=== PATIENT | male | born 1955 | race Caucasian/White ===

== ENCOUNTER 2017-03-24 17:28 | Inpatient (IN) | payer MEDICARE, MEDICAID ==
[~2017-03-24] VITALS: Ht 193 cm; Wt 154.5 kg
[2017-03-24] MEDS ORDERED: PRAV40TA2 PO (18:08)
[2017-03-24] MEDS ORDERED: HYDR50TA70 PO (18:08)
[2017-03-24] MEDS ORDERED: ALLO100T PO (18:08)
[2017-03-24] MEDS ORDERED: SERT25TA PO (18:08)
[2017-03-24] MEDS ORDERED: CENTTAB PO (18:08)
[2017-03-24] MEDS ORDERED: FERR325T3 PO (18:08)
[2017-03-24] MEDS ORDERED: SPIR12.9 INH (18:08)
[2017-03-24] MEDS ORDERED: ROPI2TAB PO (18:08)
[2017-03-24] MEDS ORDERED: OMEP10CASR PO (18:08)
[2017-03-24] MEDS ORDERED: Fiber PO (18:08)
[2017-03-24] MEDS ORDERED: MAGN400C2 PO (18:08)
[2017-03-24] MEDS ORDERED: VITA500T3 PO (18:08)
[2017-03-24] MEDS ORDERED: ROPI1TAB PO (18:08)
[2017-03-24] MEDS ORDERED: ASPI81TA85 PO (18:08)
[2017-03-24] MEDS ORDERED: CARV6.25 PO (18:08)
[2017-03-24] MEDS ORDERED: BREO1INH3 INH (18:08)
[2017-03-24 18:57] LABS: BASO # 0.1 K/mm3 (0.0-0.2); BASO % 0.6 % (0.0-1.0); EOS # 0.1 K/mm3 (0.0-0.50); EOS % 0.6 % (0.0-3.0); LARGE UNSTAINED CELL # 0.1 K/mm3 (0.0-0.4); LYMPH # 0.9 K/mm3 (1.5-4.5); LYMPH % 6.6 % (24.0-44.0); MEAN CORPUSCULAR HEMOGLOBIN 33.6 pg (27.0-33.0); MEAN CORPUSCULAR HGB CONC 34.6 g/dl (32.0-36.5); MONO # 0.7 K/mm3 (0.0-0.8); MONO % 5.1 % (0.0-5.0); NEUTROPHILS # 11.2 K/mm3 (1.8-7.7); NEUTROPHILS % 86.1 % (36.0-66.0); PLATELET COUNT, AUTOMATED 184 k/mm3 (150-450); RED CELL DISTRIBUTION WIDTH 15.1 % (11.5-14.5)
--- NOTE | 2017-03-24 19:39 | REP ---
CHEST AP LATERAL: 03/24/2017. Comparison: 08/25/2016, 08/13/2016. Clinical history: SIRS. Findings: Diffuse increased interstitial markings again seen. Lesser degree of inflation appears to be more vascular congestion today with engorgement of the veins. Elevated left diaphragm again seen. Basilar fibro atelectatic change, left greater than right. Small effusions difficult to exclude. Heart size difficult to run lead on AP hypoinflated exam. The aorta is calcified, tortuous and unchanged. Airway intact. Bony thorax shows no acute compression deformity. Impression: 1. Diffuse interstitial lung changes but with new or increased pulmonary venous hypertension and vascular congestion. Small effusions difficult to exclude. There is basilar fibro atelectatic change. No yefri edema. Early interstitial edema difficult to exclude. 2. Tortuous calcified aorta, stable. Signed by Richie Escalona MD 03/25/2017 10:45 A
[2017-03-24] MEDS ORDERED: FIBE625T22 PO (19:41)
[2017-03-24] MEDS ORDERED: ZYLO300T4 PO (19:42)
[2017-03-24 19:52] LABS: ALBUMIN 3.8 GM/DL (3.2-5.2); ALBUMIN/GLOBULIN RATIO 1.03 (1.00-1.93); ALKALINE PHOSPHATASE 70 U/L (45-117); ALT/SGPT 52 U/L (12-78); ANION GAP 9 MEQ/L (8-16); AST/SGOT 32 U/L (15-37); BILIRUBIN,DIRECT 0.2 MG/DL (0.0-0.2); BILIRUBIN,TOTAL 0.6 MG/DL (0.2-1.0); BLOOD UREA NITROGEN 19 MG/DL (7-18); CALCIUM LEVEL 9.5 MG/DL (8.8-10.2); CARBON DIOXIDE LEVEL 27 MEQ/L (21-32); CHLORIDE LEVEL 101 MEQ/L (98-107); CREATININE FOR GFR 1.11 MG/DL (0.70-1.30); GLOMERULAR FILTRATION RATE > 60.0 (>49); GLUCOSE, FASTING 109 MG/DL (80-110); POTASSIUM SERUM 4.2 MEQ/L (3.5-5.1); SODIUM LEVEL 137 MEQ/L (136-145); TOTAL PROTEIN 7.5 GM/DL (6.4-8.2)
--- NOTE | 2017-03-24 19:53 | ECGEPIP ---
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
[2017-03-24] MEDS ORDERED: NS 1,000 ML IV ONE (20:00)
[2017-03-24 20:31] LABS: ABG BASE EXCESS 2.1 (-2.0-2.0); ABG HCO3 26.2 MEQ/L (22.0-26.0); ABG PARTIAL PRESSURE CO2 39.2 mmHg (35.0-45.0); ABG STANDARD HCO3 26.3 MEQ/L (22.0-26.0); ABG TOTAL CO2 27.4 MEQ/L (23.0-31.0); ABG pH (ARTERIAL) 7.443 UNITS (7.350-7.450)
[2017-03-24] MEDS ORDERED: ACETAMINOPHEN TAB 650MG DOSE (2X325MG) PO PRN (21:15)
[2017-03-24] MEDS ORDERED: ONDANSETRON 4MG/2ML VIAL (J2405) IV PRN (21:15)
[2017-03-24] MEDS ORDERED: PERCOCET 5MG/325MG TAB PO PRN (21:15)
[2017-03-24] MEDS ORDERED: hydrOXYzine 50 MG TAB PO PRN (21:15)
[2017-03-24] MEDS ORDERED: FUROSEMIDE 40 MG/4 ML VIAL (J1940) IV ONE (21:30)
[2017-03-24] MEDS ORDERED: IPRATROPIUM 0.5MG/ALBUTEROL 2.5MG INH SOL UD 3ML (DUONEB)(J7620) NEB PRN (21:30)
[2017-03-24] MEDS: CARVedilol 6.25 MG TAB PO SCH (21:55)
[2017-03-24] MEDS: guaiFENesin ER 600 MG TAB PO SCH (21:55)
[2017-03-24] MEDS: rOPINIRole 1MG TAB PO SCH (21:56)
[2017-03-24] MEDS: SENOKOT S TAB PO SCH (21:57)
[2017-03-24] MEDS: SERTRALINE HCL 25 MG TABLET PO SCH (21:57)
[2017-03-24] MEDS: SYMBICORT 160/4.5MCG INHALER 6GM INH SCH (21:58)
[2017-03-24] MEDS: LevoFLOXacin IV 750 MG in APPROPRIATE DILUENT 1 EA IV SCH (21:59)
[2017-03-24] MEDS: HEPARIN SOD (PORCINE) 5000 UNITS/ML VIAL SC SCH (21:59)
[2017-03-24] MEDS ORDERED: methylPREDNISolone INJ 125 MG/2 ML VIAL (J2930) IV SCH (22:00)
--- NOTE | 2017-03-24 22:40 | REPUSA ---
CT of the chest without contrast Clinical statement: Shortness of breath. Technique: Multiple axial CT images were obtained with 5 mm cuts through the chest without administra tion of contrast. No comparison is available. Findings: There is no thoracic lymphadenopathy. The visualized portions of the thyroid gland demonstr ates a 1 cm low attenuation lesion in the right lobe. There are no pericardial or pleural effusions. There is linear atelectasis in the lower lungs bilaterally. There is a reticulonodular infiltrate in the left lower lobe. Limited imaging of the upper abdomen does not demonstrate any acute abnormalitie s. There are diffuse low attenuation changes throughout the hepatic parenchyma. There are no suspicio us osseous lesions. Impression: 1. Reticulonodular left lower lobe infiltrate suspicious for pneumonia. 2. Linear atelectasis in the lower lungs bilaterally. 3. 1 cm nodule in the lower right lobe of the thyroid gland. 4. Fatty infiltration of the liver.
[2017-03-24] MEDS ORDERED: VANCOMYCIN HCL 1,000 MG, VIAL MATE ADAPTER 1 EACH in D5W 250 ML IV ONE (23:00)
--- NOTE | 2017-03-24 23:25 | PHACANCOPD ---
PHARMACY VANCOMYCIN DOSING Pt Demographics Demographics Patient Age:61 , Weight:145.000 , Gender: male Adjusted Body Weight Date: 03/24/17, Adjusted Body Weight: [110] Kg Events Past 24 Hours Events Past 24 Hours: NO: Dialysis, Diuretic Therapy, Change in CrCl, Fever, Elevation in WBC, Pending Diagnostics, Pending Procedures, Other Vancomycin Vancomycin Target Ranges: 15-20 mcg/ml Vancomycin Load Y/N: Yes Load Dose Date Time Vancomycin Load Dose: 2000MG Date: 03-25 Time: 0000 Vancomycin Dose Date: 03/24/17. Current Vancomycin Dose: [1000MG Q8H] Intermittent Dosing?: No Labs Labs Item Value Date Time White Blood Count 13.0 K/mm3 H 03/24/17 1819 Creatinine 1.11 MG/DL 03/24/17 190 Blood Urea Nitrogen 19 MG/DL H 03/24/17 1909 Vital Signs Label Value Date Time Patient Temperature 99.1 degrees F 03/24/17 2210 Temperature Source Oral 03/24/17 2210 Micro Microbiology 03/24/17 Blood Culture, Received Pending 03/24/17 Blood Culture, Received Pending 03/24/17 MRSA Screen, Received Pending 03/24/17 Respiratory Virus Panel (PCR) (FLY), Received Pending 03/24/17 Urine Culture, Received Pending Creatinine Clearance Date:03/24/17. Creatinine Clearance: [83]. Pending Labs Trough 07-20 @ 1500 Assessment and Plan Maintaining Current Dose?: Yes Reason for dose change: No Dose Change Pharmacist Note Pharmacist Note Date: 03/24/17. Pharmacist note:Dosed at 1000mg q8h with a trough ordered for 07- 20 @1500. Will continue to monitor and make adjustments as needed. NIKOLAS [facility] Mar 24, 2017 23:25
[2017-03-24] MEDS ORDERED: SLF 3 ML SYR IV PRN (23:45)
[2017-03-24 23:59] VITALS: BP 130/86
[2017-03-25] VITALS (22 sets, daily range): BP systolic 131–159; BP diastolic 80–92; O2SAT 92–98
[2017-03-25] MEDS: IPRATROPIUM 0.5MG/ALBUTEROL 2.5MG INH SOL UD 3ML (DUONEB)(J7620) NEB SCH ×4 (01:17→19:12)
[2017-03-25] MEDS: VANCOMYCIN HCL 1,000 MG, VIAL MATE ADAPTER 1 EACH in D5W 250 ML IV SCH ×3 (02:08→16:27)
[2017-03-25] MEDS: CEFEPIME HCL 1 GM in D5W MINI-BAG PLUS 50 ML IV SCH ×2 (04:12→13:56)
[2017-03-25] MEDS ORDERED: methylPREDNISolone INJ 40 MG/1 ML VIAL (J2920) IV SCH (05:04)
[2017-03-25] MEDS: methylPREDNISolone INJ 40 MG/1 ML VIAL (J2920) IV SCH ×3 (05:12→21:00)
[2017-03-25] MEDS: HEPARIN SOD (PORCINE) 5000 UNITS/ML VIAL SC SCH ×3 (05:12→21:00)
[2017-03-25] MEDS: SLF 3 ML SYR IV SCH ×3 (05:13→21:00)
[2017-03-25 05:40] LABS: BASO % 0.2 % (0.0-1.0); EOS # 0.2 K/mm3 (0.0-0.50); EOS % 1.2 % (0.0-3.0); LARGE UNSTAINED CELL # 0.1 K/mm3 (0.0-0.4); LARGE UNSTAINED CELL % 0.5 % (0.0-4.0); LYMPH # 0.6 K/mm3 (1.5-4.5); LYMPH % 4.8 % (24.0-44.0); MEAN CORPUSCULAR HEMOGLOBIN 32.7 pg (27.0-33.0); MEAN CORPUSCULAR HGB CONC 33.5 g/dl (32.0-36.5); MEAN CORPUSCULAR VOLUME 97.6 fl (80.0-96.0); MONO # 0.2 K/mm3 (0.0-0.8); MONO % 1.9 % (0.0-5.0); NEUTROPHILS # 10.9 K/mm3 (1.8-7.7); NEUTROPHILS % 91.4 % (36.0-66.0); PLATELET COUNT, AUTOMATED 165 k/mm3 (150-450); RED CELL DISTRIBUTION WIDTH 15.4 % (11.5-14.5); WHITE BLOOD COUNT 11.9 K/mm3 (4.0-10.0)
[2017-03-25 05:54] LABS: ALBUMIN 3.4 GM/DL (3.2-5.2); ALBUMIN/GLOBULIN RATIO 0.87 (1.00-1.93); BILIRUBIN,TOTAL 0.8 MG/DL (0.2-1.0); CALCIUM LEVEL 9.2 MG/DL (8.8-10.2); CREATININE FOR GFR 1.46 MG/DL (0.70-1.30); GLOMERULAR FILTRATION RATE 51.9 (>49); MAGNESIUM LEVEL 1.7 MG/DL (1.8-2.4); POTASSIUM SERUM 4.3 MEQ/L (3.5-5.1); TOTAL PROTEIN 7.3 GM/DL (6.4-8.2)
[2017-03-25] MEDS: SYMBICORT 160/4.5MCG INHALER 6GM INH SCH ×2 (07:25→20:08)
[2017-03-25] MEDS: TIOTROPIUM INHALER/CAPSULE (SPIRIVA) INH SCH (07:25)
--- NOTE | 2017-03-25 09:36 | REP ---
Renal ultrasound: The patient has a history of lung and right renal carcinoma and a right nephrectomy. There is no identifiable right kidney, compatible with the clinical history. The left kidney is normal size to mildly hypertrophied, possibly compensatory hypertrophy, measuring 14 20 x 7.4 x 6.6 cm. Renal cortical echogenicity is normal. There is no hydronephrosis, calculus, mass or cyst. The bladder is nondistended and cannot be evaluated. Impression: Essentially negative left kidney except for possible mild compensatory hypertrophy. There is a right nephrectomy. Signed by Claus Asher MD 03/25/2017 09:28 A
[2017-03-25] MEDS: PRAVASTATIN 20 MG TAB PO SCH (09:59)
[2017-03-25] MEDS: FERROUS SULFATE 325MG TAB PO SCH (09:59)
[2017-03-25] MEDS: CYANOCOBALAMIN 500 MCG TAB PO SCH (09:59)
[2017-03-25] MEDS: CARVedilol 6.25 MG TAB PO SCH ×2 (10:00→20:29)
[2017-03-25] MEDS: guaiFENesin ER 600 MG TAB PO SCH ×2 (10:00→20:29)
[2017-03-25] MEDS: ASPIRIN 81 MG ENTERIC TAB PO SCH (10:00)
[2017-03-25] MEDS: SENOKOT S TAB PO SCH ×2 (10:01→20:29)
[2017-03-25] MEDS: MULTIVITAMINS/MINERALS THERAP 1 TAB PO SCH (10:01)
[2017-03-25] MEDS: ALLOPURINOL 300 MG TAB PO SCH (10:32)
[2017-03-25] MEDS: FIBER-CON 625 MG TAB PO SCH (11:49)
[2017-03-25] MEDS: rOPINIRole 1MG TAB PO SCH ×2 (11:49→21:00)
--- NOTE | 2017-03-25 16:38 | IPN ---
DATE: 03/25/2017 Mr. Young is feeling better this morning. There is no fever, no chills. He still has a cough. He is not particularly short of breath. No chest pain. Temperature 95, pulse 86, respiratory rate 22, blood pressure 127/80, 93% on 3 liters nasal cannula. Intake and output is notable for a positive fluid balance of 1150. No bowel movements. Weight is 154 kg with a body mass index of 41.4. He is awake, appropriately interactive, pleasantly conversant. Breathing is symmetrical. I:E ratio is 1:3. Some faint crackles in the left lower lobe. My assessment is as follows: This is a 61-year-old with community-acquired pneumonia who has a history of chronic hypoxic respiratory failure and pseudomonas. Plan will be as follows: 1. Infectious disease. The patient is continued on treatment for pneumonia with pseudomonal coverage. Await sputum and blood culture results. The patient appears to be improving. 2. The patient has history of obstructive sleep apnea (ANTWAN). 3. The patient has history of lung cancer. 4. The patient has hypomagnesemia which will be monitored clinically. 5. The patient has developing acute renal failure. Ultrasound done today shows no evidence of obstruction. He does have a solitary kidney. This could have been made worse with the use of Lasix and the patient is also on vancomycin. The pharmacy is suggesting vancomycin dosing. 6. The patient has deep venous thrombosis (DVT) prophylaxis in the form of subcutaneous heparin. 7. Please note my dictation is somewhat limited as the history and physical (H and P) at the time of admission has still not been transcribed.
--- NOTE | 2017-03-25 18:18 | HPE ---
DATE OF ADMISSION: 03/24/2017 PRIMARY CARE PHYSICIAN: Dr. Bruner PAINTLESS DENT REPAIR TECHNICIAN: Dr. Patel GRISTMILL OPERATOR: Dr. Artis THORACIC SURGEON: Dr. Yang CHIEF COMPLAINT: Shortness of breath, increased coughing, weakness. HISTORY OF PRESENT ILLNESS: Mr. Young is a 61-year-old male with multiple past medical history who presented to emergency room (ER) due to experiencing shortness of breath, increased cough, as well as weakness and bilateral chest pain, which started this afternoon. Patient expressed that all the symptoms started at the same time. Patient expressed that he lives [facility] the [facility]. He cannot remember if he had any sick contacts; however, he noticed that this afternoon his cough has increased, and he had a few episodes of productive cough. Also he felt bilateral chest pain with no radiation of the pain, mostly on the upper chest that started at the same time. Patient also felt that he needed more oxygen due to dyspnea. Patient was brought by his daughter. Patient feels fatigue in both upper and lower extremities and tiredness. Patient also felt warm. ALLERGIES: HEXACHLOROPHENE causes rash. PAST MEDICAL HISTORY: 1. Emphysema. 2. Left lower lobe pneumonia. 3. Chronic obstructive pulmonary disease (COPD). Patient is on breathing treatment. 4. Sleep apnea, on continuous positive airway pressure (CPAP) with 3 liters oxygen at night. 5. Gout. 6. Hypertension. 7. Chronic kidney insufficiency. 8. History of liposarcoma and partial colon, right kidney, and right adrenal gland resection. 9. 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 10. Stage IA lung cancer, right lower lobe, treated with stereotactic body radiation therapy treatment of squamous cell carcinoma with differential morphology. 11. Torsades de pointes, which has resolved. PAST SURGICAL HISTORY: 1. Liposarcoma, resection of the right kidney and right adrenal gland resection. 2. Right lower lobe radiation. 3. Left upper lobectomy secondary to lung cancer. 4. Cholecystectomy. 5. Tonsillectomy. 6. Chest tube. HOME MEDICATIONS: - allopurinol 300 mg by mouth daily - aspirin 81 mg by mouth daily - fiber 625 mg by mouth twice a day - carvedilol 6.25 mg by mouth twice a day - vitamin B12 at 500 mcg by mouth daily - ferrous sulfate 325 mg by mouth daily - Breo Ellipta one puff inhaler daily - hydroxyzine 50 mg by mouth at bedtime as needed anxiety - magnesium 400 mg by mouth daily - multivitamin one tablet by mouth daily - Prilosec 20 mg by mouth daily - pravastatin 20 mg by mouth daily - ropinirole hydrochloride 1 mg by mouth daily - ropinirole hydrochloride 2 mg by mouth at bedtime - sertraline 25 mg by mouth at bedtime - Spiriva two inhalations daily FAMILY HISTORY: Patient's mother due to diabetes mellitus with liver cancer. Patient's father due to emphysema and heart disease. Patient has three children who are healthy. Patient has two sisters who . Patient's older sister due to amyotrophic lateral sclerosis (ALS) and Parkinson's. Patient's younger sister due to unknown cancer. SOCIAL HISTORY: Patient denies illicit drug use or alcohol usage. Patient quit smoking 3 years ago; however, before that patient had history of 50 years of smoking about one and one-half packs per day. Patient denies recent travel or sick contacts. Patient lives alone. Patient has one cat. 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 Patient is retired. Patient lives in [facility]. REVIEW OF SYSTEMS: GENERAL: Patient expressed that he felt warm and has chills; however, patient denies night sweats. Patient denies weight loss or weight gain. HEENT: Patient denies blurry vision, lightheadedness, or dizziness; however, patient denies acute vision or hearing changes. Patient denies problem chewing food or sinusitis. NECK: Patient denies lumps, bumps, or decreased range of motion of his neck. HEART: Patient expressed that he has bilateral chest pain, which started suddenly, with no radiation. Patient denies palpitations, racing or skipping heartbeat. LUNGS: Patient has increased cough as well as shortness of breath. Patient expressed that the cough is sometimes productive with white sputum. ABDOMEN: Patient denies abdominal pain, nausea, vomiting, diarrhea, constipation , melena, hematochezia, hemoptysis. NEUROLOGIC: Patient has a history of cerebrovascular accident (CVA)/transient ischemic attack (TIA); however, patient denies history of seizure-type activities. PHYSICAL EXAMINATION: VITAL SIGNS: Temperature 101.4, p pulse 119, respiratory rate 24, blood pressure 138/84, pulse oximetry 90 on room air. GENERAL APPEARANCE: Patient was lying in bed in no acute distress. Patient was awake, alert, and oriented to time, place, and person. HEENT: Normocephalic, atraumatic. Pupils are equal and reactive to light. Oral mucosa is moist. Patient started to be on 2 liters then increased to 4 liters nasal cannula. NECK: Soft, supple. No lymphadenopathy. No thyromegaly. No jugular venous distention (JVD). HEART: Tachycardia. Normal S1, S2. ABDOMEN: Soft, nontender. Positive bowel sounds in all quadrants. Morbidly obese. LUNGS: Patient has decreased lung sounds on the right hemithorax compared to the left. Patient has scattered rhonchi bilaterally. EXTREMITIES: Patient has no lower extremity edema; however, patient has decreased range of motion due to feeling fatigue and out of breath. Patient has loss of sensation in his feet bilaterally. NEUROLOGIC: Cranial nerves II-XII were intact. No focal deficiencies. LABORATORY DATA: White blood cells 13, red blood cells 4.33, hemoglobin 14.6, hematocrit 42, MCV 97, MCH 33.6, MCHC 34.6, RDW 15.1, platelet count 184, neutrophil percentage 86.1, lymphocyte percentage 6.6, monocyte percentage 5.1, eosinophil percentage 0.6, basophil percentage 0.6, leukocyte percentage 1. Bicarbonate 26.3. ABG pH 7.443, ABG pCO2 of 39.2, ABG pO2 of 82, ABG hCO3 of 26.2, ABG total CO2 of 27.4, ABG oxygen saturation 95.6, ABG base excess 2.1. D-dimer 562.6. Sodium 137, potassium 4.2, chloride 101, carbon dioxide 27, anion gap 9, BUN 19, creatinine 1.11, glomerular filtration rate more than 60, fasting glucose 109, lactic acid 2.5, calcium 9.5, total bilirubin 0.6, direct bilirubin 0.2, AST 32, ALT 52, alkaline phosphatase 70. C-reactive protein quantitative, pending. BNP 27.8. Total protein 7.5, albumin 3.8. Urine color yellow. Urine appearance clear. Urine pH 5, urine specific gravity 1.013, urine protein 2+, urine glucose negative, urine ketone negative, urine blood 1+, urine nitrite negative, urine bilirubin negative, urobilinogen 0.2, urine leukocyte esterase negative, urine white blood cells, urine red blood cells 1, urine hyalin casts 0, urine bacteria negative, urine squamous epithelial cells 0. Urine culture is pending. Blood cultures pending. Chest x-ray: Diffuse interstitial lung changes but with new or increased pulmonary venous hypertension and vascular congestion. A small effusion difficult to exclude. There are bibasilar fibroatelectasis changes. No yefri edema. Early interstitial edema difficult to exclude. Tortuous calcified aorta, stable. ASSESSMENT AND PLAN: 1. Possible pneumonia. On the previous sputum culture, patient has methicillin-resistant Staphylococcus aureus (MRSA) as well as Pseudomonas aeruginosa; therefore, at this point we have started patient on Levaquin, cefepime, and vancomycin. Also D-dimer has elevated; however, patient does not have a presentation for pulmonary embolism (PE), and we believe that the source of his discomfort is the infection; however, we have ordered CT of the chest without contrast, since patient expressed that the last time when he had contrast, he developed increase of creatinine as a side effect to the contrast. Also we have ordered respiratory panel as well as sputum Gram stain and culture, and the result is pending as well as blood culture. We will continue monitoring patient for any abnormal symptoms. 2. Diastolic congestive heart failure. Patient's recent echocardiogram indicated patient has grade 1 diastolic congestive heart failure. At this time we will continue patient on carvedilol 6.25 mg by mouth daily twice a day. Patient is not on any diuretics at this time. 3. History of transaminitis; however, it has resolved. At this time, patient's liver function is normal. 4. Sleep apnea. Patient is on continuous positive airway pressure (CPAP) with 3 liters oxygen at night. We hae requested that patient's daughter bring the CPAP to the hospital, and patient may use his CPAP with 3 liters oxygen. 5. Restless leg syndrome. We will continue patient on ropinirole. 6. History of cerebrovascular accident. Patient is on aspirin as well as beta riddhi. Patient also is on pravastatin sodium 20 mg by mouth daily. 7. Anxiety and depression. Patient is on Zoloft as well as Atarax 50 mg at bedtime by mouth as needed for anxiety. 8. Deep vein thrombosis (DVT) prophylaxis. Patient is on heparin. 9. Iron deficiency. We will continue patient on ferrous sulfate. 10. Vitamin B12 deficiency. Patient is on cyanocobalamin 500 mcg by mouth daily. 11. History of gout. Patient is on allopurinol 300 mg by mouth daily. My preceptor for this patient encounter was Dr. Heidi Castle. The preceptor was physically present in the building during the encounter and was fully available as needed. All aspects of the patient interview, examination, medical decision making process, and medical care plan development were reviewed and approved by the preceptor. The preceptor is aware and concurs with the plan as stated in the body of this note and will attest to such by his/her co-signature. I have both independently examined this patient as well as reviewed the H&P. I have discussed in detail with the resident the findings and plan of treatment as documented in the residents note. I will continue to follow the patient and offer further guidance to the patients care as necessary during this hospital stay. Heidi RODRIGUES
[2017-03-25] MEDS: SERTRALINE HCL 25 MG TABLET PO SCH (20:29)
[2017-03-25] MEDS: LevoFLOXacin IV 750 MG in APPROPRIATE DILUENT 1 EA IV SCH (20:59)
[2017-03-25] MEDS ORDERED: SERTRALINE HCL 25 MG TABLET PO SCH (21:00)
[2017-03-25] MEDS ORDERED: rOPINIRole 1MG TAB PO SCH (21:00)
[2017-03-26] VITALS (11 sets, daily range): BP systolic 141–192; BP diastolic 84–91; O2SAT 92–95
[2017-03-26] MEDS: VANCOMYCIN HCL 1,000 MG, VIAL MATE ADAPTER 1 EACH in D5W 250 ML IV SCH ×2 (00:28→08:39)
[2017-03-26] MEDS: IPRATROPIUM 0.5MG/ALBUTEROL 2.5MG INH SOL UD 3ML (DUONEB)(J7620) NEB SCH ×3 (02:23→13:30)
[2017-03-26] MEDS: CEFEPIME HCL 1 GM in D5W MINI-BAG PLUS 50 ML IV SCH ×2 (03:32→14:00)
[2017-03-26] MEDS: HEPARIN SOD (PORCINE) 5000 UNITS/ML VIAL SC SCH ×2 (05:18→14:00)
[2017-03-26] MEDS: SLF 3 ML SYR IV SCH ×2 (05:18→14:00)
[2017-03-26] MEDS: methylPREDNISolone INJ 40 MG/1 ML VIAL (J2920) IV SCH ×2 (05:18→14:00)
[2017-03-26 05:51] LABS: BASO % 0.3 % (0.0-1.0); EOS # 0.1 K/mm3 (0.0-0.50); EOS % 0.4 % (0.0-3.0); LARGE UNSTAINED CELL # 0.1 K/mm3 (0.0-0.4); LARGE UNSTAINED CELL % 0.7 % (0.0-4.0); LYMPH # 0.5 K/mm3 (1.5-4.5); LYMPH % 2.7 % (24.0-44.0); MEAN CORPUSCULAR HEMOGLOBIN 33.2 pg (27.0-33.0); MEAN CORPUSCULAR HGB CONC 33.7 g/dl (32.0-36.5); MEAN CORPUSCULAR VOLUME 98.4 fl (80.0-96.0); MONO # 0.7 K/mm3 (0.0-0.8); MONO % 3.9 % (0.0-5.0); NEUTROPHILS # 17.4 K/mm3 (1.8-7.7); PLATELET COUNT, AUTOMATED 199 k/mm3 (150-450); RED CELL DISTRIBUTION WIDTH 14.9 % (11.5-14.5); WHITE BLOOD COUNT 18.9 K/mm3 (4.0-10.0)
[2017-03-26 06:08] LABS: ALBUMIN 3.1 GM/DL (3.2-5.2); ALBUMIN/GLOBULIN RATIO 0.82 (1.00-1.93); ALKALINE PHOSPHATASE 74 U/L (45-117); ALT/SGPT 45 U/L (12-78); ANION GAP 9 MEQ/L (8-16); AST/SGOT 19 U/L (15-37); BILIRUBIN,TOTAL 0.4 MG/DL (0.2-1.0); BLOOD UREA NITROGEN 34 MG/DL (7-18); CALCIUM LEVEL 9.3 MG/DL (8.8-10.2); CARBON DIOXIDE LEVEL 25 MEQ/L (21-32); CHLORIDE LEVEL 102 MEQ/L (98-107); CREATININE FOR GFR 1.24 MG/DL (0.70-1.30); GLOMERULAR FILTRATION RATE > 60.0 (>49); GLUCOSE, FASTING 254 MG/DL (80-110); MAGNESIUM LEVEL 1.9 MG/DL (1.8-2.4); POTASSIUM SERUM 4.3 MEQ/L (3.5-5.1); SODIUM LEVEL 136 MEQ/L (136-145); TOTAL PROTEIN 6.9 GM/DL (6.4-8.2)
[2017-03-26] MEDS: SYMBICORT 160/4.5MCG INHALER 6GM INH SCH (07:10)
[2017-03-26] MEDS: TIOTROPIUM INHALER/CAPSULE (SPIRIVA) INH SCH (07:10)
[2017-03-26] MEDS: PRAVASTATIN 20 MG TAB PO SCH (08:39)
[2017-03-26] MEDS: FIBER-CON 625 MG TAB PO SCH (08:39)
[2017-03-26] MEDS: SENOKOT S TAB PO SCH (08:40)
[2017-03-26] MEDS: MULTIVITAMINS/MINERALS THERAP 1 TAB PO SCH (08:40)
[2017-03-26] MEDS: CARVedilol 6.25 MG TAB PO SCH (08:40)
[2017-03-26] MEDS: guaiFENesin ER 600 MG TAB PO SCH (08:40)
[2017-03-26] MEDS: FERROUS SULFATE 325MG TAB PO SCH (08:40)
[2017-03-26] MEDS: CYANOCOBALAMIN 500 MCG TAB PO SCH (08:40)
[2017-03-26] MEDS: rOPINIRole 1MG TAB PO SCH (08:40)
[2017-03-26] MEDS: ALLOPURINOL 300 MG TAB PO SCH (08:40)
[2017-03-26] MEDS: ASPIRIN 81 MG ENTERIC TAB PO SCH (08:40)
--- NOTE | 2017-03-26 13:21 | CR ---
DATE OF CONSULTATION: 03/26/2017 Time patient was seen was at 11:30 CONSULTING PHYSICIAN: Dr. Nieves DRY TRANSFER WORKER: Dr. Artis REASON FOR CONSULTATION: Severe chronic obstructive pulmonary disease (COPD) with pneumonia. 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 Per patient, it started two days ago. He also has had increased sputum production. The patient stated that the shortness of breath was both exertional and at rest. Otherwise, the patient denies any abdominal pain, nausea, vomiting, diarrhea, constipation. ALLERGIES: The patient is allergic to HEXACHLOROPHENE. PAST MEDICAL HISTORY: 1. Severe COPD, Gold stage IV emphysema. 2. Obstructive sleep apnea on continuous positive airway pressure (CPAP) of 8 mmHg without oxygen. PAST SURGICAL HISTORY: Includes: 1. Liposarcoma status post resection of right kidney, right adrenal gland. 2. Right lower lobe of the lung radiation. 3. Left upper lobectomy of the lung secondary to lung cancer. 4. Cholecystectomy. 5. Tonsillectomy. 6. Chest tube placement. HOME MEDICATIONS: Include: - Zyloprim 300 mg one tablet by mouth daily - aspirin 81 mg one tablet by mouth daily - fiber 625 mg one tablet by mouth daily - Carvedilol 6.25 mg one tablet by mouth twice a day - vitamin B12 500 mcg one tablet by mouth daily - ferrous sulfate 325 mg one tablet by mouth daily - Breo 225 mcg one puff inhalation daily - hydroxyzine 15 mg one tablet by mouth at night as needed - magnesium 400 mg one tablet by mouth daily - multivitamin one tablet by mouth daily - omeprazole 20 mg by mouth daily - pravastatin 20 mg one tablet by mouth daily - ropinirole 1 mg one tablet by mouth daily - ropinirole 2 mg one tablet by mouth at night - sertraline 25 mg one tablet by mouth at night - Spiriva two inhalations daily SOCIAL HISTORY: The patient denies any drinking or recreational drug use. The patient quit smoking three years ago; however, in the past he had been smoking for about 50 years for about 1-1/2 packs per day. Denies any recent traveling, sick contacts. The patient has one cat. 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 He is currently retired and lives in an assisted living in a custodial community. REVIEW OF SYSTEMS: GENERAL: The patient admits to some fever and chills. Denies any night sweats, weight loss. Denies any recent traveling or sick contacts. Positive for headache HEENT: The patient denies any changes with vision, smell, hearing or taste. CARDIOVASCULAR: Admits to bilateral chest pain, which started suddenly without radiation. Denies any palpitations. Admits to trouble breathing. PULMONARY: Admits to increased coughing and also shortness of breath. Admits to whitish sputum production. GI: Denies any abdominal pain, nausea, vomiting, diarrhea, constipation. Denies any blood in the stool. GENITOURINARY: No polyuria, no dysuria. no urgency. No hematuria HEMATOLOGY/ONCOLOGY: Denies any easy bruising or any bleeding anywhere. NEUROLOGIC: Denies any weakness on any one side of his body. No head trauma, no seizure activity Psych: Positive for depression but no suicidal ideation, no psychosis Sleep: compliant with c-pap with good palliation of excessive daytime sleepiness, No morning headaches. Endo: Not hot or cold intolerance. No hair loss. PHYSICAL EXAMINATION: VITAL SIGNS: Temperature 96.9, pulse 87, respiratory rate 20, blood pressure 151/87, oxygen saturation 97% on 3 liters nasal cannula. GENERAL: The patient is obese, elderly male who was alert, awake, and oriented times three. Does not appear to be in distress. Resting comfortably in his wheelchair. HEENT: Normocephalic, atraumatic. Extraocular motors intact. Mucosa moist. Neck supple. No neck lymphadenopathy. The patient does have a short neck. CARDIOVASCULAR: Regular rate and rhythm. Distant heart sounds due to increased AP diameter. LUNGS: Anterior breath were clear with prolonged expiratory phase. There was slight wheezing posteriorly bilaterally, more on the left side. There is increased AP diameter. ABDOMEN: Positive bowel sounds. Soft, nontender, nondistended. There are no peritoneal signs. No ecchymosis. No discernible hepatosplenomegaly. No mass. EXTREMITIES: No edema, clubbing or cyanosis. SKIN: Warm and dry. No rashes, jaundice or bruising. NEUROLOGIC: Cranial nerves II through XII intact. No focal neurological deficits. LABORATORY DATA: WBC 18.9, hemoglobin 13, hematocrit 38.9 with a platelet count of 199 and MCV of 98.4. Sodium 176, potassium 4.3, chloride 102, carbon dioxide 95, BUN 34, creatinine 1.24, GFR greater than 60, fasting glucose 254, magnesium 1.9, C-reactive protein 7.96. WBC 18.9, hemoglobin 13.1, hematocrit 33.9 with a platelet count of 199 and MCV of 98.4. The patient's nasopharynx nasal swab shows methicillin resistant Staphylococcus aureus (MRSA). The patient's sputum culture and gram-stain shows many gram-positive cocci in pairs, chains and clusters. Moderate gram-positive rods. Blood culture times two has been negative after three days. The patient had a CT of the chest without contrast that shows reticulonodular left lower lobe infiltrate suspicious for pneumonia and linear atelectasis in the lower lungs bilaterally. 1 cm nodule in the right lobe of the thyroid gland. Also fatty infiltrate of the liver. No masses were noted in the lung petersen. The patient also had a PA and lateral chest x-ray three days ago that showed diffuse interstitial lung changes, new or increased pulmonary venous hypertension or vascular congestion, small effusion difficult to exclude. ASSESSMENT AND PLAN: 61-year-old male with multiple comorbidities, most significantly for his severe COPD, Gold stage III, and also obstructive sleep apnea on CPAP of 8, who presented with: 1. Left lower lobe pneumonia. The patient is positive for methicillin resistant Staphylococcus aureus (MRSA) on the nasal swab. The patient's sputum culture also shows many gram-positive cocci in pairs, chains and clusters, and also moderate gram-positive rods. At this point, we believe that we can deescalate the patient's antibiotics. Discontinue cefepime, vancomycin and Levofloxacin. The patient can be started on doxycycline as his last sputum that was MRSA positive was sensitive to bactrim. When the patient goes home, he can be started on oral doxycycline. At this point, the patient looks well. He may be discharged home from pulmonary standpoint, and he should also be tapered off his steroid over time with follow up with me in 2 weeks. 2. Obstructive sleep apnea. On CPAP at night. The patient is concerned about difficulty with his current mask, he prefers the full face mask. We will contact the patient's supplier and help him to receive a proper sized mask. 3. Severe COPD with Gold stage IV at baseline. Continue home medications with Spiriva. The patient has been discussed with attending doctor, Dr. Artis. My preceptor for this patient encounter was Dr. Artis. The preceptor was physically present in the room during the encounter and was fully available. As needed, all aspects of the patient interview, examination, medical decision making process, and medical care plan development were reviewed and approved by the preceptor. The preceptor is aware and concurs with the plan as stated in the body of this note and will attest to such by her cosignature. I, Gabino Artis, conducted and independent history and physical. I agree with the assessment and plan as outlined above. After reviewing culture data and our antibiogram I feel that doxycycline should be adequate coverage with close clinical follow up. The patient has my contact information if should require any assistance after discharge. LILIA
[2017-03-26] MEDS ORDERED: DOXY-278 PO (13:24)
[2017-03-26] MEDS ORDERED: PRED10TA2 PO (13:24)
--- NOTE | 2017-03-28 04:14 | DSES ---
DATE OF ADMISSION: 03/24/2017 DATE OF DISCHARGE: 03/26/2017 Specialists involved in care include Dr. Artis. No complications during his stay. No procedures performed during his stay. DISCHARGE DIAGNOSES: 1. Suspected community-acquired pneumonia. 2. Severe chronic obstructive pulmonary disease (COPD). 3. Obstructive sleep apnea on continuous positive airway pressure (CPAP). 4. Acute renal failure. 5. Hypomagnesemia. 6. History of lung cancer. The following is a summary of his presentation: This is a 61-year-old who presented with 2 days of shortness of breath, fever, chills, cough, and sputum production. He was admitted to the hospitalist service for presumed pneumonia. Was started empirically on broad-spectrum antibiotics, was seen in consultation by Dr. Artis. Antibiotics were de-escalated. Steroids were weaned and he was deemed appropriate for discharge. On the day of discharge, he is feeling well, ambulating without difficulty. Temperature is 96.4, pulse 52, respiratory rate 20, blood pressure 141/84, 97% on 2 liters nasal cannula. Breathing is symmetrical and rested, distant sounding, but poor air entry bilaterally with upper airway sounds, but rested. Speaking in complete sentences. No accessory muscle use. Heart is distant sounding. Abdomen is soft, doughy, nontender. No significant lower extremity edema. Discharge orders include the following: Followup with Dr. Artis within 1 week. Diet and activity as tolerated. - doxycycline 100 mg by mouth twice a day for 10 days - prednisone tapering dose starting with 40 mg twice daily for 3 days, decreasing by half every 3 days - allopurinol 300 mg by mouth daily - aspirin 81 mg by mouth daily - calcium fiber supplement - Coreg 6.25 mg twice daily - vitamin B12 supplement - iron supplement - Breo Ellipta one puff inhaled daily - hydroxyzine 50 mg by mouth daily at bedtime as needed for anxiety - magnesium supplement - multivitamin supplement - pravastatin 20 mg by mouth daily - Requip 1 mg by mouth daily and 2 mg at bedtime - Zoloft 25 mg by mouth daily at bedtime - Spiriva inhaled daily
== END 2017-03-26 15:10 | disposition home or self-care (01) | DRG 190 ==
LOC: M ED 17:28 → M ED INP 21:28 → EEVIPCON 21:28 → M PCU 23:10
PROVIDERS: ADMIT Hospitalist; ATTEND Internal Medicine
DX: J44.0 Chronic obstructive pulmonary disease with (acute) lower respiratory infection (principal); J15.212 Pneumonia due to Methicillin resistant Staphylococcus aureus; I50.32 Chronic diastolic (congestive) heart failure; I13.0 Hypertensive heart and chronic kidney disease with heart failure and stage 1 through stage 4 chronic kidney disease, or unspecified chronic kidney disease; J96.11 Chronic respiratory failure with hypoxia; G47.33 Obstructive sleep apnea (adult) (pediatric); M10.9 Gout, unspecified; N18.9 Chronic kidney disease, unspecified; G25.81 Restless legs syndrome; E83.42 Hypomagnesemia; F41.9 Anxiety disorder, unspecified; F32.9 Major depressive disorder, single episode, unspecified; Z90.49 Acquired absence of other specified parts of digestive tract; Z85.028 Personal history of other malignant neoplasm of stomach; Z92.3 Personal history of irradiation; Z90.2 Acquired absence of lung [part of]; Z85.118 Personal history of other malignant neoplasm of bronchus and lung; Z79.82 Long term (current) use of aspirin; Z79.51 Long term (current) use of inhaled steroids; Z79.899 Other long term (current) drug therapy; Z87.891 Personal history of nicotine dependence; Z86.73 Personal history of transient ischemic attack (TIA), and cerebral infarction without residual deficits

== ENCOUNTER → 2017-04-14 | Outpatient (REF) | payer MEDICARE, MEDICAID ==
[~2017-04-14] MED LIST: ALBU17IN INH; ALLO100T PO; AMMO12CR4 TOP; ASPI81TA85 PO; AVEL1TAB3 PO; BACT800T5 PO; BREO1INH3 INH; CARV6.25 PO; CENTTAB PO; DOXY-278 PO; DOXY100C PO; ELIQ5TAB PO; FERR325T3 PO; FIBE625T22 PO; Fiber PO; GABA-279 PO; GABA-282 PO; HYDR50TA70 PO; IPRASOL4 INH; LINE600T PO; LINE60TAB PO; MAGN400C2 PO; MAGN400T PO; MOXI1TAB PO; OMEP10CASR PO; OMEP20CA3 PO; PRAV20TA2 PO; PRAV40TA2 PO; PRED10TA2 PO; PRED20TA PO; ROPI1TAB PO; ROPI2TAB PO; SERT25TA PO; SPIR12.9 INH; VITA500T3 PO; VITMTA PO; ZYLO300T4 PO
[2017-04-14 19:43] LABS: ANION GAP 10 MEQ/L (8-16); BLOOD UREA NITROGEN 16 MG/DL (7-18); CALCIUM LEVEL 8.9 MG/DL (8.8-10.2); CARBON DIOXIDE LEVEL 28 MEQ/L (21-32); CHLORIDE LEVEL 101 MEQ/L (98-107); CREATININE FOR GFR 1.17 MG/DL (0.70-1.30); GLOMERULAR FILTRATION RATE > 60.0 (>49); GLUCOSE, FASTING 137 MG/DL (80-110); POTASSIUM SERUM 4.2 MEQ/L (3.5-5.1); SODIUM LEVEL 139 MEQ/L (136-145)
== END ==
LOC: M SFHCLERA 11:52
PROVIDERS: ATTEND Family Medicine
DX: R29.898 Other symptoms and signs involving the musculoskeletal system (principal)
CPT/HCPCS: 80048; G0463

== ENCOUNTER 2017-05-17 19:21 | Emergency (ER) | payer MEDICARE, MEDICAID ==
[~2017-05-17] VITALS: Ht 185.4 cm; Wt 151.8 kg
[~2017-05-17 19:21] MED LIST changes: -ALBU17IN INH; -AMMO12CR4 TOP; -AVEL1TAB3 PO; -BACT800T5 PO; -DOXY100C PO; -ELIQ5TAB PO; -GABA-279 PO; -GABA-282 PO; -IPRASOL4 INH; -LINE600T PO; -LINE60TAB PO; -MAGN400T PO; -MOXI1TAB PO; -OMEP20CA3 PO; -PRAV20TA2 PO; -PRED20TA PO; -VITMTA PO
[2017-05-17 20:12] LABS: VENOUS BASE EXCESS 1.9 (-2.0-2.0); VENOUS O2 SATURATION 97.3 % (60.0-80.0); VENOUS PARTIAL PRESSURE CO2 49.6 mmHg (38.0-50.0); VENOUS STANDARD HCO3 26.1 MEQ/L; VENOUS TOTAL CO2 29.5 MEQ/L (24.0-28.0)
[2017-05-17] MEDS ORDERED: IPRATROPIUM 0.5MG/ALBUTEROL 2.5MG INH SOL UD 3ML (DUONEB)(J7620) NEB ONE (20:15)
[2017-05-17] MEDS ORDERED: FUROSEMIDE 100 MG/10 ML VIAL (J1940) IV ONE (20:15)
[2017-05-17 20:19] LABS: BASO % 0.5 % (0.0-1.0); EOS # 0.1 K/mm3 (0.0-0.50); EOS % 1.3 % (0.0-3.0); LARGE UNSTAINED CELL # 0.1 K/mm3 (0.0-0.4); LARGE UNSTAINED CELL % 1.5 % (0.0-4.0); LYMPH # 0.5 K/mm3 (1.5-4.5); LYMPH % 8.3 % (24.0-44.0); MEAN CORPUSCULAR HEMOGLOBIN 33.6 pg (27.0-33.0); MEAN CORPUSCULAR HGB CONC 33.3 g/dl (32.0-36.5); MEAN CORPUSCULAR VOLUME 100.9 fl (80.0-96.0); MONO # 0.3 K/mm3 (0.0-0.8); MONO % 4.1 % (0.0-5.0); NEUTROPHILS # 5.5 K/mm3 (1.8-7.7); NEUTROPHILS % 84.2 % (36.0-66.0); PLATELET COUNT, AUTOMATED 207 k/mm3 (150-450); RED CELL DISTRIBUTION WIDTH 14.5 % (11.5-14.5); WHITE BLOOD COUNT 6.5 K/mm3 (4.0-10.0)
[2017-05-17 20:21] LABS: INR 0.94
[2017-05-17 20:35] LABS: ALBUMIN 3.4 GM/DL (3.2-5.2); ALBUMIN/GLOBULIN RATIO 1.03 (1.00-1.93); ALKALINE PHOSPHATASE 88 U/L (45-117); ALT/SGPT 52 U/L (12-78); ANION GAP 10 MEQ/L (8-16); AST/SGOT 37 U/L (15-37); BILIRUBIN,DIRECT 0.1 MG/DL (0.0-0.2); BILIRUBIN,TOTAL 0.3 MG/DL (0.2-1.0); BLOOD UREA NITROGEN 20 MG/DL (7-18); CALCIUM LEVEL 8.5 MG/DL (8.8-10.2); CARBON DIOXIDE LEVEL 27 MEQ/L (21-32); CHLORIDE LEVEL 101 MEQ/L (98-107); CREATININE FOR GFR 1.51 MG/DL (0.70-1.30); GLOMERULAR FILTRATION RATE 49.9 (>49); POTASSIUM SERUM 4.5 MEQ/L (3.5-5.1); SODIUM LEVEL 138 MEQ/L (136-145); TOTAL PROTEIN 6.7 GM/DL (6.4-8.2)
[2017-05-17 20:37] LABS: GLUCOSE, FASTING 366 MG/DL (80-110)
[2017-05-17] MEDS ORDERED: HumuLIN R (REGULAR) INSULIN (NovoLIN R) **100U/ML** PER UNIT IV ONE (21:15)
[2017-05-17] MEDS ORDERED: MOXIFLOXACIN 400 MG TAB PO ONE (21:45)
[2017-05-17] MEDS ORDERED: AVEL1TAB3 PO (21:56)
[2017-05-17 22:29] VITALS: BP 142/82
--- NOTE | 2017-05-18 06:01 | ECGEPIP ---
Stationary ECG Study [facility] - ED Test Date: 2017-05-17 Pat Name: TONIO CHOPRA Department: Room: - Gender: M Brand Specialist: PimentelB: 1955 Requested By: TANJA COX Order Number: [id number] Reading MD: Gerardo Ivy Measurements Intervals [place] Rate: 108 P: 48 CT: 185 QRS: -22 QRSD: 79 T: -13 QT: 309 QTc: 416 Interpretive Statements SINUS TACHYCARDIA POSSIBLE LAE LOW QRS VOLTAGE IN PRECORDIAL LEADS SIMILAR TO 03/24/17 Electronically Signed On 05-18-2017 6:01:29 EDT by Gerardo Ivy
--- NOTE | 2017-05-18 07:58 | REP ---
Portable chest, single AP view, 09:19 p.m., the patient is sitting: Comparisons are the PA and lateral chest dated 03/24/[address] dated 03/24/2017. There is atelectasis/scarring in the right lower lobe, unchanged. The left lung is clear. Cardiac size is normal. The alfred, mediastinum, and bony thorax are unremarkable. Signed by Claus Asher MD 05/18/2017 07:50 A
== END 2017-05-17 22:47 | disposition home or self-care (01) ==
LOC: M ED 19:21
DX: J18.0 Bronchopneumonia, unspecified organism (principal); I10 Essential (primary) hypertension; E11.9 Type 2 diabetes mellitus without complications; J44.9 Chronic obstructive pulmonary disease, unspecified; Z87.891 Personal history of nicotine dependence; Z79.899 Other long term (current) drug therapy; Z79.82 Long term (current) use of aspirin; Z79.51 Long term (current) use of inhaled steroids; Z88.8 Allergy status to other drugs, medicaments and biological substances
CPT/HCPCS: 36415; 71010; 80048; 80076; 82550; 82553; 82803; 83880; 84484; 85025; 85610; 87040; 93005; 93041; 94640; 96374; 96375; 99285; J1940

== ENCOUNTER 2017-05-24 19:30 | Inpatient (IN) | payer MEDICARE, MEDICAID ==
[~2017-05-24] VITALS: Ht 185.4 cm; Wt 152.4 kg
[~2017-05-24 19:30] MED LIST changes: +AVEL1TAB3 PO
[2017-05-24 22:28] LABS: ANION GAP 8 MEQ/L (8-16); BASO % 0.5 % (0.0-1.0); BLOOD UREA NITROGEN 24 MG/DL (7-18); CALCIUM LEVEL 9.3 MG/DL (8.8-10.2); CARBON DIOXIDE LEVEL 29 MEQ/L (21-32); CHLORIDE LEVEL 104 MEQ/L (98-107); EOS # 0.5 K/mm3 (0.0-0.50); EOS % 5.4 % (0.0-3.0); GLOMERULAR FILTRATION RATE > 60.0 (>49); GLUCOSE, FASTING 107 MG/DL (80-110); LARGE UNSTAINED CELL # 0.1 K/mm3 (0.0-0.4); LARGE UNSTAINED CELL % 1.5 % (0.0-4.0); LYMPH # 1.5 K/mm3 (1.5-4.5); LYMPH % 16.1 % (24.0-44.0); MEAN CORPUSCULAR HEMOGLOBIN 32.9 pg (27.0-33.0); MEAN CORPUSCULAR VOLUME 99.6 fl (80.0-96.0); MONO # 0.6 K/mm3 (0.0-0.8); MONO % 7.5 % (0.0-5.0); NEUTROPHILS # 5.9 K/mm3 (1.8-7.7); PLATELET COUNT, AUTOMATED 193 k/mm3 (150-450); POTASSIUM SERUM 4.2 MEQ/L (3.5-5.1); RED CELL DISTRIBUTION WIDTH 14.6 % (11.5-14.5); SODIUM LEVEL 141 MEQ/L (136-145); WHITE BLOOD COUNT 8.5 K/mm3 (4.0-10.0)
--- NOTE | 2017-05-24 23:00 | REPUSA ---
Clinical history: Pain, swelling. Findings: The common femoral, superficial femoral, popliteal, and other deep venous structures compre ss normally and demonstrate normal color Doppler flow. Normal venous waveforms with augmentation are seen. Impression: No evidence of deep vein thrombosis in the femoral popliteal venous system.
[2017-05-24] MEDS ORDERED: ISOVUE-370 76% 100ML VIAL (Q9967) As Ordered ONE (23:38)
--- NOTE | 2017-05-25 00:50 | REPUSA ---
CLINICAL HISTORY: Dyspnea, exclude PE. TECHNIQUE: Multiple incremental axial, coronal and oblique images are obtained from the thoracic inle t to the upper abdomen. Intravenous contrast material was administered as per pulmonary embolism prot ocol. COMMENTS: Comparison is made to the prior exam on 03/24/2017. Significant decrease in the reticular nodular infiltrates in the left lower lobe. Interval appearance of subsegmental consolidation in the right lower lobe. Increased bilateral basilar subsegmental atelectatic pulmonary changes. There is excellent opacification of the central pulmonary arterial system without evidence for centra l pulmonary embolism. Aorta is of normal caliber without evidence for dissection or aneurysm. There is no evidence of pleural or parenchymal mass. There are no pleural effusions. There is no evid ence of hilar or mediastinal lymphadenopathy. The heart and great vessels are within normal limits. Images of the upper abdomen demonstrate no evidence of adrenal mass. The bony structures are free of lytic or blastic lesions. Multilevel degenerative changes are seen in volving the visualized thoracolumbar spine. Scattered calcifications are seen involving the aorta and major branches compatible with atherosclero sis. Hepatomegaly with fatty liver infiltration. IMPRESSION: No evidence for central pulmonary embolism. Suboptimal opacification of the peripheral branches. Subsegmental consolidation of the right lower lobe. Decreased left lower lobe ground glass/reticular nodular infiltrates. Unchanged 1 cm right thyroid lobe nodule. Unchanged hepatomegaly with fatty liver infiltration. Thank you for your kind referral of this patient.
[2017-05-25] MEDS ORDERED: ALBUTEROL SULFATE 2.5 MG/0.5 ML INH NEB SOLN NEB PRN (03:00)
[2017-05-25] MEDS ORDERED: ACETAMINOPHEN TAB 650MG DOSE (2X325MG) PO PRN (03:00)
[2017-05-25] MEDS ORDERED: VITMTA PO (03:02)
[2017-05-25] MEDS ORDERED: IPRASOL4 INH (03:02)
[2017-05-25] MEDS ORDERED: OMEP20CA3 PO (03:02)
[2017-05-25] MEDS ORDERED: AMMO12CR4 TOP (03:02)
[2017-05-25] MEDS ORDERED: ALBU17IN INH (03:02)
[2017-05-25] MEDS ORDERED: MOXI1TAB PO (03:02)
[2017-05-25] MEDS ORDERED: MAGN400T PO (03:02)
[2017-05-25] MEDS ORDERED: DOXY100C PO (03:02)
[2017-05-25] MEDS ORDERED: GABA-282 PO (03:02)
[2017-05-25] MEDS ORDERED: hydrOXYzine 50 MG TAB PO PRN (03:15)
--- NOTE | 2017-05-25 03:18 | PHACANCOPD ---
PHARMACY VANCOMYCIN DOSING Pt Demographics Demographics Patient Age:62 , Weight:148.600 , Gender: male Adjusted Body Weight Date: 05/25/17, Adjusted Body Weight: [107.4] Kg Events Past 24 Hours Events Past 24 Hours: NO: Dialysis, Diuretic Therapy, Change in CrCl, Fever, Elevation in WBC, Pending Diagnostics, Pending Procedures, Other Vancomycin Vancomycin indication: hcap Vancomycin Target Ranges: 15-20 mcg/ml Vancomycin Load Y/N: Yes Load Dose Date Time Vancomycin Load Dose: 2G IV Date: 05/25/17 Time: 06:00 Vancomycin Dose Date: 05/25/17. Current Vancomycin Dose: [1G IV q8H @14:00 ] Intermittent Dosing?: No Labs Labs Item Value Date Time C-Reactive Protein, Quantitative 1.70 MG/DL H 05/24/172035 Creatinine 1.10 MG/DL 05/24/172035 Micro Microbiology 05/24/17 Blood Culture, Received Pending 05/24/17 Gram Stain, Received Pending 05/24/17 Sputum Culture, Received Pending Creatinine Clearance Date:05/25/17. Creatinine Clearance: [76.7ML/MIN]. Pending Labs Blood and Sputum cultures Assessment and Plan Maintaining Current Dose?: Yes Reason for dose change: No Dose Change Pharmacist Note Pharmacist Note Date: 05/25/17. Pharmacist note:Pt is a 62 year old male being treated for Hospital acquired PNA goal trough 15-20mcg/ml. Pt was last treated using vancomycin therapy in March 2017 here at [facility]. To obtain goal a 2g IV loading dose will be started at 06:00 05/25/17. Maintenance therapy will consist of 1g IV every 8 hours starting 05/25 @ 14:00. We will continue to monitor and adjust dose as needed. CANDIS JOYA PHARMACY May 25, 2017 03:18
[2017-05-25 03:31] LABS: ERYTHROCYTE SEDIMENTATION RATE 42 mm/hr (0-20)
[2017-05-25 05:00] VITALS: BP 147/97
[2017-05-25] MEDS: PIPERACILLIN/TAZOBACTAM SOD 3.375 GM in D5W MINI-BAG PLUS 50 ML IV SCH ×3 (05:22→22:10)
[2017-05-25] MEDS: HEPARIN SOD (PORCINE) 5000 UNITS/ML VIAL SC SCH ×3 (05:22→22:12)
--- NOTE | 2017-05-25 05:42 | HPE ---
DATE OF ADMISSION: 05/25/2017 PRIMARY CARE PROVIDER: Dr. Rosales. OUTPATIENT INSURANCE UNDERWRITER: Dr. Gabino Artis. HISTORY OF PRESENT ILLNESS: This patient is a 62-year-old male with past medical history significant for chronic obstructive pulmonary disease (COPD), obstructive sleep apnea (ANTWAN) on continuous positive airway pressure (CPAP), gout, hypertension, chronic kidney insufficiency, history of status post nephrectomy, stage IA cancer of the left upper lobe status post lobectomy, stage IA lung cancer of the right lower lobe status post radiation, history of torsades, who presented to [facility] on 05/24/2017, for continuous worsening of shortness of breath. The patient has a recent hospitalization on 03/24/2017 to 03/26/2017, for pneumonia. Seven days ago, the patient started having worsening of shortness of breath, increased cough, increased greenish sputum production (at the baseline is white sputum). The patient came to the emergency room on 05/17/2017. The patient was diagnosed with pneumonia. The patient was discharged home with moxifloxacin. Per patient, the patient's symptoms continued to persist and his breathing was actually getting worse with antibiotics, and the patient started having subjective fever and chills and sweats, and the patient started having pain in the front diaphragm radiating to the back, sharp pain worsening with deep breath and cough. Due to worsening of symptoms, the patient came to the [facility] for further evaluation and treatment. ALLERGIES: HEXACHLOROPHENE (rash). PAST MEDICAL HISTORY: 1. COPD, uses three liters of nasal cannula intermittently. 2. ANTWAN on CPAP. 3. Gout. 4. Hypertension. 5. Chronic kidney insufficiency. 6. 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 7. Stage IA cancer of the left upper lobe status post lobectomy. 8. Stage IA lung cancer of the right lower lobe status post radiation. 9. History of torsades. PAST SURGICAL HISTORY: 1. Right-sided nephrectomy. 2. Right adrenal gland resection. 3. Left upper lobe lobectomy. 4. Cholecystectomy. 5. Tonsillectomy. 6. Liposarcoma removal. 7. History of chest tube insertion. SOCIAL HISTORY: The patient quit smoking three years ago. He used to smoke 1/2 pack daily for more than 50 years. No alcohol use. No recreational drug use. The patient is FULL CODE. HOME MEDICATIONS: - Ventolin two puffs inhalation every four hours as needed - allopurinol 300 mg by mouth daily - aspirin 81 mg by mouth daily - carvedilol 6.25 mg by mouth twice a day - vitamin B 12 500 mcg by mouth daily - ferrous sulfate 325 mg by mouth daily - gabapentin 300 mg by mouth three times a day - hydroxyzine 50 mg by mouth at bedtime as needed for anxiety - magnesium oxide 400 mg by mouth daily - multivitamin one tablet by mouth daily - omeprazole 20 mg by mouth daily - pravastatin 20 mg by mouth daily - ropinirole 1 mg by mouth daily - ropinirole 2 mg by mouth at bedtime - sertraline 25 mg by mouth at bedtime REVIEW OF SYSTEMS: GENERAL: Subjective fever and chills and sweating. HEENT: No vision change, no auditory changes. CARDIOVASCULAR: Complaining about pain near the diaphragm radiating to the back, worsening during inspiration with cough. Denies any palpitations. RESPIRATORY: Worsening shortness of breath and there is increased cough with greenish sputum production. History of COPD. Uses three liters nasal cannula intermittently. GASTROINTESTINAL (GI): No nausea, no vomiting, no abdominal pain, no diarrhea. MUSCULOSKELETAL: Mild lower extremity edema. No muscle pain. NEUROLOGIC: No numbness, no tingling. OBJECTIVE: VITAL SIGNS: Temperature is 98.6, pulse is 92, respiration rate is 20, blood pressure is 129/89, pulse oximetry 95% with three liters nasal cannula. GENERAL: No sign of acute distress. Alert and oriented times three. HEENT: Normocephalic, atraumatic. Extraocular motor grossly intact. CARDIOVASCULAR: Positive S1, S2. Regular rate. LUNGS: There is some chest congestion auscultated. There are diminished breath sounds with some crackles at the right mid and lower lobes. I cannot appreciate any significant wheezes. Poor respiratory effort. GI: Abdomen soft, nontender, nondistended. Bowel sounds present. EXTREMITIES: Trace pitting edema bilaterally. No sign of cyanosis. LABORATORY DATA: WBC is 8.5, hemoglobin 13.3, hematocrit 40.2, platelet count 193. Sodium is 141, potassium 4.2, chloride 104, carbon dioxide 29, BUN 24, creatinine 1.1, GFR greater than 60, fasting glucose 107, calcium 9.3. Total CK is 111, troponin I less than 0.02. BNP is 127. TSH 1.39. MICROBIOLOGY: Blood cultures pending. Sputum culture pending. IMAGING: CT angiogram shows no evidence of pulmonary embolism (PE). Suboptimal opacification of the peripheral branches. Subsegmental consolidation of the right lower lobe. Decreased left lower lobe ground-glass/reticular nodular infiltrate. ASSESSMENT AND PLAN: 1. Acute on chronic respiratory failure. Differential includes peripheral pulmonary embolism (PE) versus hospital-acquired pneumonia versus chronic obstructive pulmonary disease (COPD) exacerbation. Currently the patient's is hemodynamically stable. The patient is admitted to the medical/surgical floor under inpatient status. The patient had a change of sputum color. Sputum culture is pending. Empirically start vancomycin and Zosyn. Continue breathing treatment as needed. 2. History of obstructive sleep apnea (ANTWAN). May use home CPAP, on ANTWAN protocol. 3. History of lung cancer in left upper lobe and right lower lobe. The patient has a left upper lobe lobectomy. The patient had radiation to the right lower lobe. 4. Hypertension. Continue home medications. Blood pressure is satisfactory range at this moment. 5. Gout. Continue allopurinol. 6. History of liposarcoma, status post partial colectomy, nephrectomy and right adrenal gland resection. Currently the patient has normal renal function. 7. History of torsades. The patient is in sinus rhythm on the monitor. 8. Deep venous thrombosis (DVT) prophylaxis. Patient is on heparin.
--- NOTE | 2017-05-25 06:00 | ECGEPIP ---
Stationary ECG Study [facility] - ED Test Date: 2017-05-24 Pat Name: TONIO CHOPRA Department: Room: - Gender: M Quality Control Coordinator: cathleen : 1955 Requested By: CHEMO Hayes Order Number: [id number] Reading MD: Gerardo Ivy Measurements Intervals [place] Rate: 96 P: 44 NM: 161 QRS: -15 QRSD: 90 T: 5 QT: 338 QTc: 428 Interpretive Statements SINUS RHYTHM POSSIBLE LAE SIMILAR TO 05/17/17 Electronically Signed On 05-25-2017 6:00:18 EDT by Gerardo Ivy
[2017-05-25 06:37] LABS: MEAN CORPUSCULAR HEMOGLOBIN 33.4 pg (27.0-33.0); MEAN CORPUSCULAR HGB CONC 33.7 g/dl (32.0-36.5); RED CELL DISTRIBUTION WIDTH 14.3 % (11.5-14.5); WHITE BLOOD COUNT 7.3 K/mm3 (4.0-10.0)
[2017-05-25] MEDS: VANCOMYCIN HCL 1,000 MG, VIAL MATE ADAPTER 1 EACH in D5W 250 ML IV SCH ×3 (06:49→22:12)
[2017-05-25 06:53] LABS: CALCIUM LEVEL 8.8 MG/DL (8.8-10.2); CREATININE FOR GFR 1.29 MG/DL (0.70-1.30); GLOMERULAR FILTRATION RATE 59.7 (>49); POTASSIUM SERUM 3.8 MEQ/L (3.5-5.1)
[2017-05-25] MEDS ORDERED: VANCOMYCIN HCL 1,000 MG, VIAL MATE ADAPTER 1 EACH in D5W 250 ML IV ONE (07:00)
--- NOTE | 2017-05-25 07:43 | REP ---
PA and lateral chest: Comparisons are 05/17/2017, 08/25/2016 and 05/23/2017. There is focal increased radiodensity above the right hemidiaphragm medially compatible with right lower lobe infiltrate. Remainder of the right lung is clear. Left lung is clear. Cardiac size is normal. The alfred, mediastinum, and bony thorax are unremarkable. Impression: Right lower lobe infiltrate. Signed by Claus Asher MD 05/25/2017 07:34 A
[2017-05-25] MEDS: IPRATROPIUM 0.5MG/ALBUTEROL 2.5MG INH SOL UD 3ML (DUONEB)(J7620) NEB SCH ×4 (08:00→20:30)
[2017-05-25] MEDS ORDERED: ALBUTEROL SULFATE 2.5 MG/0.5 ML INH NEB SOLN INH PRN (09:00)
[2017-05-25] MEDS ORDERED: DEXTROSE 50% 50 ML SYRINGE IV PRN (09:00)
[2017-05-25] MEDS ORDERED: GLUCOSE 4 GM CHEW TABLET PO PRN (09:00)
[2017-05-25] MEDS: LACTIC ACID 12% LOTION 225 GM BTL TOP SCH (09:00)
[2017-05-25] MEDS ORDERED: GLUCAGON FOR INJ 1 MG VIAL (J1610) SC PRN (09:00)
[2017-05-25 09:04] VITALS: BP 119/73
[2017-05-25] MEDS: OMEPRAZOLE 20 MG CAP PO SCH (09:06)
[2017-05-25] MEDS: ASPIRIN 81 MG ENTERIC TAB PO SCH (09:06)
[2017-05-25] MEDS: FIBER-CON 625 MG TAB PO SCH (09:06)
[2017-05-25] MEDS: rOPINIRole 1MG TAB PO SCH ×2 (09:06→22:10)
[2017-05-25] MEDS: GABAPENTIN 300 MG CAP PO SCH ×3 (09:07→22:10)
[2017-05-25] MEDS: MULTIVITAMINS/MINERALS THERAP 1 TAB PO SCH (09:07)
[2017-05-25] MEDS: PRAVASTATIN 20 MG TAB PO SCH (09:07)
[2017-05-25] MEDS: MAGNESIUM OXIDE 400 MG TAB (MAG-OX) PO SCH (09:07)
[2017-05-25] MEDS: ALLOPURINOL 300 MG TAB PO SCH (09:07)
[2017-05-25] MEDS: FERROUS SULFATE 325MG TAB PO SCH (09:08)
[2017-05-25] MEDS: CYANOCOBALAMIN 500 MCG TAB PO SCH (09:08)
[2017-05-25] MEDS: CARVedilol 6.25 MG TAB PO SCH ×2 (09:08→22:11)
[2017-05-25] MEDS: NORCO, ANEXSIA 5/325MG TABLET (HYDROcodone/ACETAMINOPHEN) PO PRN ×2 (10:10→22:10)
[2017-05-25] MEDS: predniSONE 20 MG TAB PO SCH (10:10)
[2017-05-25] MEDS ORDERED: NITROGLYCERIN 0.3 MG SUBL TAB SL STA (10:50)
[2017-05-25] MEDS ORDERED: NITROGLYCERIN 0.4 MG SUBL TABLET As Ordered ONE (10:57)
--- NOTE | 2017-05-25 11:04 | IPN ---
DATE OF SERVICE: 05/25/2017 Mr. Young is feeling short of breath. He has cough. He is disappointed at being in the hospital. He feels about the same as he did last night. Temperature is 97.9, pulse 104, respiratory rate 18, blood pressure 119/73, 94% on 3 liters nasal cannula. Intake and output (I and O) are notable for a positive fluid balance of 140, at this point, three bowel movements noted today. He is awake, appropriately interactive, pleasant conversant. Breathing is symmetrical. I-to-E ratio is 1:4. Coarse upper airway sounds throughout. Heart is distant sounding. Normal S1, S2. Abdomen is distended, soft, nontender. Active bowel sounds. White cell count 7.3, hemoglobin 13.6, platelets of 186. BUN 22, creatinine 1.29. Blood culture pending. Sputum culture is pending. Respiratory panel is negative. My assessment is as follows: This is a 62-year-old with healthcare-associated pneumonia, possible gram negative pneumonia. The plan is as follows: 1. Respiratory. The patient is going to be treated for chronic obstructive pulmonary disease (COPD) exacerbation and healthcare-associated pneumonia. He is on steroids and appropriate antibiotics. Awaiting culture results. I have ordered acapella device for malclearance of secretions and nebulizers and will attempt to obtain aggressive pulmonary toilet. 2. The patient has a history of obstructive sleep apnea (ANTWAN) and is going to use his home continuous positive airway pressure (CPAP) in the hospital. 3. The patient has a history of lung cancer, status post radiation. 4. The patient has hypertension. Blood pressure is reasonably controlled. 5. The patient has gout. 6. Deep venous thrombosis (DVT) prophylaxis is ordered. 7. Morbid obesity complicates care. MTDD
[2017-05-25] MEDS ORDERED: NITROGLYCERIN 0.4 MG SUBL TABLET SL STA (11:08)
[2017-05-25 11:29] LABS: ABG BASE EXCESS 3.3 (-2.0-2.0); ABG HCO3 28.6 MEQ/L (22.0-26.0); ABG PARTIAL PRESSURE CO2 46.2 mmHg (35.0-45.0); ABG PARTIAL PRESSURE O2 94.5 mmHg (75.0-100.0); ABG STANDARD HCO3 27.4 MEQ/L (22.0-26.0); ABG pH (ARTERIAL) 7.409 UNITS (7.350-7.450)
[2017-05-25] MEDS ORDERED: MORPHINE 2 MG/ML 1ML SYRINGE IV STA (11:34)
--- NOTE | 2017-05-25 11:41 | REP ---
PORTABLE CHEST X-RAY: Two views presented. HISTORY: Chest pain. COMPARISON STUDY: May 24, 2017. FINDINGS: The left hemidiaphragm remains somewhat elevated. Heart is not enlarged. There are increased markings in the right base consistent with a developing infiltrate. Vascular and interstitial markings appear a little prominent but this is felt to be technique related. No other infiltrate is seen. IMPRESSION: Probable developing infiltrate right base. Signed by Anand Ponce MD 05/25/2017 03:50 P
[2017-05-25] MEDS ORDERED: rOPINIRole 1MG TAB PO ONE (11:45)
--- NOTE | 2017-05-25 13:05 | REP ---
CT CHEST WITHOUT IV CONTRAST: CT chest is performed without IV contrast. Sagittal and coronal reconstruction images are performed. Comparison made with prior CT chest with IV contrast 05/24/2017. Scattered patchy infiltrates are seen bilaterally unchanged since the prior exam, primarily in the right lower lobe and also scattered throughout the left lung both superiorly and inferiorly. The heart does not appear to be significantly enlarged. There is no pleural or pericardial effusion. There is no pneumothorax. No adenopathy is seen in the chest. There are scattered atherosclerotic calcifications of the thoracic aorta. Ascending aorta is upper limits of normal in caliber at 4 cm. There is diffuse fatty infiltration of the liver. There are degenerative changes of the spine. IMPRESSION: No change in scattered patchy bilateral infiltrates in the lungs. No pneumothorax. Signed by Claus Denton MD 05/25/2017 01:51 P
[2017-05-25] MEDS: HumaLOG INSULIN (NovoLOG) PER UNIT SC SCH ×3 (13:34→22:11)
[2017-05-25 14:00] VITALS: BP 148/99
[2017-05-25 22:00] VITALS: BP 141/89
[2017-05-25] MEDS: SERTRALINE HCL 25 MG TABLET PO SCH (22:11)
--- NOTE | 2017-05-25 22:23 | ECGEPIP ---
Stationary ECG Study [facility] Test Date: 2017-05-25 Pat Name: TONIO CHOPRA Department: Room: [place] [address] Gender: M Protocol Manager: MATTEO : 1955 Requested By: ZACH Shahid Order Number: [id number] Reading MD: Tremayne Serrano Measurements Intervals [place] Rate: 96 P: 35 MT: 181 QRS: -4 QRSD: 85 T: -9 QT: 334 QTc: 422 Interpretive Statements Normal sinus rhythm Low QRS complex voltage in the limb leads Nonspecific T wave abnormality No significant change when compared to prior tracing of 05/24/2017 Electronically Signed On 05-25-2017 22:23:20 EDT by Tremayne Serrano
[2017-05-26] MEDS: PIPERACILLIN/TAZOBACTAM SOD 3.375 GM in D5W MINI-BAG PLUS 50 ML IV SCH ×3 (05:13→21:16)
[2017-05-26] MEDS: VANCOMYCIN HCL 1,000 MG, VIAL MATE ADAPTER 1 EACH in D5W 250 ML IV SCH ×3 (05:14→14:24)
[2017-05-26] MEDS: HEPARIN SOD (PORCINE) 5000 UNITS/ML VIAL SC SCH ×3 (05:15→21:16)
[2017-05-26 06:00] VITALS: BP 131/86
[2017-05-26 07:00] LABS: MEAN CORPUSCULAR HEMOGLOBIN 33.7 pg (27.0-33.0); MEAN CORPUSCULAR HGB CONC 34.8 g/dl (32.0-36.5); WHITE BLOOD COUNT 7.7 K/mm3 (4.0-10.0)
[2017-05-26 07:07] LABS: ANION GAP 7 MEQ/L (8-16); BLOOD UREA NITROGEN 24 MG/DL (7-18); CALCIUM LEVEL 9.5 MG/DL (8.8-10.2); CARBON DIOXIDE LEVEL 29 MEQ/L (21-32); CHLORIDE LEVEL 100 MEQ/L (98-107); CREATININE FOR GFR 1.22 MG/DL (0.70-1.30); GLOMERULAR FILTRATION RATE > 60.0 (>49); GLUCOSE, FASTING 168 MG/DL (80-110); POTASSIUM SERUM 3.8 MEQ/L (3.5-5.1); SODIUM LEVEL 136 MEQ/L (136-145)
[2017-05-26] MEDS: IPRATROPIUM 0.5MG/ALBUTEROL 2.5MG INH SOL UD 3ML (DUONEB)(J7620) NEB SCH ×4 (08:09→19:47)
[2017-05-26 08:15] VITALS: BP 140/79
[2017-05-26] MEDS: HumaLOG INSULIN (NovoLOG) PER UNIT SC SCH ×4 (09:11→21:17)
[2017-05-26] MEDS: predniSONE 20 MG TAB PO SCH (10:04)
[2017-05-26] MEDS: MAGNESIUM OXIDE 400 MG TAB (MAG-OX) PO SCH (10:04)
[2017-05-26] MEDS: MULTIVITAMINS/MINERALS THERAP 1 TAB PO SCH (10:04)
[2017-05-26] MEDS: PRAVASTATIN 20 MG TAB PO SCH (10:05)
[2017-05-26] MEDS: GABAPENTIN 300 MG CAP PO SCH ×3 (10:05→21:14)
[2017-05-26] MEDS: ASPIRIN 81 MG ENTERIC TAB PO SCH (10:05)
[2017-05-26] MEDS: FERROUS SULFATE 325MG TAB PO SCH (10:05)
[2017-05-26] MEDS: OMEPRAZOLE 20 MG CAP PO SCH (10:05)
[2017-05-26] MEDS: rOPINIRole 1MG TAB PO SCH ×2 (10:06→21:13)
[2017-05-26] MEDS: CARVedilol 6.25 MG TAB PO SCH ×2 (10:06→21:15)
[2017-05-26] MEDS: FIBER-CON 625 MG TAB PO SCH (10:07)
[2017-05-26] MEDS: ALLOPURINOL 300 MG TAB PO SCH (10:07)
[2017-05-26] MEDS: CYANOCOBALAMIN 500 MCG TAB PO SCH (10:07)
[2017-05-26] MEDS: LACTIC ACID 12% LOTION 225 GM BTL TOP SCH (10:08)
[2017-05-26 14:00] VITALS: BP 147/92
--- NOTE | 2017-05-26 15:27 | IPN ---
DATE: 05/26/2017 Mr. Young is feeling much better. He is less short of breath. He has not had any more chest pain. He thinks his chest pain was related to a panic attack, even though I do not think that is completely likely. Temperature 96.6, pulse 84, respiratory rate 18, blood pressure 140/79, 98% on three liters. Intake and output notable for a positive fluid balance of 20, three bowel movements noted yesterday. He is awake, appropriately interactive, pleasantly conversant. Mucous membranes moist. Neck supple, thick. Body mass index 44.4. Breathing is symmetrical. Coarse airway sounds throughout, more notable in the left base for musical fixed repetitive upper airway sounds. Abdomen soft, distended, nontender. White cell count 7.7, hemoglobin 12.9, platelets 203, BUN 24, creatinine 1.22. MRSA screen is positive. Sputum grew Staphylococcus aureus, speciation is pending. My assessment is as follows: This is a 62-year-old with healthcare-associated Staphylococcus pneumonia. Plan is as follows: 1. Respiratory. Patient is being treated for chronic obstructive pulmonary disease (COPD) exacerbation and healthcare-associated pneumonia. He is improving. Will await speciation on the Staphylococcus to decide on the appropriate antibiotic therapy. (We are not sure that it is resistant) Will continue with current antibiotics for now and will give 5-7 days of treatment depending on clinical course. 2. Patient has history of obstructive sleep apnea (ANTWAN). He is using his home continuous positive airway pressure (CPAP). 3. Patient has history of lung cancer status post radiation. 4. Patient has hypertension. Blood pressure is reasonably well controlled. 5. Patient did have an episode of severe pleuritic chest pain yesterday, left-sided, resolved spontaneously, I believe it was musculoskeletal. Workup was negative. 6. Patient has gout. 7. Patient has appropriate deep venous thrombosis (DVT) prophylaxis. 8. Morbid obesity complicates care. MTDD
[2017-05-26] MEDS: SERTRALINE HCL 25 MG TABLET PO SCH (21:13)
[2017-05-26] MEDS: NORCO, ANEXSIA 5/325MG TABLET (HYDROcodone/ACETAMINOPHEN) PO PRN (21:14)
[2017-05-26 22:00] VITALS: BP 143/84
[2017-05-27] MEDS: VANCOMYCIN HCL 1,000 MG, VIAL MATE ADAPTER 1 EACH in D5W 250 ML IV SCH ×2 (01:49→14:34)
[2017-05-27] MEDS: PIPERACILLIN/TAZOBACTAM SOD 3.375 GM in D5W MINI-BAG PLUS 50 ML IV SCH (05:31)
[2017-05-27] MEDS: HEPARIN SOD (PORCINE) 5000 UNITS/ML VIAL SC SCH ×3 (05:33→21:00)
[2017-05-27 06:00] VITALS: BP 113/60
[2017-05-27] MEDS: IPRATROPIUM 0.5MG/ALBUTEROL 2.5MG INH SOL UD 3ML (DUONEB)(J7620) NEB SCH ×4 (07:05→20:01)
[2017-05-27 07:09] LABS: MEAN CORPUSCULAR HEMOGLOBIN 33.5 pg (27.0-33.0); MEAN CORPUSCULAR HGB CONC 34.5 g/dl (32.0-36.5); MEAN CORPUSCULAR VOLUME 97.1 fl (80.0-96.0); RED CELL DISTRIBUTION WIDTH 13.9 % (11.5-14.5); WHITE BLOOD COUNT 7.7 K/mm3 (4.0-10.0)
[2017-05-27 07:24] LABS: ANION GAP 9 MEQ/L (8-16); BLOOD UREA NITROGEN 27 MG/DL (7-18); CALCIUM LEVEL 9.9 MG/DL (8.8-10.2); CARBON DIOXIDE LEVEL 29 MEQ/L (21-32); CHLORIDE LEVEL 101 MEQ/L (98-107); CREATININE FOR GFR 1.22 MG/DL (0.70-1.30); GLOMERULAR FILTRATION RATE > 60.0 (>49); GLUCOSE, FASTING 161 MG/DL (80-110); POTASSIUM SERUM 3.9 MEQ/L (3.5-5.1); SODIUM LEVEL 139 MEQ/L (136-145)
[2017-05-27] MEDS: HumaLOG INSULIN (NovoLOG) PER UNIT SC SCH ×4 (07:59→20:50)
--- NOTE | 2017-05-27 08:16 | IPNPDOC ---
Text Note Date of Service The patient was seen on 05/27/17. NOTE Subjective: Patient seen and examined at bedside. Mr. Young is feeling much better. He is less short of breath but still has some dyspnea on exertion. He has not had any more chest pain. He thinks his chest pain was related to a panic attack. Objective: General: NAD, lying comftoably in bed HEENT: NC/AT, EOMI Lungs: coarse BS throughout Heart: +S1S2, RRR Abd: obese, soft, NT, +BS Ext: no edema Psych: AAOx3 Assessment/Plan: This is a 62-year-old with healthcare-associated Staphylococcus pneumonia. 1. PNA - Patient is being treated for chronic obstructive pulmonary disease (COPD) exacerbation and HCAP - SCx + MRSA - d/c zosyn, continue vancomycin, will likely transition to Bactrim or possibly Zyvox - patient states he failed outpatient oral antibiotic therapy - unknown what antibiotic he was taking - Will continue with current antibiotics for now and will give 5-7 days of treatment depending on clinical course - still with TELLEZ - will continue to wean O2 2. ANTWAN - He is using his home continuous positive airway pressure (CPAP). 3. Patient has history of lung cancer status post radiation. 4. HTN - Blood pressure is reasonably well controlled. 5. Patient did have an episode of severe pleuritic chest pain 05/25/17, left- sided, resolved spontaneously. Workup was negative. 6. Patient has gout - continue allopurinol 7. DVT prophylaxis - Heparin SC VS,Fishbone, I+O VS, Fishbone, I+O Laboratory Tests 05/27/17 06:44 Red Blood Count 3.90 L, Mean Corpuscular Volume 97.1 H, Mean Corpuscular Hemoglobin 33.5 H, Mean Corpuscular Hemoglobin Concent 34.5, Red Cell Distribution Width 13.9, Calcium Level 9.9 Vital Signs Date Time Temp Pulse Resp B/P (MAP) Pulse Ox O2 Delivery O2 Flow Rate FiO2 05/27/17 06:00 97.6 76 20 113/60 (77) 95 NIPPV (BIPAP/CPAP) 05/26/17 22:00 2.0 I&O- Last 24 Hours up to 6 AM 05/28/17 06:00 Output Total 650 ml Balance -650 ml CHRIS RAMESH MD May 27, 2017 08:16
[2017-05-27] MEDS ORDERED: INFLUENZA QUADRIVALENT PF VACCINE 0.5ML SYRINGE (90686) IM ONE (09:00)
[2017-05-27] MEDS: ASPIRIN 81 MG ENTERIC TAB PO SCH (09:31)
[2017-05-27] MEDS: rOPINIRole 1MG TAB PO SCH ×2 (09:32→20:48)
[2017-05-27] MEDS: predniSONE 20 MG TAB PO SCH (09:32)
[2017-05-27] MEDS: GABAPENTIN 300 MG CAP PO SCH ×3 (09:33→20:48)
[2017-05-27] MEDS: MULTIVITAMINS/MINERALS THERAP 1 TAB PO SCH (09:33)
[2017-05-27] MEDS: MAGNESIUM OXIDE 400 MG TAB (MAG-OX) PO SCH (09:33)
[2017-05-27] MEDS: CARVedilol 6.25 MG TAB PO SCH ×2 (09:33→20:49)
[2017-05-27] MEDS: ALLOPURINOL 300 MG TAB PO SCH (09:34)
[2017-05-27] MEDS: OMEPRAZOLE 20 MG CAP PO SCH (09:34)
[2017-05-27] MEDS: FERROUS SULFATE 325MG TAB PO SCH (09:34)
[2017-05-27] MEDS: CYANOCOBALAMIN 500 MCG TAB PO SCH (09:34)
[2017-05-27] MEDS: PRAVASTATIN 20 MG TAB PO SCH (09:34)
[2017-05-27] MEDS: FIBER-CON 625 MG TAB PO SCH (09:34)
[2017-05-27] MEDS: LACTIC ACID 12% LOTION 225 GM BTL TOP SCH (09:35)
[2017-05-27 10:00] VITALS: BP 173/78
[2017-05-27 13:55] VITALS: BP 161/89
[2017-05-27 20:01] VITALS: O2SAT 94
[2017-05-27] MEDS: SERTRALINE HCL 25 MG TABLET PO SCH (20:48)
[2017-05-27 22:00] VITALS: BP 140/83
[2017-05-28] MEDS: VANCOMYCIN HCL 1,000 MG, VIAL MATE ADAPTER 1 EACH in D5W 250 ML IV SCH ×2 (02:10→14:37)
[2017-05-28] MEDS: HEPARIN SOD (PORCINE) 5000 UNITS/ML VIAL SC SCH ×3 (05:35→21:46)
[2017-05-28 06:00] VITALS: BP 140/87
[2017-05-28 06:27] LABS: MEAN CORPUSCULAR HEMOGLOBIN 33.8 pg (27.0-33.0); MEAN CORPUSCULAR VOLUME 96.6 fl (80.0-96.0); RED CELL DISTRIBUTION WIDTH 13.9 % (11.5-14.5); WHITE BLOOD COUNT 7.2 K/mm3 (4.0-10.0)
[2017-05-28 06:49] LABS: ANION GAP 9 MEQ/L (8-16); BLOOD UREA NITROGEN 28 MG/DL (7-18); CARBON DIOXIDE LEVEL 30 MEQ/L (21-32); CHLORIDE LEVEL 102 MEQ/L (98-107); CREATININE FOR GFR 1.18 MG/DL (0.70-1.30); GLOMERULAR FILTRATION RATE > 60.0 (>49); GLUCOSE, FASTING 154 MG/DL (80-110); POTASSIUM SERUM 3.8 MEQ/L (3.5-5.1); SODIUM LEVEL 141 MEQ/L (136-145)
[2017-05-28] MEDS: IPRATROPIUM 0.5MG/ALBUTEROL 2.5MG INH SOL UD 3ML (DUONEB)(J7620) NEB SCH ×4 (07:21→19:35)
[2017-05-28] MEDS: HumaLOG INSULIN (NovoLOG) PER UNIT SC SCH ×4 (08:25→21:00)
[2017-05-28] MEDS: FERROUS SULFATE 325MG TAB PO SCH (08:25)
[2017-05-28] MEDS: MULTIVITAMINS/MINERALS THERAP 1 TAB PO SCH (08:25)
[2017-05-28] MEDS: ASPIRIN 81 MG ENTERIC TAB PO SCH (08:25)
[2017-05-28] MEDS: GABAPENTIN 300 MG CAP PO SCH ×3 (08:25→21:45)
[2017-05-28] MEDS: ALLOPURINOL 300 MG TAB PO SCH (08:25)
[2017-05-28] MEDS: PRAVASTATIN 20 MG TAB PO SCH (08:25)
[2017-05-28] MEDS: OMEPRAZOLE 20 MG CAP PO SCH (08:25)
[2017-05-28] MEDS: FIBER-CON 625 MG TAB PO SCH (08:26)
[2017-05-28] MEDS: CARVedilol 6.25 MG TAB PO SCH ×2 (08:26→21:47)
[2017-05-28] MEDS: predniSONE 20 MG TAB PO SCH (08:26)
[2017-05-28] MEDS: CYANOCOBALAMIN 500 MCG TAB PO SCH (08:26)
[2017-05-28] MEDS: rOPINIRole 1MG TAB PO SCH ×2 (08:27→21:45)
[2017-05-28] MEDS: MAGNESIUM OXIDE 400 MG TAB (MAG-OX) PO SCH (08:27)
[2017-05-28] MEDS: LACTIC ACID 12% LOTION 225 GM BTL TOP SCH (08:27)
--- NOTE | 2017-05-28 09:29 | IPNPDOC ---
Text Note Date of Service The patient was seen on 05/28/17. NOTE Subjective: Patient seen and examined at bedside. He is less short of breath but still has some dyspnea on exertion. 87% ambulating on room air. Objective: General: NAD, lying comfortably in bed HEENT: NC/AT, EOMI Lungs: coarse BS throughout Heart: +S1S2, RRR Abd: obese, soft, NT, +BS Ext: no edema Psych: AAOx3 Assessment/Plan: This is a 62-year-old with healthcare-associated Staphylococcus pneumonia. 1. PNA - Patient is being treated for chronic obstructive pulmonary disease (COPD) exacerbation and HCAP - SCx + MRSA - d/c zosyn, continue vancomycin, will likely transition to Bactrim or possibly Zyvox on discharge - patient states he failed outpatient oral antibiotic therapy - unknown what antibiotic he was taking - Will continue with current antibiotics for now and will give 5-7 days of treatment depending on clinical course - still with TELLEZ - will continue to wean O2, continue IV Abx 2. ANTWAN - continue with continuous positive airway pressure (CPAP). 3. Patient has history of lung cancer s/p radiation. 4. HTN - Blood pressure is reasonably well controlled. 5. Patient did have an episode of severe pleuritic chest pain 05/25/17, left- sided, resolved spontaneously. Workup was negative. 6. Patient has gout - continue allopurinol 7. DVT prophylaxis - Heparin SC VS,Fishbone, I+O VS, Fishbone, I+O Laboratory Tests 05/28/17 05:38 Calcium Level 9.0 05/28/17 05:39 Red Blood Count 3.78 L, Mean Corpuscular Volume 96.6 H, Mean Corpuscular Hemoglobin 33.8 H, Mean Corpuscular Hemoglobin Concent 35.0, Red Cell Distribution Width 13.9 Vital Signs Date Time Temp Pulse Resp B/P (MAP) Pulse Ox O2 Delivery O2 Flow Rate FiO2 05/28/17 08:26 79 140/87 05/28/17 06:00 97.0 20 93 Room Air 05/27/17 20:01 3.0 CHRIS RAMESH MD May 28, 2017 09:29
[2017-05-28 14:00] VITALS: BP 132/90
[2017-05-28] MEDS: SERTRALINE HCL 25 MG TABLET PO SCH (21:45)
[2017-05-28 22:00] VITALS: BP 145/73
[2017-05-29] MEDS: VANCOMYCIN HCL 1,000 MG, VIAL MATE ADAPTER 1 EACH in D5W 250 ML IV SCH (01:16)
[2017-05-29] MEDS: HEPARIN SOD (PORCINE) 5000 UNITS/ML VIAL SC SCH (05:30)
[2017-05-29 06:00] VITALS: BP 160/84
[2017-05-29 06:19] LABS: MEAN CORPUSCULAR HEMOGLOBIN 33.3 pg (27.0-33.0); MEAN CORPUSCULAR HGB CONC 34.3 g/dl (32.0-36.5); MEAN CORPUSCULAR VOLUME 97.2 fl (80.0-96.0); RED CELL DISTRIBUTION WIDTH 13.7 % (11.5-14.5); WHITE BLOOD COUNT 8.5 K/mm3 (4.0-10.0)
[2017-05-29 06:57] LABS: ANION GAP 9 MEQ/L (8-16); BLOOD UREA NITROGEN 30 MG/DL (7-18); CALCIUM LEVEL 9.3 MG/DL (8.8-10.2); CARBON DIOXIDE LEVEL 29 MEQ/L (21-32); CHLORIDE LEVEL 102 MEQ/L (98-107); GLOMERULAR FILTRATION RATE > 60.0 (>49); GLUCOSE, FASTING 172 MG/DL (80-110); POTASSIUM SERUM 3.5 MEQ/L (3.5-5.1); SODIUM LEVEL 140 MEQ/L (136-145)
[2017-05-29] MEDS: IPRATROPIUM 0.5MG/ALBUTEROL 2.5MG INH SOL UD 3ML (DUONEB)(J7620) NEB SCH (07:14)
[2017-05-29] MEDS ORDERED: PRED10TA2 PO (07:57)
[2017-05-29] MEDS ORDERED: BACT800T5 PO (07:57)
--- NOTE | 2017-05-29 08:21 | DS.PDOC ---
Discharge Summary General Date of Admission May 25, 2017 at 02:58 Date of Discharge 05/29/17 Discharge Summary PROCEDURES PERFORMED DURING STAY: [None]. DISCHARGE DIAGNOSES: 1. Health care associated staphylococcal pneumonia. 1. COPD, uses three liters of nasal cannula mostly at night. 2. ANTWAN on CPAP. 3. Gout. 4. Hypertension. 5. Chronic kidney disease 6. 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 7. Stage IA cancer of the left upper lobe status post lobectomy 8. Stage IA lung cancer of the right lower lobe status post radiation. 9. History of torsades. 10. MRSA pneumonia 11. Morbid obesity COMPLICATIONS/CHIEF COMPLAINT: Hospital Acquired Pneumonia. HISTORY OF PRESENT ILLNESS: 62-yo male presents for one week history of worsening shortness of breath, recent hospitalization two months ago for pneumonia. Patient was having pleuritic chest pain, subjective fevers and chills and failed outpatient therapy with antibiotics from his primary care provider. HOSPITAL COURSE: Patient admitted for worsening shortness of breath, deemed to be COPD exacerbation. Sputum cultures positive for MRSA. Patient completed 5 day course of Vancomycin, respiratory status returning to baseline. O2 sats in acceptable range on ambulation on room air. Patient discharged with prednisone taper and 3 days of antibiotics and outpatient follow up with his PCP. DISCHARGE MEDICATIONS: Please see below. ALLERGIES: Please see below. PHYSICAL EXAMINATION ON DISCHARGE: VITAL SIGNS: Please see below. GENERAL: NAD HEENT: NC/AT, EOMI, PERRL NECK: supple CARDIOVASCULAR EXAMINATION: +S1S2, RRR RESPIRATORY EXAMINATION: mild diffuse expiratory wheezing ABDOMINAL EXAMINATION: soft, obese, NT, +BS, well healed surgical scar EXTREMITIES: no edema SKIN: no rashes NEUROLOGICAL EXAMINATION: no gross focal deficits PSYCHIATRIC EXAMINATION: AAOx3 LABORATORY DATA: Please see below. ACTIVITY: [As tolerated]. DIET: 2 gram sodium DISCHARGE PLAN: Home with services DISCHARGE INSTRUCTIONS: 1. Follow up PCP in 3-5 days. 2. Medications as directed. DISCHARGE CONDITION: [Stable]. TIME SPENT ON DISCHARGE: Greater than 30 minutes. Vital Signs/I&Os Vital Signs Date Time Temp Pulse Resp B/P (MAP) Pulse Ox O2 Delivery O2 Flow Rate FiO2 05/29/17 06:00 97.8 78 20 160/84 (109) 93 05/28/17 21:00 Room Air 05/27/17 20:01 3.0 I&O- Last 24 Hours up to 6 AM 05/30/17 05:59 Intake Total 180 ml Output Total 650 ml Balance -470 ml Laboratory Data Labs 24H Laboratory Tests 2 05/28/17 11:21: Bedside Glucose (Misc Panel) 157H 05/28/17 16:44: Bedside Glucose (Misc Panel) 242H 05/28/17 20:46: Bedside Glucose (Misc Panel) 256H 05/29/17 05:45: Anion Gap 9, Glomerular Filtration Rate > 60.0, Blood Urea Nitrogen 30H, Creatinine 1.10, Sodium Level 140, Potassium Level 3.5, Chloride Level 102, Carbon Dioxide Level 29, Calcium Level 9.3 05/29/17 06:30: Bedside Glucose (Misc Panel) 152H CBC/BMP Laboratory Tests 05/29/17 05:45 Red Blood Count 3.86 L, Mean Corpuscular Volume 97.2 H, Mean Corpuscular Hemoglobin 33.3 H, Mean Corpuscular Hemoglobin Concent 34.3, Red Cell Distribution Width 13.7, Calcium Level 9.3 FSBS Laboratory Tests Test 05/28/17 11:21 05/28/17 16:44 05/28/17 20:46 05/29/17 06:30 Range/Units Bedside Glucose (Misc Panel) 157 242 256 152 80-115 MG/DL Microbiology Microbiology 05/25/17 Blood Culture - Preliminary, Resulted No Growth after 72 hours. All specime... 05/24/17 Blood Culture - Preliminary, Resulted No Growth after 72 hours. All specime... 05/25/17 MRSA Screen - Final, Complete Staph.aureus Methicillin Resis 05/25/17 Respiratory Virus Panel (PCR) (FLY) - Final, Complete 05/24/17 Gram Stain - Final, Complete 05/24/17 Sputum Culture - Final, Complete Staph.aureus Methicillin Resis Discharge Medications Scheduled Allopurinol (Zyloprim) 300 Mg Tab, 300 MG PO DAILY, (Reported) Ammonium Lactate (Ammonium Lactate) 12 % Cre, 1 DOSE TOP DAILY, (Reported) USES ON FEET Aspirin (Aspir-81) 81 Mg Tab, 81 MG PO DAILY, (Reported) Calcium Polycarbophil (Fiber) 625 Mg Tab, 625 MG PO DAILY, (Reported) Carvedilol (Carvedilol) 6.25 Mg Tab, 6.25 MG PO BID, (Reported) Cyanocobalamin (Vitamin B-12) 500 Mcg Tab, 500 MCG PO DAILY, (Reported) Ferrous Sulfate (Ferrous Sulfate) 325 Mg Tab, 325 MG PO DAILY, (Reported) Fluticasone/Vilanterol (Breo Ellipta 200-25 Mcg/INH) 1 Inh Inh, 1 PUFF INH DAILY , (Reported) Gabapentin (Gabapentin) 300 Mg Cap, 300 MG PO TID, (Reported) Magnesium Oxide (Magnesium Oxide) 400 Mg Tab, 400 MG PO DAILY, (Reported) Multivitamins *[facility] STOCKED* (Thera M Plus *[facility] STOCKED*) 1 Tab Tab, 1 TAB PO DAILY, (Reported) Omeprazole (Omeprazole) 20 Mg Cap, 20 MG PO DAILY, (Reported) Pravastatin Sod (Pravastatin Sodium) 40 Mg Tab, 20 MG PO DAILY, (Reported) Prednisone (Prednisone) 10 Mg Tab, 10 MG PO TAPER Take 4 tabs daily x 3 days, then 3 tabs daily x 3 days, then 2 tabs daily x 3 days, then 1 tab daily x 3 days and stop Ropinirole Hydrochloride (Ropinirole HCl) 1 Mg Tab, 1 MG PO DAILY, (Reported) Ropinirole Hydrochloride (Ropinirole HCl) 2 Mg Tab, 2 MG PO QHS, (Reported) Sertraline Hcl (Sertraline HCl) 25 Mg Tab, 25 MG PO QHS, (Reported) Tiotropium Hensley Monohydrate (Spiriva Respimat) 2.5 Mcg/Act Spr, 2 INHALATION INH DAILY, (Reported) Trimethoprim/Sulfamethoxazole (Bactrim Ds 800-160 mg) 1 Tab Tab, 1 TAB PO BID Scheduled PRN Albuterol Sulfate (Ventolin Hfa) 200 Puff/8 Gm Aers, 2 PUFF INH Q4H PRN for SHORTNESS OF BREATH, (Reported) Albuterol/Ipratropium (Ipratropium Hensley/Albut 0.5-2.5 (3) mg/3Ml) 1 Braden Braden, 1 BRADEN INH Q4H PRN for SHORTNESS OF BREATH, (Reported) Hydroxyzine HCl (Hydroxyzine HCl) 50 Mg Tab, 50 MG PO QHS PRN for ANXIETY, ( Reported) Allergies Coded Allergies: Hexachlorophene (Verified Allergy, Unknown, ITCHING, 03/25/17) FROM PHISOHEX LALDIN,CHRIS S. MD May 29, 2017 08:21
[2017-05-29] MEDS: MAGNESIUM OXIDE 400 MG TAB (MAG-OX) PO SCH (08:24)
[2017-05-29] MEDS: GABAPENTIN 300 MG CAP PO SCH (08:24)
[2017-05-29] MEDS: ASPIRIN 81 MG ENTERIC TAB PO SCH (08:24)
[2017-05-29] MEDS: CYANOCOBALAMIN 500 MCG TAB PO SCH (08:24)
[2017-05-29] MEDS: FIBER-CON 625 MG TAB PO SCH (08:24)
[2017-05-29] MEDS: PRAVASTATIN 20 MG TAB PO SCH (08:24)
[2017-05-29] MEDS: predniSONE 20 MG TAB PO SCH (08:24)
[2017-05-29] MEDS: HumaLOG INSULIN (NovoLOG) PER UNIT SC SCH (08:24)
[2017-05-29 08:25] VITALS: BP 158/82
[2017-05-29] MEDS: OMEPRAZOLE 20 MG CAP PO SCH (08:25)
[2017-05-29] MEDS: MULTIVITAMINS/MINERALS THERAP 1 TAB PO SCH (08:25)
[2017-05-29] MEDS: ALLOPURINOL 300 MG TAB PO SCH (08:25)
[2017-05-29] MEDS: rOPINIRole 1MG TAB PO SCH (08:25)
[2017-05-29] MEDS: CARVedilol 6.25 MG TAB PO SCH (08:25)
[2017-05-29] MEDS: FERROUS SULFATE 325MG TAB PO SCH (08:26)
[2017-05-29] MEDS: LACTIC ACID 12% LOTION 225 GM BTL TOP SCH (08:26)
== END 2017-05-29 10:37 | disposition home health service (06) | DRG 190 ==
LOC: EDBD 19:30 → M ED 19:30 → M ED INP 05-25 02:58 → M MSPAV 05-25 05:00
PROVIDERS: ADMIT Internal Medicine; ATTEND Internal Medicine
DX: J44.1 Chronic obstructive pulmonary disease with (acute) exacerbation (principal); J96.01 Acute respiratory failure with hypoxia; J15.212 Pneumonia due to Methicillin resistant Staphylococcus aureus; Z68.41 Body mass index [BMI] 40.0-44.9, adult; J44.0 Chronic obstructive pulmonary disease with (acute) lower respiratory infection; G47.33 Obstructive sleep apnea (adult) (pediatric); E66.01 Morbid (severe) obesity due to excess calories; M10.9 Gout, unspecified; N18.9 Chronic kidney disease, unspecified; I12.9 Hypertensive chronic kidney disease with stage 1 through stage 4 chronic kidney disease, or unspecified chronic kidney disease; Z90.5 Acquired absence of kidney; Z92.3 Personal history of irradiation; Z90.2 Acquired absence of lung [part of]; Z88.8 Allergy status to other drugs, medicaments and biological substances; Z99.81 Dependence on supplemental oxygen; Z90.49 Acquired absence of other specified parts of digestive tract; Z87.891 Personal history of nicotine dependence; Z79.82 Long term (current) use of aspirin; Z79.899 Other long term (current) drug therapy; Y95 Nosocomial condition; Z99.89 Dependence on other enabling machines and devices

== ENCOUNTER 2017-06-19 18:24 | Observation (INO) | payer MEDICARE, MEDICAID ==
[~2017-06-19] VITALS: Ht 185.4 cm; Wt 154.8 kg
[~2017-06-19 18:24] MED LIST changes: +ALBU17IN INH; +AMMO12CR4 TOP; +BACT800T5 PO; +DOXY100C PO; +GABA-282 PO; +IPRASOL4 INH; +MAGN400T PO; +MOXI1TAB PO; +OMEP20CA3 PO; +VITMTA PO
[2017-06-19] MEDS ORDERED: ASPIRIN 81 MG CHEW TABLET PO ONE (18:45)
[2017-06-19 18:56] LABS: BASO % 0.6 % (0.0-1.0); EOS # 0.5 10^3/uL (0.0-0.50); EOS % 7.2 % (0.0-3.0); IMMATURE GRANULOCYTE % 0.6 % (0-0); LYMPH % 14.9 % (24.0-44.0); MEAN CORPUSCULAR HEMOGLOBIN 33.3 pg (27.0-33.0); MONO # 0.5 10^3/uL (0.0-0.8); MONO % 7.8 % (0.0-5.0); NEUTROPHILS # 4.4 10^3/uL (1.8-7.7); NEUTROPHILS % 68.9 % (36.0-66.0); PLATELET COUNT, AUTOMATED 195 10^3/uL (150-450); RED CELL DISTRIBUTION WIDTH 13.5 % (11.5-14.5); WHITE BLOOD COUNT 6.4 10^3/uL (4.0-10.0)
[2017-06-19 19:41] LABS: ANION GAP 11 MEQ/L (8-16); BLOOD UREA NITROGEN 20 MG/DL (7-18); CALCIUM LEVEL 8.9 MG/DL (8.8-10.2); CARBON DIOXIDE LEVEL 23 MEQ/L (21-32); CHLORIDE LEVEL 103 MEQ/L (98-107); CREATININE FOR GFR 1.44 MG/DL (0.70-1.30); GLOMERULAR FILTRATION RATE 52.6 (>49); GLUCOSE, FASTING 220 MG/DL (80-110); POTASSIUM SERUM 3.9 MEQ/L (3.5-5.1); SODIUM LEVEL 137 MEQ/L (136-145)
[2017-06-19] MEDS: LINEZOLID 600MG TABLET (ZYVOX) PO SCH (21:00)
[2017-06-19] MEDS ORDERED: MORPHINE 2 MG/ML 1ML SYRINGE IV ONE (21:00)
[2017-06-19] MEDS: rOPINIRole 1MG TAB PO SCH (21:00)
[2017-06-19] MEDS ORDERED: NS 500 ML IV ONE (21:15)
[2017-06-19] MEDS ORDERED: fentaNYL 100 MCG/2 ML INJECTION (J3010) IV ONE (22:30)
[2017-06-19] MEDS ORDERED: ISOVUE-370 76% 100ML VIAL (Q9967) As Ordered ONE (23:09)
[2017-06-20] VITALS (7 sets, daily range): BP systolic 115–145; BP diastolic 66–83
[2017-06-20] MEDS ORDERED: BACT800T5 PO (00:06)
[2017-06-20] MEDS ORDERED: GABA-279 PO (00:06)
[2017-06-20] MEDS ORDERED: IPRATROPIUM 0.5MG/ALBUTEROL 2.5MG INH SOL UD 3ML (DUONEB)(J7620) INH PRN ×2 (00:30→12:30)
[2017-06-20] MEDS ORDERED: ALBUTEROL 90 MCG/ACT 8GM HFA INHALER INH PRN (00:30)
[2017-06-20] MEDS ORDERED: hydrOXYzine 50 MG TAB PO PRN (00:30)
[2017-06-20] MEDS ORDERED: ACETAMINOPHEN TAB 650MG DOSE (2X325MG) PO PRN (00:45)
[2017-06-20] MEDS ORDERED: MORPHINE 2 MG/ML 1ML SYRINGE IV PRN (00:45)
[2017-06-20] MEDS ORDERED: ONDANSETRON 4MG/2ML VIAL (J2405) IV PRN (00:45)
[2017-06-20 01:22] LABS: INR 0.99
--- NOTE | 2017-06-20 01:30 | REPUSA ---
CLINICAL HISTORY: CP, exclude PE. TECHNIQUE: Multiple incremental axial, coronal and oblique images are obtained from the thoracic inle t to the upper abdomen. Intravenous contrast material was administered as per pulmonary embolism prot ocol. COMMENTS: Comparison is made to the prior exam on 05/24/2017. Scattered emphysematous changes are again seen. Sccarring is noted in the left lower lobe. Rounded consolidation in the right lower lobe compatible with pneumonia. There is fair opacification of the central pulmonary arterial system without evidence for central pu lmonary embolism. Aorta is of normal caliber without evidence for dissection or aneurysm. There is no evidence of pleural or parenchymal mass. There are no pleural effusions. There is no evid ence of hilar or mediastinal lymphadenopathy. The heart and great vessels are within normal limits. Images of the upper abdomen demonstrate no evidence of adrenal mass. Hepatomegaly with fatty liver in filtration. The bony structures are free of lytic or blastic lesions. Multilevel degenerative changes are seen in volving the visualized thoracolumbar spine. Scattered calcifications are seen involving the aorta and major branches compatible with atherosclero sis. IMPRESSION: RLL pneumonia, progressed since the prior study. Stable emphysema. No evidence for central pulmonary embolism. Unchanged 1 cm right thyroid lobe nodule. Unchanged hepatomegaly with fatty liver infiltration.
[2017-06-20] MEDS ORDERED: OMEPRAZOLE 20 MG CAP PO ONE (02:30)
[2017-06-20] MEDS: CEFEPIME HCL 1 GM in D5W 50 ML IV SCH ×2 (02:52→14:04)
[2017-06-20] MEDS: GABAPENTIN 100 MG CAP PO SCH ×4 (02:53→20:43)
[2017-06-20] MEDS: SERTRALINE HCL 25 MG TABLET PO SCH ×2 (02:53→20:44)
[2017-06-20] MEDS: SENOKOT S TAB PO SCH ×3 (02:53→20:50)
[2017-06-20] MEDS: CARVedilol 6.25 MG TAB PO SCH ×3 (02:53→20:43)
[2017-06-20] MEDS: PERCOCET 5MG/325MG TAB PO PRN ×4 (02:55→20:44)
[2017-06-20] MEDS ORDERED: SLF 3 ML SYR IV PRN (03:45)
[2017-06-20] MEDS: HEPARIN SOD (PORCINE) 5000 UNITS/ML VIAL SC SCH ×3 (06:13→20:44)
[2017-06-20] MEDS: SLF 3 ML SYR IV SCH ×3 (06:14→22:00)
[2017-06-20] MEDS: OMEPRAZOLE 20 MG CAP PO SCH (07:47)
[2017-06-20] MEDS: PRAVASTATIN 20 MG TAB PO SCH (07:48)
[2017-06-20] MEDS: LINEZOLID 600MG TABLET (ZYVOX) PO SCH ×2 (07:48→20:43)
[2017-06-20] MEDS: MULTIVITAMINS/MINERALS THERAP 1 TAB PO SCH (07:48)
[2017-06-20] MEDS: ASPIRIN 81 MG ENTERIC TAB PO SCH (07:48)
[2017-06-20] MEDS: FIBER-CON 625 MG TAB PO SCH (07:48)
[2017-06-20] MEDS: ALLOPURINOL 300 MG TAB PO SCH (07:48)
[2017-06-20] MEDS: rOPINIRole 1MG TAB PO SCH ×2 (07:48→20:44)
[2017-06-20] MEDS: CYANOCOBALAMIN 500 MCG TAB PO SCH (07:49)
[2017-06-20] MEDS: LACTIC ACID 12% LOTION 225 GM BTL TOP SCH (07:49)
[2017-06-20] MEDS: FERROUS SULFATE 325MG TAB PO SCH (07:49)
[2017-06-20] MEDS: MAGNESIUM OXIDE 400 MG TAB (MAG-OX) PO SCH (07:49)
[2017-06-20] MEDS: TIOTROPIUM INHALER/CAPSULE (SPIRIVA) INH SCH (08:11)
[2017-06-20] MEDS ORDERED: BREO INH SCH (09:00)
--- NOTE | 2017-06-20 11:29 | HPE ---
DATE OF ADMISSION: 06/20/2017 PRIMARY CARE PROVIDER: Dr. Raghav Thomson. DATA STEWARD: Dr. Gabino Artis. CHIEF COMPLAINT: Left-sided chest pain. HISTORY OF PRESENT ILLNESS: This is a 62-year-old male patient with underlying medical history of chronic obstructive pulmonary disease (COPD), obstructive sleep apnea on continuous positive airway pressure (CPAP), gout, hypertension, chronic kidney disease (CKD) status post nephrectomy, stage I right lower lobe lung cancer status post radiation, history of torsades, presented to [facility] for left-sided chest pain for 1 day. Patient was recently admitted for pneumonia, COPD last month with recent hospitalization in May and March for pneumonia, is placed on chronic suppressive therapy by Dr. Artis with alternating Cipro and Bactrim. Patient reportedly chronically has cough productive of green sputum. Respiration currently at baseline, but does report since yesterday evening, 24 hours ago with left-sided chest pain radiating to the back that is constant with no relieving factor, exacerbated with cough, sharp, 10/10. Subsequently presented to the emergency room. As per patient, he had previously this type of symtpoms, which goes away after 2 hours subsequently, but unfortunately this time it did not go away. Subsequently, patient presented to the hospital. Patient denies any diaphoresis. Denies any fevers or chills, lightheadedness, headache, vision change, nausea, vomiting, diarrhea, constipation. ALLERGIES: HEXACHLOROPHENE. PAST MEDICAL HISTORY: 1. COPD on 3 liters oxygen at night. 2. Obstructive sleep apnea on CPAP. 3. Gout. 4. Obesity. 5. Hypertension. 6. CKD. 7. History of liposarcoma with partial colon resection. 8. Right-sided nephrectomy and right adrenal gland resection. 9. Stage IA left upper lobe lung cancer status post lobectomy. 10. Stage IA lung cancer of right lower lobe status post radiation. 11. History of torsades. PAST SURGICAL HISTORY: 1. Right-sided nephrectomy. 2. Right-sided adrenal gland resection. 3. Also left upper lobe lobectomy. 4. Cholecystectomy. 5. Tonsillectomy. 6. Liposarcoma removal with partial colectomy. 7. History of chest tube insertion. SOCIAL HISTORY: Patient quit smoking more than 3 years ago, has a pack per day for more than 50 years. No alcohol use or recreational drug use. Lives at home with cats. FAMILY HISTORY: Noncontributory. No family history of premature heart disease. REVIEW OF SYSTEMS: Reported left-sided chest pain radiating to the back, chronic cough productive of green phlegm, dyspnea intermittently on oxygen. All other review of systems negative. HOME MEDICATION: - Ventolin inhalers inhalation every 4 hours as needed - DuoNebs inhalation every 4 hours as needed - allopurinol 300 mg by mouth daily - ammonium lactate topically daily as needed - aspirin 81 mg by mouth daily - calcium polycarbophil fibrous by mouth daily - Coreg 6.25 by mouth twice a day - vitamin B12 500 mcg by mouth daily - ferrous sulfate 325 by mouth daily - Breo inhalation daily - gabapentin 100 mg by mouth three times a day - hydroxyzine 50 mg by mouth nightly as needed - magnesium oxide 400 mg by mouth daily - multivitamin one tablet by mouth daily - omeprazole 20 mg by mouth daily - pravastatin 20 mg by mouth daily - Requip 1 mg by mouth daily and 2 mg by mouth nightly - Zocor 25 mg by mouth nightly - Spiriva inhalation daily - Bactrim one tablet by mouth twice a day PHYSICAL EXAMINATION: VITAL SIGNS: Temperature 98.6, pulse 98, respirations 16, blood pressure 134/80, pulse oximetry 97% on room air. GENERAL: Patient obese, alert and oriented times three in no acute distress. HEENT: Normocephalic, atraumatic. PULMONARY: Bilaterally clear to auscultation. Diminished breath sounds right lower base. CARDIAC: Regular S1, S2. ABDOMEN: Obese, soft, nontender. Positive bowel sounds. EXTREMITIES: Trace edema bilateral lower extremities. EKG shows sinus tachycardia at 108. No ST segment changes. LABORATORY: WBC 6.4, hemoglobin and hematocrit 13.4/39.4, platelets 195. Chemistry: Sodium 137, potassium 3.9, chloride 103, bicarbonate 23, BUN 20, creatinine 1.44. Cardiac enzymes negative times one. C-reactive protein 1.73. Chest x-ray shows fibroatelectatic changes right lower lobe. No acute infiltrates. CT angiography pending. ASSESSMENT AND PLAN: This is a 62-year-old male patient with underlying medical history of chronic obstructive pulmonary disease (COPD), intermittently on 3 liters of oxygen, obstructive sleep apnea on continuous positive airway pressure (CPAP) at night, gout, hypertension, chronic renal insufficiency with nephrectomy, history of liposarcoma with partial colectomy and right-sided nephrectomy and right adrenal gland resection, stage IA lung cancer of the left upper lobe status post lobectomy and stage IA lung cancer of the right lower lobe status post radiation, history of torsades, admitted to the hospital with chest pain. 1. Chest pain of unknown etiology. Baseline history sounds like noncardiac chest pain. EKG is appreciated. Serial cardiac enzymes. CT angiography to rule out pulmonary embolus (PE). Pain medication as prescribed. Workup for pneumonia has been sent. Empirically started on antibiotics. Patient has recurrent pneumonia on chronic suppressive antibiotics at home, but patient's Bactrim has been held given mildly elevated creatinine. Patient on linezolid and cefepime at this time. Will adjust based on further workup. Followup cultures. 2. Mild elevation of creatinine. Intravenous (IV) fluids given in the emergency room. Will continue to follow blood urea nitrogen (BUN) and creatinine. Bactrim has been on hold. Monitor BUN and creatinine. 3. CKD. Acute on chronic renal insufficiency. IV fluids given in the emergency room. Followup BUN and creatinine. Avoid nephrotoxic agents. Holding Bactrim for now. 4. COPD. Patient does not have any significant wheeze. Intermittent oxygen at home. Continue home medication, nebulizers, inhalers. Continue to monitor. 5. Obstructive sleep apnea. Continue CPAP. 6. Gout. Continue home medication. 7. Hypertension. Continue home medication. 8. History of lung cancer. Outpatient followup. 9. Restless legs. Continue current medication. 10. Deep venous thrombosis (DVT) prophylaxis. Heparin subcutaneously. DISPOSITION: Pending clinical improvement, further workup for the chest pain.
--- NOTE | 2017-06-20 11:30 | REP ---
Chest x-ray: Two views. History: Chest pain. Comparison chest x-ray May 25, 2017. Comparison chest CT study May 25, 2017. There is a linear band of fibroatelectasis in the right lower lobe posteriorly. This is similar to the CT findings of May 25, 2017. No new infiltrate is seen. There is some volume loss in the left hemithorax as before. The patient is status post left upper lobectomy. Impression: Linear fibroatelectatic changes right lower lobe. No acute infiltrate. Signed by Anand Ponce MD 06/20/2017 09:37 A
[2017-06-20] MEDS ORDERED: GLUCAGON FOR INJ 1 MG VIAL (J1610) SC PRN (18:15)
[2017-06-20] MEDS ORDERED: DEXTROSE 50% 50 ML SYRINGE IV PRN (18:15)
[2017-06-20] MEDS ORDERED: GLUCOSE 4 GM CHEW TABLET PO PRN (18:15)
[2017-06-20] MEDS: IPRATROPIUM 0.5MG/ALBUTEROL 2.5MG INH SOL UD 3ML (DUONEB)(J7620) NEB SCH ×2 (20:52→23:47)
[2017-06-20] MEDS ORDERED: HumaLOG INSULIN (NovoLOG) PER UNIT SC SCH (21:00)
[2017-06-21] VITALS: BP 129/70
[2017-06-21] MEDS: CEFEPIME HCL 1 GM in D5W 50 ML IV SCH ×2 (01:24→12:35)
[2017-06-21] MEDS: PERCOCET 5MG/325MG TAB PO PRN ×3 (01:25→09:46)
[2017-06-21] MEDS: IPRATROPIUM 0.5MG/ALBUTEROL 2.5MG INH SOL UD 3ML (DUONEB)(J7620) NEB SCH ×3 (03:58→11:38)
[2017-06-21 04:00] VITALS: BP 128/79
[2017-06-21 05:16] LABS: MEAN CORPUSCULAR HEMOGLOBIN 32.9 pg (27.0-33.0); MEAN CORPUSCULAR HGB CONC 33.1 g/dl (32.0-36.5); MEAN CORPUSCULAR VOLUME 99.5 fl (80.0-96.0); RED CELL DISTRIBUTION WIDTH 13.6 % (11.5-14.5); WHITE BLOOD COUNT 5.6 10^3/uL (4.0-10.0)
[2017-06-21 05:34] LABS: CALCIUM LEVEL 8.8 MG/DL (8.8-10.2); CREATININE FOR GFR 1.38 MG/DL (0.70-1.30); GLOMERULAR FILTRATION RATE 55.2 (>49); MAGNESIUM LEVEL 1.6 MG/DL (1.8-2.4); POTASSIUM SERUM 3.9 MEQ/L (3.5-5.1)
[2017-06-21] MEDS: HEPARIN SOD (PORCINE) 5000 UNITS/ML VIAL SC SCH (05:47)
[2017-06-21] MEDS: SLF 3 ML SYR IV SCH (05:47)
--- NOTE | 2017-06-21 06:15 | ECHO ---
INPATIENT ECHOCARDIOGRAPHIC REPORT DATE OF PROCEDURE: 06/20/2017 DATE OF : 1955 AGE: 62. GENDER: Male. HEIGHT: 73 inches. WEIGHT: 320 pounds. BODY SURFACE AREA: 2.63 meters squared. INPATIENT: Progressive care unit (PCU) Room 3228 REFERRING PHYSICIAN: Dr. Castle INDICATION: Chest pain. MEASUREMENTS: 2-D Measurements: RV: 4.4 cm LV: 4.7 cm Septum: 1.2 cm Posterior wall: 1.2 cm Aortic root: 3.5 cm Proximal ascending aorta: 3.8 cm LA: 4.6 cm LVEF: 60% Doppler Measurements: AV: 1.0 m/s LVOT: 0.94 m/s MV: E 90 A 120 EA ratio 0.8 Early mitral E-deceleration time: 201 ms E prime: 5.6 A prime: 11 E/E prime ratio: 16 PV: 0.9 m/s Pulmonary artery acceleration time: 134 ms RVSP: 35 mmHg COMMENTS: Normal sinus rhythm without intraventricular conduction disturbance. Technically difficult study in light of the patient's body habitus but diagnostically useful information was still obtained. At least mildly dilated left atrium but normal left ventricular size. Mild to moderately dilated right heart chambers. LV wall thickness was upper limits of normal to mildly increased. On real-time imaging from parasternal and projections there appeared to be a distal septal wall motion but left ventricular wall segments moved normally. Slightly thickened mitral annulus but normal leaflet thickness and excursion with no posterior systolic buckling. Three equal size aortic cusps with mildly thickened cusp edges but adequate cusp separation. Normal aortic root size. No apparent intracardiac mass or pericardial effusion. Color flow Doppler study taken from the parasternal and projection showed trace mitral with mild tricuspid but no aortic insufficiency. Guided continuous wave Doppler of his aortic valve showed a normal peak systolic velocity against LV outflow tract obstruction. Pulsed and continuous wave Doppler of his LV inflow tract taken from the apical four-chamber projection showed normal diastolic filling velocities against mitral stenosis. There was more prominent late diastolic/atrial dependent filling pattern. Diastolic dysfunction was confirmed by somewhat prolonged early mitral deceleration time and tissue Doppler of his mitral annulus. Current estimated mean left atrial pressure however was upper limits of normal. Pulsed and continuous wave Doppler of his pulmonary trunk showed a normal peak systolic velocity against RV outflow tract obstruction. Guided continuous wave Doppler of his tricuspid valve allowed our estimation of his right ventricular systolic pressure (at least mildly increased). We could not visualize his inferior vena cava so his central venous pressure was estimated at 10 mmHg by convention. CONCLUSIONS: Technically difficult study. Borderline left ventricle hypertrophy with localized septal wall motion abnormality believed to be related to right ventricular pressure overload. Preserved global resting left ventricular systolic function. Mild-moderately dilated left atrium with Doppler evidence of impairment of LV diastolic function but current estimated mean left atrial pressure upper limits of normal. Mildly dilated right heart chambers with Doppler evidence of at least mild pulmonary hypertension. We could not visualize his inferior vena cava to further estimate central venous pressure. Slight degenerative changes of the mitral and aortic valvular apparatus without functional valvular abnormality.
[2017-06-21] MEDS: FIBER-CON 625 MG TAB PO SCH (07:51)
[2017-06-21] MEDS: HumaLOG INSULIN (NovoLOG) PER UNIT SC SCH ×2 (07:51→11:35)
[2017-06-21] MEDS: GABAPENTIN 100 MG CAP PO SCH (07:51)
[2017-06-21] MEDS: SENOKOT S TAB PO SCH (07:51)
[2017-06-21 07:52] VITALS: BP 127/72
[2017-06-21] MEDS: CARVedilol 6.25 MG TAB PO SCH (07:52)
[2017-06-21] MEDS: CYANOCOBALAMIN 500 MCG TAB PO SCH (07:52)
[2017-06-21] MEDS: OMEPRAZOLE 20 MG CAP PO SCH (07:52)
[2017-06-21] MEDS: ALLOPURINOL 300 MG TAB PO SCH (07:52)
[2017-06-21] MEDS: MULTIVITAMINS/MINERALS THERAP 1 TAB PO SCH (07:52)
[2017-06-21] MEDS: FERROUS SULFATE 325MG TAB PO SCH (07:52)
[2017-06-21] MEDS: ASPIRIN 81 MG ENTERIC TAB PO SCH (07:52)
[2017-06-21] MEDS: rOPINIRole 1MG TAB PO SCH (07:53)
[2017-06-21] MEDS: PRAVASTATIN 20 MG TAB PO SCH (07:53)
[2017-06-21] MEDS: MAGNESIUM OXIDE 400 MG TAB (MAG-OX) PO SCH (07:53)
[2017-06-21] MEDS: LINEZOLID 600MG TABLET (ZYVOX) PO SCH (07:53)
[2017-06-21] MEDS: LACTIC ACID 12% LOTION 225 GM BTL TOP SCH (07:54)
--- NOTE | 2017-06-21 07:54 | ECGEPIP ---
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
[2017-06-21 07:57] VITALS: BP 127/72
[2017-06-21] MEDS: TIOTROPIUM INHALER/CAPSULE (SPIRIVA) INH SCH (08:51)
[2017-06-21] MEDS: MAG SULF 1GM/100ML (MAG RUN) 1 GM in APPROPRIATE DILUENT 1 EA IV SCH ×2 (09:45→11:28)
[2017-06-21] MEDS ORDERED: LINE60TAB PO (10:38)
--- NOTE | 2017-06-22 18:55 | DSES ---
DATE OF ADMISSION: 06/20/2017 DATE OF DISCHARGE: 06/21/2017 PRIMARY CARE PROVIDER: Dr. Thomson CONSULTANTS: None. DISCHARGE DIAGNOSES: 1. Left sided chest pain, noncardiac. 2. Chronic kidney disease. 3. Chronic obstructive pulmonary disease (COPD). 4. Obstructive sleep apnea (ANTWAN). On continuous positive airway pressure (CPAP). 5. Gout. 6. History of lung cancer, status post lobectomy and radiation. 7. Hypertension. 8. History of liposarcoma, status post partial colon resection. 9. History of restless legs. HOSPITALIZATION COURSE: The patient is a 62-year-old male admitted to [facility] on 06/20/2017 for persistent left sided chest pain. The patient is admitted on cardiac telemetry. Serial troponins were ordered and two sets came back negative. CT angiogram of the chest was performed and showed the patient does not have pulmonary embolism; however, there is progression of the right lower lobe pneumonia. The patient was on Bactrim before and the patient's antibiotic regimen was switched to Zyvox since admission. Later the patient also had an echocardiogram, which also came back negative. On 06/21/2017, the patient is discharged from the hospital with recommendations to continue taking the Zyvox for his right lobe pneumonia with history of methicillin resistant Staphylococcus aureus (MRSA). The director of social media marketing also has been assisting for the Zyvox preauthorization. OBJECTIVE: VITAL SIGNS: On discharge, temperature 97.2, pulse is 91, respirations 18, blood pressure is 127/72, pulse oximetry 92% on room air. LABORATORY DATA: On the day of discharge, WBC 5.6, hemoglobin 12.4, hematocrit 37.5, platelet count is 183. Sodium is 140, potassium 3.9, chloride 103, carbon dioxide 27, BUN 10, creatinine 1.38, GFR is 55.2, fasting glucose 131, A1/c is 7.9, calcium is 8.8, magnesium 1.6, C-reactive protein 2.35. Microbiology: Sputum culture came back positive for MRSA. Blood cultures with no growth after 48 hours times two sets. Respiratory panel is negative. IMAGING STUDIES: CT angiogram of the chest showed right lower lobe pneumonia, progressed since the last study. Stable emphysema. No evidence of central pulmonary embolism. 1 cm right sided right lobe nodule. Hepatomegaly with fatty liver infiltrate. DISCHARGE MEDICATIONS: - Zyvox 600 mg by mouth twice a day for 14 days - Ventolin two puff inhalation every 4 hours as needed - albuterol/ipratropium inhalation every 4 hours as needed - allopurinol 300 mg by mouth daily - ammonia lactate one topically daily - aspirin 81 mg by mouth daily - calcium polycarbophil 625 mg by mouth daily - carvedilol 6.25 mg by mouth twice a day - vitamin B12 500 mcg by mouth daily - ferrous sulfate 325 mg by mouth daily - Breo Ellipta one puff inhalation daily - gabapentin 100 mg by mouth three times a day - hydroxyzine 50 mg by mouth at night as needed for anxiety - magnesium oxide 400 mg by mouth daily - multivitamin one tablet by mouth daily - omeprazole 20 mg by mouth daily - pravastatin 20 mg by mouth daily - ropinirole 1 mg by mouth daily - ropinirole 2 mg by mouth at night - sertraline 25 mg by mouth at night - Spiriva two inhalation daily DISCHARGE INSTRUCTIONS: Discontinue line. Discharge home. Activity as tolerated. Low salt diet as tolerated. The patient should follow with the primary care provider in 1 to 2 weeks. The patient should finish a course of Zyvox medication for his MRSA right lobe pneumonia. DISCHARGE CONDITION: Stable. Discharge time was greater than 30 minutes.
== END 2017-06-21 13:09 | disposition home or self-care (01) ==
LOC: M ED 18:24 → INTOOBSV 06-20 00:34 → M ED INP 06-20 00:34 → M PCU 06-20 01:40
PROVIDERS: ADMIT Hospitalist; ATTEND Internal Medicine
DX: R07.89 Other chest pain (principal); N18.9 Chronic kidney disease, unspecified; J44.9 Chronic obstructive pulmonary disease, unspecified; G47.33 Obstructive sleep apnea (adult) (pediatric); I12.9 Hypertensive chronic kidney disease with stage 1 through stage 4 chronic kidney disease, or unspecified chronic kidney disease; Z85.118 Personal history of other malignant neoplasm of bronchus and lung; Z92.3 Personal history of irradiation; Z85.831 Personal history of malignant neoplasm of soft tissue; G25.81 Restless legs syndrome; Z79.82 Long term (current) use of aspirin; Z79.899 Other long term (current) drug therapy; E66.9 Obesity, unspecified; Z87.891 Personal history of nicotine dependence; R06.02 Shortness of breath
CPT/HCPCS: 36415; 71020; 71275; 80048; 82550; 82553; 83036; 83735; 83880; 84484; 85025; 85027; 85610; 85730; 86140; 87040; 87070; 87077; 87081; 87186; 87205; 87486; 87581; 87633; 87798; 93005; 93041; 93306; 94640; 94760; 96361; 96372; 96374; 96375; 99285; G0378; J0692; J3010; J3475; Q9967

== ENCOUNTER 2017-06-25 20:47 | Inpatient (IN) | payer MEDICARE, MEDICAID ==
[~2017-06-25] VITALS: Ht 193 cm; Wt 155.2 kg
[~2017-06-25 20:47] MED LIST changes: +GABA-279 PO; +LINE60TAB PO
[2017-06-25 22:30] LABS: BASO % 0.3 % (0.0-1.0); EOS # 0.4 10^3/uL (0.0-0.50); EOS % 6.2 % (0.0-3.0); IMMATURE GRANULOCYTE % 0.5 % (0-0); LYMPH # 0.9 10^3/uL (1.5-4.5); LYMPH % 15.4 % (24.0-44.0); MEAN CORPUSCULAR HEMOGLOBIN 32.3 pg (27.0-33.0); MEAN CORPUSCULAR HGB CONC 32.7 g/dl (32.0-36.5); MEAN CORPUSCULAR VOLUME 98.7 fl (80.0-96.0); MONO # 0.6 10^3/uL (0.0-0.8); NEUTROPHILS # 4.2 10^3/uL (1.8-7.7); NEUTROPHILS % 68.6 % (36.0-66.0); PLATELET COUNT, AUTOMATED 193 10^3/uL (150-450); RED CELL DISTRIBUTION WIDTH 13.2 % (11.5-14.5); WHITE BLOOD COUNT 6.1 10^3/uL (4.0-10.0)
--- NOTE | 2017-06-25 22:30 | REPUSA ---
HISTORY: REED. TECHNIQUE: Axial CT of head without contrast. DLP= 953.9 mGy-cm. FINDINGS: Ventricles and sulci are of normal size for this age group. [place]-white matter differentiati on is intact. There is no evidence of intracranial mass, mass effect, hemorrhage, or cystic lesion id entified. There is no detectable evidence of infarct. No bony lesions are seen in the calvarium or sk ull base. Paranasal sinuses and mastoid sinuses are clear. IMPRESSION: Negative noncontrast head CT examination.
[2017-06-25 22:47] LABS: ERYTHROCYTE SEDIMENTATION RATE 65 mm/hr (0-20)
[2017-06-25 23:03] LABS: CALCIUM LEVEL 8.4 MG/DL (8.8-10.2); CREATININE FOR GFR 1.36 MG/DL (0.70-1.30); GLOMERULAR FILTRATION RATE 56.2 (>49); POTASSIUM SERUM 3.6 MEQ/L (3.5-5.1)
[2017-06-25] MEDS ORDERED: ACETAMINOPHEN 325 MG TAB PO ONE (23:45)
[2017-06-25] MEDS ORDERED: IPRASOL4 INH (23:51)
[2017-06-25] MEDS ORDERED: GABA-282 PO (23:53)
[2017-06-25] MEDS ORDERED: LINE600T PO (23:54)
[2017-06-25] MEDS ORDERED: PRED20TA PO (23:55)
[2017-06-25] MEDS ORDERED: PRAV20TA2 PO (23:55)
[2017-06-26] MEDS ORDERED: hydrOXYzine 50 MG TAB PO PRN (02:00)
[2017-06-26] MEDS ORDERED: DEXTROSE 50% 50 ML SYRINGE IV PRN (02:00)
[2017-06-26] MEDS ORDERED: ONDANSETRON 4MG/2ML VIAL (J2405) IV PRN (02:00)
[2017-06-26] MEDS ORDERED: GLUCOSE 4 GM CHEW TABLET PO PRN (02:00)
[2017-06-26] MEDS ORDERED: GLUCAGON FOR INJ 1 MG VIAL (J1610) SC PRN (02:00)
[2017-06-26 02:49] VITALS: BP 130/75
[2017-06-26] MEDS: HumaLOG INSULIN (NovoLOG) PER UNIT SC SCH ×5 (03:01→20:48)
--- NOTE | 2017-06-26 03:01 | HPEPDOC ---
General Date of Admission Jun 26, 2017 at 01:52 Primary Care Physician: MARI SIMPSON MD Attending Physician: NANCI GODFREY MD Chief Complaint The patient is a 62-year-old male admitted with a reason for visit of Neuropathic Pain. Source: Patient, Family History of Present Illness 62-year-old male with past medical history of COPD on 3 L of oxygen at night, obstructive sleep apnea on CPAP, gout, obesity, hypertension, chronic kidney disease stage III, diabetes mellitus, peripheral neuropathy, history of stage IA left upper lobe cancer status post lobectomy, and stage IA lung cancer of the right lower lobe status post radiation was recently admitted to the hospital from 06/20 to 06/22 for left-sided chest pain, with subsequent negative cardiac workup. The patient was however found to have right lower lobe pneumonia which he was prescribed antibiotics for and discharged home. At this time, the patient returned to the ER for intractable neuropathic pain in his left upper and left lower extremities for the last 3 days. The patient states that he has also had an associated headache with this. He did take some Tylenol at home but this did not alleviate his pain. He denies any focal neurological deficits such as visual blurring, slurring of speech, facial droop, or isolated weakness of the extremities. In the ER, a CT scan of the head revealed no acute findings. The patient was found to have no focal weakness in his extremities on examination. The patient will be admitted to the hospitalist service under Dr. Godfrey for further evaluation and management. Home Medications Scheduled Albuterol/Ipratropium (Ipratropium Senath/Albut 0.5-2.5 (3) mg/3Ml) 1 Braden Braden, 1 BRADEN INH QID, (Reported) Allopurinol (Zyloprim) 300 Mg Tab, 300 MG PO DAILY, (Reported) Ammonium Lactate (Ammonium Lactate) 12 % Cre, 1 DOSE TOP DAILY, (Reported) USES ON FEET Aspirin (Aspir-81) 81 Mg Tab, 81 MG PO DAILY, (Reported) Calcium Polycarbophil (Fiber) 625 Mg Tab, 625 MG PO DAILY, (Reported) Carvedilol (Carvedilol) 6.25 Mg Tab, 6.25 MG PO BID, (Reported) Cyanocobalamin (Vitamin B-12) 500 Mcg Tab, 500 MCG PO DAILY, (Reported) Ferrous Sulfate (Ferrous Sulfate) 325 Mg Tab, 325 MG PO DAILY, (Reported) Fluticasone/Vilanterol (Breo Ellipta 200-25 Mcg/INH) 1 Inh Inh, 1 PUFF INH DAILY , (Reported) Gabapentin (Gabapentin) 300 Mg Cap, 300 MG PO TID, (Reported) Linezolid (Linezolid) 600 Mg Tab, 600 MG PO BID, (Reported) Magnesium Oxide (Magnesium Oxide) 400 Mg Tab, 400 MG PO DAILY, (Reported) Multivitamins *[facility] STOCKED* (Thera M Plus *[facility] STOCKED*) 1 Tab Tab, 1 TAB PO DAILY, (Reported) Omeprazole (Omeprazole) 20 Mg Cap, 20 MG PO DAILY, (Reported) Pravastatin Sodium (Pravastatin Sodium) 20 Mg Tab, 20 MG PO DAILY, (Reported) Prednisone (Prednisone) 20 Mg Tab, 20 MG PO TID, (Reported) Ropinirole Hydrochloride (Ropinirole HCl) 1 Mg Tab, 1 MG PO DAILY, (Reported) Ropinirole Hydrochloride (Ropinirole HCl) 2 Mg Tab, 2 MG PO QHS, (Reported) Sertraline Hcl (Sertraline HCl) 25 Mg Tab, 25 MG PO QHS, (Reported) Tiotropium Senath Monohydrate (Spiriva Respimat) 2.5 Mcg/Act Spr, 2 INHALATION INH DAILY, (Reported) Scheduled PRN Albuterol Sulfate (Ventolin Hfa) 200 Puff/8 Gm Aers, 2 PUFF INH Q4H PRN for SHORTNESS OF BREATH, (Reported) Hydroxyzine HCl (Hydroxyzine HCl) 50 Mg Tab, 50 MG PO QHS PRN for ANXIETY, ( Reported) Allergies Coded Allergies: Hexachlorophene (Verified Allergy, Unknown, ITCHING, 03/25/17) FROM [facility] Past Medical History Medical History As noted in HPI. Surgical History 1. Right-sided nephrectomy. 2. Right-sided adrenal gland resection. 3. Also left upper lobe lobectomy. 4. Cholecystectomy. 5. Tonsillectomy. 6. Liposarcoma removal with partial colectomy. 7. History of chest tube insertion. Family History Significant Family History: No pertinent family hx Social History * Smoker: former Smoker (smoked a pack of cigarettes per day for 50+ years, quit approximately 3 years ago) Alcohol: Denies Drugs: denies Lives at home by himself. His daughter checks up on him periodically. Review of Symptoms Other systems 10 point review of systems negative unless otherwise specified in HPI. Physical Examination General Exam: Positive: Alert, Cooperative, No Acute Distress, Other (morbidly obese) ENT Exam: Positive: Atraumatic, Mucous membr. moist/pink Neck Exam: Negative: JVD Chest Exam: Positive: Clear to auscultation, Normal air movement Heart Exam: Positive: Rate Normal, Normal S1, Normal S2 Abdomen Exam: Positive: Soft, Negative: Tenderness Extremity Exam: Negative: Tenderness, Swelling Neuro Exam: Positive: Normal Speech, Strength at 5/5 X4 ext, Normal Tone, Cranial Nerves 3-12 NL, Reflexes 2+ Psych Exam: Positive: Oriented x 3 Vital Signs Vital Signs Date Time Temp Pulse Resp B/P (MAP) Pulse Ox O2 Delivery O2 Flow Rate FiO2 06/26/17 02:49 97.6 68 20 130/75 (93) 98 Nasal Cannula 3.0 Laboratory Data Labs 24H Laboratory Tests 2 06/25/17 22:20: Immature Granulocyte % (Auto) 0.5H, White Blood Count 6.1, Red Blood Count 3.75L , Hemoglobin 12.1L, Hematocrit 37.0L, Mean Corpuscular Volume 98.7H, Mean Corpuscular Hemoglobin 32.3, Mean Corpuscular Hemoglobin Concent 32.7, Red Cell Distribution Width 13.2, Platelet Count 193, Neutrophils (%) (Auto) 68.6H, Lymphocytes (%) (Auto) 15.4L, Monocytes (%) (Auto) 9.0H, Eosinophils (%) (Auto) 6.2H, Basophils (%) (Auto) 0.3, Neutrophils # (Auto) 4.2, Lymphocytes # (Auto) 0.9L, Monocytes # (Auto) 0.6, Eosinophils # (Auto) 0.4, Basophils # (Auto) 0.0, Immature Granulocyte # (Auto) 0.0, Nucleated Red Blood Cells % (auto) 0.0, Erythrocyte Sedimentation Rate 65H, Carboxyhemoglobin 1.0, Anion Gap 4L, Glomerular Filtration Rate 56.2, Blood Urea Nitrogen 18, Creatinine 1.36H, Sodium Level 139, Potassium Level 3.6, Chloride Level 102, Carbon Dioxide Level 33H, Calcium Level 8.4L CBC/BMP Laboratory Tests 06/25/17 22:20 Red Blood Count 3.75 L, Mean Corpuscular Volume 98.7 H, Mean Corpuscular Hemoglobin 32.3, Mean Corpuscular Hemoglobin Concent 32.7, Red Cell Distribution Width 13.2, Neutrophils (%) (Auto) 68.6 H, Lymphocytes (%) (Auto) 15.4 L, Monocytes (%) (Auto) 9.0 H, Eosinophils (%) (Auto) 6.2 H, Basophils (%) (Auto) 0.3, Neutrophils # (Auto) 4.2, Lymphocytes # (Auto) 0.9 L, Monocytes # ( Auto) 0.6, Eosinophils # (Auto) 0.4, Basophils # (Auto) 0.0, Calcium Level 8.4 L Plan / VTE VTE Prophylaxis Ordered?: Yes Plan Plan Intractable Neuropathic Pain in the LUE and LLE CT scan of the head with no acute findings Neurological exam with no significant focal weakness noted, reflexes intact We will obtain a CT scan of the cervical spine for further delineation According to the patient, and his daughter who was at the bedside the patient has had similar pain in the past. He did have an evaluation of his cervical spine by a neurosurgeon in the [place] area, and was told that he is not a surgical candidate, and that his neuropathic pain needs to be treated medically. The patient is already on gabapentin, which is renally dosed PT ordered for functional optimization Hx of RLL PNA Diagnosed on 06.20.17, after being admitted here at [facility] No respiratory symptoms at this time Will cont with Zyvox until 07/03/17 COPD, stable Continue regimen as prescribed Obstructive sleep apnea May use own CPAP Gout Continue allopurinol Hypertension, stable Continue antihypertensives as ordered GERD Continue PPI Chronic kidney disease stage III Serum creatinine at baseline Restless leg syndrome Continue ropinirole Dyslipidemia Continue statin Diabetes mellitus Insulin sliding scale Depression, stable continue Zoloft History of stage IA left upper lobe cancer status post lobectomy History of stage IA lung cancer of the right lower lobe status post radiation DVT Prophylaxis Heparin SC This patient will be admitted under the service of Dr. Godfrey, who will begin to follow the patient on 06/26/17 at 7 AM. CYNDEE EMERY MD Jun 26, 2017 03:01
--- NOTE | 2017-06-26 03:10 | REPUSA ---
CLINICAL HISTORY: Neck pain. TECHNIQUE: Multiple axial images were obtained through the cervical spine. Images were also reconstru cted in coronal and sagittal planes. The study was performed without IV contrast. COMMENTS: There is no fracture or spondylolisthesis visualized. The paraspinal soft tissues are unremarkable. T here are no lytic or blastic lesions. Straightening of cervical lordosis is seen, suggesting muscular spasm. There is evidence of moderate multilevel disk disease, demonstrated by moderate osteophytosis and endplate sclerosis. IMPRESSION: 1. No fracture or spondylolisthesis. 2. Straightening of cervical lordosis is seen, suggesting muscular spasm. 3. Multilevel spondylosis. Thank you for your kind referral of this patient.
[2017-06-26] MEDS: HEPARIN SOD (PORCINE) 5000 UNITS/ML VIAL SC SCH ×3 (05:23→21:01)
[2017-06-26 06:00] VITALS: BP 141/88
--- NOTE | 2017-06-26 06:03 | ECGEPIP ---
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
[2017-06-26] MEDS: IPRATROPIUM 0.5MG/ALBUTEROL 2.5MG INH SOL UD 3ML (DUONEB)(J7620) NEB SCH ×3 (07:25→19:41)
--- NOTE | 2017-06-26 08:05 | REP ---
PA and lateral chest: Comparison is 06/23/2017. There is an infiltrate inferiorly in the right lung, unchanged. The lung petersen otherwise clear. Cardiac size normal. The alfred, mediastinum, and bony thorax unremarkable. Signed by Claus Asher MD 06/26/2017 07:56 A
[2017-06-26] MEDS: TIOTROPIUM INHALER/CAPSULE (SPIRIVA) INH SCH (08:19)
[2017-06-26] MEDS: PRAVASTATIN 20 MG TAB PO SCH (08:29)
[2017-06-26] MEDS: rOPINIRole 1MG TAB PO SCH ×2 (08:29→20:47)
[2017-06-26] MEDS: MAGNESIUM OXIDE 400 MG TAB (MAG-OX) PO SCH (08:30)
[2017-06-26] MEDS: CYANOCOBALAMIN 500 MCG TAB PO SCH (08:30)
[2017-06-26] MEDS: ASPIRIN 81 MG ENTERIC TAB PO SCH (08:30)
[2017-06-26] MEDS: FERROUS SULFATE 325MG TAB PO SCH (08:30)
[2017-06-26] MEDS: ALLOPURINOL 300 MG TAB PO SCH (08:30)
[2017-06-26] MEDS: OMEPRAZOLE 20 MG CAP PO SCH (08:30)
[2017-06-26] MEDS: CARVedilol 6.25 MG TAB PO SCH ×2 (08:34→20:48)
[2017-06-26] MEDS: LACTIC ACID 12% LOTION 225 GM BTL TOP SCH (08:36)
[2017-06-26] MEDS: MULTIVITAMINS/MINERALS THERAP 1 TAB PO SCH (08:36)
[2017-06-26] MEDS ORDERED: LINEZOLID 600MG TABLET (ZYVOX) PO SCH (09:00)
[2017-06-26] MEDS ORDERED: ENTER DRUG NAME HERE (PATIENT'S OWN MED) INH SCH (09:00)
[2017-06-26] MEDS ORDERED: GABAPENTIN 300 MG CAP PO SCH (09:00)
[2017-06-26] MEDS ORDERED: predniSONE 20 MG TAB PO SCH (09:00)
[2017-06-26] MEDS: LACTOBACILLUS ACIDOPHILUS CAP (BACID) PO SCH ×3 (10:22→20:47)
[2017-06-26] MEDS: VANCOMYCIN HCL 1,000 MG, VIAL MATE ADAPTER 1 EACH in D5W 250 ML IV ONE ×2 (10:22→10:59)
--- NOTE | 2017-06-26 10:52 | PHACANCOPD ---
PHARMACY VANCOMYCIN DOSING Pt Demographics Demographics Patient Age:62 , Weight:153.700 , Gender: male Adjusted Body Weight Date: 06/26/17, Adjusted Body Weight: [113] Kg Events Past 24 Hours Events Past 24 Hours: NO: Dialysis, Diuretic Therapy, Change in CrCl, Fever, Elevation in WBC, Pending Diagnostics, Pending Procedures, Other Vancomycin Vancomycin indication: MRSA pneumonia Vancomycin Target Ranges: 15-20 mcg/ml Vancomycin Load Y/N: Yes Load Dose Date Time Vancomycin Load Dose: 1000mg Date: 06/26 Time: 10:00 Vancomycin Dose Date: 06/26/17. Current Vancomycin Dose: [1g IV q8h @16] Intermittent Dosing?: No Labs Labs Item Value Date Time White Blood Count 6.1 10^3/uL 06/25/17 2220 Creatinine 1.36 MG/DL H 06/25/17 2220 C-Reactive Protein, Quantitative 2.80 MG/DL H 06/26/17 0327 Erythrocyte Sedimentation Rate 65 mm/hr H 06/25/17 2220 Creatinine Clearance Date:06/26/17. Creatinine Clearance: [87 ml/min using adjusted BW]. Pending Labs Vanco trough scheduled 06/27 @15:00 Assessment and Plan Maintaining Current Dose?: Yes Reason for dose change: No Dose Change Pharmacist Note Pharmacist Note Date: 06/26/17. Pharmacist note: pt had sputum cultures from 06/20 that grew MRSA (heavy, FLY = 0.5) and was treated with Zyvox po up until this morning. Repeat chest xray today was unchanged from 06/23. SCr is elevated, baseline ~1 mg/dl? I have started him on vancomycin 1g this morning followed by 1g IV q8h 6 hours later. I have a trough scheduled tomorrow afternoon. I will continue to monitor. Suraj Moyer Pharm.D. Jun 26, 2017 10:52
[2017-06-26] MEDS: LIDOCAINE 5% OINT 30 GM TOP SCH (12:10)
--- NOTE | 2017-06-26 13:09 | IPN ---
DATE: 06/26/2017 Patient admitted overnight for left-sided chest pain and also left upper and lower extremity pain. As per patient, it was described as sharp and persistent. Patient previously presented with similar symptoms with negative cardiac workup. Furthermore, the patient reported left upper and lower extremity weakness secondary to the pain. Previously, the patient had workup for left lower extremity pain, which included multiple MRI of the cervical, shoulder, lumbar and thoracic spine. The patient was instructed during previous admission to followup with neurology for nerve conduction studies, but as per patient, he has not got that done. The patient reported symptoms persisted, worsened with movement. Denies any diaphoresis, palpitations. Currently, he is being treated for right upper lobe pneumonia with methicillin-resistant Staphylococcus aureus (MRSA) but has reported diarrhea that is watery. VITAL SIGNS: Temperature 97.6, pulse 68, respirations 20, blood pressure 130/75, pulse oximetry 98% on 3 liters nasal cannula. LABORATORY DATA: WBC 6.1, hemoglobin and hematocrit 12.1 over 37, platelets 193. Chemistry: Sodium 139, potassium 3.6, chloride 102, bicarbonate 33, BUN 18, creatinine 1.36. Cardiac enzymes negative times two. C-reactive protein 2.8. GI panel still pending. PHYSICAL EXAMINATION: GENERAL: Patient alert and oriented times three, morbidly obese, in no acute distress. HEENT: Normocephalic, atraumatic. PULMONARY: Distant breath sounds. Bilateral scattered rhonchi. CARDIAC: 2/6 systolic murmur. Regular S1, S2. ABDOMEN: Soft, obese, nontender, positive bowel sounds. EXTREMITIES: No clubbing, cyanosis or edema. NEUROLOGIC: Symmetrical strength bilaterally 5/5. Cranial nerves II-XII grossly intact. No focal deficit. ASSESSMENT AND PLAN: This is a 62-year-old male patient with underlying medical history of chronic obstructive pulmonary disease (COPD), on oxygen three liters at night, obstructive sleep apnea - on continuous positive airway pressure (CPAP), gout, obesity, hypertension, chronic kidney disease, stage III, diabetes mellitus, peripheral neuropathy, history of stage 1A left upper lobe cancer, status post lobectomy and stage 1A lung cancer of right lower lobe, status post radiation, was recently admitted to the hospital from 06/20/2017 to 06/22/2017 for left-sided chest pain, subsequently had a negative cardiac workup, was found to have right upper lobe pneumonia with methicillin-resistant Staphylococcus aureus, presented to the hospital with intractable neuropathic pain of left upper and lower extremity with weakness. Problems: 1. Intractable pain, neuropathic, of left upper and left lower extremities with also persistent left-sided chest pain. Cardiac enzymes negative times two. Neurology has been consulted. Pain management consultation. Pain regimen as ordered. Patient currently switched from Zoloft to amitriptyline, as well as increasing Neurontin medication to see if that helps with the patient's pain. Lidocaine ointment. Pain management consultation. CT of the cervical spine appreciated. Patient previously had a full workup, including MRI of the cervical, thoracic and lumbar spine. Will followup with neurology for further recommendation. As per patient, he follows up with a [place] neurosurgeon, who determined that his condition is too risky for any surgery. Therefore, surgical option was not recommended. Continue to follow, physical therapy. 2. History of right lower lobe pneumonia with MRSA. Patient had persistent diarrhea on Zyvox, switch to vancomycin. Followup GI panel, C-reactive protein. 3. Diarrhea. Followup GI panel. 4. Chronic obstructive pulmonary disease (COPD). Currently stable. Continue current regimen. 5. Obstructive sleep apnea. May use continuous positive airway pressure (CPAP). 6. Gout. Continue allopurinol. 7. Hypertension. Continue current blood pressure medication. 8. Gastroesophageal reflux disease (GERD). Continue proton pump inhibitor (PPI). 9. Chronic kidney disease, stage III. Currently at baseline. Continue to follow. 10. Restless legs. Continue Requip. 11. Dyslipidemia. Continue statin. 12. Diabetes. Insulin per protocol. 13. Depression. Zoloft has been switched to amitriptyline as per neurology. 14. History of lung cancer, stage 1A left upper lobe, status post lobectomy and 1A right lower lobe, status post radiation. Continue outpatient followup. 15. Deep vein thrombosis (DVT) prophylaxis. Heparin subcutaneously. DISPOSITION PLANNING: Pending neurology consultation, physical therapy (PT), pain management.
[2017-06-26 14:00] VITALS: BP 146/93
[2017-06-26] MEDS: GABAPENTIN 300 MG CAP PO SCH ×2 (15:47→20:47)
[2017-06-26] MEDS: VANCOMYCIN HCL 1,000 MG, VIAL MATE ADAPTER 1 EACH in D5W 250 ML IV SCH (15:48)
[2017-06-26] MEDS: predniSONE 20 MG TAB PO SCH (20:48)
[2017-06-26] MEDS ORDERED: SERTRALINE HCL 25 MG TABLET PO SCH (21:00)
[2017-06-26] MEDS ORDERED: AMITRIPTYLINE 25 MG TAB PO SCH (21:00)
[2017-06-26 22:00] VITALS: BP 145/87
[2017-06-27] MEDS: IPRATROPIUM 0.5MG/ALBUTEROL 2.5MG INH SOL UD 3ML (DUONEB)(J7620) NEB SCH ×4 (01:47→20:06)
[2017-06-27] MEDS: HEPARIN SOD (PORCINE) 5000 UNITS/ML VIAL SC SCH ×3 (05:30→21:03)
[2017-06-27 06:00] VITALS: BP 100/55
[2017-06-27 06:06] LABS: MEAN CORPUSCULAR HGB CONC 33.1 g/dl (32.0-36.5); MEAN CORPUSCULAR VOLUME 96.9 fl (80.0-96.0); PLATELET COUNT, AUTOMATED 191 10^3/uL (150-450); WHITE BLOOD COUNT 6.1 10^3/uL (4.0-10.0)
[2017-06-27 06:36] LABS: ALBUMIN/GLOBULIN RATIO 0.75 (1.00-1.93); BILIRUBIN,TOTAL 0.2 MG/DL (0.2-1.0); CALCIUM LEVEL 9.3 MG/DL (8.8-10.2); CREATININE FOR GFR 1.38 MG/DL (0.70-1.30); GLOMERULAR FILTRATION RATE 55.2 (>49); MAGNESIUM LEVEL 1.8 MG/DL (1.8-2.4); POTASSIUM SERUM 4.4 MEQ/L (3.5-5.1)
[2017-06-27] MEDS: TIOTROPIUM INHALER/CAPSULE (SPIRIVA) INH SCH (07:37)
[2017-06-27] MEDS: HumaLOG INSULIN (NovoLOG) PER UNIT SC SCH ×4 (07:57→20:52)
[2017-06-27] MEDS: LACTOBACILLUS ACIDOPHILUS CAP (BACID) PO SCH ×3 (07:57→20:51)
[2017-06-27] MEDS: predniSONE 20 MG TAB PO SCH ×2 (07:58→20:51)
[2017-06-27] MEDS: CYANOCOBALAMIN 500 MCG TAB PO SCH (07:58)
[2017-06-27] MEDS: GABAPENTIN 300 MG CAP PO SCH ×3 (07:58→20:51)
[2017-06-27] MEDS: MULTIVITAMINS/MINERALS THERAP 1 TAB PO SCH (07:58)
[2017-06-27] MEDS: PRAVASTATIN 20 MG TAB PO SCH (07:59)
[2017-06-27] MEDS: ASPIRIN 81 MG ENTERIC TAB PO SCH (07:59)
[2017-06-27] MEDS: ALLOPURINOL 300 MG TAB PO SCH (07:59)
[2017-06-27] MEDS: rOPINIRole 1MG TAB PO SCH ×2 (07:59→21:00)
[2017-06-27] MEDS: FERROUS SULFATE 325MG TAB PO SCH (08:00)
[2017-06-27] MEDS: MAGNESIUM OXIDE 400 MG TAB (MAG-OX) PO SCH (08:00)
[2017-06-27] MEDS: OMEPRAZOLE 20 MG CAP PO SCH (08:00)
[2017-06-27] MEDS: CARVedilol 6.25 MG TAB PO SCH ×2 (08:02→20:52)
[2017-06-27] MEDS: VANCOMYCIN HCL 1,000 MG, VIAL MATE ADAPTER 1 EACH in D5W 250 ML IV SCH ×4 (08:03)
[2017-06-27] MEDS: LACTIC ACID 12% LOTION 225 GM BTL TOP SCH (08:03)
--- NOTE | 2017-06-27 09:16 | CR ---
DATE OF CONSULTATION: 06/26/2017 REFERRING PHYSICIAN: Dr. Ashu Clark. REASON FOR CONSULTATION: Left-sided head, arm and leg pain along with weakness. HISTORY OF PRESENT ILLNESS: Edi Young is a 62-year-old man with history of chronic obstructive pulmonary disease (COPD) on 3 liters oxygen at night, obstructive sleep apnea syndrome, obesity, chronic kidney disease, diabetes, peripheral neuropathy, history of left upper lobe stage IA cancer status post lobectomy and right lower lobe IA cancer status post radiation therapy and nephrectomy due to renal cell carcinoma. 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 He has episodes of left-sided weakness. Weakness usually resolves after 1 or 2 days. The patient states he usually does not have headaches, but last 4 days he has 9/10 left-sided headache. Yesterday, he developed left-sided arm and leg pain which is 9/10 in intensity. Activity aggravates his left-sided body pain. He feels weakness of left arm and leg without numbness. He was scheduled to have EMG nerve conduction study of arms and legs at our office with Dr. Shine, but he no showed that appointment in past. At that time he had similar concerns. He denies any dysphagia, dysarthria, diplopia or urinary incontinence. He denies any falls or loss of consciousness. DIAGNOSTIC STUDIES: He had multiple MRI scans of his brain and entire spine in 2017 in February and April 2017. The patient has two different accounts at [facility] and all of his scans are present in these two different accounts. He also had CT scan of head and CT of cervical spine this admission. They all collectively showed mild cervical, thoracic and lumbosacral degenerative disc disease. He also has mild small vessel disease of brain. His MRA of brain showed dolichoectasia of vertebrobasilar artery. He has cervical and lumbosacral spondylosis. His creatinine is 1.36 with glomerular filtration rate (GFR) above 50. PAST MEDICAL HISTORY: 1. Stage IA lung cancer affecting left upper lobe and later right lower lobe and patient is status post lobectomy and radiation therapy. 2. Right-sided renal cell carcinoma status post nephrectomy and right renal gland resection. 3. Cholecystectomy. 4. Liposarcoma removal with partial colectomy. 5. Chest tube placement in past. 6. Obstructive sleep apnea syndrome. 7. Chronic obstructive pulmonary disease (COPD) with 3 liters nasal cannula oxygen and continuous positive airway pressure (CPAP) at night with oxygen. ALLERGIES: HEXACHLOROPHENE. FAMILY HISTORY: Noncontributory. SOCIAL HISTORY: He is a former smoker. He denies alcohol or illicit drugs. He lives alone. HOME MEDICATIONS: - albuterol/ipratropium inhaler one inhalation four times a day - allopurinol 300 mg by mouth daily - aspirin 81 mg by mouth daily - Coreg 6.25 mg by mouth twice a day - vitamin B12 500 mcg by mouth daily - ferrous sulfate 325 mg by mouth daily - gabapentin 300 mg by mouth three times a day - linezolid 600 mg by mouth twice a day - Prilosec 20 mg by mouth daily - pravastatin 20 mg by mouth daily - prednisone 20 mg by mouth three times a day - Requip 1 mg by mouth daily and 2 mg by mouth nightly - Zoloft 25 mg by mouth daily - tiotropium 2.5 mcg two inhalations daily REVIEW OF SYSTEMS: All systems were reviewed and were found to be noncontributory except as mentioned in history of present illness. PHYSICAL EXAMINATION: Temperature 97.5, pulse 96, respiratory rate 20, blood pressure 159/84. Heart: Regular rate and rhythm. Lungs: Clear to auscultation. Abdomen: Soft, nontender, nondistended. No pedal edema. No gross musculoskeletal abnormalities. He has chronic venous stasis changes in his skin of legs of ankles. The patient is awake, alert, oriented to place, person and time. Normal speech, comprehension and repetition. Extraocular muscles are intact. No facial weakness. Tongue and uvula are midline. 5/5 strength on right side and 4+/5 strength with intermittent activation and pain. Deep tendon reflexes are 1+ in arms and knees and absent at ankles. He has decreased cold pinprick, vibration, sensation in his feet. His gait is mildly unsteady. ASSESSMENT: 1. Left-sided weakness and pain of unclear etiology. 2. Mild cervical, thoracic and lumbosacral degenerative disc disease. 3. 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 4. Diabetic peripheral neuropathy. 5. Episodic tension headaches, not intractable. PLAN: 1. Amitriptyline 25 mg by mouth nightly and gradually increase it. Will discontinue Zoloft. 2. Increase gabapentin to 600 mg by mouth three times a day. 3. Consult pain management. 4. Physical and occupational therapy. 5. Use walker for ambulation.
[2017-06-27] MEDS: LIDOCAINE 5% OINT 30 GM TOP SCH (09:19)
[2017-06-27] MEDS: DOXYCYCLINE HYCLATE 100 MG TAB PO SCH ×2 (11:50→20:51)
[2017-06-27 14:00] VITALS: BP 157/84
--- NOTE | 2017-06-27 16:49 | IPNPDOC ---
Text Note Date of Service The patient was seen on 06/27/17. NOTE Subjective: Patient is a 62 year old male with a PMHx of COPD (on 3L O2), NATWAN on CPAP, HTN, DM2, CKD3, Obesity, Gout, Neuropathy, Stage 1A Left upper lobe lung CA s/p lobectomy, and Stage 1A Lung CA of RLL s/p radiation. Was admitted from 06/20 - 06/22/17 for left sided chest pain and R sided pneumonia with MRSA. He was sent home with Linezolid. He presented to the hospital with chest pain and intractable left upper and lower extremity pain. Patient was seen and examined at the bedside. Currently he notes that his pain in his left upper and lower extremity has subsided after his gabapentin dose was increased. He notes that his pain is still at a 6/10. Objective: Vitals (See below) General: Lying in bed, no acute distress, comfortable, AAOx3 HEENT: NC, AT CVS: RRR, +S1S2, + Systolic murmur Lungs: Fair air entry b/l, -w/r/r Abdomen: Soft, ND, NT Extremities: - Edema, - Calf tenderness Assessment and plan: Intractable left upper and lower extremity pain, with some left sided chest pain - likely 2/2 neurogenic etiology - Physical unrevealing - Cardiac enzymes negative x 3; off telemetry monitoring currently - Cervical CT 06/26: no fracture, spondylolisthesis, straightening of cervical lordosis, multilevel spondylosis - c/w Adjusted Gabapentin and Amitriptyline - Neurology has been consulted - Pain management to evaluate on Wednesday (06/28/17) - Advised by his neurosurgeon in [place] that surgical option was high risk; he was advised against it - c/w Physical therapy Right lower lobe pneumonia with MRSA - Sputum culture sensitives reviewed - CXR 06/26: There is an infiltrate inferiorly in the right lung, unchanged - d/c Vancomycin - Will trend CRP - Started Doxycycline 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 - Reports to have 3-4 watery bowel movements daily - GI panel 06/26: Vibrio Cholera Sp - Started on Doxycycline COPD - no evidence of exacerbation - c/w Duoneb and Spiriva - c/w Prednisone ANTWAN on CPAP - allow home CPAP use Gout - c/w Allopurinol HTN - BP well controlled - c/w Carvedilol CKD3 - Cr at baseline RLS - c/w Ropinirole DLP - c/w Pravastatin DM2 - c/w ISS Depression - c/w Amitriptyline (changed from Zoloft) Hx of Lung CA - Stage 1A ARIADNA s/p lobectomy - Stage 1A RLL s/p radiation - c/w outpatient follow up GERD - c/w Omeprazole DVT prophylaxis - c/w Heparin VS,Fishbone, I+O VS, Fishbone, I+O Laboratory Tests 06/27/17 05:54 Red Blood Count 3.84 L, Mean Corpuscular Volume 96.9 H, Mean Corpuscular Hemoglobin 32.0, Mean Corpuscular Hemoglobin Concent 33.1, Red Cell Distribution Width 13.0, Calcium Level 9.3, Aspartate Amino Transf (AST/SGOT) 22 , Alanine Aminotransferase (ALT/SGPT) 38, Alkaline Phosphatase 73, Total Bilirubin 0.2, Total Protein 7.0, Albumin 3.0 L Vital Signs Date Time Temp Pulse Resp B/P (MAP) Pulse Ox O2 Delivery O2 Flow Rate FiO2 06/27/17 14:00 97.0 80 20 157/84 (108) 94 Nasal Cannula 3.0 I&O- Last 24 Hours up to 6 AM 06/28/17 06:00 Intake Total 1940 ml Output Total 1500 ml Balance 440 ml MILTON BOYD MD Jun 27, 2017 16:49
[2017-06-27] MEDS: AMITRIPTYLINE 50 MG TAB PO SCH (20:51)
[2017-06-27 22:00] VITALS: BP 152/89
[2017-06-28] MEDS: HEPARIN SOD (PORCINE) 5000 UNITS/ML VIAL SC SCH ×3 (05:57→21:23)
[2017-06-28 06:00] VITALS: BP 140/91
[2017-06-28 06:14] LABS: MEAN CORPUSCULAR HEMOGLOBIN 32.2 pg (27.0-33.0); MEAN CORPUSCULAR HGB CONC 33.1 g/dl (32.0-36.5); MEAN CORPUSCULAR VOLUME 97.4 fl (80.0-96.0); PLATELET COUNT, AUTOMATED 178 10^3/uL (150-450); RED CELL DISTRIBUTION WIDTH 13.1 % (11.5-14.5); WHITE BLOOD COUNT 6.8 10^3/uL (4.0-10.0)
[2017-06-28 06:30] LABS: ALBUMIN 3.1 GM/DL (3.2-5.2); ALBUMIN/GLOBULIN RATIO 0.89 (1.00-1.93); ALKALINE PHOSPHATASE 65 U/L (45-117); ALT/SGPT 39 U/L (12-78); ANION GAP 7 MEQ/L (8-16); AST/SGOT 19 U/L (15-37); BILIRUBIN,TOTAL 0.2 MG/DL (0.2-1.0); BLOOD UREA NITROGEN 24 MG/DL (7-18); CALCIUM LEVEL 9.7 MG/DL (8.8-10.2); CARBON DIOXIDE LEVEL 29 MEQ/L (21-32); CHLORIDE LEVEL 103 MEQ/L (98-107); CREATININE FOR GFR 1.16 MG/DL (0.70-1.30); GLOMERULAR FILTRATION RATE > 60.0 (>49); GLUCOSE, FASTING 176 MG/DL (80-110); MAGNESIUM LEVEL 1.7 MG/DL (1.8-2.4); POTASSIUM SERUM 4.3 MEQ/L (3.5-5.1); SODIUM LEVEL 139 MEQ/L (136-145); TOTAL PROTEIN 6.6 GM/DL (6.4-8.2)
[2017-06-28] MEDS: IPRATROPIUM 0.5MG/ALBUTEROL 2.5MG INH SOL UD 3ML (DUONEB)(J7620) NEB SCH ×4 (08:00→19:54)
[2017-06-28] MEDS: TIOTROPIUM INHALER/CAPSULE (SPIRIVA) INH SCH (08:39)
[2017-06-28] MEDS: LACTIC ACID 12% LOTION 225 GM BTL TOP SCH (08:55)
[2017-06-28] MEDS: CYANOCOBALAMIN 500 MCG TAB PO SCH (08:56)
[2017-06-28] MEDS: LACTOBACILLUS ACIDOPHILUS CAP (BACID) PO SCH ×3 (08:56→21:23)
[2017-06-28] MEDS: ASPIRIN 81 MG ENTERIC TAB PO SCH (08:56)
[2017-06-28] MEDS: rOPINIRole 1MG TAB PO SCH ×2 (08:56→21:24)
[2017-06-28] MEDS: HumaLOG INSULIN (NovoLOG) PER UNIT SC SCH ×4 (08:56→20:17)
[2017-06-28] MEDS: OMEPRAZOLE 20 MG CAP PO SCH (08:56)
[2017-06-28] MEDS: ALLOPURINOL 300 MG TAB PO SCH (08:56)
[2017-06-28] MEDS: PRAVASTATIN 20 MG TAB PO SCH (08:56)
[2017-06-28] MEDS: FERROUS SULFATE 325MG TAB PO SCH (08:56)
[2017-06-28] MEDS: MULTIVITAMINS/MINERALS THERAP 1 TAB PO SCH (08:56)
[2017-06-28] MEDS: GABAPENTIN 300 MG CAP PO SCH ×3 (08:57→21:24)
[2017-06-28] MEDS: DOXYCYCLINE HYCLATE 100 MG TAB PO SCH ×2 (08:57→21:23)
[2017-06-28] MEDS: predniSONE 20 MG TAB PO SCH ×2 (08:57→21:23)
[2017-06-28] MEDS: MAGNESIUM OXIDE 400 MG TAB (MAG-OX) PO SCH ×2 (08:57→21:24)
[2017-06-28] MEDS: CARVedilol 6.25 MG TAB PO SCH ×2 (08:58→21:24)
[2017-06-28] MEDS: LIDOCAINE 5% OINT 30 GM TOP SCH (09:02)
[2017-06-28] MEDS ORDERED: MAG SULF 1GM/100ML (MAG RUN) 1 GM in APPROPRIATE DILUENT 1 EA IV ONE (10:45)
[2017-06-28] MEDS: ADVAIR HFA 115/21MCG INHALER INH SCH ×2 (12:01→19:54)
--- NOTE | 2017-06-28 13:08 | IPNPDOC ---
Text Note Date of Service The patient was seen on 06/28/17. NOTE Subjective: Patient is a 62 year old male with a PMHx of COPD (on 3L O2), ANTWAN on CPAP, HTN, DM2, CKD3, Obesity, Gout, Neuropathy, Stage 1A Left upper lobe lung CA s/p lobectomy, and Stage 1A Lung CA of RLL s/p radiation. Was admitted from 06/20 - 06/22/17 for left sided chest pain and R sided pneumonia with MRSA. He was sent home with Linezolid. He presented to the hospital with chest pain and intractable left upper and lower extremity pain. Patient was seen and examined at the bedside. He notes some pain in his upper and lower extremities on the left. Awaiting pain management consultation. Objective: Vitals (See below) General: Lying in bed, no acute distress, comfortable, AAOx3 HEENT: NC, AT CVS: RRR, +S1S2, + Systolic murmur Lungs: Fair air entry b/l, -w/r/r Abdomen: Soft, ND, NT Extremities: - Edema, - Calf tenderness Assessment and plan: Intractable left upper and lower extremity pain, with some left sided chest pain - likely 2/2 neurogenic etiology - Physical unrevealing - Cardiac enzymes negative x 3; off telemetry monitoring currently - Cervical CT 06/26: no fracture, spondylolisthesis, straightening of cervical lordosis, multilevel spondylosis - c/w Adjusted Gabapentin and Amitriptyline - Advised by his neurosurgeon in [place] that surgical option was high risk; he was advised against it - Neurology has been consulted - Pain management consultation today - c/w Physical therapy; has cleared for DC home Right lower lobe pneumonia with MRSA - Sputum culture sensitives reviewed - CXR 06/26: There is an infiltrate inferiorly in the right lung, unchanged - CRP improving - c/w Doxycycline (Day #2) 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 - Reports to have 3-4 watery bowel movements initially, currently noted that he has resolution of diarrhea - GI panel 06/26: Vibrio Cholera Sp - c/w Doxycycline (Day #2) COPD - no evidence of exacerbation - c/w Duoneb and Spiriva - c/w Prednisone ANTWAN on CPAP - allow home CPAP use Gout - c/w Allopurinol HTN - BP well controlled - c/w Carvedilol CKD3 - Cr at baseline RLS - c/w Ropinirole DLP - c/w Pravastatin DM2 - c/w ISS Depression - c/w Amitriptyline (changed from Zoloft) Hx of Lung CA - Stage 1A ARIADNA s/p lobectomy - Stage 1A RLL s/p radiation - c/w outpatient follow up GERD - c/w Omeprazole DVT prophylaxis - c/w Heparin VS,Fishbone, I+O VS, Fishbone, I+O Laboratory Tests 06/28/17 05:37 Red Blood Count 3.82 L, Mean Corpuscular Volume 97.4 H, Mean Corpuscular Hemoglobin 32.2, Mean Corpuscular Hemoglobin Concent 33.1, Red Cell Distribution Width 13.1, Calcium Level 9.7, Aspartate Amino Transf (AST/SGOT) 19 , Alanine Aminotransferase (ALT/SGPT) 39, Alkaline Phosphatase 65, Total Bilirubin 0.2, Total Protein 6.6, Albumin 3.1 L Vital Signs Date Time Temp Pulse Resp B/P (MAP) Pulse Ox O2 Delivery O2 Flow Rate FiO2 06/28/17 08:58 70 140/91 06/28/17 06:00 96.6 19 98 NIPPV (BIPAP/CPAP) 06/27/17 22:00 3.0 I&O- Last 24 Hours up to 6 AM 06/29/17 06:00 Intake Total 0 ml Output Total 1400 ml Balance -1400 ml MILTON BOYD MD Jun 28, 2017 13:08
[2017-06-28 14:00] VITALS: BP 140/67
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
[2017-06-28] MEDS: AMITRIPTYLINE 50 MG TAB PO SCH (21:23)
[2017-06-28 22:00] VITALS: BP 132/90
[2017-06-29] MEDS: IPRATROPIUM 0.5MG/ALBUTEROL 2.5MG INH SOL UD 3ML (DUONEB)(J7620) NEB SCH ×4 (01:20→20:00)
[2017-06-29] MEDS: HEPARIN SOD (PORCINE) 5000 UNITS/ML VIAL SC SCH ×3 (05:15→21:06)
[2017-06-29 06:00] VITALS: BP 144/90
[2017-06-29 06:36] LABS: MEAN CORPUSCULAR HEMOGLOBIN 31.9 pg (27.0-33.0); MEAN CORPUSCULAR HGB CONC 32.9 g/dl (32.0-36.5); MEAN CORPUSCULAR VOLUME 96.9 fl (80.0-96.0); PLATELET COUNT, AUTOMATED 171 10^3/uL (150-450); RED CELL DISTRIBUTION WIDTH 13.1 % (11.5-14.5); WHITE BLOOD COUNT 7.1 10^3/uL (4.0-10.0)
[2017-06-29 06:57] LABS: ALBUMIN 3.1 GM/DL (3.2-5.2); ALBUMIN/GLOBULIN RATIO 0.84 (1.00-1.93); BILIRUBIN,TOTAL 0.2 MG/DL (0.2-1.0); CALCIUM LEVEL 9.3 MG/DL (8.8-10.2); CREATININE FOR GFR 1.33 MG/DL (0.70-1.30); GLOMERULAR FILTRATION RATE 57.6 (>49); MAGNESIUM LEVEL 1.6 MG/DL (1.8-2.4); POTASSIUM SERUM 3.8 MEQ/L (3.5-5.1); TOTAL PROTEIN 6.8 GM/DL (6.4-8.2)
[2017-06-29] MEDS: ADVAIR HFA 115/21MCG INHALER INH SCH ×2 (07:35→20:21)
[2017-06-29] MEDS: TIOTROPIUM INHALER/CAPSULE (SPIRIVA) INH SCH (07:35)
[2017-06-29] MEDS: ASPIRIN 81 MG ENTERIC TAB PO SCH (08:48)
[2017-06-29] MEDS: MULTIVITAMINS/MINERALS THERAP 1 TAB PO SCH (08:49)
[2017-06-29] MEDS: ALLOPURINOL 300 MG TAB PO SCH (08:49)
[2017-06-29] MEDS: LACTOBACILLUS ACIDOPHILUS CAP (BACID) PO SCH ×3 (08:49→21:06)
[2017-06-29] MEDS: PRAVASTATIN 20 MG TAB PO SCH (08:49)
[2017-06-29] MEDS: CYANOCOBALAMIN 500 MCG TAB PO SCH (08:49)
[2017-06-29] MEDS: rOPINIRole 1MG TAB PO SCH ×2 (08:49→21:06)
[2017-06-29] MEDS: GABAPENTIN 300 MG CAP PO SCH ×3 (08:49→21:06)
[2017-06-29] MEDS: DOXYCYCLINE HYCLATE 100 MG TAB PO SCH ×2 (08:49→21:06)
[2017-06-29] MEDS: predniSONE 20 MG TAB PO SCH ×2 (08:49→21:05)
[2017-06-29] MEDS: OMEPRAZOLE 20 MG CAP PO SCH (08:50)
[2017-06-29] MEDS: MAGNESIUM OXIDE 400 MG TAB (MAG-OX) PO SCH ×2 (08:50→21:06)
[2017-06-29] MEDS: CARVedilol 6.25 MG TAB PO SCH ×2 (08:50→21:07)
[2017-06-29] MEDS: FERROUS SULFATE 325MG TAB PO SCH (08:50)
[2017-06-29] MEDS: HumaLOG INSULIN (NovoLOG) PER UNIT SC SCH ×4 (08:51→21:13)
[2017-06-29] MEDS: LIDOCAINE 5% OINT 30 GM TOP SCH (08:52)
[2017-06-29] MEDS: LACTIC ACID 12% LOTION 225 GM BTL TOP SCH (08:52)
[2017-06-29] MEDS ORDERED: traMADol 50 MG TAB PO PRN (09:00)
[2017-06-29] MEDS ORDERED: traMADol 50 MG TAB PO ONE (11:30)
[2017-06-29 14:00] VITALS: BP 140/82
--- NOTE | 2017-06-29 16:50 | IPNPDOC ---
Text Note Date of Service The patient was seen on 06/29/17. NOTE Subjective: Patient is a 62 year old male with a PMHx of COPD (on 3L O2), ANTWAN on CPAP, HTN, DM2, CKD3, Obesity, Gout, Neuropathy, Stage 1A Left upper lobe lung CA s/p lobectomy, and Stage 1A Lung CA of RLL s/p radiation. Was admitted from 06/20 - 06/22/17 for left sided chest pain and R sided pneumonia with MRSA. He was sent home with Linezolid. He presented to the hospital with chest pain and intractable left upper and lower extremity pain. Patient was seen and examined at the bedside. He has been started on Tramadol today and has not had relief of his pain. Objective: Vitals (See below) General: Lying in bed, no acute distress, comfortable, AAOx3 HEENT: NC, AT CVS: RRR, +S1S2, + Systolic murmur Lungs: Fair air entry b/l, -w/r/r Abdomen: Soft, ND, NT Extremities: - Edema, - Calf tenderness Assessment and plan: Intractable left upper and lower extremity pain, with some left sided chest pain - likely 2/2 neurogenic etiology - Physical unrevealing - Cardiac enzymes negative x 3; off telemetry monitoring currently - Cervical CT 06/26: no fracture, spondylolisthesis, straightening of cervical lordosis, multilevel spondylosis - c/w Adjusted Gabapentin and Amitriptyline - Advised by his neurosurgeon in [place] that surgical option was high risk; he was advised against it - Neurology and Pain management has been consulted - Cleared physical therapy for DC home - Failed tramadol - Will attempt trial of Percocet for pain management Right lower lobe pneumonia with MRSA - Sputum culture sensitives reviewed - CXR 06/26: There is an infiltrate inferiorly in the right lung, unchanged - CRP improving - c/w Doxycycline (Day #3) 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 - Reports to have 3-4 watery bowel movements initially, currently noted that he has resolution of diarrhea - GI panel 06/26: Vibrio Cholera Sp - c/w Doxycycline (Day #3) COPD - no evidence of exacerbation - c/w DuoNeb and Spiriva - c/w Prednisone ANTWAN on CPAP - allow home CPAP use Gout - c/w Allopurinol HTN - BP well controlled - c/w Carvedilol CKD3 - Cr at baseline RLS - c/w Ropinirole DLP - c/w Pravastatin DM2 - c/w ISS Depression - c/w Amitriptyline (changed from Zoloft) Hx of Lung CA - Stage 1A ARIADNA s/p lobectomy - Stage 1A RLL s/p radiation - c/w outpatient follow up GERD - c/w Omeprazole DVT prophylaxis - c/w Heparin VS,Fishbone, I+O VS, Fishbone, I+O Laboratory Tests 06/29/17 06:07 Red Blood Count 3.92 L, Mean Corpuscular Volume 96.9 H, Mean Corpuscular Hemoglobin 31.9, Mean Corpuscular Hemoglobin Concent 32.9, Red Cell Distribution Width 13.1, Calcium Level 9.3, Aspartate Amino Transf (AST/SGOT) 28 , Alanine Aminotransferase (ALT/SGPT) 48, Alkaline Phosphatase 94, Total Bilirubin 0.2, Total Protein 6.8, Albumin 3.1 L Vital Signs Date Time Temp Pulse Resp B/P (MAP) Pulse Ox O2 Delivery O2 Flow Rate FiO2 06/29/17 14:00 97.7 92 20 140/82 (101) 94 Nasal Cannula 3.0 I&O- Last 24 Hours up to 6 AM 06/30/17 05:59 Intake Total 600 ml Output Total 1400 ml Balance -800 ml MILTON BOYD MD Jun 29, 2017 16:50
[2017-06-29] MEDS: PERCOCET 5MG/325MG TAB PO PRN (17:46)
[2017-06-29 21:00] VITALS: BP 143/89
[2017-06-29] MEDS: AMITRIPTYLINE 50 MG TAB PO SCH (21:06)
[2017-06-30] MEDS: IPRATROPIUM 0.5MG/ALBUTEROL 2.5MG INH SOL UD 3ML (DUONEB)(J7620) NEB SCH ×4 (02:00→18:54)
[2017-06-30] MEDS: HEPARIN SOD (PORCINE) 5000 UNITS/ML VIAL SC SCH ×3 (05:19→21:38)
[2017-06-30 06:00] VITALS: BP 125/73
[2017-06-30 06:24] LABS: MEAN CORPUSCULAR HEMOGLOBIN 32.3 pg (27.0-33.0); MEAN CORPUSCULAR HGB CONC 33.2 g/dl (32.0-36.5); MEAN CORPUSCULAR VOLUME 97.3 fl (80.0-96.0); PLATELET COUNT, AUTOMATED 166 10^3/uL (150-450); WHITE BLOOD COUNT 12.2 10^3/uL (4.0-10.0)
[2017-06-30 06:44] LABS: ALBUMIN 3.2 GM/DL (3.2-5.2); ALBUMIN/GLOBULIN RATIO 0.84 (1.00-1.93); ALKALINE PHOSPHATASE 80 U/L (45-117); ALT/SGPT 60 U/L (12-78); ANION GAP 7 MEQ/L (8-16); AST/SGOT 37 U/L (15-37); BILIRUBIN,TOTAL 0.3 MG/DL (0.2-1.0); BLOOD UREA NITROGEN 24 MG/DL (7-18); CALCIUM LEVEL 9.3 MG/DL (8.8-10.2); CARBON DIOXIDE LEVEL 32 MEQ/L (21-32); CHLORIDE LEVEL 99 MEQ/L (98-107); CREATININE FOR GFR 1.21 MG/DL (0.70-1.30); GLOMERULAR FILTRATION RATE > 60.0 (>49); GLUCOSE, FASTING 165 MG/DL (80-110); MAGNESIUM LEVEL 1.7 MG/DL (1.8-2.4); POTASSIUM SERUM 4.3 MEQ/L (3.5-5.1); SODIUM LEVEL 138 MEQ/L (136-145)
[2017-06-30] MEDS: TIOTROPIUM INHALER/CAPSULE (SPIRIVA) INH SCH (07:52)
[2017-06-30] MEDS: ADVAIR HFA 115/21MCG INHALER INH SCH ×2 (07:52→20:55)
--- NOTE | 2017-06-30 08:11 | REP ---
PA and lateral chest: Comparisons are the PA and lateral chest of 06/26/2017, 06/19/2017 and 05/24/2017 and there is a comparison chest CT dated 05/25/2017. There is a right lower lobe infiltrate has been present since at least 05/24/2017. The left costophrenic angle is slightly effaced, however this is unchanged and may represent a pleural adhesion. The lung petersen otherwise clear. Cardiac size normal. The alfred, mediastinum, bony thorax are unremarkable. Impression: Persisting right lower lobe infiltrate. Signed by Claus Asher MD 06/30/2017 08:02 A
[2017-06-30] MEDS: FERROUS SULFATE 325MG TAB PO SCH (08:38)
[2017-06-30] MEDS: PRAVASTATIN 20 MG TAB PO SCH (08:38)
[2017-06-30] MEDS: GABAPENTIN 300 MG CAP PO SCH ×3 (08:38→21:41)
[2017-06-30] MEDS: MAGNESIUM OXIDE 400 MG TAB (MAG-OX) PO SCH ×2 (08:38→21:40)
[2017-06-30] MEDS: ALLOPURINOL 300 MG TAB PO SCH (08:38)
[2017-06-30] MEDS: LACTOBACILLUS ACIDOPHILUS CAP (BACID) PO SCH ×3 (08:38→21:39)
[2017-06-30] MEDS: DOXYCYCLINE HYCLATE 100 MG TAB PO SCH (08:38)
[2017-06-30] MEDS: ASPIRIN 81 MG ENTERIC TAB PO SCH (08:38)
[2017-06-30] MEDS: rOPINIRole 1MG TAB PO SCH ×2 (08:38→21:39)
[2017-06-30] MEDS: PERCOCET 5MG/325MG TAB PO PRN ×2 (08:38→21:40)
[2017-06-30] MEDS: CARVedilol 6.25 MG TAB PO SCH ×2 (08:39→21:39)
[2017-06-30] MEDS: OMEPRAZOLE 20 MG CAP PO SCH (08:39)
[2017-06-30] MEDS: CYANOCOBALAMIN 500 MCG TAB PO SCH (08:39)
[2017-06-30] MEDS: predniSONE 20 MG TAB PO SCH ×2 (08:39→21:39)
[2017-06-30] MEDS: LACTIC ACID 12% LOTION 225 GM BTL TOP SCH (08:39)
[2017-06-30] MEDS: MULTIVITAMINS/MINERALS THERAP 1 TAB PO SCH (08:39)
[2017-06-30] MEDS: LIDOCAINE 5% OINT 30 GM TOP SCH (08:40)
[2017-06-30] MEDS: HumaLOG INSULIN (NovoLOG) PER UNIT SC SCH ×4 (08:40→21:41)
[2017-06-30] MEDS: VANCOMYCIN HCL 1,000 MG, VIAL MATE ADAPTER 1 EACH in D5W 250 ML IV SCH ×2 (10:54→17:53)
[2017-06-30] MEDS ORDERED: VANCOMYCIN HCL 1,000 MG, VIAL MATE ADAPTER 1 EACH in D5W 250 ML IV ONE (11:00)
--- NOTE | 2017-06-30 13:15 | IPNPDOC ---
Text Note Date of Service The patient was seen on 06/30/17. NOTE Subjective: Patient is a 62 year old male with a PMHx of COPD (on 3L O2), ANTWAN on CPAP, HTN, DM2, CKD3, Obesity, Gout, Neuropathy, Stage 1A Left upper lobe lung CA s/p lobectomy, and Stage 1A Lung CA of RLL s/p radiation. Was admitted from 06/20 - 06/22/17 for left sided chest pain and R sided pneumonia with MRSA. He was sent home with Linezolid. He presented to the hospital with chest pain and intractable left upper and lower extremity pain. Patient was seen and examined at the bedside. Tramadol did not relieve his pain. Percocet was added and had no relief as well. Zonisamide will be tried. Objective: Vitals (See below) General: Lying in bed, no acute distress, comfortable, AAOx3 HEENT: NC, AT CVS: RRR, +S1S2, + Systolic murmur Lungs: Fair air entry b/l, -w/r/r Abdomen: Soft, ND, NT Extremities: - Edema, - Calf tenderness Assessment and plan: Intractable left upper and lower extremity pain, with some left sided chest pain - likely 2/2 neurogenic etiology - Physical unrevealing - Cardiac enzymes negative x 3; s/p Tele - Cervical CT 06/26: no fracture, spondylolisthesis, straightening of cervical lordosis, multilevel spondylosis - c/w Adjusted Gabapentin and Amitriptyline - Advised by his neurosurgeon in [place] that surgical option was high risk; he was advised against it - Neurology and Pain management has been consulted - Cleared physical therapy for DC home - Failed tramadol and Percocet; Will attempt Zonisamide as instructed by pain management - Will ask for additional assistance from pain management Right lower lobe pneumonia with MRSA - Mild elevation in WBC - Sputum culture sensitives reviewed - CXR 06/26: There is an infiltrate inferiorly in the right lung, unchanged - Repeat CXR 06/30: Persistences of RLL pneumonia - CRP continue to trend down - Will stitch to Vancomycin; s/p Doxycycline s/p 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 - Currently noted that he has resolution of diarrhea - GI panel 06/26: Vibrio Cholera Sp - s/p Doxycycline (3 Days) COPD - no evidence of exacerbation - c/w DuoNeb and Spiriva - c/w Prednisone ANTWAN on CPAP - allow home CPAP use Gout - c/w Allopurinol HTN - BP well controlled - c/w Carvedilol CKD3 - Cr at baseline RLS - c/w Ropinirole DLP - c/w Pravastatin DM2 - c/w ISS Depression - c/w Amitriptyline (changed from Zoloft) Hx of Lung CA - Stage 1A ARIADNA s/p lobectomy - Stage 1A RLL s/p radiation - c/w outpatient follow up GERD - c/w Omeprazole DVT prophylaxis - c/w Heparin VS,Fishbone, I+O VS, Fishbone, I+O Laboratory Tests 06/30/17 06:12 Red Blood Count 4.00 L, Mean Corpuscular Volume 97.3 H, Mean Corpuscular Hemoglobin 32.3, Mean Corpuscular Hemoglobin Concent 33.2, Red Cell Distribution Width 13.0, Calcium Level 9.3, Aspartate Amino Transf (AST/SGOT) 37 , Alanine Aminotransferase (ALT/SGPT) 60, Alkaline Phosphatase 80, Total Bilirubin 0.3, Total Protein 7.0, Albumin 3.2 Vital Signs Date Time Temp Pulse Resp B/P (MAP) Pulse Ox O2 Delivery O2 Flow Rate FiO2 06/30/17 09:08 18 06/30/17 08:39 78 125/73 06/30/17 06:00 96.6 91 Nasal Cannula 3.0 I&O- Last 24 Hours up to 6 AM 07/01/17 06:00 Intake Total 900 ml Output Total 1000 ml Balance -100 ml MILTON BOYD MD Jun 30, 2017 13:15
[2017-06-30 14:00] VITALS: BP 140/77
[2017-06-30] MEDS: ZONISAMIDE 50 MG CAP (ZONEGRAN) PO SCH ×2 (14:10→21:39)
--- NOTE | 2017-06-30 14:35 | PHACANCOPD ---
PHARMACY VANCOMYCIN DOSING Pt Demographics Demographics Patient Age:62 , Weight:153.700 , Gender: male Adjusted Body Weight Date: 06/26/17, Adjusted Body Weight: [113] Kg Vancomycin Vancomycin indication: MRSA pneumonia Vancomycin Target Ranges: 15-20 mcg/ml Vancomycin Load Y/N: Yes Load Dose Date Time Vancomycin Load Dose: 1000mg Date: 06/26 Time: 10:00 Vancomycin Dose Date: 06/26/17. Current Vancomycin Dose: [1g IV q8h @16] Intermittent Dosing?: No Labs Micro Microbiology 06/26/17 Gastrointestinal Tract Panel (PCR) - Final, Complete Vibrio Cholerae Sp Creatinine Clearance Date:06/26/17. Creatinine Clearance: [87 ml/min using adjusted BW]. Pending Labs Vanco trough scheduled 06/27 @15:00 Assessment and Plan Maintaining Current Dose?: Yes Reason for dose change: No Dose Change Pharmacist Note Pharmacist Note 06/30/17: Empiric vancomycin has been restarted today for the treatment of MRSA pneumonia with a 2g loading dose, followed by a maintenance regimen of 1g IV Q8H. A vancomycin trough has been scheduled for 07/01/17 @1700. We will continue to monitor and make dose adjustments if needed. Date: 06/26/17. Pharmacist note: pt had sputum cultures from 06/20 that grew MRSA (heavy, FLY = 0.5) and was treated with Zyvox po up until this morning. Repeat chest xray today was unchanged from 06/23. SCr is elevated, baseline ~1 mg/dl? I have started him on vancomycin 1g this morning followed by 1g IV q8h 6 hours later. I have a trough scheduled tomorrow afternoon. I will continue to monitor. MAYITO MORELOS PHARMACY Jun 30, 2017 14:35
[2017-06-30] MEDS ORDERED: LINEZOLID 600MG TABLET (ZYVOX) PO SCH (21:00)
[2017-06-30] MEDS: AMITRIPTYLINE 50 MG TAB PO SCH (21:39)
[2017-06-30 22:00] VITALS: BP 150/88
[2017-07-01] MEDS: VANCOMYCIN HCL 1,000 MG, VIAL MATE ADAPTER 1 EACH in D5W 250 ML IV SCH ×3 (01:47→17:54)
[2017-07-01] MEDS: IPRATROPIUM 0.5MG/ALBUTEROL 2.5MG INH SOL UD 3ML (DUONEB)(J7620) NEB SCH ×4 (02:12→18:37)
[2017-07-01] MEDS: HEPARIN SOD (PORCINE) 5000 UNITS/ML VIAL SC SCH ×3 (05:36→20:45)
[2017-07-01 06:00] VITALS: BP 131/77
[2017-07-01 06:35] LABS: MEAN CORPUSCULAR HEMOGLOBIN 32.2 pg (27.0-33.0); MEAN CORPUSCULAR HGB CONC 33.2 g/dl (32.0-36.5); MEAN CORPUSCULAR VOLUME 96.8 fl (80.0-96.0); PLATELET COUNT, AUTOMATED 164 10^3/uL (150-450); RED CELL DISTRIBUTION WIDTH 13.2 % (11.5-14.5); WHITE BLOOD COUNT 10.6 10^3/uL (4.0-10.0)
[2017-07-01 06:51] LABS: ALBUMIN/GLOBULIN RATIO 0.81 (1.00-1.93); ALKALINE PHOSPHATASE 95 U/L (45-117); ALT/SGPT 69 U/L (12-78); ANION GAP 5 MEQ/L (8-16); AST/SGOT 34 U/L (15-37); BILIRUBIN,TOTAL 0.3 MG/DL (0.2-1.0); BLOOD UREA NITROGEN 29 MG/DL (7-18); CALCIUM LEVEL 9.3 MG/DL (8.8-10.2); CARBON DIOXIDE LEVEL 34 MEQ/L (21-32); CHLORIDE LEVEL 97 MEQ/L (98-107); CREATININE FOR GFR 1.26 MG/DL (0.70-1.30); GLOMERULAR FILTRATION RATE > 60.0 (>49); GLUCOSE, FASTING 202 MG/DL (80-110); MAGNESIUM LEVEL 1.9 MG/DL (1.8-2.4); POTASSIUM SERUM 4.1 MEQ/L (3.5-5.1); SODIUM LEVEL 136 MEQ/L (136-145); TOTAL PROTEIN 6.7 GM/DL (6.4-8.2)
[2017-07-01] MEDS: HumaLOG INSULIN (NovoLOG) PER UNIT SC SCH ×4 (07:58→20:53)
[2017-07-01] MEDS: ALLOPURINOL 300 MG TAB PO SCH (08:00)
[2017-07-01] MEDS: ZONISAMIDE 50 MG CAP (ZONEGRAN) PO SCH ×2 (08:00→20:45)
[2017-07-01] MEDS: ASPIRIN 81 MG ENTERIC TAB PO SCH (08:00)
[2017-07-01] MEDS: LACTOBACILLUS ACIDOPHILUS CAP (BACID) PO SCH ×3 (08:00→20:45)
[2017-07-01] MEDS: rOPINIRole 1MG TAB PO SCH ×2 (08:00→20:46)
[2017-07-01] MEDS: OMEPRAZOLE 20 MG CAP PO SCH (08:01)
[2017-07-01] MEDS: PRAVASTATIN 20 MG TAB PO SCH (08:01)
[2017-07-01] MEDS: GABAPENTIN 300 MG CAP PO SCH ×3 (08:01→20:46)
[2017-07-01] MEDS: predniSONE 20 MG TAB PO SCH ×2 (08:01→20:47)
[2017-07-01] MEDS: MAGNESIUM OXIDE 400 MG TAB (MAG-OX) PO SCH ×2 (08:01→20:46)
[2017-07-01] MEDS: CYANOCOBALAMIN 500 MCG TAB PO SCH (08:01)
[2017-07-01] MEDS: CARVedilol 6.25 MG TAB PO SCH ×2 (08:01→20:47)
[2017-07-01] MEDS: FERROUS SULFATE 325MG TAB PO SCH (08:01)
[2017-07-01] MEDS: MULTIVITAMINS/MINERALS THERAP 1 TAB PO SCH (08:01)
[2017-07-01] MEDS: LIDOCAINE 5% OINT 30 GM TOP SCH (08:02)
[2017-07-01] MEDS: LACTIC ACID 12% LOTION 225 GM BTL TOP SCH (08:02)
[2017-07-01] MEDS: ADVAIR HFA 115/21MCG INHALER INH SCH ×2 (08:32→19:50)
[2017-07-01] MEDS: TIOTROPIUM INHALER/CAPSULE (SPIRIVA) INH SCH (08:32)
[2017-07-01] MEDS ORDERED: FUROSEMIDE 40 MG/4 ML VIAL (J1940) IV ONE (10:00)
--- NOTE | 2017-07-01 13:07 | IPNPDOC ---
Text Note Date of Service The patient was seen on 07/01/17. NOTE Subjective: Patient is a 62 year old male with a PMHx of COPD (on 3L O2), ANTWAN on CPAP, HTN, DM2, CKD3, Obesity, Gout, Neuropathy, Stage 1A Left upper lobe lung CA s/p lobectomy, and Stage 1A Lung CA of RLL s/p radiation. Was admitted from 06/20 - 06/22/17 for left sided chest pain and R sided pneumonia with MRSA. He was sent home with Linezolid. He presented to the hospital with chest pain and intractable left upper and lower extremity pain. Patient was seen and examined at the bedside. I have discussed with pain management again. Will re-start Tramadol. Objective: Vitals (See below) General: Lying in bed, no acute distress, comfortable, AAOx3 HEENT: NC, AT CVS: RRR, +S1S2, + Systolic murmur Lungs: Fair air entry b/l, -w/r/r Abdomen: Soft, ND, NT Extremities: - Edema, - Calf tenderness Assessment and plan: Intractable left upper and lower extremity pain, with some left sided chest pain - likely 2/2 neuropathic pain of central origin - Physical unrevealing - Cardiac enzymes negative x 3; s/p Tele - Cervical CT 06/26: no fracture, spondylolisthesis, straightening of cervical lordosis, multilevel spondylosis - Advised by his neurosurgeon in [place] that surgical option was high risk; he was advised against it - Neurology and Pain management has been consulted - c/w Adjusted Gabapentin, Amitriptyline, Zonisamide - Restart tramadol; will continue as outpatient Right lower lobe pneumonia with MRSA - WBC has improved today - Sputum culture sensitives reviewed - CXR 06/26: There is an infiltrate inferiorly in the right lung, unchanged - Repeat CXR 06/30: Persistences of RLL pneumonia - CRP stable - c/w Vancomycin; s/p Doxycycline - Will discuss with Dr. Vza s/p 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 - Currently noted that he has resolution of diarrhea - GI panel 06/26: Vibrio Cholera Sp - s/p Doxycycline (3 Days) COPD - no evidence of exacerbation - c/w DuoNeb and Spiriva - c/w Prednisone ANTWAN on CPAP - allow home CPAP use Gout - c/w Allopurinol HTN - BP well controlled - c/w Carvedilol CKD3 - Cr at baseline RLS - c/w Ropinirole DLP - c/w Pravastatin DM2 - c/w ISS Depression - c/w Amitriptyline (changed from Zoloft) Hx of Lung CA - Stage 1A ARIADNA s/p lobectomy - Stage 1A RLL s/p radiation - c/w outpatient follow up GERD - c/w Omeprazole DVT prophylaxis - c/w Heparin Disposition: - Plan on discharging home when antibiotic therapy has been established VS,Brenda, I+O VS, Brenda, I+O Laboratory Tests 07/01/17 06:03 Red Blood Count 3.79 L, Mean Corpuscular Volume 96.8 H, Mean Corpuscular Hemoglobin 32.2, Mean Corpuscular Hemoglobin Concent 33.2, Red Cell Distribution Width 13.2, Calcium Level 9.3, Aspartate Amino Transf (AST/SGOT) 34 , Alanine Aminotransferase (ALT/SGPT) 69, Alkaline Phosphatase 95, Total Bilirubin 0.3, Total Protein 6.7, Albumin 3.0 L Vital Signs Date Time Temp Pulse Resp B/P (MAP) Pulse Ox O2 Delivery O2 Flow Rate FiO2 07/01/17 09:00 Nasal Cannula 3.0 07/01/17 08:01 83 131/77 07/01/17 06:00 98.1 20 93 I&O- Last 24 Hours up to 6 AM 07/02/17 06:00 Intake Total 240 ml Output Total 700 ml Balance -460 ml MILTON BOYD MD Jul 01, 2017 13:07
[2017-07-01 14:00] VITALS: BP 130/80
--- NOTE | 2017-07-01 18:03 | PHACANCOPD ---
PHARMACY VANCOMYCIN DOSING Pt Demographics Demographics Patient Age:62 , Weight:153.700 , Gender: male Adjusted Body Weight Date: 06/26/17, Adjusted Body Weight: [113] Kg Events Past 24 Hours Events Past 24 Hours: YES: Elevation in WBC, NO: Dialysis, Diuretic Therapy, Change in CrCl, Fever, Pending Diagnostics, Pending Procedures, Other Vancomycin Vancomycin indication: MRSA pneumonia Vancomycin Target Ranges: 15-20 mcg/ml Vancomycin Load Y/N: Yes Load Dose Date Time Vancomycin Load Dose: 1000mg Date: 06/26 Time: 10:00 Vancomycin Dose Date: 06/26/17. Current Vancomycin Dose: [1g IV q8h @16] Intermittent Dosing?: No Labs Labs Vital Signs Label Value Date Time Patient Temperature 97.0 degrees F 07/01/17 1400 Temperature Source Temporal 07/01/17 1400 Patient Temperature 98.1 degrees F 07/01/17 0600 Temperature Source Temporal 07/01/17 0600 Patient Temperature 97.0 degrees F 06/30/17 2200 Temperature Source Temporal 06/30/17 2200 Item Value Date Time White Blood Count 12.2 10^3/uL H 06/30/17 0612 White Blood Count 10.6 10^3/uL H 07/01/17 0603 White Blood Count 7.1 10^3/uL 06/29/17 0607 Creatinine 1.33 MG/DL H 06/29/17 0607 Creatinine 1.21 MG/DL 06/30/17 0612 Creatinine 1.26 MG/DL 07/01/17 0603 Vancomycin Level Trough 19.7 UG/ML 07/01/17 1712 Micro Microbiology 06/26/17 Gastrointestinal Tract Panel (PCR) - Final, Complete Vibrio Cholerae Sp 07/01/17 Gram Stain, Received Pending 07/01/17 Sputum Culture, Received Pending Creatinine Clearance Date:06/26/17. Creatinine Clearance: [87 ml/min using adjusted BW]. Pending Labs Vanco trough scheduled 06/27 @15:00 Assessment and Plan Maintaining Current Dose?: Yes Reason for dose change: No Dose Change Pharmacist Note Pharmacist Note 07/01/17: Trough drawn @1712 before 5th dose at 1800 came back at 19.7 mcg/ml. This trough is within the desired range of 15-20. I will continue this patient on Vanco 1G IV Q8H. Because this trough is on the high end of our range I will schedule a follow-up trough tomorrow to ensure the patient does not reach toxic trough levels. We will continue to monitor and adjust dose as needed. 06/30/17: Empiric vancomycin has been restarted today for the treatment of MRSA pneumonia with a 2g loading dose, followed by a maintenance regimen of 1g IV Q8H. A vancomycin trough has been scheduled for 07/01/17 @1700. We will continue to monitor and make dose adjustments if needed. Date: 06/26/17. Pharmacist note: pt had sputum cultures from 06/20 that grew MRSA (heavy, FLY = 0.5) and was treated with Zyvox po up until this morning. Repeat chest xray today was unchanged from 06/23. SCr is elevated, baseline ~1 mg/dl? I have started him on vancomycin 1g this morning followed by 1g IV q8h 6 hours later. I have a trough scheduled tomorrow afternoon. I will continue to monitor. DAVID MAJOR PHARMACY Jul 01, 2017 18:03
[2017-07-01] MEDS: traMADol 50 MG TAB PO PRN (18:19)
[2017-07-01] MEDS: AMITRIPTYLINE 50 MG TAB PO SCH (20:47)
[2017-07-01 22:00] VITALS: BP 158/88
[2017-07-02] MEDS: VANCOMYCIN HCL 1,000 MG, VIAL MATE ADAPTER 1 EACH in D5W 250 ML IV SCH ×3 (01:57→21:17)
[2017-07-02] MEDS: IPRATROPIUM 0.5MG/ALBUTEROL 2.5MG INH SOL UD 3ML (DUONEB)(J7620) NEB SCH ×4 (02:05→19:59)
[2017-07-02] MEDS: traMADol 50 MG TAB PO PRN ×3 (03:14→18:00)
[2017-07-02] MEDS: HEPARIN SOD (PORCINE) 5000 UNITS/ML VIAL SC SCH ×3 (05:21→21:19)
[2017-07-02 06:00] VITALS: BP 145/87
[2017-07-02 06:08] LABS: MEAN CORPUSCULAR HEMOGLOBIN 32.1 pg (27.0-33.0); MEAN CORPUSCULAR HGB CONC 33.2 g/dl (32.0-36.5); MEAN CORPUSCULAR VOLUME 96.7 fl (80.0-96.0); PLATELET COUNT, AUTOMATED 153 10^3/uL (150-450); RED CELL DISTRIBUTION WIDTH 13.2 % (11.5-14.5); WHITE BLOOD COUNT 12.4 10^3/uL (4.0-10.0)
[2017-07-02 06:32] LABS: ALBUMIN 3.2 GM/DL (3.2-5.2); ALBUMIN/GLOBULIN RATIO 0.94 (1.00-1.93); BILIRUBIN,TOTAL 0.3 MG/DL (0.2-1.0); CALCIUM LEVEL 9.1 MG/DL (8.8-10.2); CREATININE FOR GFR 1.47 MG/DL (0.70-1.30); GLOMERULAR FILTRATION RATE 51.3 (>49); MAGNESIUM LEVEL 2.1 MG/DL (1.8-2.4); POTASSIUM SERUM 4.2 MEQ/L (3.5-5.1); TOTAL PROTEIN 6.6 GM/DL (6.4-8.2)
[2017-07-02] MEDS: TIOTROPIUM INHALER/CAPSULE (SPIRIVA) INH SCH (07:44)
[2017-07-02] MEDS: ADVAIR HFA 115/21MCG INHALER INH SCH ×2 (07:44→19:59)
[2017-07-02] MEDS: HumaLOG INSULIN (NovoLOG) PER UNIT SC SCH ×4 (08:29→21:00)
[2017-07-02] MEDS: rOPINIRole 1MG TAB PO SCH ×2 (09:37→21:17)
[2017-07-02] MEDS: ALLOPURINOL 300 MG TAB PO SCH (09:37)
[2017-07-02] MEDS: FERROUS SULFATE 325MG TAB PO SCH (09:37)
[2017-07-02] MEDS: LACTOBACILLUS ACIDOPHILUS CAP (BACID) PO SCH ×3 (09:37→21:17)
[2017-07-02] MEDS: predniSONE 20 MG TAB PO SCH ×2 (09:38→21:17)
[2017-07-02] MEDS: OMEPRAZOLE 20 MG CAP PO SCH (09:38)
[2017-07-02] MEDS: CARVedilol 6.25 MG TAB PO SCH ×2 (09:38→21:26)
[2017-07-02] MEDS: ASPIRIN 81 MG ENTERIC TAB PO SCH (09:38)
[2017-07-02] MEDS: MAGNESIUM OXIDE 400 MG TAB (MAG-OX) PO SCH ×2 (09:39→21:17)
[2017-07-02] MEDS: PRAVASTATIN 20 MG TAB PO SCH (09:39)
[2017-07-02] MEDS: GABAPENTIN 300 MG CAP PO SCH ×3 (09:39→21:17)
[2017-07-02] MEDS: MULTIVITAMINS/MINERALS THERAP 1 TAB PO SCH (09:40)
[2017-07-02] MEDS: CYANOCOBALAMIN 500 MCG TAB PO SCH (09:40)
[2017-07-02] MEDS: LACTIC ACID 12% LOTION 225 GM BTL TOP SCH (09:41)
[2017-07-02] MEDS: LIDOCAINE 5% OINT 30 GM TOP SCH (09:42)
[2017-07-02] MEDS: ZONISAMIDE 50 MG CAP (ZONEGRAN) PO SCH ×2 (10:43→21:17)
--- NOTE | 2017-07-02 12:09 | IPNPDOC ---
Text Note Date of Service The patient was seen on 07/02/17. NOTE Subjective: Patient is a 62 year old male with a PMHx of COPD (on 3L O2), ANTWAN on CPAP, HTN, DM2, CKD3, Obesity, Gout, Neuropathy, Stage 1A Left upper lobe lung CA s/p lobectomy, and Stage 1A Lung CA of RLL s/p radiation. Was admitted from 06/20 - 06/22/17 for left sided chest pain and R sided pneumonia with MRSA. He was sent home with Linezolid. He presented to the hospital with chest pain and intractable left upper and lower extremity pain. Patient was seen and examined at the bedside. He has noted that his pain has subsided much more than it has been during the hospital course. He notes that his breathing is at baseline and still has a mild cough. Objective: Vitals (See below) General: Lying in bed, no acute distress, comfortable, AAOx3 HEENT: NC, AT CVS: RRR, +S1S2, + Systolic murmur Lungs: Fair air entry b/l, + rhonchi at right lung base Abdomen: Soft, ND, NT Extremities: - Edema, - Calf tenderness Assessment and plan: Intractable left upper and lower extremity pain, with some left sided chest pain - likely 2/2 neuropathic pain of central origin - Physical unrevealing - Cardiac enzymes negative x 3; s/p Tele - Cervical CT 06/26: no fracture, spondylolisthesis, straightening of cervical lordosis, multilevel spondylosis - Advised by his neurosurgeon in [place] that surgical option was high risk; he was advised against it - Neurology and Pain management has been consulted - c/w Adjusted Gabapentin, Amitriptyline, Zonisamide; c/w Tramadol at current dose Right lower lobe pneumonia with MRSA - WBC stable; CRP trending down - Sputum culture sensitives reviewed - CXR 06/26: There is an infiltrate inferiorly in the right lung, unchanged - Repeat CXR 06/30: Persistences of RLL pneumonia - c/w Vancomycin; s/p Doxycycline - Dr. Vaz on consult; appreciate their input s/p 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 (likely contaminant) - Currently noted that he has resolution of diarrhea - GI panel 06/26: Vibrio Cholera Sp - s/p Doxycycline (3 Days) COPD - no evidence of exacerbation - c/w DuoNeb and Spiriva - c/w Prednisone ANTWAN on CPAP - allow home CPAP use Gout - c/w Allopurinol HTN - BP well controlled - c/w Carvedilol CKD3 - Cr at baseline RLS - c/w Ropinirole DLP - c/w Pravastatin DM2 - c/w ISS Depression - c/w Amitriptyline (changed from Zoloft) Hx of Lung CA - Stage 1A ARIADNA s/p lobectomy - Stage 1A RLL s/p radiation - c/w outpatient follow up GERD - c/w Omeprazole DVT prophylaxis - c/w Heparin Disposition: - c/w Vancomycin; plan to transition to TMP/SMX if he continues to improve VS,Yasmanybone, I+O VS, Fishbone, I+O Laboratory Tests 07/02/17 05:49 Red Blood Count 3.93 L, Mean Corpuscular Volume 96.7 H, Mean Corpuscular Hemoglobin 32.1, Mean Corpuscular Hemoglobin Concent 33.2, Red Cell Distribution Width 13.2, Calcium Level 9.1, Aspartate Amino Transf (AST/SGOT) 34 , Alanine Aminotransferase (ALT/SGPT) 72, Alkaline Phosphatase 82, Total Bilirubin 0.3, Total Protein 6.6, Albumin 3.2 Vital Signs Date Time Temp Pulse Resp B/P (MAP) Pulse Ox O2 Delivery O2 Flow Rate FiO2 07/02/17 10:28 22 07/02/17 09:58 Nasal Cannula 3.0 07/02/17 09:38 76 145/87 07/02/17 06:00 96.9 93 I&O- Last 24 Hours up to 6 AM 07/03/17 06:00 Intake Total 740 ml Output Total 1650 ml Balance -910 ml MILTON BOYD MD Jul 02, 2017 12:09
--- NOTE | 2017-07-02 13:08 | PHACANCOPD ---
PHARMACY VANCOMYCIN DOSING Pt Demographics Demographics Patient Age:62 , Weight:153.700 , Gender: male Adjusted Body Weight Date: 06/26/17, Adjusted Body Weight: [113] Kg Vancomycin Vancomycin indication: MRSA pneumonia Vancomycin Target Ranges: 15-20 mcg/ml Vancomycin Load Y/N: Yes Load Dose Date Time Vancomycin Load Dose: 1000mg Date: 06/26 Time: 10:00 Vancomycin Dose Date: 06/26/17. Current Vancomycin Dose: [1g IV q8h @16] Intermittent Dosing?: No Labs Micro Microbiology 06/26/17 Gastrointestinal Tract Panel (PCR) - Final, Complete Vibrio Cholerae Sp 07/01/17 Gram Stain - Final, Resulted 07/01/17 Sputum Culture, Resulted Pending Creatinine Clearance Date:06/26/17. Creatinine Clearance: [87 ml/min using adjusted BW]. Pending Labs Vanco trough scheduled 06/27 @15:00 Assessment and Plan Maintaining Current Dose?: No Reason for dose change: Change in serum Cr Pharmacist Note Pharmacist Note 07/02/17: Spoke with Dr. Vaz today about elevated scr (1.47 today from 1.26 yesterday), and we discussed reducing vancomycin dose to 1g IV Q12H at this time. I have rescheduled the follow-up trough to be drawn tomorrow, 07/03/17, at 2000. We will continue to monitor the patient's renal function/levels and adjust dosing if needed. 07/01/17: Trough drawn @1712 before 5th dose at 1800 came back at 19.7 mcg/ml. This trough is within the desired range of 15-20. I will continue this patient on Vanco 1G IV Q8H. Because this trough is on the high end of our range I will schedule a follow-up trough tomorrow to ensure the patient does not reach toxic trough levels. We will continue to monitor and adjust dose as needed. 06/30/17: Empiric vancomycin has been restarted today for the treatment of MRSA pneumonia with a 2g loading dose, followed by a maintenance regimen of 1g IV Q8H. A vancomycin trough has been scheduled for 07/01/17 @1700. We will continue to monitor and make dose adjustments if needed. Date: 06/26/17. Pharmacist note: pt had sputum cultures from 06/20 that grew MRSA (heavy, FLY = 0.5) and was treated with Zyvox po up until this morning. Repeat chest xray today was unchanged from 06/23. SCr is elevated, baseline ~1 mg/dl? I have started him on vancomycin 1g this morning followed by 1g IV q8h 6 hours later. I have a trough scheduled tomorrow afternoon. I will continue to monitor. MAYITO MORELOS PHARMACY Jul 02, 2017 13:08
[2017-07-02 14:00] VITALS: BP 138/68
[2017-07-02] MEDS ORDERED: FUROSEMIDE 40 MG/4 ML VIAL (J1940) IV ONE (18:15)
--- NOTE | 2017-07-02 18:22 | CR ---
DATE OF CONSULTATION: 07/01/2017 REASON FOR CONSULTATION: Asked to consult by Dr. Main for evaluation of methicillin-resistant Staphylococcus aureus (MRSA) pneumonia. HISTORY OF PRESENT ILLNESS: Mr. Young is a pleasant 62-year-old obese gentleman who was admitted, on May 25 after he had been sick for about a week with pneumonia symptoms. The patient was hospitalized until the and had a sputum culture that was positive for MRSA on 05/24 and 05/25. MRSA was resistant to tetracycline, clindamycin, erythromycin. The patient was treated initially with intravenous (IV) vancomycin and Zosyn from 05/25 till 05/29, and he was discharged home with a prednisone taper but no antibiotics. The patient was readmitted on 06/20. Blood cultures two sets were negative. He was having chest pain. He was continued on linezolid on 06/20 which he has been on as an outpatient which he received for two days. He had a CT chest which showed right lower lobe worsening pneumonia. The patient was readmitted again on 06/26 with diarrhea and neuropathic pain. The patient was complaining of left-sided chest pain. He denied having any fever, chills, headache, nausea or vomiting. He had mild diarrhea. PAST MEDICAL HISTORY: Significant for chronic obstructive pulmonary disease (COPD) on three liters oxygen at night, obstructive sleep apnea on continuous positive airway pressure (CPAP), gout, obesity, hypertension, chronic kidney disease, stage Ia left upper lobe lung cancer status post lobectomy, stage Ia lung cancer of the right lower lobe status post radiation, history of torsades de pointes, liposarcoma. PAST SURGICAL HISTORY: Right-sided nephrectomy, right-sided adrenal glands resection, left upper lobe lobectomy, cholecystectomy, tonsillectomy, liposarcoma, partial colectomy, and history of chest tube insertion. SOCIAL HISTORY: He quit smoking more than three years ago. He used to smoke a pack a day for more than 50 years. He does not drink or use drugs. He lives at home with his cat. FAMILY HISTORY: Not significant. REVIEW OF SYSTEMS: The patient complains of left-sided chest pain radiating to the back. He has a cough productive of brownish phlegm, dyspnea on exertion, mild lower extremity edema. No nausea, vomiting. Diarrhea has resolved. No abdominal pain. No fever or chills. No dysuria, hematuria or flank pain. MEDICATIONS: - tramadol 100 mg by mouth every six as needed - vancomycin 1 gram IV every eight hours - zonisamide 50 mg by mouth twice a day - magnesium oxide 400 mg by mouth twice a day - Advair HFA two puffs inhaled twice a day - amitriptyline 50 mg by mouth at bedtime - Requip 2 mg by mouth at bedtime - prednisone 20 mg by mouth twice a day - gabapentin 600 mg by mouth three times a day - allopurinol 300 mg by mouth daily - Lac-Hydrin to both feet daily - aspirin 81 mg by mouth daily - Coreg 6.5 mg by mouth twice a day - cyanocobalamin 500 mcg by mouth daily - ferrous sulfate 325 mg by mouth daily - multivitamin one tablet daily - omeprazole 20 mg daily - Pravachol 20 mg by mouth daily - ropinirole 1 mg by mouth daily - Spiriva one inhalation daily - probiotics one tablet by mouth three times a day - insulin sliding scale - hydroxyzine 50 mg by mouth at bedtime as needed for insomnia - albuterol/Atrovent every six hour as needed ALLERGIES: HEXACHLOROPHENE. LABORATORY DATA: 06/25, white count was 6.1. The patient had received IV vancomycin from 06/26 to 06/27. On 06/28 it was switched to doxycycline till 06/30. At that point his white count increased at 12.2 on doxycycline. Currently 10.6, hemoglobin 12.2, hematocrit 36.7, platelets 164. Sodium 136, potassium 4.1, chloride 97, bicarb 34, BUN 29, creatinine 1.26, glucose 202, calcium 9.3, magnesium 1.9, AST 34, ALT 69, alkaline phosphatase 95. CRP 0.56 which is down from 2.8 on 06/26. Sputum cultures done on 06/20 still had heavy growth of MRSA resistant to erythromycin and penicillin, sensitive to tetracycline but original specimen from 05/24 was resistant to tetracycline. GI panel had Vibrio cholerae species. I think this is a false positive result. The patient had formed stools. IMAGING STUDY: CT angiogram done on 06/20 shows right lower lobe pneumonia which has progressed since prior study. Head CT done on 06/25 for left-sided weakness was negative. Cervical spine CT showed no fracture or spondylolisthesis, straightening of cervical lordosis and multilevel spondylosis. Chest x-ray done on 06/30 showed persistent right lower lobe infiltrate. PHYSICAL EXAMINATION: GENERAL: On physical exam, he is a pleasant obese gentleman in no acute distress. VITAL SIGNS: Temperature is 97, pulse 87, respirations 20, blood pressure 130/80, O2 saturation 96% on three liters nasal cannula. He has been afebrile throughout this admission and throughout previous admission. HEART: Normal S1, S2, tachycardiac. No murmurs. ABDOMEN: Morbidly obese, soft, nontender. LUNGS: Diminished breath sounds bilaterally with left-sided thoracotomy scar well healed. ABDOMEN: Soft, nontender. No hepatosplenomegaly. Obese. EXTREMITIES: Trace edema at the ankles. No calf tenderness. No rashes. HEENT: Oropharynx is clear with no lesions. NECK: Supple. No bruits. No jugular venous distention (JVD). IMPRESSION: This is a 62-year-old gentleman with methicillin-resistant Staphylococcus aureus (MRSA) pneumonia in May. From my understanding, he was on a treated with five days of IV vancomycin and then discharged home on prednisone taper, readmitted on 06/20 with persistent MRSA in his sputum. This MRSA culture was sensitive to tetracycline, but the one from May both specimens were resistant to tetracycline. The patient was admitted with some neuropathic pain on the left side with left-sided weakness left upper and left lower extremity for the last three days, not sure if it was related to linezolid and therefore that was discontinued. The patient has been restarted on IV vancomycin and doing better. The patient is anxious to go home as he has had multiple admissions regarding same condition. This is the third admission. PLAN: Once the patient clinically stable and ready to be discharged home, he could be discharged home on oral Bactrim. I am not sure why this has not been used. MRSA is susceptible. He could be treated with two tablets by mouth twice a day as long as kidney function is being monitored. The patient should followup with his ventilation mechanic as an outpatient. C-reactive protein (CRP) has markedly improved from 2.8 to 0.5. Infiltrate is persistent but not that much worse that I would not recommend IV antibiotic but probably by mouth Bactrim for another 10 days.
--- NOTE | 2017-07-02 19:59 | ECGEPIP ---
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 Poor R-wave progression. Electronically Signed On 07-02-2017 19:59:13 EDT by Venkatesh Hood
[2017-07-02] MEDS: AMITRIPTYLINE 50 MG TAB PO SCH (21:26)
[2017-07-02 22:00] VITALS: BP 133/85
[2017-07-03] MEDS: traMADol 50 MG TAB PO PRN ×2 (01:57→13:01)
[2017-07-03] MEDS: IPRATROPIUM 0.5MG/ALBUTEROL 2.5MG INH SOL UD 3ML (DUONEB)(J7620) NEB SCH ×4 (02:00→20:07)
[2017-07-03] MEDS: HEPARIN SOD (PORCINE) 5000 UNITS/ML VIAL SC SCH ×3 (05:30→21:47)
[2017-07-03 06:00] VITALS: BP 139/98
[2017-07-03 06:10] LABS: MEAN CORPUSCULAR HEMOGLOBIN 32.7 pg (27.0-33.0); MEAN CORPUSCULAR HGB CONC 33.5 g/dl (32.0-36.5); MEAN CORPUSCULAR VOLUME 97.7 fl (80.0-96.0); PLATELET COUNT, AUTOMATED 150 10^3/uL (150-450); RED CELL DISTRIBUTION WIDTH 13.5 % (11.5-14.5); WHITE BLOOD COUNT 12.9 10^3/uL (4.0-10.0)
[2017-07-03 06:31] LABS: ALBUMIN 3.2 GM/DL (3.2-5.2); ALBUMIN/GLOBULIN RATIO 0.91 (1.00-1.93); BILIRUBIN,TOTAL 0.3 MG/DL (0.2-1.0); CALCIUM LEVEL 9.1 MG/DL (8.8-10.2); CREATININE FOR GFR 1.51 MG/DL (0.70-1.30); GLOMERULAR FILTRATION RATE 49.8 (>49); MAGNESIUM LEVEL 2.1 MG/DL (1.8-2.4); POTASSIUM SERUM 4.2 MEQ/L (3.5-5.1); TOTAL PROTEIN 6.7 GM/DL (6.4-8.2)
[2017-07-03] MEDS: TIOTROPIUM INHALER/CAPSULE (SPIRIVA) INH SCH (07:57)
[2017-07-03] MEDS: ADVAIR HFA 115/21MCG INHALER INH SCH ×2 (07:57→20:27)
[2017-07-03] MEDS: HumaLOG INSULIN (NovoLOG) PER UNIT SC SCH ×4 (08:21→20:48)
[2017-07-03] MEDS: ASPIRIN 81 MG ENTERIC TAB PO SCH (08:21)
[2017-07-03] MEDS: ZONISAMIDE 50 MG CAP (ZONEGRAN) PO SCH ×2 (08:21→20:47)
[2017-07-03] MEDS: LACTOBACILLUS ACIDOPHILUS CAP (BACID) PO SCH ×3 (08:21→20:29)
[2017-07-03] MEDS: ALLOPURINOL 300 MG TAB PO SCH (08:22)
[2017-07-03] MEDS: FERROUS SULFATE 325MG TAB PO SCH (08:22)
[2017-07-03] MEDS: MAGNESIUM OXIDE 400 MG TAB (MAG-OX) PO SCH ×2 (08:22→20:31)
[2017-07-03] MEDS: CARVedilol 6.25 MG TAB PO SCH ×2 (08:22→20:33)
[2017-07-03] MEDS: MULTIVITAMINS/MINERALS THERAP 1 TAB PO SCH (08:22)
[2017-07-03] MEDS: predniSONE 20 MG TAB PO SCH (08:22)
[2017-07-03] MEDS: rOPINIRole 1MG TAB PO SCH ×2 (08:22→20:29)
[2017-07-03] MEDS: GABAPENTIN 300 MG CAP PO SCH ×3 (08:22→20:29)
[2017-07-03] MEDS: PRAVASTATIN 20 MG TAB PO SCH (08:22)
[2017-07-03] MEDS: OMEPRAZOLE 20 MG CAP PO SCH (08:22)
[2017-07-03] MEDS: CYANOCOBALAMIN 500 MCG TAB PO SCH (08:23)
[2017-07-03] MEDS: LIDOCAINE 5% OINT 30 GM TOP SCH (08:25)
[2017-07-03] MEDS: LACTIC ACID 12% LOTION 225 GM BTL TOP SCH (08:25)
[2017-07-03] MEDS: VANCOMYCIN HCL 1,000 MG, VIAL MATE ADAPTER 1 EACH in D5W 250 ML IV SCH ×2 (08:26→20:29)
--- NOTE | 2017-07-03 10:38 | REP ---
Single view chest. History: Evaluate for fluid. Comparison study: June 30, 2017. Findings: The left hemidiaphragm is slightly elevated and there is blunting of the left lateral pleural angle. This is unchanged from the prior study and is more likely pleuroparenchymal reaction or fibrosis. There are increased markings and some increased density in the right base also unchanged, which may be chronic pleuroparenchymal density. A small curvilinear metallic density is seen overlying the right lateral pleural angle, unchanged. Heart is not enlarged. No new infiltrate is seen. Signed by Anand Ponce MD 07/03/2017 12:05 P
[2017-07-03] MEDS ORDERED: NS 1,000 ML IV SCH (11:00)
[2017-07-03] MEDS: cefTRIAXone SOD 2 GM in D5W 50 ML IV SCH (11:01)
--- NOTE | 2017-07-03 12:13 | IPNPDOC ---
Text Note Date of Service The patient was seen on 07/03/17. NOTE Subjective: Patient is a 62 year old male with a PMHx of COPD (on 3L O2), ANTWAN on CPAP, HTN, DM2, CKD3, Obesity, Gout, Neuropathy, Stage 1A Left upper lobe lung CA s/p lobectomy, and Stage 1A Lung CA of RLL s/p radiation. Was admitted from 06/20 - 06/22/17 for left sided chest pain and R sided pneumonia with MRSA. He was sent home with Linezolid. He presented to the hospital with chest pain and intractable left upper and lower extremity pain. Patient was seen and examined at the bedside. He notes that his pain is well controlled. He had an episode of chest pain yesterday evening; cardiac enzymes and EKG were negative. This morning he had complaints of shortness of breath. Objective: Vitals (See below) General: Lying in bed, no acute distress, comfortable, AAOx3 HEENT: NC, AT CVS: RRR, +S1S2, + Systolic murmur Lungs: Fair air entry b/l, + rhonchi diffusely Abdomen: Soft, ND, NT Extremities: - Edema, - Calf tenderness Assessment and plan: Dyspnea - possibly 2/2 Right lower lobe pneumonia with MRSA, possibly 2/2 component of COPD - WBC count remains unchanged; CRP trending down to normal - Sputum culture 07/01: Klebsiella Oxytoca - CXR 07/03: Pleuroparenchymal reaction / fibrosis, increased markings at right lung base are unchanged, no new infiltrate - c/w Vancomycin; Added Ceftriaxone based on sputum culture; s/p Doxycycline - c/w DuoNeb and Spiriva - Will start Solumedrol; Will dc Prednisone - Dr. Vaz on consult; appreciate their input s/p Intractable left upper and lower extremity pain - likely 2/2 neuropathic pain of central origin - Physical unrevealing - Cardiac enzymes negative x 3; s/p Tele - Cervical CT 06/26: no fracture, spondylolisthesis, straightening of cervical lordosis, multilevel spondylosis - Advised by his neurosurgeon in [place] that surgical option was high risk; he was advised against it - Neurology and Pain management has been consulted - c/w Adjusted Gabapentin, Amitriptyline, Zonisamide; c/w Tramadol at current dose s/p Chest pain - Not cardiac in origin - EKG reviewed 07/02; remains unchanged; no ischemic changes noted - Troponin has remained negative s/p 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 (likely contaminant) - Currently noted that he has resolution of diarrhea - GI panel 06/26: Vibrio Cholera Sp - s/p Doxycycline (3 Days) ANTWAN on CPAP - allow home CPAP use Gout - c/w Allopurinol HTN - BP well controlled - c/w Carvedilol CKD3 - Cr has had slight elevation - Will start gentle IV fluid hydration RLS - c/w Ropinirole DLP - c/w Pravastatin DM2 - c/w ISS Depression - c/w Amitriptyline (changed from Zoloft) Hx of Lung CA - Stage 1A ARIADNA s/p lobectomy - Stage 1A RLL s/p radiation - c/w outpatient follow up GERD - c/w Omeprazole DVT prophylaxis - c/w Heparin Disposition: - c/w Antibiotics - Increased steroids - Gentle IV fluid hydration VS,Fishbone, I+O VS, Fishbone, I+O Laboratory Tests 07/03/17 05:59 Red Blood Count 3.88 L, Mean Corpuscular Volume 97.7 H, Mean Corpuscular Hemoglobin 32.7, Mean Corpuscular Hemoglobin Concent 33.5, Red Cell Distribution Width 13.5, Calcium Level 9.1, Aspartate Amino Transf (AST/SGOT) 34 , Alanine Aminotransferase (ALT/SGPT) 75, Alkaline Phosphatase 80, Total Bilirubin 0.3, Total Protein 6.7, Albumin 3.2 Vital Signs Date Time Temp Pulse Resp B/P (MAP) Pulse Ox O2 Delivery O2 Flow Rate FiO2 07/03/17 09:00 Nasal Cannula 3.0 07/03/17 08:22 76 139/98 07/03/17 06:00 97.1 20 98 MILTON BOYD MD Jul 03, 2017 12:13
[2017-07-03 14:00] VITALS: BP 160/85
[2017-07-03 15:22] LABS: ABG HCO3 30.3 MEQ/L (22.0-26.0); ABG PARTIAL PRESSURE CO2 58.4 mmHg (35.0-45.0); ABG STANDARD HCO3 27.1 MEQ/L (22.0-26.0); ABG TOTAL CO2 32.1 MEQ/L (23.0-31.0); ABG pH (ARTERIAL) 7.333 UNITS (7.350-7.450)
[2017-07-03] MEDS: IPRATROPIUM 0.5MG/ALBUTEROL 2.5MG INH SOL UD 3ML (DUONEB)(J7620) NEB PRN (15:52)
[2017-07-03] MEDS ORDERED: methylPREDNISolone INJ 125 MG/2 ML VIAL (J2930) IV ONE (16:00)
[2017-07-03] MEDS ORDERED: SODIUM CHLORIDE 0.9% 1000 ML IV ONE (16:30)
[2017-07-03] MEDS ORDERED: methylPREDNISolone INJ 125 MG/2 ML VIAL (J2930) IV SCH (18:00)
[2017-07-03 18:05] LABS: ABG BASE EXCESS 4.4 (-2.0-2.0); ABG HCO3 30.7 MEQ/L (22.0-26.0); ABG PARTIAL PRESSURE CO2 52.4 mmHg (35.0-45.0); ABG PARTIAL PRESSURE O2 91.6 mmHg (75.0-100.0); ABG STANDARD HCO3 28.4 MEQ/L (22.0-26.0); ABG TOTAL CO2 32.3 MEQ/L (23.0-31.0); ABG pH (ARTERIAL) 7.385 UNITS (7.350-7.450)
[2017-07-03] MEDS: AMITRIPTYLINE 50 MG TAB PO SCH (20:29)
--- NOTE | 2017-07-03 20:41 | PHACANCOPD ---
PHARMACY VANCOMYCIN DOSING Pt Demographics Demographics Patient Age:62 , Weight:153.700 , Gender: male Adjusted Body Weight Date: 06/26/17, Adjusted Body Weight: [113] Kg Events Past 24 Hours Events Past 24 Hours: NO: Dialysis, Diuretic Therapy, Change in CrCl, Fever, Elevation in WBC, Pending Diagnostics, Pending Procedures, Other Vancomycin Vancomycin indication: MRSA pneumonia Vancomycin Target Ranges: 15-20 mcg/ml Vancomycin Load Y/N: Yes Load Dose Date Time Vancomycin Load Dose: 1000mg Date: 06/26 Time: 10:00 Vancomycin Dose Date: 07/03/17. Current Vancomycin Dose: [1g IV q12h] Intermittent Dosing?: No Labs Labs Item Value Date Time White Blood Count 12.9 10^3/uL H 07/03/17 0559 Creatinine 1.51 MG/DL H 07/03/17 0559 Blood Urea Nitrogen 46 MG/DL H 07/03/17 0559 Vancomycin Level Trough 16.3 UG/ML 07/03/17 1936 Vital Signs Label Value Date Time Patient Temperature 97.5 degrees F 07/03/17 1400 Temperature Source Temporal 07/03/17 1400 Micro Microbiology 07/03/17 Blood Culture, Received Pending 07/03/17 Blood Culture, Received Pending 06/26/17 Gastrointestinal Tract Panel (PCR) - Final, Complete Vibrio Cholerae Sp 07/01/17 Gram Stain - Final, Complete 07/01/17 Sputum Culture - Final, Complete Klebsiella Oxytoca Creatinine Clearance Date:06/26/17. Creatinine Clearance: [87 ml/min using adjusted BW]. Assessment and Plan Maintaining Current Dose?: Yes Reason for dose change: No Dose Change Pharmacist Note Pharmacist Note Date: 06/26/17. Pharmacist note:Trough of 16.3 is within target range. Will continue current dosing. Will continue to monitor and make adjustments as needed. NIKOLAS CONNER PHARMACY Jul 03, 2017 20:41
[2017-07-03 21:00] VITALS: BP 139/87
[2017-07-04] MEDS: methylPREDNISolone INJ 125 MG/2 ML VIAL (J2930) IV SCH ×3 (00:21→15:37)
[2017-07-04] MEDS: IPRATROPIUM 0.5MG/ALBUTEROL 2.5MG INH SOL UD 3ML (DUONEB)(J7620) NEB SCH ×4 (01:48→20:00)
[2017-07-04] MEDS: HEPARIN SOD (PORCINE) 5000 UNITS/ML VIAL SC SCH ×3 (05:55→22:09)
[2017-07-04 06:00] VITALS: BP 146/84
[2017-07-04] MEDS ORDERED: SODIUM CHLORIDE 0.9% 1000 ML IV ONE (07:00)
[2017-07-04 07:19] LABS: MEAN CORPUSCULAR HEMOGLOBIN 32.2 pg (27.0-33.0); MEAN CORPUSCULAR HGB CONC 32.9 g/dl (32.0-36.5); MEAN CORPUSCULAR VOLUME 97.8 fl (80.0-96.0); PLATELET COUNT, AUTOMATED 154 10^3/uL (150-450); RED CELL DISTRIBUTION WIDTH 13.7 % (11.5-14.5); WHITE BLOOD COUNT 16.1 10^3/uL (4.0-10.0)
[2017-07-04 07:20] LABS: POSITIVE MORPH POS FLAG
[2017-07-04 07:21] LABS: ADD MANUAL DIFFER YES; DIFF SLIDE NUMBER 81; POS COUNT POS FLAG
[2017-07-04 07:32] LABS: ALBUMIN 3.2 GM/DL (3.2-5.2); ALBUMIN/GLOBULIN RATIO 0.94 (1.00-1.93); BILIRUBIN,TOTAL 0.3 MG/DL (0.2-1.0); CALCIUM LEVEL 8.8 MG/DL (8.8-10.2); CREATININE FOR GFR 1.36 MG/DL (0.70-1.30); GLOMERULAR FILTRATION RATE 56.2 (>49); MAGNESIUM LEVEL 2.2 MG/DL (1.8-2.4); POTASSIUM SERUM 4.4 MEQ/L (3.5-5.1); TOTAL PROTEIN 6.6 GM/DL (6.4-8.2)
[2017-07-04 07:49] LABS: BANDS 1 % (< 11)
[2017-07-04] MEDS: LACTOBACILLUS ACIDOPHILUS CAP (BACID) PO SCH ×3 (08:46→20:59)
[2017-07-04] MEDS: HumaLOG INSULIN (NovoLOG) PER UNIT SC SCH ×4 (08:46→22:18)
[2017-07-04] MEDS: MULTIVITAMINS/MINERALS THERAP 1 TAB PO SCH (08:46)
[2017-07-04] MEDS: GABAPENTIN 300 MG CAP PO SCH ×3 (08:46→20:59)
[2017-07-04] MEDS: rOPINIRole 1MG TAB PO SCH ×2 (08:46→21:00)
[2017-07-04] MEDS: PRAVASTATIN 20 MG TAB PO SCH (08:46)
[2017-07-04] MEDS: OMEPRAZOLE 20 MG CAP PO SCH (08:47)
[2017-07-04] MEDS: MAGNESIUM OXIDE 400 MG TAB (MAG-OX) PO SCH ×2 (08:47→21:00)
[2017-07-04] MEDS: CYANOCOBALAMIN 500 MCG TAB PO SCH (08:47)
[2017-07-04] MEDS: CARVedilol 6.25 MG TAB PO SCH ×2 (08:47→21:00)
[2017-07-04] MEDS: ALLOPURINOL 300 MG TAB PO SCH (08:47)
[2017-07-04] MEDS: FERROUS SULFATE 325MG TAB PO SCH (08:47)
[2017-07-04] MEDS: ASPIRIN 81 MG ENTERIC TAB PO SCH (08:47)
[2017-07-04] MEDS: LACTIC ACID 12% LOTION 225 GM BTL TOP SCH (08:48)
[2017-07-04] MEDS: VANCOMYCIN HCL 1,000 MG, VIAL MATE ADAPTER 1 EACH in D5W 250 ML IV SCH ×2 (08:48→20:58)
[2017-07-04] MEDS: LIDOCAINE 5% OINT 30 GM TOP SCH (08:48)
[2017-07-04] MEDS: ZONISAMIDE 50 MG CAP (ZONEGRAN) PO SCH ×2 (08:51→20:58)
[2017-07-04] MEDS: NS 1,000 ML IV SCH ×3 (08:52→21:01)
[2017-07-04] MEDS: traMADol 50 MG TAB PO PRN ×2 (08:52→15:37)
[2017-07-04] MEDS: cefTRIAXone SOD 2 GM in D5W 50 ML IV SCH (10:00)
--- NOTE | 2017-07-04 11:41 | IPNPDOC ---
Text Note Date of Service The patient was seen on 07/04/17. NOTE Subjective: Patient is a 62 year old male with a PMHx of COPD (on 3L O2), ANTWAN on CPAP, HTN, DM2, CKD3, Obesity, Gout, Neuropathy, Stage 1A Left upper lobe lung CA s/p lobectomy, and Stage 1A Lung CA of RLL s/p radiation. Was admitted from 06/20 - 06/22/17 for left sided chest pain and R sided pneumonia with MRSA. He was sent home with Linezolid. He presented to the hospital with chest pain and intractable left upper and lower extremity pain. Patient was seen and examined at the bedside. Notes that his breathing has improved significantly than yesterday. He notes that he feels better. Denies cough or fever. Objective: Vitals (See below) General: Lying in bed, no acute distress, comfortable, AAOx3 HEENT: NC, AT CVS: RRR, +S1S2, + Systolic murmur Lungs: Fair air entry b/l, improvement in rhonchi / wheezing bilaterally Abdomen: Soft, ND, NT Extremities: - Edema, - Calf tenderness Assessment and plan: Dyspnea - possibly 2/2 Right lower lobe pneumonia with MRSA, possibly 2/2 component of acute COPD exacerbation - WBC elevated; CRP elevated - Sputum culture 07/01: Klebsiella Oxytoca - CXR 07/03: Pleuroparenchymal reaction / fibrosis, increased markings at right lung base are unchanged, no new infiltrate - c/w Vancomycin and Ceftriaxone based on sputum culture; s/p Doxycycline - c/w DuoNeb and Spiriva - c/w Solumedrol; Will reduce dosage slowly - Dr. Vaz on consult; appreciate their input Leukocytosis - likely 2/2 reactive process 2/2 corticosteroids and component of underlying pneumonia - Will trend CRP instead to follow infectious process s/p Intractable left upper and lower extremity pain - likely 2/2 neuropathic pain of central origin - Physical unrevealing - Cardiac enzymes negative x 3; s/p Tele - Cervical CT 06/26: no fracture, spondylolisthesis, straightening of cervical lordosis, multilevel spondylosis - Advised by his neurosurgeon in [place] that surgical option was high risk; he was advised against it - Neurology and Pain management has been consulted - c/w Adjusted Gabapentin, Amitriptyline, Zonisamide - Restart Tramadol at lower dose today Lactic acidosis - possibly 2/2 work of breathing, possibly 2/2 infection - c/w Antibiotics and breathing treatments - c/w IV fluid hydration s/p Chest pain - Not cardiac in origin - EKG reviewed 07/02; remains unchanged; no ischemic changes noted - Troponin has remained negative s/p 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 (likely contaminant) - Currently noted that he has resolution of diarrhea - GI panel 06/26: Vibrio Cholera Sp - s/p Doxycycline (3 Days) ANTWAN on CPAP - allow home CPAP use Gout - c/w Allopurinol HTN - BP well controlled - c/w Carvedilol CKD3 - Cr has had slight elevation - Will start gentle IV fluid hydration RLS - c/w Ropinirole DLP - c/w Pravastatin DM2 - c/w ISS Depression - c/w Amitriptyline (changed from Zoloft) Hx of Lung CA - Stage 1A ARIADNA s/p lobectomy - Stage 1A RLL s/p radiation - c/w outpatient follow up GERD - c/w Omeprazole DVT prophylaxis - c/w Heparin Disposition: - c/w Antibiotics and Solumedrol - Gentle IV fluid hydration VS,Fishbone, I+O VS, Fishbone, I+O Laboratory Tests 07/04/17 06:27 Red Blood Count 4.01 L, Mean Corpuscular Volume 97.8 H, Mean Corpuscular Hemoglobin 32.2, Mean Corpuscular Hemoglobin Concent 32.9, Red Cell Distribution Width 13.7, Calcium Level 8.8, Aspartate Amino Transf (AST/SGOT) 31 , Alanine Aminotransferase (ALT/SGPT) 79 H, Alkaline Phosphatase 90, Total Bilirubin 0.3, Total Protein 6.6, Albumin 3.2 Vital Signs Date Time Temp Pulse Resp B/P (MAP) Pulse Ox O2 Delivery O2 Flow Rate FiO2 07/04/17 09:00 BIPAP/CPAP 4.0 07/04/17 08:52 20 07/04/17 08:47 91 146/84 07/04/17 06:00 96.4 91 MILTON BOYD MD Jul 04, 2017 11:41
[2017-07-04] MEDS: TIOTROPIUM INHALER/CAPSULE (SPIRIVA) INH SCH (13:05)
[2017-07-04] MEDS: ADVAIR HFA 115/21MCG INHALER INH SCH ×2 (13:06→20:54)
[2017-07-04 14:00] VITALS: BP 114/72
[2017-07-04] MEDS: AMITRIPTYLINE 50 MG TAB PO SCH (21:00)
[2017-07-04 22:00] VITALS: BP 137/87
[2017-07-05] MEDS: methylPREDNISolone INJ 125 MG/2 ML VIAL (J2930) IV SCH (00:08)
[2017-07-05] MEDS: traMADol 50 MG TAB PO PRN ×4 (00:09→21:15)
[2017-07-05] MEDS: IPRATROPIUM 0.5MG/ALBUTEROL 2.5MG INH SOL UD 3ML (DUONEB)(J7620) NEB SCH ×4 (02:06→19:59)
[2017-07-05 05:40] LABS: MEAN CORPUSCULAR HEMOGLOBIN 32.2 pg (27.0-33.0); MEAN CORPUSCULAR HGB CONC 33.1 g/dl (32.0-36.5); MEAN CORPUSCULAR VOLUME 97.3 fl (80.0-96.0); PLATELET COUNT, AUTOMATED 137 10^3/uL (150-450); RED CELL DISTRIBUTION WIDTH 13.8 % (11.5-14.5)
[2017-07-05 05:46] LABS: ADD MANUAL DIFFER YES; DIFF SLIDE NUMBER 51; POS COUNT POS FLAG; POSITIVE MORPH POS FLAG
[2017-07-05 06:00] VITALS: BP 150/85
[2017-07-05 06:06] LABS: ALBUMIN/GLOBULIN RATIO 0.81 (1.00-1.93); BILIRUBIN,TOTAL 0.3 MG/DL (0.2-1.0); CALCIUM LEVEL 8.9 MG/DL (8.8-10.2); CREATININE FOR GFR 1.48 MG/DL (0.70-1.30); GLOMERULAR FILTRATION RATE 50.9 (>49); MAGNESIUM LEVEL 2.2 MG/DL (1.8-2.4); POTASSIUM SERUM 4.4 MEQ/L (3.5-5.1); TOTAL PROTEIN 6.7 GM/DL (6.4-8.2)
[2017-07-05] MEDS: HEPARIN SOD (PORCINE) 5000 UNITS/ML VIAL SC SCH ×3 (06:22→21:11)
[2017-07-05] MEDS: TIOTROPIUM INHALER/CAPSULE (SPIRIVA) INH SCH (07:32)
[2017-07-05] MEDS: ADVAIR HFA 115/21MCG INHALER INH SCH ×2 (07:32→21:00)
[2017-07-05] MEDS: GABAPENTIN 300 MG CAP PO SCH ×3 (08:11→21:12)
[2017-07-05] MEDS: HumaLOG INSULIN (NovoLOG) PER UNIT SC SCH ×4 (08:11→22:15)
[2017-07-05] MEDS: ALLOPURINOL 300 MG TAB PO SCH (08:12)
[2017-07-05] MEDS: PRAVASTATIN 20 MG TAB PO SCH (08:12)
[2017-07-05] MEDS: MAGNESIUM OXIDE 400 MG TAB (MAG-OX) PO SCH ×2 (08:12→21:12)
[2017-07-05] MEDS: ASPIRIN 81 MG ENTERIC TAB PO SCH (08:12)
[2017-07-05] MEDS: LACTOBACILLUS ACIDOPHILUS CAP (BACID) PO SCH ×3 (08:12→21:12)
[2017-07-05] MEDS: FERROUS SULFATE 325MG TAB PO SCH (08:12)
[2017-07-05] MEDS: MULTIVITAMINS/MINERALS THERAP 1 TAB PO SCH (08:12)
[2017-07-05] MEDS: OMEPRAZOLE 20 MG CAP PO SCH (08:12)
[2017-07-05] MEDS: rOPINIRole 1MG TAB PO SCH ×2 (08:12→21:12)
[2017-07-05] MEDS: CYANOCOBALAMIN 500 MCG TAB PO SCH (08:12)
[2017-07-05] MEDS: CARVedilol 6.25 MG TAB PO SCH ×2 (08:13→21:17)
[2017-07-05] MEDS: LEVEMIR (INSULIN DETEMIR) 1 UNITS/0.01ML SC SCH ×2 (08:13→21:13)
[2017-07-05] MEDS: LACTIC ACID 12% LOTION 225 GM BTL TOP SCH (08:14)
[2017-07-05] MEDS: VANCOMYCIN HCL 1,000 MG, VIAL MATE ADAPTER 1 EACH in D5W 250 ML IV SCH ×2 (08:14→21:11)
[2017-07-05] MEDS: LIDOCAINE 5% OINT 30 GM TOP SCH (08:15)
[2017-07-05] MEDS: ZONISAMIDE 50 MG CAP (ZONEGRAN) PO SCH ×2 (08:19→21:13)
--- NOTE | 2017-07-05 09:31 | IPNPDOC ---
Text Note Date of Service The patient was seen on 07/05/17. NOTE Subjective: Patient is a 62 year old male with a PMHx of COPD (on 3L O2), ANTWAN on CPAP, HTN, DM2, CKD3, Obesity, Gout, Neuropathy, Stage 1A Left upper lobe lung CA s/p lobectomy, and Stage 1A Lung CA of RLL s/p radiation. Was admitted from 06/20 - 06/22/17 for left sided chest pain and R sided pneumonia with MRSA. He was sent home with Linezolid. He presented to the hospital with chest pain and intractable left upper and lower extremity pain. Patient was seen and examined at the bedside. He notes that he feels better. Denies cough or fever. Patient still admits to left sided neuropathic pain and weakness. The pain is less than before. Patient denies any fever/chill, abdominal pain, diarrhea, constipation, blood in urine or stool. Swelling on right leg is worse. Objective: Vitals (See below) General: Morbidly obese elderly male, lying in bed, no acute distress, comfortable, AAOx3 HEENT: NC, AT CVS: RRR, +S1S2, + Systolic murmur, difficult to auscultation due to increased AP diameter Lungs: Fair air entry b/l, improvement in rhonchi / wheezing bilaterally Abdomen: Soft, ND, NT Extremities: - Edema, - Calf was not tender to palpation today, right side swelling more Assessment and plan: Dyspnea - possibly 2/2 Right lower lobe pneumonia with MRSA and Klebsiella, possibly 2/2 component of acute COPD exacerbation - WBC elevated; CRP elevated - Sputum culture 07/01: Klebsiella Oxytoca - CXR 07/03: Pleuroparenchymal reaction / fibrosis, increased markings at right lung base are unchanged, no new infiltrate - c/w Vancomycin and Ceftriaxone based on sputum culture; s/p Doxycycline - c/w DuoNeb and Spiriva - c/w Solumedrol; Will reduce dosage slowly - Dr. Vaz on consult; appreciate their input Swelling of right lower extremity - Will R/O DVT with Doppler duplex US Leukocytosis - likely 2/2 reactive process 2/2 corticosteroids and component of underlying pneumonia - Will trend CRP instead to follow infectious process s/p Intractable left upper and lower extremity pain - likely 2/2 neuropathic pain of central origin - Physical unrevealing - Cardiac enzymes negative x 3; s/p Tele - Cervical CT 06/26: no fracture, spondylolisthesis, straightening of cervical lordosis, multilevel spondylosis - Advised by his neurosurgeon in [place] that surgical option was high risk; he was advised against it - Neurology and Pain management has been consulted - c/w Adjusted Gabapentin, Amitriptyline, Zonisamide - Restart Tramadol at lower dose on 07/03/17 Lactic acidosis - possibly 2/2 work of breathing, possibly 2/2 infection - c/w Antibiotics and breathing treatments - reduced IVF to 60 ml/h s/p Chest pain - Not cardiac in origin - EKG reviewed 07/02; remains unchanged; no ischemic changes noted - Troponin has remained negative s/p 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 (likely contaminant) - Currently noted that he has resolution of diarrhea - GI panel 06/26: Vibrio Cholera Sp - s/p Doxycycline (3 Days) - No diarrhea today ANTWAN on CPAP - allow home CPAP use Gout - c/w Allopurinol HTN - BP well controlled - c/w Carvedilol CKD3 - Cr has had slight elevation - Will start gentle IV fluid hydration RLS - c/w Ropinirole DLP - c/w Pravastatin DM2 - c/w ISS Depression - c/w Amitriptyline (changed from Zoloft) Hx of Lung CA - Stage 1A ARIADNA s/p lobectomy - Stage 1A RLL s/p radiation - c/w outpatient follow up GERD - c/w Omeprazole DVT prophylaxis - c/w Heparin Disposition: - c/w Antibiotics and Solumedrol - Gentle IV fluid hydration Patient has been discussed with attending Dr. Boyd. GME ATTESTATION My preceptor for this patient encounter was physically present in the building during the encounter and was fully available. As needed, all aspects of the patient interview, examination, medical decision making process, and medical care plan development were reviewed and approved by the preceptor. Preceptor is aware and concurs with the plan as stated in the body of this note and will attest to such by his/her cosignature. ATTENDING NOTE I, Sonam Boyd, have both independently examined this patient as well as reviewed the documentation. I have discussed in detail with the resident the findings and plan of treatment as documented in the residents documentation. I will continue to follow the patient and offer further guidance to the patients care as necessary during this hospital stay. VS,Fishbone, I+O VS, Fishbone, I+O Laboratory Tests 07/05/17 05:23 Red Blood Count 4.07 L, Mean Corpuscular Volume 97.3 H, Mean Corpuscular Hemoglobin 32.2, Mean Corpuscular Hemoglobin Concent 33.1, Red Cell Distribution Width 13.8, Calcium Level 8.9, Aspartate Amino Transf (AST/SGOT) 31 , Alanine Aminotransferase (ALT/SGPT) 81 H, Alkaline Phosphatase 86, Total Bilirubin 0.3, Total Protein 6.7, Albumin 3.0 L Vital Signs Date Time Temp Pulse Resp B/P (MAP) Pulse Ox O2 Delivery O2 Flow Rate FiO2 07/05/17 08:43 18 07/05/17 08:13 75 150/85 07/05/17 06:00 96.0 95 Nasal Cannula 4.0 I&O- Last 24 Hours up to 6 AM 07/06/17 06:00 Intake Total 600 ml Output Total 800 ml Balance -200 ml AGNIESZKA VICTOR DO Jul 05, 2017 09:31 SONAM BOYD MD Jul 05, 2017 11:54
[2017-07-05] MEDS ORDERED: NS 1,000 ML IV SCH ×2 (10:00→14:00)
--- NOTE | 2017-07-05 11:50 | REP ---
Right lower extremity deep vein duplex ultrasound: The deep veins demonstrate normal compression, normal Doppler color flow and normal Doppler waveforms with respiration and augmentation from the popliteal vein to the common femoral vein. Impression: There is no deep vein thrombus in the right lower extremity. Signed by Claus Asher MD 07/05/2017 11:40 A
[2017-07-05] MEDS: methylPREDNISolone INJ 40 MG/1 ML VIAL (J2920) IV SCH ×2 (13:12→23:23)
[2017-07-05] MEDS: cefTRIAXone SOD 2 GM in D5W 50 ML IV SCH (13:19)
[2017-07-05 14:00] VITALS: BP 147/80
[2017-07-05] MEDS: AMITRIPTYLINE 50 MG TAB PO SCH (21:12)
[2017-07-05 22:00] VITALS: BP 127/76
[2017-07-06] MEDS: IPRATROPIUM 0.5MG/ALBUTEROL 2.5MG INH SOL UD 3ML (DUONEB)(J7620) NEB SCH ×4 (02:01→19:40)
[2017-07-06] MEDS: HEPARIN SOD (PORCINE) 5000 UNITS/ML VIAL SC SCH ×3 (05:47→21:01)
[2017-07-06] MEDS: traMADol 50 MG TAB PO PRN ×2 (05:48→13:58)
[2017-07-06 06:00] VITALS: BP 133/82
[2017-07-06 06:34] LABS: MEAN CORPUSCULAR HEMOGLOBIN 32.6 pg (27.0-33.0); MEAN CORPUSCULAR HGB CONC 33.6 g/dl (32.0-36.5); MEAN CORPUSCULAR VOLUME 97.1 fl (80.0-96.0); PLATELET COUNT, AUTOMATED 125 10^3/uL (150-450); RED CELL DISTRIBUTION WIDTH 14.1 % (11.5-14.5); WHITE BLOOD COUNT 14.9 10^3/uL (4.0-10.0)
[2017-07-06 06:36] LABS: ADD MANUAL DIFFER YES; DIFF SLIDE NUMBER 32; POS COUNT POS FLAG; POSITIVE MORPH POS FLAG
[2017-07-06 06:54] LABS: ALBUMIN 2.8 GM/DL (3.2-5.2); ALBUMIN/GLOBULIN RATIO 0.82 (1.00-1.93); BILIRUBIN,TOTAL 0.3 MG/DL (0.2-1.0); CALCIUM LEVEL 8.8 MG/DL (8.8-10.2); CREATININE FOR GFR 1.35 MG/DL (0.70-1.30); GLOMERULAR FILTRATION RATE 56.6 (>49); MAGNESIUM LEVEL 2.1 MG/DL (1.8-2.4); POTASSIUM SERUM 4.4 MEQ/L (3.5-5.1); TOTAL PROTEIN 6.2 GM/DL (6.4-8.2)
[2017-07-06 07:02] LABS: BANDS 3 % (< 11)
[2017-07-06] MEDS: TIOTROPIUM INHALER/CAPSULE (SPIRIVA) INH SCH (07:21)
[2017-07-06] MEDS: ADVAIR HFA 115/21MCG INHALER INH SCH ×2 (07:21→21:00)
[2017-07-06] MEDS: ZONISAMIDE 50 MG CAP (ZONEGRAN) PO SCH ×2 (08:48→20:45)
[2017-07-06] MEDS: GABAPENTIN 300 MG CAP PO SCH ×3 (08:49→20:45)
[2017-07-06] MEDS: MULTIVITAMINS/MINERALS THERAP 1 TAB PO SCH (08:49)
[2017-07-06] MEDS: MAGNESIUM OXIDE 400 MG TAB (MAG-OX) PO SCH ×2 (08:49→20:46)
[2017-07-06] MEDS: predniSONE 20 MG TAB PO SCH (08:49)
[2017-07-06] MEDS: CYANOCOBALAMIN 500 MCG TAB PO SCH (08:49)
[2017-07-06] MEDS: rOPINIRole 1MG TAB PO SCH ×2 (08:50→20:46)
[2017-07-06] MEDS: PRAVASTATIN 20 MG TAB PO SCH (08:50)
[2017-07-06] MEDS: LACTOBACILLUS ACIDOPHILUS CAP (BACID) PO SCH ×3 (08:50→20:45)
[2017-07-06] MEDS: FERROUS SULFATE 325MG TAB PO SCH (08:50)
[2017-07-06] MEDS: CARVedilol 6.25 MG TAB PO SCH ×2 (08:50→20:47)
[2017-07-06] MEDS: ASPIRIN 81 MG ENTERIC TAB PO SCH (08:50)
[2017-07-06] MEDS: ALLOPURINOL 300 MG TAB PO SCH (08:50)
[2017-07-06] MEDS: OMEPRAZOLE 20 MG CAP PO SCH (08:50)
[2017-07-06] MEDS: HumaLOG INSULIN (NovoLOG) PER UNIT SC SCH ×4 (08:51→20:47)
[2017-07-06] MEDS: LEVEMIR (INSULIN DETEMIR) 1 UNITS/0.01ML SC SCH (08:51)
[2017-07-06] MEDS: LACTIC ACID 12% LOTION 225 GM BTL TOP SCH (08:52)
[2017-07-06] MEDS: VANCOMYCIN HCL 1,000 MG, VIAL MATE ADAPTER 1 EACH in D5W 250 ML IV SCH (08:52)
[2017-07-06] MEDS: LIDOCAINE 5% OINT 30 GM TOP SCH (08:52)
[2017-07-06] MEDS: cefTRIAXone SOD 2 GM in D5W 50 ML IV SCH (12:27)
[2017-07-06] MEDS ORDERED: SODIUM CHLORIDE 0.9% INJ 10 ML SYR IV PRN (12:45)
--- NOTE | 2017-07-06 13:35 | IPNPDOC ---
Text Note Date of Service The patient was seen on 07/06/17. NOTE Subjective: Patient is a 62 year old male with a PMHx of COPD (on 3L O2), ANTWAN on CPAP, HTN, DM2, CKD3, Obesity, Gout, Neuropathy, Stage 1A Left upper lobe lung CA s/p lobectomy, and Stage 1A Lung CA of RLL s/p radiation. Was admitted from 06/20 - 06/22/17 for left sided chest pain and R sided pneumonia with MRSA. He was sent home with Linezolid. He presented to the hospital with chest pain and intractable left upper and lower extremity pain. Patient was seen and examined at the bedside. He stated that he is feeling better. Denies cough or fever. Patient still admits to left sided neuropathic pain and weakness. Patient denies any fever/chill, abdominal pain, diarrhea, constipation, blood in urine or stool. Swelling on right leg is worse. He did receive PICC line place this am. Objective: Vitals (See below) General: Morbidly obese elderly male, lying in bed, no acute distress, comfortable, AAOx3 HEENT: NC, AT CVS: RRR, normal S1S2, Lungs: Fair air entry b/l, improvement in rhonchi / wheezing bilaterally Abdomen: Soft, ND, NT Extremities: 1 + pitting edema b/l On 07/05/17: Doppler Duplex of right lower extremity: - No DVT Assessment and plan: Dyspnea - possibly 2/2 Right lower lobe pneumonia with MRSA and Klebsiella, possibly 2/2 component of acute COPD exacerbation - WBC elevated; CRP elevated - Sputum culture 07/01: Klebsiella Oxytoca - Throat Culture pending - CXR 07/03: Pleuroparenchymal reaction / fibrosis, increased markings at right lung base are unchanged, no new infiltrate - c/w Vancomycin and Ceftriaxone based on sputum culture; s/p Doxycycline - c/w DuoNeb and Spiriva - c/w Solumedrol; Will reduce dosage slowly - 07/06/17 PICC line insertion - Dr. Vaz on consult; appreciate their input Swelling of right lower extremity - Will R/O DVT with Doppler duplex US Leukocytosis - likely 2/2 reactive process 2/2 corticosteroids and component of underlying pneumonia - Will trend CRP instead to follow infectious process - CRP trending down s/p Intractable left upper and lower extremity pain - likely 2/2 neuropathic pain of central origin - Physical unrevealing - Cardiac enzymes negative x 3; s/p Tele - Cervical CT 06/26: no fracture, spondylolisthesis, straightening of cervical lordosis, multilevel spondylosis - Advised by his neurosurgeon in [place] that surgical option was high risk; he was advised against it - Neurology and Pain management has been consulted - c/w Adjusted Gabapentin, Amitriptyline, Zonisamide - C/w Tramadol which has been increased to 100 mg PO q 8 H Prn on 07/05/17 Lactic acidosis - possibly 2/2 work of breathing, less likely 2/2 infection - c/w Antibiotics and breathing treatments s/p Chest pain - Not cardiac in origin - EKG reviewed 07/02; remains unchanged; no ischemic changes noted - Troponin has remained negative s/p 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 (likely contaminant) - Currently noted that he has resolution of diarrhea - GI panel 06/26: Vibrio Cholera Sp - s/p Doxycycline (3 Days) - No more diarrhea ANTWAN on CPAP - allow home CPAP use Gout - c/w Allopurinol HTN - BP well controlled - c/w Carvedilol CKD3 - Cr has had slight elevation - improving RLS - c/w Ropinirole DLP - c/w Pravastatin DM2 - c/w ISS Depression - c/w Amitriptyline (changed from Zoloft) Hx of Lung CA - Stage 1A ARIADNA s/p lobectomy - Stage 1A RLL s/p radiation - c/w outpatient follow up GERD - c/w Omeprazole DVT prophylaxis - c/w Heparin Disposition: - c/w Antibiotics and Solumedrol - Gentle IV fluid hydration Patient has been discussed with attending Dr. Bailey. GME ATTESTATION My preceptor for this patient encounter was physically present in the building during the encounter and was fully available. As needed, all aspects of the patient interview, examination, medical decision making process, and medical care plan development were reviewed and approved by the preceptor. Preceptor is aware and concurs with the plan as stated in the body of this note and will attest to such by his/her cosignature. VS,Fishbone, I+O VS, Fishbone, I+O Laboratory Tests 07/06/17 06:20 Red Blood Count 3.83 L, Mean Corpuscular Volume 97.1 H, Mean Corpuscular Hemoglobin 32.6, Mean Corpuscular Hemoglobin Concent 33.6, Red Cell Distribution Width 14.1, Calcium Level 8.8, Aspartate Amino Transf (AST/SGOT) 33 , Alanine Aminotransferase (ALT/SGPT) 95 H, Alkaline Phosphatase 96, Total Bilirubin 0.3, Total Protein 6.2 L, Albumin 2.8 L Vital Signs Date Time Temp Pulse Resp B/P (MAP) Pulse Ox O2 Delivery O2 Flow Rate FiO2 07/06/17 06:18 20 NIPPV (BIPAP/CPAP) 3.0 07/06/17 06:00 96.9 76 133/82 (99) 95 I&O- Last 24 Hours up to 6 AM 07/07/17 06:00 Output Total 650 ml Balance -650 ml AGNIESZKA VICTOR DO Jul 06, 2017 07:57 CHINTAN BAILEY MD Jul 25, 2017 20:32
[2017-07-06 14:00] VITALS: BP 126/76
--- NOTE | 2017-07-06 16:22 | IPN ---
DATE: 07/05/2017 The patient seems to be doing fairly well. He states his cough has increased with brownish phlegm. He feels a little better but not drastically. He was on Solu-Medrol 40 mg IV every eight hours yesterday. Today, it was decreased to every 12 hours. He has no fever or chills. No nausea, vomiting or diarrhea. He continues complaining of left arm pain and leg pain. He remains afebrile. Temperature is 97.8, pulse 78, respirations 18, blood pressure 147/80, oxygen saturation 96% on four liters nasal cannula. HEART: Normal S1, S2, distant. LUNGS: Diminished breath sounds at the bases, few wheezing. ABDOMEN: Morbidly obese. EXTREMITIES: +1 edema. IMAGING STUDIES: Chest x-ray was done on 07/03/2017 which showed no new infiltrate noted. There is unchanged pleuroparenchymal reaction with increased markings at the right base which seems to be chronic. Sputum culture had Klebsiella oxytoca heavy growth, few white cells, good specimen, sensitive to sulfa, resistant to ampicillin. MEDICATIONS: - Solu-Medrol 40 mg IV every12 hours - ceftriaxone 2 grams IV every 24 hours for Klebsiella infection, currently day number three - IV vancomycin, currently day number five IMPRESSION: 1. History of methicillin-resistant Staphylococcus aureus (MRSA) pneumonia, on IV vancomycin. 2. Chronic obstructive pulmonary disease (COPD) exacerbation with recent sputum culture positive for Klebsiella. Rocephin was started. 3. Severe COPD, oxygen-dependent. PLAN: Continue with IV vancomycin and Rocephin but I do not see any indication for a peripherally inserted central catheter (PICC) line. The patient probably could be switched to oral Bactrim at this point, and that would cover both Klebsiella and previous methicillin-resistant Staphylococcus aureus (MRSA) to finish course of oral antibiotics for another 10 days.
[2017-07-06] MEDS: SODIUM CHLORIDE 0.9% INJ 10 ML SYR IV SCH (17:34)
[2017-07-06] MEDS: CEFTAROLINE FOSAMIL 600 MG in D5W 50 ML IV SCH (18:05)
[2017-07-06] MEDS: AMITRIPTYLINE 50 MG TAB PO SCH (20:46)
[2017-07-06] MEDS ORDERED: LEVEMIR (INSULIN DETEMIR) 1 UNITS/0.01ML SC SCH (21:00)
[2017-07-06 22:00] VITALS: BP 135/83
[2017-07-07] MEDS: IPRATROPIUM 0.5MG/ALBUTEROL 2.5MG INH SOL UD 3ML (DUONEB)(J7620) NEB SCH ×4 (02:01→19:49)
[2017-07-07] MEDS: CEFTAROLINE FOSAMIL 600 MG in D5W 50 ML IV SCH ×2 (05:32→18:05)
[2017-07-07] MEDS: SODIUM CHLORIDE 0.9% INJ 10 ML SYR IV SCH ×2 (05:33→18:05)
[2017-07-07] MEDS: HEPARIN SOD (PORCINE) 5000 UNITS/ML VIAL SC SCH ×3 (05:33→21:15)
[2017-07-07 05:53] LABS: MEAN CORPUSCULAR HEMOGLOBIN 32.1 pg (27.0-33.0); MEAN CORPUSCULAR HGB CONC 32.3 g/dl (32.0-36.5); MEAN CORPUSCULAR VOLUME 99.2 fl (80.0-96.0); PLATELET COUNT, AUTOMATED 126 10^3/uL (150-450); RED CELL DISTRIBUTION WIDTH 14.4 % (11.5-14.5); WHITE BLOOD COUNT 12.9 10^3/uL (4.0-10.0)
[2017-07-07 06:00] VITALS: BP 126/81
[2017-07-07 06:02] LABS: ADD MANUAL DIFFER YES; DIFF SLIDE NUMBER 24; LEFT SHIFT POS FLAG; POS COUNT POS FLAG; POSITIVE MORPH POS FLAG
[2017-07-07 06:16] LABS: ALBUMIN 2.8 GM/DL (3.2-5.2); ALBUMIN/GLOBULIN RATIO 0.82 (1.00-1.93); BILIRUBIN,TOTAL 0.3 MG/DL (0.2-1.0); CALCIUM LEVEL 8.7 MG/DL (8.8-10.2); CREATININE FOR GFR 1.41 MG/DL (0.70-1.30); GLOMERULAR FILTRATION RATE 53.9 (>49); MAGNESIUM LEVEL 2.3 MG/DL (1.8-2.4); POTASSIUM SERUM 4.1 MEQ/L (3.5-5.1); TOTAL PROTEIN 6.2 GM/DL (6.4-8.2)
[2017-07-07 06:39] LABS: TEAR DROP CELLS 1+
[2017-07-07] MEDS: LEVEMIR (INSULIN DETEMIR) 1 UNITS/0.01ML SC SCH ×2 (08:49→21:21)
[2017-07-07] MEDS: ZONISAMIDE 50 MG CAP (ZONEGRAN) PO SCH ×2 (08:49→21:15)
[2017-07-07] MEDS: HumaLOG INSULIN (NovoLOG) PER UNIT SC SCH ×4 (08:49→21:18)
[2017-07-07] MEDS: FERROUS SULFATE 325MG TAB PO SCH (08:50)
[2017-07-07] MEDS: predniSONE 20 MG TAB PO SCH (08:50)
[2017-07-07] MEDS: CARVedilol 6.25 MG TAB PO SCH ×2 (08:50→21:16)
[2017-07-07] MEDS: PRAVASTATIN 20 MG TAB PO SCH (08:50)
[2017-07-07] MEDS: GABAPENTIN 300 MG CAP PO SCH ×3 (08:50→21:16)
[2017-07-07] MEDS: MULTIVITAMINS/MINERALS THERAP 1 TAB PO SCH (08:50)
[2017-07-07] MEDS: ALLOPURINOL 300 MG TAB PO SCH (08:50)
[2017-07-07] MEDS: MAGNESIUM OXIDE 400 MG TAB (MAG-OX) PO SCH ×2 (08:50→21:00)
[2017-07-07] MEDS: LACTOBACILLUS ACIDOPHILUS CAP (BACID) PO SCH ×3 (08:50→21:15)
[2017-07-07] MEDS: CYANOCOBALAMIN 500 MCG TAB PO SCH (08:50)
[2017-07-07] MEDS: OMEPRAZOLE 20 MG CAP PO SCH (08:50)
[2017-07-07] MEDS: ASPIRIN 81 MG ENTERIC TAB PO SCH (08:50)
[2017-07-07] MEDS: rOPINIRole 1MG TAB PO SCH ×2 (08:51→21:15)
[2017-07-07] MEDS: TIOTROPIUM INHALER/CAPSULE (SPIRIVA) INH SCH (08:53)
[2017-07-07] MEDS: ADVAIR HFA 115/21MCG INHALER INH SCH ×2 (08:54→19:48)
[2017-07-07] MEDS: LACTIC ACID 12% LOTION 225 GM BTL TOP SCH (09:02)
[2017-07-07] MEDS: LIDOCAINE 5% OINT 30 GM TOP SCH (09:02)
[2017-07-07] MEDS: traMADol 50 MG TAB PO PRN ×2 (09:03→21:15)
--- NOTE | 2017-07-07 12:27 | IPNPDOC ---
Text Note Date of Service The patient was seen on 07/07/17. NOTE Subjective: Patient is a 62 year old male with a PMHx of COPD (on 3L O2), ANTWAN on CPAP, HTN, DM2, CKD3, Obesity, Gout, Neuropathy, Stage 1A Left upper lobe lung CA s/p lobectomy, and Stage 1A Lung CA of RLL s/p radiation. Was admitted from 06/20 - 06/22/17 for left sided chest pain and R sided pneumonia with MRSA. He was sent home with Linezolid. He presented to the hospital with chest pain and intractable left upper and lower extremity pain. Patient was seen and examined at the bedside. Patient stated his breathing is worse today. Patient still admits to left sided neuropathic pain and weakness. Patient denies any fever/chill, abdominal pain, diarrhea, constipation, blood in urine or stool. Admits to drinking a lot in the past few days. Denies any other current new complaints. Objective: Vitals (See below) General: Morbidly obese elderly male, lying in bed, no acute distress, comfortable, AAOx3 HEENT: NC, AT CVS: RRR, normal S1S2, + Systolic murmur Lungs: Fair air entry b/l, rhonchi / wheezing bilaterally Abdomen: Soft, ND, NT Extremities: 1 + pitting edema b/l Assessment and plan: Dyspnea - possibly 2/2 Right lower lobe pneumonia with MRSA and Klebsiella, possibly 2/2 component of acute COPD exacerbation - WBC elevated; CRP elevated - Sputum culture 07/01: Klebsiella Oxytoca - Throat Culture pending - CXR 07/03: Pleuroparenchymal reaction / fibrosis, increased markings at right lung base are unchanged, no new infiltrate - c/w Vancomycin and Ceftriaxone based on sputum culture; s/p Doxycycline - c/w DuoNeb and Spiriva - c/w Solumedrol; Will reduce dosage slowly - 07/06/17 PICC line insertion - Dr. Vaz on consult; recommended patient go be on Ceftaroline 600 mg IV q 12 H for 7 days total. Polyuria - Urinelytes were ordered - Dr. Yang from nephrology has been consulted, we will follow his recommendations Swelling of right lower extremity - 07/05/17 Doppler duplex US showed no DVT in RLE Leukocytosis - likely 2/2 reactive process 2/2 corticosteroids and component of underlying pneumonia - Will trend CRP instead to follow infectious process - CRP trending down s/p Intractable left upper and lower extremity pain - likely 2/2 neuropathic pain of central origin - Physical unrevealing - Cardiac enzymes negative x 3; s/p Tele - Cervical CT 06/26: no fracture, spondylolisthesis, straightening of cervical lordosis, multilevel spondylosis - Advised by his neurosurgeon in [place] that surgical option was high risk; he was advised against it - Neurology and Pain management has been consulted - c/w Adjusted Gabapentin, Amitriptyline, Zonisamide - C/w Tramadol which has been increased to 100 mg PO q 8 H Prn on 07/05/17 Lactic acidosis - possibly 2/2 work of breathing, less likely 2/2 infection - c/w Antibiotics and breathing treatments s/p Chest pain - Not cardiac in origin - EKG reviewed 07/02; remains unchanged; no ischemic changes noted - Troponin has remained negative s/p 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 (likely contaminant) - Currently noted that he has resolution of diarrhea - GI panel 06/26: Vibrio Cholera Sp - s/p Doxycycline (3 Days) - No more diarrhea ANTWAN on CPAP - allow home CPAP use Gout - c/w Allopurinol HTN - BP well controlled - c/w Carvedilol CKD3 - Cr has had slight elevation - improving RLS - c/w Ropinirole DLP - c/w Pravastatin DM2 - c/w ISS - Increased Levemir to 16 u bid Depression - c/w Amitriptyline (changed from Zoloft) Hx of Lung CA - Stage 1A ARIADNA s/p lobectomy - Stage 1A RLL s/p radiation - c/w outpatient follow up GERD - c/w Omeprazole DVT prophylaxis - c/w Heparin Fluid, electrolytes, nutrition: No fluid, electrolytes are at goal, carb consistent diet Disposition: - c/w Antibiotics and steroid Patient has been discussed with attending Dr. Garibay. GME ATTESTATION My preceptor for this patient encounter was physically present in the building during the encounter and was fully available. As needed, all aspects of the patient interview, examination, medical decision making process, and medical care plan development were reviewed and approved by the preceptor. Preceptor is aware and concurs with the plan as stated in the body of this note and will attest to such by his/her cosignature. VS,Fishbone, I+O VS, Fishbone, I+O Laboratory Tests 07/07/17 05:34 Red Blood Count 3.96 L, Mean Corpuscular Volume 99.2 H, Mean Corpuscular Hemoglobin 32.1, Mean Corpuscular Hemoglobin Concent 32.3, Red Cell Distribution Width 14.4, Calcium Level 8.7 L, Aspartate Amino Transf (AST/SGOT) 34, Alanine Aminotransferase (ALT/SGPT) 93 H, Alkaline Phosphatase 87, Total Bilirubin 0.3, Total Protein 6.2 L, Albumin 2.8 L Vital Signs Date Time Temp Pulse Resp B/P (MAP) Pulse Ox O2 Delivery O2 Flow Rate FiO2 07/07/17 10:39 Nasal Cannula 3.0 07/07/17 09:34 20 07/07/17 08:50 74 126/81 07/07/17 06:00 96.2 93 I&O- Last 24 Hours up to 6 AM 07/08/17 05:59 Intake Total 1850 ml Output Total 2050 ml Balance -200 ml AGNIESZKA VICTOR DO Jul 07, 2017 12:27 CHINTAN GARIBAY MD Jul 25, 2017 20:34
--- NOTE | 2017-07-07 12:51 | IPN ---
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 He does complain still of significant productive cough. He has a little sputum cup which has a significant amount of productive yellow secretions. He had no fever or chills. His oxygen is at 4 liters, his baseline is at 3 liters. He has been afebrile. Oxygen sat is 97% on 4 liters. Heart: Normal S1, S1. No murmurs. Lungs: Diminished breath sounds with expiratory wheezes bilaterally. Abdomen is morbidly obese, soft, nontender. Extremities: Trace edema. LABORATORY DATA: White count is 14.9, hemoglobin 12.5, hematocrit 37.2, and platelets 125. Sodium 134, potassium 4.4, chloride 96, bicarb 30, BUN 49, creatinine 1.35, glucose 246, lactic acid 3.3, AST 33, ALT 95, alkaline phosphatase 96, CRP 0.83, total protein 6.2. Blood cultures were no growth after 72 hours on 07/03/2017. 07/01/2017 sputum culture had heavy growth of Klebsiella oxytoca. Chest x-ray showed no changes, but chronic changes of the right base with some increased density which is unchanged. IMPRESSIONS: 1. Methicillin-resistant Staphylococcus aureus (MRSA) pneumonia in the past admission from a month ago. The patient has received different courses of antibiotics, including this admission IV vancomycin. 2. Chronic obstructive pulmonary disease (COPD) exacerbation with Klebsiella. The patient was just recently started on ceftriaxone. 3. History of sleep apnea, on C-PAP. PLAN: Discontinue IV vancomycin. The patient is status post right nephrectomy with chronic kidney disease. Discontinue IV ceftriaxone. I would rather use ceftaroline which would cover MRSA in the previous hospitalization as well as the recent Klebsiella at the dose of 600 mg every 12 hours to decrease the risk of nephrotoxicity from vancomycin. The patient just had a PICC line today. He had been on treatment with vancomycin and Rocephin for the past 3 days. Would continue with IV ceftaroline at this point until the patient clinically improves with decrease secretions.
[2017-07-07 14:00] VITALS: BP 129/74
--- NOTE | 2017-07-07 17:25 | REP ---
LEFT PICC LINE PLACEMENT: The procedure was performed by CASE Perez under the direct supervision of Dr. Denton. The procedure along with its risks, benefits and complications were discussed with the patient prior to the examination. Informed consent was obtained both verbally and written. The patient was identified in the interventional suite and placed in a supine position. The left arm was marked, prepped and draped in the usual sterile fashion. A procedural time out was performed to ensure that the correct, patient, site and procedure were being performed. Under ultrasound guidance the left basilic vein was punctured. A thin guidewire was introduced and the needle was removed. Local infiltrative anesthesia was achieved using 2% lidocaine. A break away sheath was placed over the wire. Under fluoroscopic observation and via the breakaway sheath a 56 cm long single-lumen PICC line was placed with its tip at the junction of the distal superior vena cava. The catheter was flushed with heparinized saline and affixed to the patients skin. The patient tolerated the procedure well and had no immediate complications. IMPRESSION: Uncomplicated placement of left upper extremity single lumen PICC line. Fluoroscopy time of 6 seconds were utilized for this procedure. Reviewed by CASE Shepard 07/08/2017 08:29 AEdited and Signed by Claus Denton MD 07/08/2017 07:17 P
[2017-07-07] MEDS ORDERED: predniSONE 20 MG TAB PO SCH (21:00)
[2017-07-07] MEDS: AMITRIPTYLINE 50 MG TAB PO SCH (21:16)
[2017-07-07 22:00] VITALS: BP 134/82
[2017-07-08] MEDS: IPRATROPIUM 0.5MG/ALBUTEROL 2.5MG INH SOL UD 3ML (DUONEB)(J7620) NEB SCH ×4 (01:47→19:57)
[2017-07-08 02:00] VITALS: BP 140/70
[2017-07-08] MEDS: HEPARIN SOD (PORCINE) 5000 UNITS/ML VIAL SC SCH ×3 (05:42→21:09)
[2017-07-08] MEDS: CEFTAROLINE FOSAMIL 600 MG in D5W 50 ML IV SCH ×2 (05:42→17:19)
[2017-07-08] MEDS: SODIUM CHLORIDE 0.9% INJ 10 ML SYR IV SCH ×2 (05:43→17:18)
[2017-07-08 06:00] VITALS: BP 136/87
[2017-07-08 06:02] LABS: MEAN CORPUSCULAR HEMOGLOBIN 32.5 pg (27.0-33.0); MEAN CORPUSCULAR HGB CONC 33.1 g/dl (32.0-36.5); MEAN CORPUSCULAR VOLUME 98.2 fl (80.0-96.0); PLATELET COUNT, AUTOMATED 124 10^3/uL (150-450); RED CELL DISTRIBUTION WIDTH 14.4 % (11.5-14.5); WHITE BLOOD COUNT 13.5 10^3/uL (4.0-10.0)
[2017-07-08 06:05] LABS: ADD MANUAL DIFFER YES; DIFF SLIDE NUMBER 18; POS COUNT POS FLAG; POSITIVE MORPH POS FLAG
[2017-07-08 06:25] LABS: ALBUMIN/GLOBULIN RATIO 1.07 (1.00-1.93); BILIRUBIN,TOTAL 0.3 MG/DL (0.2-1.0); CALCIUM LEVEL 8.3 MG/DL (8.8-10.2); CREATININE FOR GFR 1.53 MG/DL (0.70-1.30); MAGNESIUM LEVEL 2.2 MG/DL (1.8-2.4); POTASSIUM SERUM 4.6 MEQ/L (3.5-5.1); TOTAL PROTEIN 5.8 GM/DL (6.4-8.2)
[2017-07-08 07:24] LABS: BANDS 2 % (< 11)
[2017-07-08 07:25] LABS: ANISOCYTOSIS 1+
[2017-07-08] MEDS: ADVAIR HFA 115/21MCG INHALER INH SCH ×2 (08:06→19:58)
[2017-07-08] MEDS: TIOTROPIUM INHALER/CAPSULE (SPIRIVA) INH SCH (08:06)
[2017-07-08] MEDS: LEVEMIR (INSULIN DETEMIR) 1 UNITS/0.01ML SC SCH ×2 (08:39→21:10)
[2017-07-08] MEDS: ZONISAMIDE 50 MG CAP (ZONEGRAN) PO SCH ×2 (08:40→21:12)
[2017-07-08] MEDS: HumaLOG INSULIN (NovoLOG) PER UNIT SC SCH ×4 (08:40→20:51)
[2017-07-08] MEDS: MAGNESIUM OXIDE 400 MG TAB (MAG-OX) PO SCH ×2 (08:41→21:11)
[2017-07-08] MEDS: predniSONE 20 MG TAB PO SCH (08:41)
[2017-07-08] MEDS: LACTOBACILLUS ACIDOPHILUS CAP (BACID) PO SCH ×3 (08:41→21:10)
[2017-07-08] MEDS: MULTIVITAMINS/MINERALS THERAP 1 TAB PO SCH (08:41)
[2017-07-08] MEDS: OMEPRAZOLE 20 MG CAP PO SCH (08:41)
[2017-07-08] MEDS: rOPINIRole 1MG TAB PO SCH ×2 (08:41→21:10)
[2017-07-08] MEDS: GABAPENTIN 300 MG CAP PO SCH ×3 (08:41→21:10)
[2017-07-08] MEDS: ALLOPURINOL 300 MG TAB PO SCH (08:42)
[2017-07-08] MEDS: ASPIRIN 81 MG ENTERIC TAB PO SCH (08:42)
[2017-07-08] MEDS: FERROUS SULFATE 325MG TAB PO SCH (08:42)
[2017-07-08] MEDS: PRAVASTATIN 20 MG TAB PO SCH (08:42)
[2017-07-08] MEDS: CARVedilol 6.25 MG TAB PO SCH ×2 (08:42→21:11)
[2017-07-08] MEDS: CYANOCOBALAMIN 500 MCG TAB PO SCH (08:42)
[2017-07-08] MEDS: LIDOCAINE 5% OINT 30 GM TOP SCH (08:43)
[2017-07-08] MEDS ORDERED: LEVEMIR (INSULIN DETEMIR) 1 UNITS/0.01ML SC SCH (09:00)
[2017-07-08] MEDS: LACTIC ACID 12% LOTION 225 GM BTL TOP SCH (09:24)
--- NOTE | 2017-07-08 11:50 | IPNPDOC ---
Text Note Date of Service The patient was seen on 07/08/17. NOTE Subjective: Patient is a 62 year old male with a PMHx of COPD (on 3L O2), ANTWAN on CPAP, HTN, DM2, CKD3, Obesity, Gout, Neuropathy, Stage 1A Left upper lobe lung CA s/p lobectomy, and Stage 1A Lung CA of RLL s/p radiation. Was admitted from 06/20 - 06/22/17 for left sided chest pain and R sided pneumonia with MRSA. He was sent home with Linezolid. He presented to the hospital with chest pain and intractable left upper and lower extremity pain. Patient was seen and examined at the bedside. Patient stated his breathing is same today. Patient still admits to left sided neuropathic pain and weakness. Patient denies any fever/chill, abdominal pain, diarrhea, constipation, blood in urine or stool. Denies any other current new complaints. Objective: Vitals (See below) General: Morbidly obese elderly male, lying in bed, no acute distress, comfortable, AAOx3 HEENT: NC, AT CVS: RRR, normal S1S2, + Systolic murmur Lungs: Fair air entry b/l, rhonchi / wheezing bilaterally Abdomen: Soft, ND, NT Extremities: 1 + pitting edema b/l . Distal pulses intact Assessment and plan: Dyspnea - possibly 2/2 Right lower lobe pneumonia with MRSA and Klebsiella, possibly 2/2 component of acute COPD exacerbation - WBC elevated; CRP elevated - Sputum culture 07/01: Klebsiella Oxytoca - Throat Culture pending - CXR 07/03: Pleuroparenchymal reaction / fibrosis, increased markings at right lung base are unchanged, no new infiltrate - c/w Vancomycin and Ceftriaxone based on sputum culture; s/p Doxycycline - c/w DuoNeb and Spiriva - c/w PO prednisone; Will reduce dosage slowly - 07/06/17 PICC line insertion - Dr. 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 hyperglycemia vs. renal insufficiency - Dr. Yang from nephrology has been consulted, we will follow his recommendations Swelling of right lower extremity - 07/05/17 Doppler duplex US showed no DVT in RLE Leukocytosis - likely 2/2 reactive process 2/2 corticosteroids and component of underlying pneumonia - Will trend CRP instead to follow infectious process - CRP trending down s/p Intractable left upper and lower extremity pain - likely 2/2 neuropathic pain of central origin - Physical unrevealing - Cardiac enzymes negative x 3; s/p Tele - Cervical CT 06/26: no fracture, spondylolisthesis, straightening of cervical lordosis, multilevel spondylosis - Advised by his neurosurgeon in [place] that surgical option was high risk; he was advised against it - Neurology and Pain management has been consulted - c/w Adjusted Gabapentin, Amitriptyline, Zonisamide - C/w Tramadol which has been increased to 100 mg PO q 8 H Prn on 07/05/17 Lactic acidosis - possibly 2/2 work of breathing, less likely 2/2 infection - c/w Antibiotics and breathing treatments s/p Chest pain - Not cardiac in origin - EKG reviewed 07/02; remains unchanged; no ischemic changes noted - Troponin has remained negative s/p 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 (likely contaminant) - Currently noted that he has resolution of diarrhea - GI panel 06/26: Vibrio Cholera Sp - s/p Doxycycline (3 Days) - No more diarrhea ANTWAN on CPAP - allow home CPAP use Gout - c/w Allopurinol HTN - BP well controlled - c/w Carvedilol CKD3 - Cr has had slight elevation - improving RLS - c/w Ropinirole DLP - c/w Pravastatin DM2 - c/w ISS - Increased Levemir to 20 from 16 u bid Depression - c/w Amitriptyline (changed from Zoloft) Hx of Lung CA - Stage 1A ARIADNA s/p lobectomy - Stage 1A RLL s/p radiation - c/w outpatient follow up GERD - c/w Omeprazole DVT prophylaxis - c/w Heparin Fluid, electrolytes, nutrition: No fluid, electrolytes are at goal, carb consistent diet Disposition: - c/w Antibiotics and steroid Patient has been discussed with attending Dr. Garibay. LUÍS ATTESTATION My preceptor for this patient encounter was physically present in the building during the encounter and was fully available. As needed, all aspects of the patient interview, examination, medical decision making process, and medical care plan development were reviewed and approved by the preceptor. Preceptor is aware and concurs with the plan as stated in the body of this note and will attest to such by his/her cosignature. VS,Fishbone, I+O VS, Fishbone, I+O Laboratory Tests 07/08/17 05:45 Red Blood Count 3.91 L, Mean Corpuscular Volume 98.2 H, Mean Corpuscular Hemoglobin 32.5, Mean Corpuscular Hemoglobin Concent 33.1, Red Cell Distribution Width 14.4, Calcium Level 8.3 L, Aspartate Amino Transf (AST/SGOT) 40 H, Alanine Aminotransferase (ALT/SGPT) 110 H, Alkaline Phosphatase 95, Total Bilirubin 0.3, Total Protein 5.8 L, Albumin 3.0 L Vital Signs Date Time Temp Pulse Resp B/P (MAP) Pulse Ox O2 Delivery O2 Flow Rate FiO2 07/08/17 02:00 97.7 82 20 140/70 (93) 95 Nasal Cannula 4.0 I&O- Last 24 Hours up to 6 AM 07/09/17 06:00 Intake Total 50 ml Output Total 1000 ml Balance -950 ml AGNIESZKA VICTOR DO Jul 08, 2017 07:53 CHINTAN GARIBAY MD Jul 25, 2017 20:53
[2017-07-08 14:00] VITALS: BP 140/82
[2017-07-08] MEDS: traMADol 50 MG TAB PO PRN (17:34)
--- NOTE | 2017-07-08 19:25 | CR ---
DATE OF CONSULTATION: 07/08/2017 REQUESTING PHYSICIAN: Dr. Moody Bailey CONSULTING PHYSICIAN: Dr. Yang REASON FOR CONSULTATION: Management of polyuria and history of chronic kidney disease, stage 3. CHIEF COMPLAINT: The patient presented to the emergency room on 06/26/2017 with neuropathic pain in the left arm. HISTORY OF THE PRESENT ILLNESS: Edi Young is a 62-year-old male with a past medical history of chronic kidney disease, stage 3, status post right nephrectomy, well known to nephrology service from previous admission , and he also follows up with me in the nephrology clinic. 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 He has had multiple admissions to the hospital because of shortness of breath, left-sided weakness. His best baseline creatinine is around 1.1. He has a history of adrenal cortical insufficiency in the past as well, but he only needs stress dose steroids when he gets any procedure done or when he gets sick; otherwise, he is not on regular daily dose of hydrocortisone. The patient also has a history of lung cancer, stage 1A of the left upper lobe, status post left upper lobectomy, and he had 1A right lower lobe cancer as well, status post radiation. The patient was again admitted at this time because of left-sided pain and weakness. His creatinine on admission was 1.3, which has been fluctuating between 1.3 and 1.5 ever since he was admitted to the hospital. However, the patient has developed hyponatremia at this time with a sodium of 134 despite patient making at least 6 liters of urine a day, so nephrology service was called for further help in the management of this patient with a history of chronic kidney disease, stage 3, history of borderline adrenal insufficiency. When I saw the patient today at the bedside, he was awake and alert, on nasal cannula. He continues to complain of left arm pain and patient reported that he feels very thirsty and continues to drink a lot of fluid every day. PAST MEDICAL HISTORY: Patient has a past medical history of right-sided nephrectomy and right-sided adrenalectomy. History of chronic kidney disease III. Hypertension. Hyperlipidemia. Obstructive sleep apnea. Morbid obesity. Chronic obstructive pulmonary disease (COPD). History of lung cancer. 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 PAST SURGICAL HISTORY: Status post total nephrectomy and adrenalectomy on the right in September 2015. History of left ankle fusion in March 1992. Left upper lobe lobectomy on July 22, 2016. Status post cholecystectomy in May 2010. History of tonsillectomy in the past. ALLERGIES: The patient is allergic to HEXACHLOROPHENE. FAMILY HISTORY: No significant family history of end-stage renal disease requiring hemodialysis. SOCIAL HISTORY: The patient is a former smoker. He quit 3 years ago. He denies any alcohol abuse or illicit drug abuse. REVIEW OF SYSTEMS: CONSTITUTIONAL: The patient denies fever, chills, or rigors. EYES: He denies any blurry vision, double vision. ENT: He denies any dysphagia, odynophagia, ear discharge. CARDIOVASCULAR: He denies any palpitations. He does report left-sided chest pain. He denies any edema. RESPIRATORY: He denies any cough or hemoptysis. He does report a history of lung cancer. GASTROINTESTINAL: He denies any nausea, vomiting. He does report some diarrhea. GENITOURINARY: He denies any dysuria or hematuria. MUSCULOSKELETAL: He reports left-sided arm pain and left-sided weakness. SKIN: He denies any rashes or ulcers. CENTRAL NERVOUS SYSTEM: The patient reports a history of left-sided weakness. He denies any seizures or stroke. PSYCHIATRIC: He denies any history of depression or anxiety. ENDOCRINE: Patient reports a history of adrenal insufficiency during stress, and he has one adrenal gland. HEMATOLOGICAL/ONCOLOGICAL: The patient has a history of liposarcoma, history of CA of lung, but he denies any easy bleeding or bruising tendency. All other review of systems is negative. PHYSICAL EXAMINATION: VITAL SIGNS: Temperature is 98.1 degrees Fahrenheit, blood pressure is 140/82, pulse is 93, respiratory rate of 20, saturating 97% on nasal cannula on 3 liters. INTAKE AND OUTPUT: Urine output is more than 6 liters for the last 3-4 days. HEAD AND NECK EXAM: Extraocular muscles intact. Pupils equally round and reactive to light. Mucous membranes are moist. Neck is supple. There is no jugular venous distention (JVD). CARDIOVASCULAR: S1, S2. Regular rate. No murmur, rub or gallop. RESPIRATORY: Mildly decreased breath sounds at the bases with no rales or rhonchi. ABDOMEN: Soft, obese, positive bowel sounds. Old surgical scar. No organomegaly. No ascites. MUSCULOSKELETAL: Normal range of movement. Pulses are 2+. No edema of the bilateral lower extremities. CENTRAL NERVOUS SYSTEM: No focal neurological deficit. Power is 5/5 in all extremities. PSYCHIATRIC: Normal mood and affect. SKIN: No rashes or ulcers. LYMPH NODES: No significant cervical, axillary or inguinal lymphadenopathy. LAB REVIEW: CBC showed a WBC of 13.5, hemoglobin is 12.7, platelets are 124. BMP showed sodium 134, potassium is 4.6, chloride 95, bicarbonate is 33, BUN is 45, creatinine is 1.5, calcium 8.3, magnesium is 2.2, albumin is 3. Urine random osmolality is 549, random creatinine is 43.4, sodium is 100, chloride is 104. Microbiology: Sputum culture was growing Klebsiella oxytoca 1 week ago, and GI panel showed Vibrio cholerae on 06/26/2017. IMAGING: A chest x-ray done on 07/03/2017 showed increased markings and some increased density in the right base, and blunting of the left lateral pleural angle. CURRENT INPATIENT MEDICATIONS: Patient's medications are all reviewed by me. He is currently on ceftaroline 600 mg every 12 hours, Tylenol as needed, DuoNeb nebulizations, allopurinol 300 mg daily, amitriptyline 50 mg nightly, aspirin 81 mg daily, Coreg 6.25 mg by mouth twice a day, ferrous sulfate 325 mg daily, gabapentin 600 mg by mouth three times a day, hydroxyzine 50 mg as needed, Levemir 25 units subcutaneously twice a day, probiotic three times a day, magnesium oxide 400 mg by mouth twice a day, multivitamin, omeprazole, Pravachol 20 mg daily, prednisone 30 mg daily, Requip 1 mg by mouth daily and 2 mg nightly , Advair twice a day, tramadol 100 mg every 8 hours and Zonegran 50 mg by mouth twice a day. ASSESSMENT: A 62-year-old male with a past medical history of chronic kidney disease 3, solitary functioning Left kidney, history of adrenalectomy in the past as well, patient with polyuria, hyponatremia and moderate persistent lactic acidosis. PLAN: 1. Polyuria. The patient's sodium is low despite having a urine output of around 6 liters and according to intake and output, he is in negative fluid balance for the last 1 week almost. I think that the patient's intake and output is not being recorded well. I have restricted the patient's fluid intake to 1.8 liters daily. I would continue to monitor the sodium levels with fluid restriction. No need of DDAVP administration at this time because the patient's serum sodium is already low. 2. Lactic acidosis. The presumed source is from the lungs because of chronic colonization infection and a history of CA of lung. However, because of history of gut surgery, I have added a D-lactate level as well. 3. History of adrenal insufficiency. I have ordered the renin activity and plasma aldosterone concentration. The patient is hemodynamically stable. No need of hydrocortisone administration at this time. The patient only needs stress dose steroids before a procedure or when he is critically ill. 4. History of gout. Continue current dose of allopurinol. 5. Hypertension. Blood pressure is acceptable at this time. Continue current dose of carvedilol 6.25 mg by mouth twice a day. 6. Chronic kidney disease, stage III . The patient's best baseline creatinine as an outpatient is around 1.1 to 1.2. His creatinine has been fluctuating between 1.3 to 1.5 during this admission. Continue to monitor for now. Thank you for involving us in the care of this patient. We shall be happy to follow the patient along with you tomorrow morning. LILIA
[2017-07-08] MEDS: AMITRIPTYLINE 50 MG TAB PO SCH (21:10)
[2017-07-08 22:00] VITALS: BP 154/84
[2017-07-09] MEDS: IPRATROPIUM 0.5MG/ALBUTEROL 2.5MG INH SOL UD 3ML (DUONEB)(J7620) NEB SCH ×4 (01:23→19:52)
[2017-07-09] MEDS: traMADol 50 MG TAB PO PRN ×2 (03:15→21:37)
[2017-07-09] MEDS: SODIUM CHLORIDE 0.9% INJ 10 ML SYR IV SCH ×2 (05:25→19:29)
[2017-07-09] MEDS: CEFTAROLINE FOSAMIL 600 MG in D5W 50 ML IV SCH ×2 (05:26→18:02)
[2017-07-09] MEDS: HEPARIN SOD (PORCINE) 5000 UNITS/ML VIAL SC SCH ×3 (05:26→21:35)
[2017-07-09 05:58] LABS: MEAN CORPUSCULAR HEMOGLOBIN 32.3 pg (27.0-33.0); MEAN CORPUSCULAR HGB CONC 32.7 g/dl (32.0-36.5); MEAN CORPUSCULAR VOLUME 98.7 fl (80.0-96.0); PLATELET COUNT, AUTOMATED 129 10^3/uL (150-450); RED CELL DISTRIBUTION WIDTH 14.4 % (11.5-14.5); WHITE BLOOD COUNT 12.7 10^3/uL (4.0-10.0)
[2017-07-09 06:00] VITALS: BP 151/83
[2017-07-09 06:08] LABS: POS COUNT POS FLAG; POSITIVE MORPH POS FLAG
[2017-07-09 06:09] LABS: ADD MANUAL DIFFER YES; DIFF SLIDE NUMBER 6; LEFT SHIFT POS FLAG; WBC SCAT POS FLAG
[2017-07-09 06:20] LABS: BILIRUBIN,TOTAL 0.3 MG/DL (0.2-1.0); CALCIUM LEVEL 8.8 MG/DL (8.8-10.2); CREATININE FOR GFR 1.46 MG/DL (0.70-1.30); GLOMERULAR FILTRATION RATE 51.7 (>49); MAGNESIUM LEVEL 2.2 MG/DL (1.8-2.4); POTASSIUM SERUM 4.1 MEQ/L (3.5-5.1)
[2017-07-09 06:52] LABS: EOSINOPHILS 2 % (0-5)
[2017-07-09] MEDS: TIOTROPIUM INHALER/CAPSULE (SPIRIVA) INH SCH (07:35)
[2017-07-09] MEDS: ADVAIR HFA 115/21MCG INHALER INH SCH ×2 (07:36→19:52)
[2017-07-09] MEDS: HumaLOG INSULIN (NovoLOG) PER UNIT SC SCH ×4 (08:44→21:38)
[2017-07-09] MEDS: OMEPRAZOLE 20 MG CAP PO SCH (08:45)
[2017-07-09] MEDS: GABAPENTIN 300 MG CAP PO SCH ×3 (08:45→21:35)
[2017-07-09] MEDS: LACTOBACILLUS ACIDOPHILUS CAP (BACID) PO SCH ×3 (08:45→21:36)
[2017-07-09] MEDS: CYANOCOBALAMIN 500 MCG TAB PO SCH (08:45)
[2017-07-09] MEDS: PRAVASTATIN 20 MG TAB PO SCH (08:45)
[2017-07-09] MEDS: predniSONE 20 MG TAB PO SCH (08:45)
[2017-07-09] MEDS: ALLOPURINOL 300 MG TAB PO SCH (08:45)
[2017-07-09] MEDS: LEVEMIR (INSULIN DETEMIR) 1 UNITS/0.01ML SC SCH ×2 (08:45→21:35)
[2017-07-09] MEDS: CARVedilol 6.25 MG TAB PO SCH ×2 (08:46→21:36)
[2017-07-09] MEDS: rOPINIRole 1MG TAB PO SCH ×2 (08:46→21:36)
[2017-07-09] MEDS: ASPIRIN 81 MG ENTERIC TAB PO SCH (08:46)
[2017-07-09] MEDS: MULTIVITAMINS/MINERALS THERAP 1 TAB PO SCH (08:46)
[2017-07-09] MEDS: FERROUS SULFATE 325MG TAB PO SCH (08:46)
[2017-07-09] MEDS: LACTIC ACID 12% LOTION 225 GM BTL TOP SCH (08:47)
[2017-07-09] MEDS: LIDOCAINE 5% OINT 30 GM TOP SCH (08:47)
[2017-07-09] MEDS: MAGNESIUM OXIDE 400 MG TAB (MAG-OX) PO SCH ×2 (08:51→21:37)
[2017-07-09 11:49] LABS: OSMOLALITY URINE 641 MOSM/KG (500-800)
--- NOTE | 2017-07-09 13:41 | IPN ---
DATE OF SERVICE: 07/09/2017 SUBJECTIVE: Patient was seen and examined at the bedside today morning. He is hemodynamically stable. He reports that he fell yesterday and he hurt his left lower back. Patient's renal function is also stable at this time, and his sodium improved to 139 today. REVIEW OF SYSTEMS: Patient denies any fever, chills, rigors. He denies any chest pain. He does report baseline shortness of breath. He denies any pain in abdomen. He does report some loose stools, and patient reports pain on the left side because of recent fall. Rest of review of system is negative. OBJECTIVE: VITAL SIGNS: Temperature is 97.3 degrees Fahrenheit, blood pressure is 151/83, pulse is 69, respiratory rate of 18, saturating 92% on nasal cannula at 3 liters. INTAKE AND OUTPUT: Urine output recorded is 8.9 liters yesterday and 1800 mL so far today since overnight. Weight on the bed scale is stable. PHYSICAL EXAMINATION: GENERAL: Patient is alert and oriented times three, sitting on the bed, no apparent distress. HEAD AND NECK EXAM: Extraocular muscles intact. Pupils equally round and reactive to light. Mucous membranes are moist. Neck is supple. There is no jugular venous distention (JVD). CARDIOVASCULAR: S1, S2. Regular rate. No murmur, rub or gallop. RESPIRATORY: Decreased breath sounds at the bases with some crepitations. ABDOMEN: Soft, obese. Positive bowel sounds. Old surgical scar. No organomegaly. MUSCULOSKELETAL: Normal range of movement. Pulses are 2+. No edema of the bilateral lower extremities. CENTRAL NERVOUS SYSTEM: No focal neurological deficit. Power is 5/5 in all extremities. PSYCHIATRIC: Normal mood and affect. SKIN: Patient has a bruise in the left flank. Otherwise, no ulcerations. LAB REVIEW: CBC showed a WBC 12.7, hemoglobin is 12.7, platelets are 129. BMP showed sodium 139, potassium is 4.1, chloride 99, bicarbonate is 34, BUN 46, creatinine is 1.4 ( it was 1.5 yesterday), calcium 8.8, magnesium 2.2. D- lactate level pending.Urine random osmolality is pending. CURRENT INPATIENT MEDICATIONS: Patient's medications were all reviewed by me. He continues to be on intravenous (IV) ceftaroline. There is no change in the medications today as compared with yesterday. ASSESSMENT: 62-year-old male with past medical history of chronic kidney disease, stage II as baseline, history of solitary functioning kidney, status post right nephrectomy and adrenalectomy in the past. Nephrology service following the patient for hyponatremia, polyuria and acute kidney injury superimposed on chronic kidney disease. PLAN: 1. Polyuria. Patient's fluid was restricted yesterday to 1.8 liters daily. I see some decline in his urine output. His electrolytes are stable. I have ordered repeat urine osmolarity and urine sodium. Continue the fluid administration at this time. I do not see any evidence of diabetes insipidus at this moment. 2. History of adrenal insufficiency. Patient does not show any symptoms or signs of adrenal insufficiency at this time. There is no hypoglycemia. His blood pressure is acceptable. His electrolytes are okay. No need of hydrocortisone administration at this time. PAC/PRA level is pending. AM cortisol is pending. 3. Hypertension. Blood pressure is acceptable. Continue current dose of Coreg 6.25 mg by mouth twice a day. 4. Lactic acidosis. Extensive workup has been done. Most likely source is from chronic colonization of the lungs. He is already on IV antibiotics. Hemodynamically, he is stable. Rest of the workup is as per primary team. D-lactate level is pending. 5. Acute kidney injury superimposed on chronic kidney disease. Patient's baseline creatinine fluctuates between 1.1 and 1.2. Right now his creatinine has been staying stable around 1.4 and 1.5. Continue to monitor for now. 6. Chronic gout. Continue current dose of allopurinol 300 mg by mouth daily. MTDD
[2017-07-09 13:54] LABS: CALCIUM LEVEL 8.5 MG/DL (8.8-10.2); CREATININE FOR GFR 1.64 MG/DL (0.70-1.30); GLOMERULAR FILTRATION RATE 45.3 (>49); PHOSPHORUS LEVEL 2.9 MG/DL (2.5-4.9); POTASSIUM SERUM 4.9 MEQ/L (3.5-5.1)
[2017-07-09 14:00] VITALS: BP 153/86
[2017-07-09] MEDS: ZONISAMIDE 50 MG CAP (ZONEGRAN) PO SCH ×2 (14:17→21:36)
--- NOTE | 2017-07-09 14:46 | IPN ---
DATE: 07/09/2017 Edi is doing fairly well. He still has a cough productive of yellowish phlegm. He has no nausea, vomiting or diarrhea. No abdominal pain. He is tolerating antibiotics well. Yesterday, he went to the bathroom without his oxygen when he was getting up from the toilet seat he fell backwards and landed on his hip. He bruised his left hip. Otherwise, he is doing okay. LABORATORIES: White count 12.7, hemoglobin 12.7, hematocrit 38.8, platelets 129, 76% neutrophils, 10% lymphocytes, 8% monocytes. Sodium 139, potassium 4.1, chloride 99, bicarb 34, BUN 46, creatinine 1.46, glucose 162, calcium 8.8, magnesium 2.2, AST 28, ALT 97, ALK phos 82, CRP 0.49, down from 3.41 on 07/04. Sputum culture from 07/01 had Klebsiella oxytoca. Blood cultures were negative on 07/03, two sets, and throat culture was negative. IMPRESSION: 1. MRSA pneumonia. Patient has been on multiple MRSA drugs currently on ceftaroline even though this admission cultures have been negative for MRSA. 2. Klebsiella infection with probably COPD exacerbation, currently on ceftaroline, which should cover for Klebsiella and MRSA. Patient does not have any new infiltrates on chest x-ray. He is back to his baseline oxygen demand. 3. Lactic acidosis and polyuria being worked up by nephrology. PLAN: Patient is currently on day number seven of appropriate antibiotic initially with ceftriaxone and vancomycin for four days, now on ceftaroline for three. The patient will need three more days of IV antibiotic to finish a 10-day course. Hopefully he could be discharged home early next week off antibiotics.
[2017-07-09] MEDS: AMITRIPTYLINE 50 MG TAB PO SCH (21:37)
[2017-07-09 22:00] VITALS: BP 134/87
--- NOTE | 2017-07-10 00:24 | IPNPDOC ---
Text Note Date of Service The patient was seen on 07/09/17. NOTE Subjective: Patient is a 62 year old male with a PMHx of COPD (on 3L O2), ANTWAN on CPAP, HTN, DM2, CKD3, Obesity, Gout, Neuropathy, Stage 1A Left upper lobe lung CA s/p lobectomy, and Stage 1A Lung CA of RLL s/p radiation. Was admitted from 06/20 - 06/22/17 for left sided chest pain and R sided pneumonia with MRSA. He was sent home with Linezolid. He presented to the hospital with chest pain and intractable left upper and lower extremity pain. Patient was seen and examined at the bedside. Patient is feel a little better with breathing. Patient denies any fever/chill, abdominal pain, diarrhea, constipation, blood in urine or stool. Denies any other current new complaints. Objective: Vitals (See below) General: Morbidly obese elderly male, lying in bed, no acute distress, comfortable, AAOx3 HEENT: NC, AT CVS: RRR, normal S1S2, + Systolic murmur Lungs: Fair air entry b/l, improved rhonchi bilaterally Abdomen: Soft, ND, NT Extremities: 1 + pitting edema b/l. Distal pulses intact. Assessment and plan: Dyspnea - possibly 2/2 Right lower lobe pneumonia with MRSA and Klebsiella, possibly 2/2 component of acute COPD exacerbation - WBC elevated but improving; CRP elevated but improving - Sputum culture 07/01: Klebsiella Oxytoca - Throat Culture showed normal melvin 06/06/17 - CXR 07/03: Pleuroparenchymal reaction / fibrosis, increased markings at right lung base are unchanged, no new infiltrate - s/p Vancomycin and Ceftriaxone based on sputum culture; s/p Doxycycline - c/w Ceftaroline - c/w DuoNeb and Spiriva - c/w PO prednisone; Will reduce dosage slowly, patient was on prednisone 20 mg before he came in - 07/06/17 PICC line insertion - Dr. Vaz on consult; recommended continue Ceftaroline 600 mg IV q 12 H to complete 10 days course, which would be mean last dose to finish on Wednesday Polyuria - Possible from psychogenic polydipsia vs. hyperglycemia vs. adrenal insufficiency - Dr. Yang from nephrology has been consulted, we will follow his recommendations - Fluid restriction at 2 L Swelling of right lower extremity - 07/05/17 Doppler duplex US showed no DVT in RLE Leukocytosis - likely 2/2 reactive process 2/2 corticosteroids and component of underlying pneumonia - Will trend CRP instead to follow infectious process - CRP trending down s/p Intractable left upper and lower extremity pain - likely 2/2 neuropathic pain of central origin - Physical unrevealing - Cardiac enzymes negative x 3; s/p Tele - Cervical CT 06/26: no fracture, spondylolisthesis, straightening of cervical lordosis, multilevel spondylosis - Advised by his neurosurgeon in [place] that surgical option was high risk; he was advised against it - Neurology and Pain management has been consulted - c/w Adjusted Gabapentin, Amitriptyline, Zonisamide - C/w Tramadol which has been increased to 100 mg PO q 8 H Prn on 07/05/17 Lactic acidosis - possibly 2/2 work of breathing vs. 2/2 infection - c/w Antibiotics and breathing treatments s/p Chest pain - Not cardiac in origin - EKG reviewed 07/02; remains unchanged; no ischemic changes noted - Troponin has remained negative s/p 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 (likely contaminant) - Currently noted that he has resolution of diarrhea - GI panel 06/26: Vibrio Cholera Sp - s/p Doxycycline (3 Days) - No more diarrhea ANTWAN on CPAP - allow home CPAP use Gout - c/w Allopurinol HTN - BP well controlled - c/w Carvedilol CKD3 - Cr has had slight elevation - improving RLS - c/w Ropinirole DLP - c/w Pravastatin DM2 - c/w ISS - Increased Levemir to 25 from 20 u bid Depression - c/w Amitriptyline (changed from Zoloft) Hx of Lung CA - Stage 1A ARIADNA s/p lobectomy - Stage 1A RLL s/p radiation - c/w outpatient follow up GERD - c/w Omeprazole History of adrenal insufficiency - Stress dose steroid before procedure or when he is critically ill DVT prophylaxis - c/w Heparin Fluid, electrolytes, nutrition: No fluid, electrolytes are at goal, carb consistent diet, 2 L Fluid restriction Disposition: - c/w Antibiotics and steroid Patient has been discussed with attending Dr. Garibay. GME ATTESTATION My preceptor for this patient encounter was physically present in the building during the encounter and was fully available. As needed, all aspects of the patient interview, examination, medical decision making process, and medical care plan development were reviewed and approved by the preceptor. Preceptor is aware and concurs with the plan as stated in the body of this note and will attest to such by his/her cosignature. VS,Fishbone, I+O VS, Fishbone, I+O Laboratory Tests 07/09/17 05:24 Red Blood Count 3.93 L, Mean Corpuscular Volume 98.7 H, Mean Corpuscular Hemoglobin 32.3, Mean Corpuscular Hemoglobin Concent 32.7, Red Cell Distribution Width 14.4, Calcium Level 8.8, Aspartate Amino Transf (AST/SGOT) 28 , Alanine Aminotransferase (ALT/SGPT) 97 H, Alkaline Phosphatase 82, Total Bilirubin 0.3, Total Protein 6.0 L, Albumin 3.0 L Vital Signs Date Time Temp Pulse Resp B/P (MAP) Pulse Ox O2 Delivery O2 Flow Rate FiO2 07/09/17 06:00 97.3 69 20 151/83 (105) 92 Nasal Cannula 3.0 AGNIESZKA VICTOR DO Jul 09, 2017 07:52 CHINTAN GARIBAY MD Jul 25, 2017 20:55
[2017-07-10] MEDS: IPRATROPIUM 0.5MG/ALBUTEROL 2.5MG INH SOL UD 3ML (DUONEB)(J7620) NEB SCH ×4 (02:07→20:00)
[2017-07-10] MEDS: HEPARIN SOD (PORCINE) 5000 UNITS/ML VIAL SC SCH ×3 (05:25→21:40)
[2017-07-10] MEDS: SODIUM CHLORIDE 0.9% INJ 10 ML SYR IV SCH ×2 (05:25→17:43)
[2017-07-10] MEDS: CEFTAROLINE FOSAMIL 600 MG in D5W 50 ML IV SCH ×2 (05:26→17:42)
[2017-07-10 05:41] LABS: MEAN CORPUSCULAR HEMOGLOBIN 32.8 pg (27.0-33.0); MEAN CORPUSCULAR VOLUME 99.3 fl (80.0-96.0); PLATELET COUNT, AUTOMATED 139 10^3/uL (150-450); RED CELL DISTRIBUTION WIDTH 14.6 % (11.5-14.5); WHITE BLOOD COUNT 16.8 10^3/uL (4.0-10.0)
[2017-07-10 05:58] LABS: ALBUMIN 2.9 GM/DL (3.2-5.2); ALBUMIN/GLOBULIN RATIO 0.91 (1.00-1.93); BILIRUBIN,TOTAL 0.3 MG/DL (0.2-1.0); CALCIUM LEVEL 8.8 MG/DL (8.8-10.2); CREATININE FOR GFR 1.45 MG/DL (0.70-1.30); GLOMERULAR FILTRATION RATE 52.2 (>49); POTASSIUM SERUM 4.2 MEQ/L (3.5-5.1); TOTAL PROTEIN 6.1 GM/DL (6.4-8.2)
[2017-07-10 06:10] LABS: ADD MANUAL DIFFER YES; DIFF SLIDE NUMBER 6; POS COUNT POS FLAG; POSITIVE MORPH POS FLAG
[2017-07-10] MEDS: traMADol 50 MG TAB PO PRN (06:39)
[2017-07-10 06:52] LABS: BANDS 1 % (< 11)
[2017-07-10] MEDS: TIOTROPIUM INHALER/CAPSULE (SPIRIVA) INH SCH (07:35)
[2017-07-10] MEDS: ADVAIR HFA 115/21MCG INHALER INH SCH ×2 (07:35→19:45)
[2017-07-10] MEDS: GABAPENTIN 300 MG CAP PO SCH ×3 (09:17→21:37)
[2017-07-10] MEDS: rOPINIRole 1MG TAB PO SCH ×2 (09:17→21:38)
[2017-07-10] MEDS: LACTOBACILLUS ACIDOPHILUS CAP (BACID) PO SCH ×3 (09:17→21:37)
[2017-07-10] MEDS: MULTIVITAMINS/MINERALS THERAP 1 TAB PO SCH (09:17)
[2017-07-10] MEDS: ZONISAMIDE 50 MG CAP (ZONEGRAN) PO SCH ×2 (09:17→21:44)
[2017-07-10] MEDS: CARVedilol 6.25 MG TAB PO SCH ×2 (09:18→21:38)
[2017-07-10] MEDS: ASPIRIN 81 MG ENTERIC TAB PO SCH (09:18)
[2017-07-10] MEDS: FERROUS SULFATE 325MG TAB PO SCH (09:18)
[2017-07-10] MEDS: predniSONE 20 MG TAB PO SCH (09:18)
[2017-07-10] MEDS: MAGNESIUM OXIDE 400 MG TAB (MAG-OX) PO SCH ×2 (09:18→21:37)
[2017-07-10] MEDS: CYANOCOBALAMIN 500 MCG TAB PO SCH (09:18)
[2017-07-10] MEDS: PRAVASTATIN 20 MG TAB PO SCH (09:18)
[2017-07-10] MEDS: ALLOPURINOL 300 MG TAB PO SCH (09:18)
[2017-07-10] MEDS: OMEPRAZOLE 20 MG CAP PO SCH (09:18)
[2017-07-10] MEDS: HumaLOG INSULIN (NovoLOG) PER UNIT SC SCH ×4 (09:19→20:31)
[2017-07-10] MEDS: LEVEMIR (INSULIN DETEMIR) 1 UNITS/0.01ML SC SCH ×2 (09:19→21:41)
[2017-07-10] MEDS: LIDOCAINE 5% OINT 30 GM TOP SCH (09:20)
[2017-07-10] MEDS: LACTIC ACID 12% LOTION 225 GM BTL TOP SCH (09:20)
[2017-07-10 14:00] VITALS: BP 128/82
--- NOTE | 2017-07-10 17:28 | IPNPDOC ---
Text Note Date of Service The patient was seen on 07/10/17. NOTE Subjective: Patient states his dyspnea is improving. His urine output is also decreasing. Objective: Vitals: (see below) General: No acute distress, laying comfortably in bed. HEENT: Moist mucous membranes. Neck: No JVD or lymphadenopathy Cardiac: RRR, No murmurs Pulm: Coarse crackles and rhonchi bilaterally. No wheezing, rhonchi Abd: NT/ND + BS Ext: 1+ pitting edema bilateral lower extremities. No cyanosis Labs (see below) Images: Assessment/Plan 1. Acute respiratory failure secondary to MRSA/Klebsiella and pneumonia as well as acute on chronic COPD exacerbation- patient's registered status has significantly improved. Patient is on prednisone as well with a taper. Status post PICC line. To complete a ten-day course of Ceftaroline. 2. Polyuria- likely secondary to neck polydipsia versus hyperglycemia- improving with fluid restriction. Appreciate Dr. Yang's input. 3. Chronic neuropathic pain of the left upper and lower extremity- follows up with neurosurgery in [place], and is currently on gabapentin, amitriptyline, Zonisamide. Tramadol as needed 4. Status post diarrhea with Vibrio - s/p doxy 5. History of ANTWAN on CPAP 6. History of gout on allopurinol 7. History of hypertension controlled 8. History of chronic kidney disease 9. History of restless leg syndrome 10. Diabetes mellitus- blood sugars uncontrolled, we will continue to optimize Levemir dosage. Sliding scale insulin. 11. H/o Lung ca s/p lobectomy/radiation 12. GERD on PPI. 13. History of adrenal insufficiency- will need stress dose steroids prior to procedure and when critically ill DVT prophy: Heparin subcutaneous VS,Fishbone, I+O VS, Fishbone, I+O Laboratory Tests 07/10/17 05:27 Red Blood Count 4.00 L, Mean Corpuscular Volume 99.3 H, Mean Corpuscular Hemoglobin 32.8, Mean Corpuscular Hemoglobin Concent 33.0, Red Cell Distribution Width 14.6 H, Calcium Level 8.8, Aspartate Amino Transf (AST/SGOT) 28, Alanine Aminotransferase (ALT/SGPT) 99 H, Alkaline Phosphatase 87, Total Bilirubin 0.3, Total Protein 6.1 L, Albumin 2.9 L Vital Signs Date Time Temp Pulse Resp B/P (MAP) Pulse Ox O2 Delivery O2 Flow Rate FiO2 07/10/17 14:00 97.4 107 20 128/82 (97) 91 Nasal Cannula 3.0 I&O- Last 24 Hours up to 6 AM 07/11/17 06:00 Intake Total 690 ml Output Total 1500 ml Balance -810 ml CHINTAN GARIBAY MD Jul 10, 2017 17:28
[2017-07-10] MEDS: AMITRIPTYLINE 50 MG TAB PO SCH (21:37)
[2017-07-10 22:00] VITALS: BP 137/84
[2017-07-10] MEDS: ACETAMINOPHEN TAB 650MG DOSE (2X325MG) PO PRN (22:22)
[2017-07-10] MEDS: IPRATROPIUM 0.5MG/ALBUTEROL 2.5MG INH SOL UD 3ML (DUONEB)(J7620) NEB PRN (22:58)
[2017-07-11] MEDS: IPRATROPIUM 0.5MG/ALBUTEROL 2.5MG INH SOL UD 3ML (DUONEB)(J7620) NEB SCH ×4 (02:00→20:11)
[2017-07-11] MEDS: traMADol 50 MG TAB PO PRN ×2 (03:42→22:02)
[2017-07-11] MEDS: SODIUM CHLORIDE 0.9% INJ 10 ML SYR IV SCH ×2 (05:55→19:34)
[2017-07-11] MEDS: CEFTAROLINE FOSAMIL 600 MG in D5W 50 ML IV SCH ×2 (05:55→17:53)
[2017-07-11] MEDS: HEPARIN SOD (PORCINE) 5000 UNITS/ML VIAL SC SCH ×3 (05:56→21:43)
[2017-07-11 06:00] VITALS: BP 149/86
[2017-07-11 07:00] LABS: ALBUMIN/GLOBULIN RATIO 1.03 (1.00-1.93); BILIRUBIN,TOTAL 0.4 MG/DL (0.2-1.0); CALCIUM LEVEL 8.8 MG/DL (8.8-10.2); CREATININE FOR GFR 1.29 MG/DL (0.70-1.30); GLOMERULAR FILTRATION RATE 59.7 (>49); POTASSIUM SERUM 3.8 MEQ/L (3.5-5.1); TOTAL PROTEIN 5.9 GM/DL (6.4-8.2)
[2017-07-11 07:10] LABS: BASO % 0.2 % (0.0-1.0); EOS # 0.2 10^3/uL (0.0-0.50); EOS % 0.9 % (0.0-3.0); IMMATURE GRANULOCYTE % 4.3 % (0-0); LYMPH # 0.9 10^3/uL (1.5-4.5); LYMPH % 5.3 % (24.0-44.0); MEAN CORPUSCULAR HEMOGLOBIN 32.3 pg (27.0-33.0); MEAN CORPUSCULAR HGB CONC 32.2 g/dl (32.0-36.5); MEAN CORPUSCULAR VOLUME 100.3 fl (80.0-96.0); MONO # 1.2 10^3/uL (0.0-0.8); MONO % 6.9 % (0.0-5.0); NEUTROPHILS % 82.4 % (36.0-66.0); PLATELET COUNT, AUTOMATED 133 10^3/uL (150-450); RED CELL DISTRIBUTION WIDTH 14.9 % (11.5-14.5)
[2017-07-11] MEDS: TIOTROPIUM INHALER/CAPSULE (SPIRIVA) INH SCH (07:25)
[2017-07-11] MEDS: ADVAIR HFA 115/21MCG INHALER INH SCH ×2 (07:25→20:12)
[2017-07-11] MEDS: OMEPRAZOLE 20 MG CAP PO SCH (08:15)
[2017-07-11] MEDS: ALLOPURINOL 300 MG TAB PO SCH (08:16)
[2017-07-11] MEDS: CYANOCOBALAMIN 500 MCG TAB PO SCH (08:16)
[2017-07-11] MEDS: predniSONE 20 MG TAB PO SCH (08:16)
[2017-07-11] MEDS: rOPINIRole 1MG TAB PO SCH ×2 (08:16→21:45)
[2017-07-11] MEDS: GABAPENTIN 300 MG CAP PO SCH ×3 (08:16→21:46)
[2017-07-11] MEDS: MAGNESIUM OXIDE 400 MG TAB (MAG-OX) PO SCH ×2 (08:16→21:45)
[2017-07-11] MEDS: MULTIVITAMINS/MINERALS THERAP 1 TAB PO SCH (08:16)
[2017-07-11] MEDS: PRAVASTATIN 20 MG TAB PO SCH (08:16)
[2017-07-11] MEDS: CARVedilol 6.25 MG TAB PO SCH ×2 (08:16→21:46)
[2017-07-11] MEDS: LACTOBACILLUS ACIDOPHILUS CAP (BACID) PO SCH ×3 (08:16→21:44)
[2017-07-11] MEDS: HumaLOG INSULIN (NovoLOG) PER UNIT SC SCH ×4 (08:17→21:00)
[2017-07-11] MEDS: ASPIRIN 81 MG ENTERIC TAB PO SCH (08:17)
[2017-07-11] MEDS: LEVEMIR (INSULIN DETEMIR) 1 UNITS/0.01ML SC SCH ×2 (08:17→21:44)
[2017-07-11] MEDS: LACTIC ACID 12% LOTION 225 GM BTL TOP SCH (08:18)
[2017-07-11] MEDS: LIDOCAINE 5% OINT 30 GM TOP SCH (08:18)
[2017-07-11] MEDS: FERROUS SULFATE 325MG TAB PO SCH ×2 (08:23→21:44)
[2017-07-11] MEDS: ZONISAMIDE 50 MG CAP (ZONEGRAN) PO SCH ×2 (08:27→21:47)
[2017-07-11 08:53] LABS: RETIC HEMOGLOBIN EQUIVALENT 40.8 pg (24-36); RETICULOCYTE % 3.6 % (0.5-1.5)
[2017-07-11 09:25] LABS: PERCENT SATURATION 14.7 % (19.7-50.0)
[2017-07-11 09:26] LABS: INR 0.95
[2017-07-11 14:00] VITALS: BP 140/84
--- NOTE | 2017-07-11 16:37 | ECGEPIP ---
Stationary ECG Study 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
--- NOTE | 2017-07-11 16:41 | ECGEPIP ---
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
--- NOTE | 2017-07-11 16:52 | IPNPDOC ---
Text Note Date of Service The patient was seen on 07/11/17. NOTE Subjective: Patient is a 62 year old male with a PMHx of COPD (on 3L O2), ANTWAN on CPAP, HTN, DM2, CKD3, Obesity, Gout, Neuropathy, Stage 1A Left upper lobe lung CA s/p lobectomy, and Stage 1A Lung CA of RLL s/p radiation. Was admitted from 06/20 - 06/22/17 for left sided chest pain and R sided pneumonia with MRSA. He was sent home with Linezolid. He presented to the hospital with chest pain and intractable left upper and lower extremity pain. Patient was seen and examined at the bedside. Patient complaint about feeling lightheaded today and still has left sided pain. Patient denies any fever/chill , abdominal pain, diarrhea, constipation, blood in urine or stool. Denies any other current new complaints. Objective: Vitals (See below) General: Morbidly obese elderly male, lying in bed, no acute distress, comfortable, AAOx3 HEENT: NC, AT CVS: RRR, normal S1S2, + Systolic murmur, difficult to auscultation due to increased AP diameter Lungs: Fair air entry b/l, rhonchi bilaterally Abdomen: Soft, ND, NT Extremities: 1 + pitting edema b/l Assessment and plan: Dyspnea - possibly 2/2 Right lower lobe pneumonia with MRSA and Klebsiella, possibly 2/2 component of acute COPD exacerbation - CRP elevated but improving - Sputum culture 07/01: Klebsiella Oxytoca - Throat Culture showed normal melvin 06/06/17 - CXR 07/03: Pleuroparenchymal reaction / fibrosis, increased markings at right lung base are unchanged, no new infiltrate - s/p Vancomycin and Ceftriaxone based on sputum culture; s/p Doxycycline - c/w Ceftaroline - c/w DuoNeb and Spiriva - c/w PO prednisone; Currently on home dose - 07/06/17 PICC line insertion - Dr. Vaz on consult; recommended continue Ceftaroline 600 mg IV q 12 H to complete 10 days course, which would be mean last dose to finish on Wednesday Polyuria - Possible from psychogenic polydipsia vs. hyperglycemia vs. adrenal insufficiency - Dr. Yang from nephrology has been consulted, we will follow his recommendations - Fluid restriction at 2 L Macrocytic anemia - Possible from renal disease vs occult blood loss vs deficiencies - ordering retic count, iron, b12/folate study Swelling of right lower extremity with diastolic heat failure - 07/05/17 Doppler duplex US showed no DVT in RLE - Will start with lasix 40 mg PO once Leukocytosis - likely 2/2 reactive process 2/2 corticosteroids and component of underlying pneumonia - Will trend CRP instead to follow infectious process - CRP trending down s/p Intractable left upper and lower extremity pain - likely 2/2 neuropathic pain of central origin - Physical unrevealing - Cardiac enzymes negative x 3; s/p Tele - Cervical CT 06/26: no fracture, spondylolisthesis, straightening of cervical lordosis, multilevel spondylosis - Advised by his neurosurgeon in [place] that surgical option was high risk; he was advised against it - Neurology and Pain management has been consulted - c/w Adjusted Gabapentin, Amitriptyline, Zonisamide - C/w Tramadol which has been increased to 100 mg PO q 8 H Prn on 07/05/17 Lactic acidosis - possibly 2/2 work of breathing vs. 2/2 infection - c/w Antibiotics and breathing treatments s/p Chest pain - Not cardiac in origin - EKG reviewed 07/02; remains unchanged; no ischemic changes noted - Troponin has remained negative s/p 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 (likely contaminant) - Currently noted that he has resolution of diarrhea - GI panel 06/26: Vibrio Cholera Sp - s/p Doxycycline (3 Days) - No more diarrhea ANTWAN on CPAP - allow home CPAP use Gout - c/w Allopurinol HTN - BP well controlled - c/w Carvedilol CKD3 - improving RLS - c/w Ropinirole DLP - c/w Pravastatin DM2 - c/w ISS - Increased Levemir to 35 u bid Depression - c/w Amitriptyline (changed from Zoloft) Hx of Lung CA - Stage 1A ARIADNA s/p lobectomy - Stage 1A RLL s/p radiation - c/w outpatient follow up GERD - c/w Omeprazole History of adrenal insufficiency - Stress dose steroid before procedure or when he is critically ill DVT prophylaxis - c/w Heparin Fluid, electrolytes, nutrition: No fluid, electrolytes are at goal, carb consistent diet, 2 L Fluid restriction Disposition: - c/w Antibiotics and steroid Patient has been discussed with attending Dr. Bailey. GME ATTESTATION My preceptor for this patient encounter was physically present in the building during the encounter and was fully available. As needed, all aspects of the patient interview, examination, medical decision making process, and medical care plan development were reviewed and approved by the preceptor. Preceptor is aware and concurs with the plan as stated in the body of this note and will attest to such by his/her cosignature. VS,Fishbone, I+O VS, Fishbone, I+O Laboratory Tests 07/11/17 05:50 Calcium Level 8.8, Aspartate Amino Transf (AST/SGOT) 23, Alanine Aminotransferase (ALT/SGPT) 89 H, Alkaline Phosphatase 67, Total Bilirubin 0.4, Total Protein 5.9 L, Albumin 3.0 L 07/11/17 07:00 Red Blood Count 3.90 L, Mean Corpuscular Volume 100.3 H, Mean Corpuscular Hemoglobin 32.3, Mean Corpuscular Hemoglobin Concent 32.2, Red Cell Distribution Width 14.9 H, Neutrophils (%) (Auto) 82.4 H, Lymphocytes (%) (Auto ) 5.3 L, Monocytes (%) (Auto) 6.9 H, Eosinophils (%) (Auto) 0.9, Basophils (%) ( Auto) 0.2, Neutrophils # (Auto) 14.0 H, Lymphocytes # (Auto) 0.9 L, Monocytes # (Auto) 1.2 H, Eosinophils # (Auto) 0.2, Basophils # (Auto) 0.0 Vital Signs Date Time Temp Pulse Resp B/P (MAP) Pulse Ox O2 Delivery O2 Flow Rate FiO2 07/11/17 07:26 Nasal Cannula 3.0 07/11/17 06:17 20 07/11/17 06:00 97.3 87 149/86 (107) 94 AGNIESZKA VICTOR DO Jul 11, 2017 08:03
[2017-07-11] MEDS ORDERED: FUROSEMIDE 40 MG TAB PO ONE (17:30)
[2017-07-11] MEDS: IPRATROPIUM 0.5MG/ALBUTEROL 2.5MG INH SOL UD 3ML (DUONEB)(J7620) NEB PRN (18:13)
[2017-07-11] MEDS: AMITRIPTYLINE 50 MG TAB PO SCH (21:45)
[2017-07-11 22:00] VITALS: BP 143/84
[2017-07-11] MEDS ORDERED: NITROGLYCERIN 0.3 MG SUBL TAB SL STA (23:37)
[2017-07-11] MEDS ORDERED: GI COCKTAIL 50ML BTL(HYOSCYAMINE/MAALOX/LIDOCAINE VISCOUS)(1:3:1) PO ONE (23:45)
[2017-07-11] MEDS ORDERED: MORPHINE 2 MG/ML 1ML SYRINGE IV ONE (23:45)
[2017-07-11] MEDS ORDERED: NITROGLYCERIN 0.3 MG SUBL TAB SL PRN (23:45)
[2017-07-11] MEDS ORDERED: GI COCKTAIL 50ML BTL(HYOSCYAMINE/MAALOX/LIDOCAINE VISCOUS)(1:3:1) PO PRN (23:45)
[2017-07-12] MEDS ORDERED: CARVedilol 12.5 MG TAB PO ONE (00:15)
[2017-07-12 01:10] VITALS: BP 122/72
[2017-07-12] MEDS: IPRATROPIUM 0.5MG/ALBUTEROL 2.5MG INH SOL UD 3ML (DUONEB)(J7620) NEB SCH ×4 (02:10→19:40)
[2017-07-12 04:00] VITALS: BP 125/67
--- NOTE | 2017-07-12 06:24 | IPN ---
DATE OF SERVICE: 07/12/2017 TIME: 0015 Patient complained of left-sided chest pain, which is reproducible on palpation, worse when he takes a deep breath, in the same location as his previous pneumonia. Patient denies any diaphoresis, nausea, vomiting, feeling of impending doom. No lightheadedness or dizziness. Vital signs: Temperature 96.8, pulse 107, respiratory rate 23, blood pressure 138/85, 94% on 4 liters nasal cannula. Generally, patient has bilevel positive airway pressure (BiPAP), he is speaking in full sentences, no respiratory distress, appears comfortable. No jugular venous distention, thyromegaly, thick neck. Lungs diminished with right basilar crackles. Heart: S1, S2, irregularly irregular. Abdomen is obese, soft, nontender, nondistended. Extremities: No cyanosis or clubbing. Positive 1+ pitting edema bilaterally. EKG atrial flutter, ventricular rate of 107. ASSESSMENT AND PLAN: Atrial flutter, new onset. Patient will be transferred to progressive care unit (PCU) for monitoring. His Coreg will be increased to 12.5 mg twice a day with holding parameters if systolic pressure less than 106 and heart rate is less than 60. Patient will need anticoagulation, therefore, if persistent atrial flutter, may start on Xarelto in the morning.
--- NOTE | 2017-07-12 06:24 | IPN ---
DATE: 07/10/2017 SUBJECTIVE: Mr. Young is seen this morning on his bedside. He is sitting at the edge of bed. He reports feeling weak and fell in the bathroom yesterday. He denies any nausea or vomiting. He remains chronically short of breath and using oxygen. He has been on continuous positive airway pressure (CPAP) at home which he uses during sleep. He has known history of chronic kidney disease with prior right-sided nephrectomy. The patient also has possible adrenal insufficiency. He had excessive amount of urine output and there was a question if he has diabetes insipidus. PHYSICAL EXAMINATION: Temperature 96.8 degrees Fahrenheit, heart rate 100 per minute and respiratory rate 20 per minute. Blood pressure 134/87 mmHg and oxygen saturation 94% on three liters oxygen. His head is atraumatic. Neck is supple and jugular venous distention (JVD) is difficult to be assessed. Oral mucosa is moist and healthy. Ears, nose and throat are unremarkable. Heart exam reveals distant heart sounds with tachycardia. Lungs have moderate bilateral air entry. Abdomen obese, soft and nontender. Bowel sounds are present. Extremities have no cyanosis or clubbing. Skin has no rash or ulcers. Neurologically he is awake, alert and oriented times three. LABORATORY DATA: Today's labs show WBC count 16.8, hemoglobin 13.1 and hematocrit 39.7. Platelets 139. Sodium 138 and potassium 4.2. Chloride 99, CO2 34, BUN 43 and creatinine 1.45. Glucose 157 and calcium 8.8. His cortisol level is still pending. Intake and output records from yesterday showed total intake 1140 and output 3400 mL. Prior to this, his urine output was between six and nine liters every day. His weight has not changed at least over last 10 days. Cumulative intake and output records show a negative fluid balance of about 43 liters since admission. PROBLEMS: 1. Acute kidney injury superimposed on chronic kidney disease. The patient had mild worsening of kidney function which has improved and this is probably his baseline function. At this point, we will continue to monitor his kidney function on daily basis. 2. Polyuria. Most likely the patient had excessive amount of fluid intake which was not being recorded by nursing staff. He is probably drinking from the bathroom faucet. Negative fluid balance of 43 liters since admission and no change in his weight does not correlate. Clinically he does not look dehydrated and does not need any intravenous fluids. 3. Hyponatremia. Yesterday his sodium level was slightly low and most likely this was related to excessive oral intake. Today his sodium level is back to normal. We should continue to limit his fluid intake and monitor electrolytes on daily basis. 4. Adrenal insufficiency. The patient does not seem to have adrenal insufficiency at least clinically. His serum cortisol level is still pending. I suggest not to give him any hydrocortisone. He is hemodynamically stable with normal electrolytes. 5. Lactic acidosis. Clinically he does not look septic and his lactic acid level can be repeated again if needed. At this point, his volume status seems reasonable and hemodynamically he is stable.
[2017-07-12] MEDS: traMADol 50 MG TAB PO PRN (07:41)
[2017-07-12] MEDS: TIOTROPIUM INHALER/CAPSULE (SPIRIVA) INH SCH (07:43)
[2017-07-12] MEDS: ADVAIR HFA 115/21MCG INHALER INH SCH ×2 (07:43→19:40)
[2017-07-12 08:00] VITALS: BP 123/75
[2017-07-12] MEDS ORDERED: RIVAROXABAN 15 MG TAB (XARELTO) PO SCH (08:00)
[2017-07-12 08:14] LABS: ALBUMIN 2.9 GM/DL (3.2-5.2); CALCIUM LEVEL 8.9 MG/DL (8.8-10.2); CREATININE FOR GFR 1.55 MG/DL (0.70-1.30); GLOMERULAR FILTRATION RATE 48.3 (>49); PHOSPHORUS LEVEL 4.2 MG/DL (2.5-4.9); POTASSIUM SERUM 4.4 MEQ/L (3.5-5.1)
[2017-07-12] MEDS: SODIUM CHLORIDE 0.9% INJ 10 ML SYR IV SCH ×2 (08:22→17:09)
[2017-07-12] MEDS: CEFTAROLINE FOSAMIL 600 MG in D5W 50 ML IV SCH ×2 (08:22→17:11)
[2017-07-12] MEDS: HumaLOG INSULIN (NovoLOG) PER UNIT SC SCH ×4 (08:23→21:00)
[2017-07-12] MEDS: MAGNESIUM OXIDE 400 MG TAB (MAG-OX) PO SCH ×2 (08:24→22:38)
[2017-07-12] MEDS: LACTOBACILLUS ACIDOPHILUS CAP (BACID) PO SCH ×3 (08:25→22:34)
[2017-07-12] MEDS: FERROUS SULFATE 325MG TAB PO SCH ×2 (08:25→22:36)
[2017-07-12] MEDS: ASPIRIN 81 MG ENTERIC TAB PO SCH (08:25)
[2017-07-12] MEDS: GABAPENTIN 300 MG CAP PO SCH ×3 (08:25→22:35)
[2017-07-12] MEDS: MULTIVITAMINS/MINERALS THERAP 1 TAB PO SCH (08:26)
[2017-07-12] MEDS: ALLOPURINOL 300 MG TAB PO SCH (08:27)
[2017-07-12] MEDS: CARVedilol 12.5 MG TAB PO SCH ×2 (08:28→22:37)
[2017-07-12] MEDS: CYANOCOBALAMIN 500 MCG TAB PO SCH (08:28)
[2017-07-12] MEDS: LEVEMIR (INSULIN DETEMIR) 1 UNITS/0.01ML SC SCH ×2 (08:29→21:32)
[2017-07-12] MEDS: rOPINIRole 1MG TAB PO SCH ×2 (08:33→22:36)
[2017-07-12] MEDS: predniSONE 20 MG TAB PO SCH (08:33)
[2017-07-12] MEDS: OMEPRAZOLE 20 MG CAP PO SCH (08:34)
[2017-07-12] MEDS: PRAVASTATIN 20 MG TAB PO SCH (08:34)
[2017-07-12] MEDS: LACTIC ACID 12% LOTION 225 GM BTL TOP SCH (08:47)
[2017-07-12] MEDS: LIDOCAINE 5% OINT 30 GM TOP SCH (08:47)
[2017-07-12] MEDS: ZONISAMIDE 50 MG CAP (ZONEGRAN) PO SCH ×2 (08:58→22:36)
[2017-07-12 09:40] LABS: BASO % 0.2 % (0.0-1.0); EOS # 0.2 10^3/uL (0.0-0.50); EOS % 1.3 % (0.0-3.0); IMMATURE GRANULOCYTE % 2.2 % (0-0); LYMPH # 0.8 10^3/uL (1.5-4.5); LYMPH % 4.8 % (24.0-44.0); MEAN CORPUSCULAR HEMOGLOBIN 32.5 pg (27.0-33.0); MEAN CORPUSCULAR HGB CONC 32.1 g/dl (32.0-36.5); MEAN CORPUSCULAR VOLUME 101.3 fl (80.0-96.0); MONO # 1.2 10^3/uL (0.0-0.8); MONO % 7.5 % (0.0-5.0); NEUTROPHILS # 13.1 10^3/uL (1.8-7.7); PLATELET COUNT, AUTOMATED 126 10^3/uL (150-450); RED CELL DISTRIBUTION WIDTH 14.7 % (11.5-14.5); WHITE BLOOD COUNT 15.6 10^3/uL (4.0-10.0)
[2017-07-12 10:00] LABS: URIC ACID 7.3 MG/DL (3.5-7.2)
[2017-07-12 10:24] LABS: FOLATE 18.1 NG/ML (>5.4)
[2017-07-12] MEDS ORDERED: FUROSEMIDE 20 MG/2 ML VIAL (J1940) IV ONE (11:30)
[2017-07-12 12:00] VITALS: BP 131/77
--- NOTE | 2017-07-12 12:05 | IPN ---
DATE OF VISIT: 07/11/2017 Mr. Young is seen this morning on his bedside. He is laying in the bed using oxygen via nasal cannula. He denies any nausea or vomiting. There is no fever or chills. He does have some lower extremity edema, but is able to get up and walk to the bathroom. He denies any other complaints at present. On physical exam, temperature 97.3 degrees Fahrenheit, heart rate 87 per minute and respiratory rate 20 per minute. Blood pressure 149/86 mmHg and oxygen saturation 94%. Intake and output records from yesterday showed total intake 1190 and output 5500 mL. His weight is 151 kg today, which is 0.9 kg less than yesterday. His head is atraumatic. Neck is supple and jugular venous distention (JVD) is difficult to be assessed. Ears, nose and throat are unremarkable. Heart sounds are regular and distant. Lungs with diminished breath sounds on the left side. He has minimal expiratory wheezing. Abdomen obese, soft and nontender. Extremities have no cyanosis or clubbing. Musculoskeletal system is significant for right lower extremity edema, which is about 2+, and trace edema on the left leg. He is using compression stockings. Neurologically he is awake, alert and oriented times three. Today's labs show WBC count 17.0, hemoglobin 12.6 and hematocrit 39. Sodium 137 and potassium 3.8. BUN 39 and creatinine 1.29. Calcium level 8.8 and magnesium 2.0. Iron level is 45 and saturation 14.7%. PROBLEMS: 1. Acute kidney injury superimposed on chronic kidney disease. Patient has known history of prior nephrectomy, which is his underlying chronic kidney disease. Superimposed acute renal failure has now gradually improved. 2. Polyuria. Patient continues to have negative fluid balance. However, weight has not changed much. I still feel that the patient has undocumented oral intake. We will continue to monitor closely as he does not have any evidence of hypernatremia or prerenal azotemia. Kidney function is in fact improving. 3. Lactic acidosis. This has improved and patient seems to be doing very well. 4. Hypertension. His blood pressure is optimum and that also is against the diagnosis of adrenal insufficiency. 5. Gout. Patient is currently asymptomatic on allopurinol 300 mg daily. I will check his uric acid level tomorrow morning.
--- NOTE | 2017-07-12 12:19 | REP ---
AP PORTABLE CHEST: 07/12/2017. COMPARISON: 07/03/2017, 06/30/2017, 06/26/2017. CLINICAL HISTORY: Congestion. FINDINGS: Lungs are well inflated. The study again shows right base consolidative opacity, similar to previous studies and CT of 06/23/2017. Some underlying fibrosis and COPD. Heart size borderline. The aorta is mildly tortuous at the arch. Airway is midline. The underlying fibrosis makes early interstitial edema difficult to exclude. No gross effusion. IMPRESSION: 1. Borderline heart size with some underlying fibrosis making early interstitial edema difficult to exclude. 2. Right base consolidation suggesting pneumonitis, similar appearance to multiple prior studies including CT chest on 06/23/2017. It may be less densely consolidated but its extent is similar. Signed by Richie Escalona MD 07/12/2017 01:22 P
[2017-07-12] MEDS ORDERED: predniSONE 20 MG TAB PO SCH (14:30)
--- NOTE | 2017-07-12 14:43 | IPNPDOC ---
Text Note Date of Service The patient was seen on 07/12/17. NOTE Subjective: Patient is a 62 year old male with a PMHx of COPD (on 3L O2), ANTWAN on CPAP, HTN, DM2, CKD3, Obesity, Gout, Neuropathy, Stage 1A Left upper lobe lung CA s/p lobectomy, and Stage 1A Lung CA of RLL s/p radiation. Was admitted from 06/20 - 06/22/17 for left sided chest pain and R sided pneumonia with MRSA. He was sent home with Linezolid. He presented to the hospital with chest pain and intractable left upper and lower extremity pain. Patient was seen and examined at the bedside. Patient is feeling more tired today, still complaint about left sided palpation induced chest pain. He has an event of increased heart rate last night and was thought to be a flutter. Patient denies any fever/chill, abdominal pain, diarrhea, constipation, blood in urine or stool. Denies any other current new complaints. Objective: Vitals (See below) General: Morbidly obese elderly male, lying in bed, no acute distress, comfortable, AAOx3 HEENT: NC, AT CVS: Tachycardic, with ectopic beats, + Systolic murmur, difficult to auscultation due to increased AP diameter Lungs: Fair air entry b/l, rhonchi bilaterally Abdomen: Soft, ND, NT Extremities: 1 + pitting edema b/l, erythematous feet b/l not purulent and not painful to touch Assessment and plan: Dyspnea - possibly 2/2 Right lower lobe pneumonia with MRSA and Klebsiella, possibly 2/2 component of acute COPD exacerbation - CRP elevated worsened today - Sputum culture 07/01: Klebsiella Oxytoca - Throat Culture showed normal melvin 06/06/17 - CXR 07/03: Pleuroparenchymal reaction / fibrosis, increased markings at right lung base are unchanged, no new infiltrate - s/p Vancomycin and Ceftriaxone based on sputum culture; s/p Doxycycline - c/w Ceftaroline - c/w DuoNeb and Spiriva - c/w PO prednisone; Currently on home dose - 07/06/17 PICC line insertion - Dr. Vaz on consult; recommended continue Ceftaroline 600 mg IV q 12 H to complete 10 days course, which would be mean last dose to finish on Wednesday - started Chest PT and guaifenesin - WBC/CRP continue to be elevated and pt has worsening cough. Started on levaquin for klebsiella. Erythematous feet - Unclear etiology possible drug reaction vs contact dermatitis vs. fungal infection - Dr. Vaz will examine pt today and assist with further recommendations Tachycardia with frequent PACs - EKG reviewed - D/C'd Xarelto Polyuria - Possible from psychogenic polydipsia vs. hyperglycemia vs. adrenal insufficiency - Dr. Yang and Dr. Patel from nephrology has been consulted, we will follow their recommendations - Fluid restriction at 2 L Macrocytic anemia - Possible from renal disease vs occult blood loss vs deficiencies - iron study showed he is deficient in iron and he has been placed on iron supplement Swelling of right lower extremity with diastolic heat failure - 07/05/17 Doppler duplex US showed no DVT in RLE - Will start with lasix Leukocytosis - likely 2/2 reactive process 2/2 corticosteroids and component of underlying pneumonia - Will trend CRP instead to follow infectious process s/p Intractable left upper and lower extremity pain - likely 2/2 neuropathic pain of central origin - Physical unrevealing - Cardiac enzymes negative x 3; s/p Tele - Cervical CT 06/26: no fracture, spondylolisthesis, straightening of cervical lordosis, multilevel spondylosis - Advised by his neurosurgeon in [place] that surgical option was high risk; he was advised against it - Neurology and Pain management has been consulted - c/w Adjusted Gabapentin, Amitriptyline, Zonisamide - C/w Tramadol which has been increased to 100 mg PO q 8 H Prn on 07/05/17 Lactic acidosis - possibly 2/2 work of breathing vs. 2/2 infection - c/w Antibiotics and breathing treatments s/p Chest pain - Not cardiac in origin - EKG reviewed 07/02; remains unchanged; no ischemic changes noted - Troponin has remained negative s/p 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 (likely contaminant) - Currently noted that he has resolution of diarrhea - GI panel 06/26: Vibrio Cholera Sp - s/p Doxycycline (3 Days) - No more diarrhea ANTWAN on CPAP - allow home CPAP use Gout - c/w Allopurinol HTN - BP well controlled - c/w Carvedilol CKD3 - improving RLS - c/w Ropinirole DLP - c/w Pravastatin DM2 - c/w ISS - Increased Levemir to 35 u bid Depression - c/w Amitriptyline (changed from Zoloft) Hx of Lung CA - Stage 1A ARIADNA s/p lobectomy - Stage 1A RLL s/p radiation - c/w outpatient follow up GERD - c/w Omeprazole History of adrenal insufficiency - Stress dose steroid before procedure or when he is critically ill DVT prophylaxis - c/w Heparin Fluid, electrolytes, nutrition: No fluid, electrolytes are at goal, carb consistent diet, 2 L Fluid restriction Disposition: - c/w Antibiotics and steroid Patient has been discussed with attending Dr. Bailey. GME ATTESTATION My preceptor for this patient encounter was physically present in the building during the encounter and was fully available. As needed, all aspects of the patient interview, examination, medical decision making process, and medical care plan development were reviewed and approved by the preceptor. Preceptor is aware and concurs with the plan as stated in the body of this note and will attest to such by his/her cosignature. VS,Fishbone, I+O VS, Fishbone, I+O Laboratory Tests 07/12/17 07:34 Anion Gap 6 L 07/12/17 09:20 Red Blood Count 3.78 L, Mean Corpuscular Volume 101.3 H, Mean Corpuscular Hemoglobin 32.5, Mean Corpuscular Hemoglobin Concent 32.1, Red Cell Distribution Width 14.7 H, Neutrophils (%) (Auto) 84.0 H, Lymphocytes (%) (Auto ) 4.8 L, Monocytes (%) (Auto) 7.5 H, Eosinophils (%) (Auto) 1.3, Basophils (%) ( Auto) 0.2, Neutrophils # (Auto) 13.1 H, Lymphocytes # (Auto) 0.8 L, Monocytes # (Auto) 1.2 H, Eosinophils # (Auto) 0.2, Basophils # (Auto) 0.0 Vital Signs Date Time Temp Pulse Resp B/P (MAP) Pulse Ox O2 Delivery O2 Flow Rate FiO2 07/12/17 12:00 Nasal Cannula 4.0 07/12/17 12:00 98.9 97 21 131/77 (95) 90 I&O- Last 24 Hours up to 6 AM 07/13/17 06:00 Intake Total 480 ml Output Total 0 ml Balance 480 ml AGNIESZKA VICTOR 6, 2017 14:43 CHINTAN BAILEY MD Jul 25, 2017 21:33
--- NOTE | 2017-07-12 15:12 | REP ---
RIGHT LOWER EXTREMITY DOPPLER VENOUS ULTRASOUND: 07/12/2017. Comparison: 06/08/2017. Technique: The deep venous system of the right lower extremity is evaluated with nguyen scale imaging, compression ultrasound, color imaging and duplex Doppler interrogation. Examination from the groin through the popliteal fossa into the proximal calf. Clinical history: Lower extremity edema. Evaluate for DVT. Findings: There is full compressibility from the common femoral vein in the inguinal region through the popliteal vein. Color imaging confirms patency throughout the course of the deep venous system. There is respiratory variation and augmented flow at all levels. Impression: 1. No Doppler venous ultrasound evidence of DVT in the right lower extremity. Signed by Richie Escalona MD 07/12/2017 03:03 P
[2017-07-12 16:00] VITALS: BP 138/65
[2017-07-12] MEDS: RIVAROXABAN 20 MG TAB (XARELTO) PO SCH (17:10)
[2017-07-12] MEDS: FUROSEMIDE 40 MG/4 ML VIAL (J1940) IV SCH (17:10)
[2017-07-12] MEDS: guaiFENesin SYRUP 200 MG/10 ML UDC PO PRN (17:11)
[2017-07-12 17:22] LABS: ABG BASE EXCESS 8.4 (-2.0-2.0); ABG HCO3 35.6 MEQ/L (22.0-26.0); ABG PARTIAL PRESSURE O2 103.8 mmHg (75.0-100.0); ABG STANDARD HCO3 32.2 MEQ/L (22.0-26.0); ABG TOTAL CO2 37.5 MEQ/L (23.0-31.0)
[2017-07-12 17:33] LABS: ABG PARTIAL PRESSURE CO2 61.6 mmHg (35.0-45.0)
[2017-07-12] MEDS ORDERED: NALOXONE INJ 0.4 MG/1 ML VIAL (J2310) IV STA (18:19)
--- NOTE | 2017-07-12 18:56 | REP ---
Emergency noncontrast brain CT. History: Lethargic. Left-sided weakness. Comparison study: June 25, 2017. 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 Bone window settings demonstrate an intact bony calvarium. Visualized paranasal sinuses are clear. No intraorbital abnormality is seen. There is vascular calcification in the distal carotid arteries bilaterally. There is minimal diffuse cerebral atrophy. [place]-white differentiation pattern is intact. There is no evidence of intracranial hemorrhage. No extra-axial fluid collection is seen. No mass or midline shift is observed. Impression: Minimal atrophy and vascular calcification. No acute intracranial abnormality. Signed by Anand Ponce MD 07/12/2017 07:48 P
[2017-07-12 20:00] VITALS: BP 107/57
[2017-07-12] MEDS: methylPREDNISolone INJ 125 MG/2 ML VIAL (J2930) IV SCH (20:26)
--- NOTE | 2017-07-12 21:24 | ECGEPIP ---
Stationary ECG Study [facility] Test Date: 2017-07-12 Pat Name: TONIO CHOPRA Department: Room: [place] [address] Gender: M Medical Record Coder: NATALIE : 1955 Requested By: SAURAV Ramirez Order Number: [id number] Reading MD: Tremayne Serrano Measurements Intervals [place] Rate: 99 P: 41 CA: 162 QRS: -9 QRSD: 94 T: 72 QT: 333 QTc: 428 Interpretive Statements Normal sinus rhythm with PACs Leftward axis Nonspecific ST-T wave abnormalities No significant change when compared to prior tracing of 07/11/2017 Electronically Signed On 07-12-2017 21:23:58 EST by Tremayne Serrano
[2017-07-12] MEDS: LevoFLOXacin IV 750 MG in APPROPRIATE DILUENT 1 EA IV SCH (21:31)
[2017-07-12] MEDS: TRIAMCINOLONE ACET 0.1% OINTMENT 15 GM EXT SCH (21:32)
[2017-07-12] MEDS: AMITRIPTYLINE 50 MG TAB PO SCH (22:34)
[2017-07-13] VITALS: BP 132/78
[2017-07-13] MEDS: IPRATROPIUM 0.5MG/ALBUTEROL 2.5MG INH SOL UD 3ML (DUONEB)(J7620) NEB SCH ×4 (01:16→21:37)
[2017-07-13] MEDS: methylPREDNISolone INJ 125 MG/2 ML VIAL (J2930) IV SCH ×3 (02:18→17:14)
[2017-07-13 04:00] VITALS: BP 143/76
[2017-07-13] MEDS: SODIUM CHLORIDE 0.9% INJ 10 ML SYR IV SCH ×2 (05:35→17:15)
[2017-07-13 05:52] LABS: BASO % 0.1 % (0.0-1.0); IMMATURE GRANULOCYTE % 2.4 % (0-0); LYMPH # 0.5 10^3/uL (1.5-4.5); LYMPH % 3.1 % (24.0-44.0); MEAN CORPUSCULAR HEMOGLOBIN 32.3 pg (27.0-33.0); MEAN CORPUSCULAR HGB CONC 32.6 g/dl (32.0-36.5); MEAN CORPUSCULAR VOLUME 99.2 fl (80.0-96.0); MONO # 0.1 10^3/uL (0.0-0.8); MONO % 0.9 % (0.0-5.0); NEUTROPHILS # 13.8 10^3/uL (1.8-7.7); NEUTROPHILS % 93.5 % (36.0-66.0); PLATELET COUNT, AUTOMATED 146 10^3/uL (150-450); RED CELL DISTRIBUTION WIDTH 14.5 % (11.5-14.5); WHITE BLOOD COUNT 14.8 10^3/uL (4.0-10.0)
[2017-07-13 06:19] LABS: CALCIUM LEVEL 9.3 MG/DL (8.8-10.2); CREATININE FOR GFR 1.66 MG/DL (0.70-1.30); GLOMERULAR FILTRATION RATE 44.6 (>49); POTASSIUM SERUM 4.6 MEQ/L (3.5-5.1)
[2017-07-13] MEDS: HumaLOG INSULIN (NovoLOG) PER UNIT SC SCH ×4 (07:18→20:41)
[2017-07-13] MEDS: TIOTROPIUM INHALER/CAPSULE (SPIRIVA) INH SCH (07:24)
[2017-07-13] MEDS: ADVAIR HFA 115/21MCG INHALER INH SCH ×2 (07:24→20:13)
[2017-07-13 08:00] VITALS: BP 108/57
[2017-07-13 08:35] LABS: ABG BASE EXCESS 7.2 (-2.0-2.0); ABG HCO3 33.2 MEQ/L (22.0-26.0); ABG PARTIAL PRESSURE CO2 52.7 mmHg (35.0-45.0); ABG PARTIAL PRESSURE O2 67.7 mmHg (75.0-100.0); ABG TOTAL CO2 34.8 MEQ/L (23.0-31.0); ABG pH (ARTERIAL) 7.417 UNITS (7.350-7.450)
[2017-07-13] MEDS: PRAVASTATIN 20 MG TAB PO SCH (08:39)
[2017-07-13] MEDS: MULTIVITAMINS/MINERALS THERAP 1 TAB PO SCH (08:39)
[2017-07-13] MEDS: ALLOPURINOL 300 MG TAB PO SCH (08:40)
[2017-07-13] MEDS: FERROUS SULFATE 325MG TAB PO SCH ×2 (08:40→20:31)
[2017-07-13] MEDS: CARVedilol 12.5 MG TAB PO SCH ×2 (08:40→20:29)
[2017-07-13] MEDS: CYANOCOBALAMIN 500 MCG TAB PO SCH (08:40)
[2017-07-13] MEDS: ASPIRIN 81 MG ENTERIC TAB PO SCH (08:40)
[2017-07-13] MEDS: LACTOBACILLUS ACIDOPHILUS CAP (BACID) PO SCH ×3 (08:40→20:30)
[2017-07-13] MEDS: MAGNESIUM OXIDE 400 MG TAB (MAG-OX) PO SCH ×2 (08:40→20:30)
[2017-07-13] MEDS: OMEPRAZOLE 20 MG CAP PO SCH (08:41)
[2017-07-13] MEDS: GABAPENTIN 300 MG CAP PO SCH ×3 (08:41→20:30)
[2017-07-13] MEDS: rOPINIRole 1MG TAB PO SCH ×2 (08:41→20:31)
[2017-07-13] MEDS: FUROSEMIDE 40 MG/4 ML VIAL (J1940) IV SCH (08:42)
[2017-07-13] MEDS: TRIAMCINOLONE ACET 0.1% OINTMENT 15 GM EXT SCH ×2 (08:42→20:42)
[2017-07-13] MEDS: LEVEMIR (INSULIN DETEMIR) 1 UNITS/0.01ML SC SCH ×2 (08:42→20:29)
[2017-07-13] MEDS: LACTIC ACID 12% LOTION 225 GM BTL TOP SCH (08:44)
[2017-07-13] MEDS: LIDOCAINE 5% OINT 30 GM TOP SCH (08:44)
[2017-07-13] MEDS: ZONISAMIDE 50 MG CAP (ZONEGRAN) PO SCH ×2 (09:33→20:40)
--- NOTE | 2017-07-13 10:55 | IPN ---
DATE OF VISIT: 07/12/2017 Mr. Young is seen this morning on his bedside in intensive care unit. Apparently, he was transferred to progressive care unit due to atrial flutter. Due to nonavailability of bed in progressive care unit (PCU), he is currently in intensive care unit. The patient is lying in the bed with head end elevated and currently not in any acute distress. He is more sleepy today but arousable. He denies any nausea or vomiting. There is no fever or chills. The patient denies any chest pain. On physical examination, temperature 98.9 degrees Fahrenheit, heart rate 97 per minute, and respiratory rate 20 per minute. Blood pressure 130/77 mmHg and oxygen saturation 90% on 4 liters oxygen. Intake and output records from yesterday showed total intake 2000 and output 5850 mL. Head is atraumatic. Neck is supple and without jugular venous distention (JVD) or thyroid enlargement. Ears, nose, and throat are unremarkable. Heart examination reveals irregular rhythm with tachycardia. Lungs have moderate bilateral air entry. Abdomen is obese and nontender. Bowel sounds are normal. Extremities: Have 2+ edema on the right leg. There is no cyanosis or clubbing. There is no edema on the left leg. Neurologically, the patient is sleepy but arousable. No focal neurological deficit noted. Today's laboratories show WBC count 15.6, hemoglobin 12.3, and hematocrit 38.3. Sodium 137 and potassium 4.4. BUN 39 and creatinine 1.55. Glucose 144 and calcium 8.9. PROBLEMS: 1. Acute kidney injury superimposed on chronic kidney disease. His kidney function has worsened since yesterday, and most likely this is related to pre-renal azotemia caused by atrial flutter with decreased renal perfusion. We will monitor his kidney function on a daily basis. 2. Polyuria. His urine output has slowed down. It is likely to slow down further as he is now in intensive care unit with more control on his fluid intake. There has been no change in his weight over last 4 days. 3. Congestive heart failure. His volume status remains slightly decompensated. I do not feel that he has diabetes insipidus or he is dehydrated. We will continue to monitor him with controlled fluid intake. 4. Gout. The patient remains on allopurinol, and his uric acid level is slightly higher than the goal. We will continue to monitor. MTDD
[2017-07-13 12:00] VITALS: BP 115/67
--- NOTE | 2017-07-13 15:40 | IPNPDOC ---
Text Note Date of Service The patient was seen on 07/13/17. NOTE Subjective: Patient is a 62 year old male with a PMHx of COPD (on 3L O2), ANTWAN on CPAP, HTN, DM2, CKD3, Obesity, Gout, Neuropathy, Stage 1A Left upper lobe lung CA s/p lobectomy, and Stage 1A Lung CA of RLL s/p radiation. Was admitted from 06/20 - 06/22/17 for left sided chest pain and R sided pneumonia with MRSA. He was sent home with Linezolid. He presented to the hospital with chest pain and intractable left upper and lower extremity pain. Patient was seen and examined at the bedside. Patient is feeling better compared to day before. He is breathing better. Patient denies any fever/chill, abdominal pain, diarrhea, constipation, blood in urine or stool. Denies any other current new complaints. Objective: Vitals (See below) General: Morbidly obese elderly male, lying in bed, no acute distress, comfortable, AAOx3 HEENT: NC, AT CVS: Tachycardic, with ectopic beats, + Systolic murmur, difficult to auscultation due to increased AP diameter Lungs: Fair air entry b/l, rhonchi bilaterally Abdomen: Soft, ND, NT Extremities: 1 + pitting edema at right leg, erythematous feet b/l not purulent and not painful to touch Head CT without contrast on 07/12/17 showed: Minimal atrophy and vascular calcification. No acute intracranial abnormality. Assessment and plan: Dyspnea - possibly 2/2 Right lower lobe pneumonia with MRSA and Klebsiella, possibly 2/2 component of acute COPD exacerbation - CRP elevated worsened today - Sputum culture 07/01: Klebsiella Oxytoca - Throat Culture showed normal melvin 06/06/17 - CXR 07/03: Pleuroparenchymal reaction / fibrosis, increased markings at right lung base are unchanged, no new infiltrate - c/w Levofloxacin (Day #2) s/p Ceftaroline (10 days), s/p Vancomycin and Ceftriaxone (re: PNA), s/p Doxycycline (re: Diarrhea / PNA) - Antibiotics restarted given worsening WBC and CRP - c/w DuoNeb and Spiriva - Solumedrol was restarted for worsening of his breathing; will begin to taper today - 07/06/17 PICC line insertion - Dr. Vaz on consult; apppreciate their input - c/w Chest PT and guaifenesin Erythematous feet - Unclear etiology possible drug reaction vs contact dermatitis vs. fungal infection - Dr. 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 hyperglycemia vs. adrenal insufficiency - Dr. Yang and Dr. Patel from nephrology has been consulted, we will follow their recommendations - Fluid restriction at 2 L Macrocytic anemia - Possible from renal disease vs occult blood loss vs deficiencies - iron study showed he is deficient in iron and he has been placed on iron supplement Swelling of right lower extremity with diastolic heat failure - 07/05/17 Doppler duplex US showed no DVT in RLE - Hold diuretics Leukocytosis - likely 2/2 reactive process 2/2 corticosteroids and component of underlying pneumonia - Will trend CRP instead to follow infectious process s/p Intractable left upper and lower extremity pain - likely 2/2 neuropathic pain of central origin - Physical unrevealing - Cardiac enzymes negative x 3; s/p Tele - Cervical CT 06/26: no fracture, spondylolisthesis, straightening of cervical lordosis, multilevel spondylosis - Advised by his neurosurgeon in [place] that surgical option was high risk; he was advised against it - Neurology and Pain management has been consulted - c/w Adjusted Gabapentin, Amitriptyline, Zonisamide - C/w Tramadol which has been increased to 100 mg PO q 8 H Prn on 07/05/17 s/p Lactic acidosis - possibly 2/2 work of breathing vs. 2/2 infection - c/w Antibiotics and breathing treatments s/p Chest pain - Not cardiac in origin - EKG reviewed 07/02; remains unchanged; no ischemic changes noted - Troponin has remained negative s/p 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 (likely contaminant) - Currently noted that he has resolution of diarrhea - GI panel 06/26: Vibrio Cholera Sp - s/p Doxycycline (3 Days) - No more diarrhea ANTWAN on CPAP - allow home CPAP use Gout - c/w Allopurinol HTN - BP well controlled - c/w Carvedilol CKD3 - improving RLS - c/w Ropinirole DLP - c/w Pravastatin DM2 - c/w ISS - Increased Levemir to 35 u bid Depression - c/w Amitriptyline (changed from Zoloft) Hx of Lung CA - Stage 1A ARIADNA s/p lobectomy - Stage 1A RLL s/p radiation - c/w outpatient follow up GERD - c/w Omeprazole History of adrenal insufficiency - Stress dose steroid before procedure or when he is critically ill DVT prophylaxis - c/w Heparin Fluid, electrolytes, nutrition: No fluid, electrolytes are at goal, carb consistent diet, 2 L Fluid restriction Disposition: - c/w Antibiotics and steroid GME ATTESTATION My preceptor for this patient encounter was physically present in the building during the encounter and was fully available. As needed, all aspects of the patient interview, examination, medical decision making process, and medical care plan development were reviewed and approved by the preceptor. Preceptor is aware and concurs with the plan as stated in the body of this note and will attest to such by his/her cosignature. ATTENDING NOTE I, Sonam Main, have both independently examined this patient as well as reviewed the documentation. I have discussed in detail with the resident the findings and plan of treatment as documented in the residents documentation. I will continue to follow the patient and offer further guidance to the patients care as necessary during this hospital stay. VS,Brenda, I+O VSBrenda, I+O Laboratory Tests 07/13/17 05:32 Red Blood Count 3.90 L, Mean Corpuscular Volume 99.2 H, Mean Corpuscular Hemoglobin 32.3, Mean Corpuscular Hemoglobin Concent 32.6, Red Cell Distribution Width 14.5, Neutrophils (%) (Auto) 93.5 H, Lymphocytes (%) (Auto) 3.1 L, Monocytes (%) (Auto) 0.9, Eosinophils (%) (Auto) 0.0, Basophils (%) (Auto ) 0.1, Neutrophils # (Auto) 13.8 H, Lymphocytes # (Auto) 0.5 L, Monocytes # ( Auto) 0.1, Eosinophils # (Auto) 0.0, Basophils # (Auto) 0.0, Calcium Level 9.3 Vital Signs Date Time Temp Pulse Resp B/P (MAP) Pulse Ox O2 Delivery O2 Flow Rate FiO2 07/13/17 12:00 98.6 95 21 115/67 (43) 92 Nasal Cannula 3.0 98.6 I&O- Last 24 Hours up to 6 AM 07/14/17 06:00 Intake Total 1080 ml Output Total 2035 ml Balance -955 ml AGNIESZKA VICTOR DO Jul 13, 2017 15:40 SONAM MAIN MD Jul 13, 2017 18:22
[2017-07-13 16:00] VITALS: BP 105/65
[2017-07-13] MEDS: RIVAROXABAN 20 MG TAB (XARELTO) PO SCH (17:14)
[2017-07-13] MEDS: guaiFENesin SYRUP 200 MG/10 ML UDC PO PRN (18:10)
[2017-07-13 20:00] VITALS: BP 128/28
[2017-07-13] MEDS: AMITRIPTYLINE 50 MG TAB PO SCH (20:40)
--- NOTE | 2017-07-13 20:53 | IPN ---
DATE: 07/13/2017 Mr. Young seems to be doing much better today. He is less lethargic. He is complaining of a cough productive of yellow phlegm. He denies any nausea, vomiting or diarrhea. No abdominal pain. He is still in the ICU with PCU status but definitely since decrease of oxygen, his mental status has improved. He is currently on 3 liters which is his baseline. LABORATORY DATA: White count is 14.8, hemoglobin 12.6, hematocrit 38.7, platelets 146. Sodium 135, potassium 4.6, chloride 91, bicarbonate 36, BUN 48, creatinine 1.6, glucose 209, calcium 9.3, magnesium 2, CRP is 14.4 which has increased from 10.7 yesterday. Sputum gram stain has many white cells, few gram positive cocci in pairs, few yeastlike organism. Head CT was negative. Chest x-ray yesterday showed no new changes. On physical examination, temperature is 97.9, pulse 93, respirations 20, blood pressure 105/65, oxygen saturation 93% on 3 liters. Heart: Normal S1, S2, distant. Lungs: Diffuse expiratory rhonchi bilaterally. Abdomen: Obese, soft, nontender. Extremities: +1 edema on the right, trace edema on the left, bilateral erythematous peeling cracked soles with few pustules. IMPRESSION: 1. History of MRSA pneumonia with no recent cultures positive for MRSA. 2. Klebsiella pneumonia on recent culture with COPD exacerbation. The patient was on ceftaroline with worsening cough and hypercarbia. The patient was switched to IV Levaquin by the hospitalist, seems to be doing better with increased dose of methylprednisolone to 60 every 8 hours and decreased oxygen. 3. Psoriatic dermatitis. On triamcinolone ointment to both feet. Doing better. PLAN: Continue with Levaquin. This could be dosed orally. There is no need for IV quinolones as they are 95% bioavailable. Will followup on sputum culture and adjust antibiotic accordingly.
--- NOTE | 2017-07-13 21:37 | IPN ---
DATE: 07/12/2017 Mr. Young was seen in the intensive care unit (ICU). He was transferred to the ICU because of chest pain and tachycardia. The patient states that he is not able to stay awake. No nausea, vomiting, or diarrhea. No abdominal pain. The patient has his dinner in front of him and fallen asleep. He seems lethargic to me. His cough is still productive. LABORATORY DATA: White count is 15.6, hemoglobin 12.3, hematocrit 38.3, platelets 126, 84% neutrophils, 5% lymphocytes, 7% monocytes. Reticulocytes 3.6%. Sodium 137, potassium 4.4, chloride 97, bicarbonate 34, BUN 39, creatinine 1.5, glucose 144, calcium 8.9, phosphorus 4.2, CRP 10.7, which has increased from 0.82 earlier this week. Sputum Gram stain: Many white cells, few gram-positive cocci in pairs, few yeastlike organism. Culture is still pending. IMAGING STUDIES: On July 12, chest x-ray showed right basilar consolidation suggestive of pneumonitis, similar in appearance to prior studies and CT chest done on June 23. Also, it may be less dense. Cardiomegaly. Head CT done for evaluation of lethargy shows minimal atrophy and no acute intracranial bleed. ABG showed a pH of 7.38, pCO2 of 61, which has increased from 52, pO2 of 103, oxygen saturation 97% on room air. PHYSICAL EXAMINATION: Temperature is 97.9, pulse 78, respirations 22, blood pressure 107/57, oxygen saturation 93% on 4 liters nasal cannula. HEART: Normal S1, S2, distant. LUNGS: Extra rhonchi bilaterally with poor air entry. ABDOMEN: Morbidly obese, soft, nontender. EXTREMITIES: Trace edema, but both feet are erythematous involving the whole sole of the foot with a few pustules around the periphery. IMPRESSION: 1. Chronic obstructive pulmonary disease (COPD) exacerbation with methicillin-resistant Staphylococcus aureus (MRSA)/Klebsiella pneumoniae. The patient on intravenous (IV) ceftaroline since they have gotten worse. He has increased worsening CO2 retention with lethargy and worsening rhonchi. A sputum culture was ordered and is pending. 2. Psoriatic dermatitis involving his feet. The patient is known to have psoriasis. Will order triamcinolone ointment for both his feet. 3. COPD exacerbation. The patient was restarted on methylprednisolone. PLAN: Will adjust antibiotics based on sputum culture results. If the patient continues to worsen, repeat chest CT. Case has been discussed with Dr. Bailey and Dr. Shakeel Woods.
[2017-07-14] VITALS (7 sets, daily range): BP systolic 107–136; BP diastolic 66–83
--- NOTE | 2017-07-14 00:11 | IPN ---
DATE OF SERVICE: 07/13/2017 Mr. Young is seen this morning on his bedside. He is sitting at the edge of bed and feels better today. He denies any nausea or vomiting. He does have chronic dyspnea and denies any chest pain. Yesterday he had atrial flutter; however, has converted back to sinus rhythm. The patient denies any dysuria or hematuria. PHYSICAL EXAMINATION: Temperature 98 degrees Fahrenheit, heart rate 92 per minute and respiratory rate 18 per minute. Blood pressure 108/57 mmHg and oxygen saturation 93% on 3 liters oxygen. His head is atraumatic. Neck veins are difficult to be assessed. Ears, nose and throat are unremarkable. Heart sounds are irregular in rhythm. There is no pericardial rub. Lungs have bilateral expiratory wheezing and diminished breath sounds on the left base. Abdomen: Soft and nontender and bowel sounds are normal. Extremities have no cyanosis or clubbing. He does have 1+ edema on the right leg, but no edema on the left leg. Neurologically, he is awake, alert and oriented times three. Today's labs show WBC count 14.8, hemoglobin 12.6 and hematocrit 38.7. Sodium 135 and potassium 4.6. BUN 48 and creatinine 1.66. Glucose 209 and calcium 9.3. Today's blood gas showed pH of 7.41, pCO2 52.7 and pO2 of 67.7. PROBLEMS: 1. Acute kidney injury superimposed on chronic kidney disease. The patient has prior nephrectomy with stage III of chronic kidney disease at baseline. He has been in negative fluid balance and also received some diuretic from the hospitalist service. I have recommended to not give him diuretic. I discussed with Dr. Main this morning and have advised to stop the diuretic at this point. 2. History of polyuria. The patient has been diuresing spontaneously even prior to this and there was a question about possibility of diabetes insipidus, which has been ruled out. At this point, we will stop the diuretic and monitor his intake and output. His weight has essentially not changed over last several days. 3. Gout. The patient remains asymptomatic and his uric acid level was 7.3. I suggest to stop the diuretic, which is likely to cause gout flare if he gets over diuresed. 4. Hypoxemia. This is a chronic issue and it did get worse yesterday when he developed increase in pCO2. Today, he seems to be much more alert and back to baseline. He has been on chronic home oxygen. 5. Atrial flutter. The patient has converted back to sinus rhythm. At this point, he is hemodynamically stable.
[2017-07-14] MEDS: methylPREDNISolone INJ 40 MG/1 ML VIAL (J2920) IV SCH ×3 (01:56→22:15)
[2017-07-14] MEDS: ACETAMINOPHEN TAB 650MG DOSE (2X325MG) PO PRN (02:02)
[2017-07-14] MEDS: IPRATROPIUM 0.5MG/ALBUTEROL 2.5MG INH SOL UD 3ML (DUONEB)(J7620) NEB SCH ×4 (02:35→19:42)
[2017-07-14 05:10] LABS: BASO % 0.2 % (0.0-1.0); EOS % 0.1 % (0.0-3.0); IMMATURE GRANULOCYTE % 1.6 % (0-0); LYMPH # 0.3 10^3/uL (1.5-4.5); LYMPH % 1.8 % (24.0-44.0); MEAN CORPUSCULAR HEMOGLOBIN 32.3 pg (27.0-33.0); MEAN CORPUSCULAR HGB CONC 32.4 g/dl (32.0-36.5); MEAN CORPUSCULAR VOLUME 99.7 fl (80.0-96.0); MONO # 0.7 10^3/uL (0.0-0.8); MONO % 4.3 % (0.0-5.0); NEUTROPHILS # 15.8 10^3/uL (1.8-7.7); PLATELET COUNT, AUTOMATED 171 10^3/uL (150-450); RED CELL DISTRIBUTION WIDTH 14.9 % (11.5-14.5); WHITE BLOOD COUNT 17.2 10^3/uL (4.0-10.0)
[2017-07-14] MEDS: hydrOXYzine 50 MG TAB PO PRN ×2 (05:14→15:45)
[2017-07-14 05:30] LABS: CALCIUM LEVEL 9.4 MG/DL (8.8-10.2); CREATININE FOR GFR 1.75 MG/DL (0.70-1.30); MAGNESIUM LEVEL 2.2 MG/DL (1.8-2.4); POTASSIUM SERUM 4.6 MEQ/L (3.5-5.1)
[2017-07-14] MEDS: SODIUM CHLORIDE 0.9% INJ 10 ML SYR IV SCH ×2 (06:27→17:13)
[2017-07-14] MEDS: ADVAIR HFA 115/21MCG INHALER INH SCH ×2 (08:09→19:41)
[2017-07-14] MEDS: TIOTROPIUM INHALER/CAPSULE (SPIRIVA) INH SCH (08:09)
[2017-07-14] MEDS: LEVEMIR (INSULIN DETEMIR) 1 UNITS/0.01ML SC SCH ×2 (08:18→20:30)
[2017-07-14] MEDS: HumaLOG INSULIN (NovoLOG) PER UNIT SC SCH ×4 (08:18→20:31)
[2017-07-14] MEDS: ALLOPURINOL 300 MG TAB PO SCH (08:19)
[2017-07-14] MEDS: ZONISAMIDE 50 MG CAP (ZONEGRAN) PO SCH ×2 (08:19→20:32)
[2017-07-14] MEDS: PRAVASTATIN 20 MG TAB PO SCH (08:19)
[2017-07-14] MEDS: CYANOCOBALAMIN 500 MCG TAB PO SCH (08:19)
[2017-07-14] MEDS: MULTIVITAMINS/MINERALS THERAP 1 TAB PO SCH (08:19)
[2017-07-14] MEDS: MAGNESIUM OXIDE 400 MG TAB (MAG-OX) PO SCH ×2 (08:19→20:33)
[2017-07-14] MEDS: FERROUS SULFATE 325MG TAB PO SCH ×2 (08:19→20:33)
[2017-07-14] MEDS: ASPIRIN 81 MG ENTERIC TAB PO SCH (08:19)
[2017-07-14] MEDS: rOPINIRole 1MG TAB PO SCH ×2 (08:19→20:32)
[2017-07-14] MEDS: OMEPRAZOLE 20 MG CAP PO SCH (08:19)
[2017-07-14] MEDS: GABAPENTIN 300 MG CAP PO SCH ×3 (08:19→20:32)
[2017-07-14] MEDS: LACTOBACILLUS ACIDOPHILUS CAP (BACID) PO SCH ×3 (08:19→20:32)
[2017-07-14] MEDS: CARVedilol 12.5 MG TAB PO SCH ×2 (08:20→20:32)
[2017-07-14] MEDS: TRIAMCINOLONE ACET 0.1% OINTMENT 15 GM EXT SCH ×2 (08:22→20:33)
[2017-07-14] MEDS: LACTIC ACID 12% LOTION 225 GM BTL TOP SCH (08:23)
[2017-07-14] MEDS: LIDOCAINE 5% OINT 30 GM TOP SCH (08:23)
--- NOTE | 2017-07-14 11:18 | IPNPDOC ---
Text Note Date of Service The patient was seen on 07/14/17. NOTE Subjective: Patient is a 62 year old male with a PMHx of COPD (on 3L O2), ANTWAN on CPAP, HTN, DM2, CKD3, Obesity, Gout, Neuropathy, Stage 1A Left upper lobe lung CA s/p lobectomy, and Stage 1A Lung CA of RLL s/p radiation. Was admitted from 06/20 - 06/22/17 for left sided chest pain and R sided pneumonia with MRSA. He was sent home with Linezolid. He presented to the hospital with chest pain and intractable left upper and lower extremity pain. Patient was seen and examined at the bedside. He is breathing better and more energetic. Patient denies any fever/chill, abdominal pain, diarrhea, constipation, blood in urine or stool. Denies any other current new complaints. Objective: Vitals (See below) General: Morbidly obese elderly male, lying in bed, no acute distress, comfortable, AAOx3 HEENT: NC, AT CVS: Tachycardic, with ectopic beats, + Systolic murmur, difficult to auscultation due to increased AP diameter Lungs: Fair air entry b/l, rhonchi bilaterally Abdomen: Soft, ND, NT Extremities: 1 + pitting edema at right leg, psoriasis on feet much improved Assessment and plan: Dyspnea - possibly 2/2 Right lower lobe pneumonia with MRSA and Klebsiella, possibly 2/2 component of acute COPD exacerbation - Clinically has improvement in his breathing - Physical with persistent rhonchi bilaterally [A] Right lower lobe pneumonia with MRSA and Klebsiella - Elevation in WBC; possibly 2/2 corticosteroids - CRP has been trending down - Sputum culture 07/01: Klebsiella Oxytoca; Sputum culture 07/12: Klebsiella Oxytoca, Staph Aureus - CXR 07/03: Pleuroparenchymal reaction / fibrosis, increased markings at right lung base are unchanged, no new infiltrate - c/w Levofloxacin (Day #3) s/p Ceftaroline (10 days), s/p Vancomycin and Ceftriaxone (re: PNA), s/p Doxycycline (re: Diarrhea / PNA) - Dr. Vaz on consult; appreciate her input [B] Acute COPD exacerbation - c/w DuoNeb and Spiriva - c/w Chest PT and Guaifenesin - c/w Solumedrol; will again taper dose / frequency Erythematous feet due to psoriasis - c/w Kenalog 0.1% Ointment on feet - Dr. Vaz on consult; appreciate her input Tachycardia - likely 2/2 Sinus rhythm with frequent PACs, less likely 2/2 Atrial flutter/afib - EKG reviewed - Discontinued Xarelto Polyuria - Possible from psychogenic polydipsia vs. hyperglycemia vs. adrenal insufficiency - Dr. Yang and Dr. Patel (Nephrology) consulted, Appreciate their input - Fluid restriction at 2 L Macrocytic anemia - likely 2/2 CHYNA, possibly Renal disease, less likely Occult blood loss - c/w Iron supplementation Swelling of right lower extremity with diastolic heat failure - 07/05/17 Doppler duplex US showed no DVT in RLE - Hold diuretics Leukocytosis - likely 2/2 reactive process 2/2 corticosteroids and component of underlying pneumonia - Will trend CRP instead to follow infectious process s/p Intractable left upper and lower extremity pain - likely 2/2 neuropathic pain of central origin - Physical unrevealing - Cardiac enzymes negative x 3; s/p Tele - Cervical CT 06/26: no fracture, spondylolisthesis, straightening of cervical lordosis, multilevel spondylosis - Advised by his neurosurgeon in [place] that surgical option was high risk; he was advised against it - Neurology and Pain management has been consulted - c/w Adjusted Gabapentin, Amitriptyline, Zonisamide - C/w Tramadol which has been increased to 100 mg PO q 8 H Prn on 07/05/17 s/p Lactic acidosis - possibly 2/2 work of breathing vs. 2/2 infection - c/w Antibiotics and breathing treatments s/p Chest pain - Not cardiac in origin - EKG reviewed 07/02; remains unchanged; no ischemic changes noted - Troponin has remained negative s/p 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 (likely contaminant) - Currently noted that he has resolution of diarrhea - GI panel 06/26: Vibrio Cholera Sp - s/p Doxycycline (3 Days) - No more diarrhea ANTWAN on CPAP - allow home CPAP use Gout - c/w Allopurinol HTN - BP well controlled - c/w Carvedilol LINDY on CKD3 - likely 2/2 Pre-renal etiology 2/2 Furosemide - Elevation in Cr from baseline - Dr. Yang and Dr. Patel (Nephrology) consulted, Appreciate their input RLS - c/w Ropinirole DLP - c/w Pravastatin DM2 - c/w ISS - Increased Levemir to 35 u bid Depression - c/w Amitriptyline (changed from Zoloft) Hx of Lung CA - Stage 1A ARIADNA s/p lobectomy - Stage 1A RLL s/p radiation - c/w outpatient follow up GERD - c/w Omeprazole History of adrenal insufficiency - Stress dose steroid before procedure or when he is critically ill DVT prophylaxis - c/w Heparin Fluid, electrolytes, nutrition: No fluid, electrolytes are at goal, carb consistent diet, 2 L Fluid restriction Disposition: - c/w Antibiotics and taper steroids GME ATTESTATION My preceptor for this patient encounter was physically present in the building during the encounter and was fully available. As needed, all aspects of the patient interview, examination, medical decision making process, and medical care plan development were reviewed and approved by the preceptor. Preceptor is aware and concurs with the plan as stated in the body of this note and will attest to such by his/her cosignature. ATTENDING NOTE I, Sonam Main, have both independently examined this patient as well as reviewed the documentation. I have discussed in detail with the resident the findings and plan of treatment as documented in the residents documentation. I will continue to follow the patient and offer further guidance to the patients care as necessary during this hospital stay. VS,Brenda, I+O VS, Brenda, I+O Laboratory Tests 07/14/17 04:50 Red Blood Count 3.84 L, Mean Corpuscular Volume 99.7 H, Mean Corpuscular Hemoglobin 32.3, Mean Corpuscular Hemoglobin Concent 32.4, Red Cell Distribution Width 14.9 H, Neutrophils (%) (Auto) 92.0 H, Lymphocytes (%) (Auto ) 1.8 L, Monocytes (%) (Auto) 4.3, Eosinophils (%) (Auto) 0.1, Basophils (%) ( Auto) 0.2, Neutrophils # (Auto) 15.8 H, Lymphocytes # (Auto) 0.3 L, Monocytes # (Auto) 0.7, Eosinophils # (Auto) 0.0, Basophils # (Auto) 0.0, Calcium Level 9.4 Vital Signs Date Time Temp Pulse Resp B/P (MAP) Pulse Ox O2 Delivery O2 Flow Rate FiO2 07/14/17 08:20 104 107/66 07/14/17 07:57 Nasal Cannula 3.0 07/14/17 07:52 98.1 21 98 I&O- Last 24 Hours up to 6 AM 07/15/17 06:00 Intake Total 300 ml Output Total 500 ml Balance -200 ml AGNIESZKA VICTOR DO Jul 14, 2017 11:18 SONAM MAIN MD Jul 14, 2017 15:26
[2017-07-14] MEDS: NYSTATIN 500,000 U/5 ML SUSP UDC SS SCH ×3 (12:11→20:33)
[2017-07-14] MEDS: LevoFLOXacin IV 750 MG in APPROPRIATE DILUENT 1 EA IV SCH (20:28)
[2017-07-14] MEDS: AMITRIPTYLINE 50 MG TAB PO SCH (20:32)
[2017-07-15] MEDS: IPRATROPIUM 0.5MG/ALBUTEROL 2.5MG INH SOL UD 3ML (DUONEB)(J7620) NEB SCH ×4 (01:39→19:59)
[2017-07-15 04:00] VITALS: BP 136/82
[2017-07-15 04:45] LABS: BASO % 0.2 % (0.0-1.0); IMMATURE GRANULOCYTE % 1.9 % (0-0); LYMPH # 0.4 10^3/uL (1.5-4.5); LYMPH % 2.4 % (24.0-44.0); MEAN CORPUSCULAR HEMOGLOBIN 33.2 pg (27.0-33.0); MEAN CORPUSCULAR HGB CONC 32.8 g/dl (32.0-36.5); MEAN CORPUSCULAR VOLUME 101.1 fl (80.0-96.0); MONO # 0.5 10^3/uL (0.0-0.8); NEUTROPHILS # 14.7 10^3/uL (1.8-7.7); NEUTROPHILS % 92.5 % (36.0-66.0); PLATELET COUNT, AUTOMATED 154 10^3/uL (150-450); RED CELL DISTRIBUTION WIDTH 15.1 % (11.5-14.5); WHITE BLOOD COUNT 15.9 10^3/uL (4.0-10.0)
[2017-07-15 05:29] LABS: CREATININE FOR GFR 1.67 MG/DL (0.70-1.30); GLOMERULAR FILTRATION RATE 44.3 (>49); MAGNESIUM LEVEL 2.3 MG/DL (1.8-2.4); POTASSIUM SERUM 4.5 MEQ/L (3.5-5.1)
[2017-07-15] MEDS: SODIUM CHLORIDE 0.9% INJ 10 ML SYR IV SCH ×2 (06:23→17:06)
[2017-07-15] MEDS: HumaLOG INSULIN (NovoLOG) PER UNIT SC SCH ×4 (07:49→21:41)
[2017-07-15 08:00] VITALS: BP 128/84
[2017-07-15] MEDS: ADVAIR HFA 115/21MCG INHALER INH SCH ×2 (08:08→20:00)
[2017-07-15] MEDS: TIOTROPIUM INHALER/CAPSULE (SPIRIVA) INH SCH (08:08)
[2017-07-15] MEDS: CARVedilol 12.5 MG TAB PO SCH ×2 (08:31→21:18)
[2017-07-15] MEDS: NYSTATIN 500,000 U/5 ML SUSP UDC SS SCH ×3 (08:31→21:20)
[2017-07-15] MEDS: ZONISAMIDE 50 MG CAP (ZONEGRAN) PO SCH ×2 (08:31→21:20)
[2017-07-15] MEDS: FERROUS SULFATE 325MG TAB PO SCH ×2 (08:31→21:18)
[2017-07-15] MEDS: PRAVASTATIN 20 MG TAB PO SCH (08:31)
[2017-07-15] MEDS: LEVEMIR (INSULIN DETEMIR) 1 UNITS/0.01ML SC SCH ×2 (08:31→21:00)
[2017-07-15] MEDS: GABAPENTIN 300 MG CAP PO SCH ×3 (08:32→21:19)
[2017-07-15] MEDS: ALLOPURINOL 300 MG TAB PO SCH (08:32)
[2017-07-15] MEDS: OMEPRAZOLE 20 MG CAP PO SCH (08:32)
[2017-07-15] MEDS: rOPINIRole 1MG TAB PO SCH ×2 (08:32→21:41)
[2017-07-15] MEDS: ASPIRIN 81 MG ENTERIC TAB PO SCH (08:32)
[2017-07-15] MEDS: LACTOBACILLUS ACIDOPHILUS CAP (BACID) PO SCH ×3 (08:32→21:17)
[2017-07-15] MEDS: CYANOCOBALAMIN 500 MCG TAB PO SCH (08:32)
[2017-07-15] MEDS: MAGNESIUM OXIDE 400 MG TAB (MAG-OX) PO SCH ×2 (08:33→21:19)
[2017-07-15] MEDS: MULTIVITAMINS/MINERALS THERAP 1 TAB PO SCH (08:33)
[2017-07-15] MEDS: TRIAMCINOLONE ACET 0.1% OINTMENT 15 GM EXT SCH ×2 (08:33→21:00)
[2017-07-15] MEDS: LIDOCAINE 5% OINT 30 GM TOP SCH (08:34)
[2017-07-15] MEDS: LACTIC ACID 12% LOTION 225 GM BTL TOP SCH (08:34)
[2017-07-15] MEDS ORDERED: hydroCHLOROthiazide 25 MG TAB PO ONE (10:00)
[2017-07-15] MEDS: methylPREDNISolone INJ 40 MG/1 ML VIAL (J2920) IV SCH ×2 (10:41→21:20)
[2017-07-15] MEDS: POTASSIUM CHLORIDE 10 MEQ SR TABLET PO SCH (10:42)
[2017-07-15 12:00] VITALS: BP 146/82
--- NOTE | 2017-07-15 14:28 | IPNPDOC ---
Text Note Date of Service The patient was seen on 07/15/17. NOTE Subjective: Patient is a 62 year old male with a PMHx of COPD (on 3L O2), ANTWAN on CPAP, HTN, DM2, CKD3, Obesity, Gout, Neuropathy, Stage 1A Left upper lobe lung CA s/p lobectomy, and Stage 1A Lung CA of RLL s/p radiation. Was admitted from 06/20 - 06/22/17 for left sided chest pain and R sided pneumonia with MRSA. He was sent home with Linezolid. He presented to the hospital with chest pain and intractable left upper and lower extremity pain. Patient was seen and examined at the bedside. Patient stated he is feeling much better today. Patient denies any fever/chill, abdominal pain, diarrhea, constipation, blood in urine or stool. Denies any other current new complaints. Objective: Vitals (See below) General: Morbidly obese elderly male, lying in bed, no acute distress, comfortable, AAOx3 HEENT: NC, AT CVS: RRR, + Systolic murmur, difficult to auscultation due to increased AP diameter Lungs: Fair air entry b/l, improved rhonchi bilaterally Abdomen: Soft, ND, NT Extremities: 1 + pitting edema at right leg, psoriasis on feet much improved Assessment and plan: Dyspnea - possibly 2/2 Right lower lobe pneumonia with MRSA and Klebsiella, possibly 2/2 component of acute COPD exacerbation - Clinically has improvement in his breathing - Physical with improvement in aeration and rhonchi [A] Right lower lobe pneumonia with MRSA and Klebsiella - Elevation in WBC; possibly 2/2 corticosteroids - CRP has been trending down - Sputum culture 07/01: Klebsiella Oxytoca - Sputum culture 07/12: Klebsiella Oxytoca - sensitive to Levaquin, MRSA - sensitive to Vancomycin - CXR 07/03: Pleuroparenchymal reaction / fibrosis, increased markings at right lung base are unchanged, no new infiltrate - c/w Levofloxacin (Day #4) s/p Ceftaroline (10 days), s/p Vancomycin and Ceftriaxone (re: PNA), s/p Doxycycline (re: Diarrhea / PNA) - Dr. Vaz on consult; appreciate her input - Will follow Dr. Vaz's recommendation on new sputum culture results [B] Acute COPD exacerbation - c/w DuoNeb and Spiriva - c/w Chest PT and Guaifenesin - c/w Solumedrol; will again taper dose / frequency Erythematous feet due to psoriasis - c/w Kenalog 0.1% Ointment on feet - Dr. Vaz on consult; appreciate her input Tachycardia - likely 2/2 Sinus rhythm with frequent PACs, less likely 2/2 Atrial flutter/ a. 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 hyperglycemia vs. adrenal insufficiency - Dr. Yang and Dr. Patel (Nephrology) consulted, Appreciate their input - Fluid restriction at 2 L Macrocytic anemia - likely 2/2 CHYNA, possibly Renal disease, less likely Occult blood loss - c/w Iron supplementation Swelling of right lower extremity with diastolic heat failure - 07/05/17 Doppler duplex US showed no DVT in RLE - Hold diuretics Leukocytosis - likely 2/2 reactive process 2/2 corticosteroids and component of underlying pneumonia - Will trend CRP instead to follow infectious process s/p Intractable left upper and lower extremity pain - likely 2/2 neuropathic pain of central origin - Physical unrevealing - Cardiac enzymes negative x 3; s/p Tele - Cervical CT 06/26: no fracture, spondylolisthesis, straightening of cervical lordosis, multilevel spondylosis - Advised by his neurosurgeon in [place] that surgical option was high risk; he was advised against it - Neurology and Pain management has been consulted - c/w Adjusted Gabapentin, Amitriptyline, Zonisamide - C/w Tramadol which has been increased to 100 mg PO q 8 H Prn on 07/05/17 s/p Lactic acidosis - possibly 2/2 work of breathing vs. 2/2 infection - c/w Antibiotics and breathing treatments s/p Chest pain - Not cardiac in origin - EKG reviewed 07/02; remains unchanged; no ischemic changes noted - Troponin has remained negative s/p 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 (likely contaminant) - Currently noted that he has resolution of diarrhea - GI panel 06/26: Vibrio Cholera Sp - s/p Doxycycline (3 Days) - No more diarrhea ANTWAN on CPAP - allow home CPAP use Gout - c/w Allopurinol HTN - c/w Carvedilol, and nephrology started patient on HCTZ 25 mg on 07/15/17 LINDY on CKD3 - likely 2/2 Pre-renal etiology 2/2 Furosemide - Elevation in Cr from baseline; has been improving - Dr. Yang and Dr. Patel (Nephrology) consulted, Appreciate their input RLS - c/w Ropinirole DLP - c/w Pravastatin DM2 - c/w ISS - Increased Levemir to 35 u bid Depression - c/w Amitriptyline (changed from Zoloft) Hx of Lung CA - Stage 1A ARIADNA s/p lobectomy - Stage 1A RLL s/p radiation - c/w outpatient follow up GERD - c/w Omeprazole History of adrenal insufficiency - Stress dose steroid before procedure or when he is critically ill DVT prophylaxis - c/w Heparin Fluid, electrolytes, nutrition: No fluid, electrolytes are at goal, carb consistent diet, 2 L Fluid restriction Disposition: - c/w Antibiotics and taper steroids GME ATTESTATION My preceptor for this patient encounter was physically present in the building during the encounter and was fully available. As needed, all aspects of the patient interview, examination, medical decision making process, and medical care plan development were reviewed and approved by the preceptor. Preceptor is aware and concurs with the plan as stated in the body of this note and will attest to such by his/her cosignature. ATTENDING NOTE I, Sonam Main, have both independently examined this patient as well as reviewed the documentation. I have discussed in detail with the resident the findings and plan of treatment as documented in the residents documentation. I will continue to follow the patient and offer further guidance to the patients care as necessary during this hospital stay. VS,Yasmanybone, I+O VS, Fishbone, I+O Laboratory Tests 07/15/17 04:40 Red Blood Count 3.71 L, Mean Corpuscular Volume 101.1 H, Mean Corpuscular Hemoglobin 33.2 H, Mean Corpuscular Hemoglobin Concent 32.8, Red Cell Distribution Width 15.1 H, Neutrophils (%) (Auto) 92.5 H, Lymphocytes (%) (Auto ) 2.4 L, Monocytes (%) (Auto) 3.0, Eosinophils (%) (Auto) 0.0, Basophils (%) ( Auto) 0.2, Neutrophils # (Auto) 14.7 H, Lymphocytes # (Auto) 0.4 L, Monocytes # (Auto) 0.5, Eosinophils # (Auto) 0.0, Basophils # (Auto) 0.0, Calcium Level 9.0 Vital Signs Date Time Temp Pulse Resp B/P (MAP) Pulse Ox O2 Delivery O2 Flow Rate FiO2 07/15/17 12:00 97.0 68 18 146/82 (103) 96 Nasal Cannula 3.0 I&O- Last 24 Hours up to 6 AM 07/16/17 06:00 Intake Total 480 ml Output Total 1650 ml Balance -1170 ml AGNIESZKA VICTOR DO Jul 15, 2017 14:28 SONAM MAIN MD Jul 15, 2017 14:50
--- NOTE | 2017-07-15 15:28 | IPN ---
DATE: 07/14/2017 Mr. Young is seen this morning on his bedside. He is sitting at the edge of bed and feels well. He reports that his shortness of breath has improved to about baseline. He denies any nausea or vomiting. He has no fever or chills. PHYSICAL EXAMINATION: On physical examination, temperature 97 degrees Fahrenheit, heart rate 98 per minute and respiratory rate 20 per minute. Blood pressure 124/68 mmHg and oxygen saturation 98% on three liters of oxygen. Intake and output records from yesterday show a total intake of 2000 and output 3985 mL. He continues to be in negative fluid balance. His weight is recorded at 156 kg today which is 1.2 kg less than yesterday. His head is atraumatic. Neck veins are difficult to be assessed. Heart sounds are irregular in rhythm and tachycardiac. Lungs have bilateral rhonchi and expiratory wheezing. Abdomen is soft and nontender. Bowel sounds are present. Extremities have no cyanosis or clubbing. Musculoskeletal system: He has 1+ edema on the right leg alone. There is no edema on the left leg. Neurologically, he is awake, alert and oriented times three. Skin has no rash or ulcers. LABORATORY DATA: Today's laboratories show WBC count 17.2, hemoglobin 12.4 and hematocrit 38.3. Sodium 140 and potassium 4.6. CO2 37, chloride 99, BUN 61 and creatinine 1.75. Glucose 256 and calcium 9.4. His blood sugars have been consistently above 250 mg/dL. PROBLEMS: 1. Recurrent acute renal failure superimposed on chronic kidney disease. The patient is known to have baseline stage III chronic kidney disease (CKD) due to prior nephrectomy. His worsening kidney function is probably now related to negative fluid balance. He was given Lasix a couple of days ago which has already been stopped. He is currently not on any nephrotoxic medications. At this point, negative fluid balance could only be explained by hyperglycemia. I would suggest to taper down his steroids quickly and we will increase his fluid restriction to 2500 mL per day. We will continue to monitor intake and output. 2. Gout. The patient remains asymptomatic so far with uric acid level 7.3. He continues with allopurinol 300 mg daily. 3. Polyuria. His polyuria was most likely driven by hyperglycemia and excessive fluid intake. At present, he has slowed down significantly. He continues to be hyperglycemic and does have risk for prerenal azotemia now. I will increase his fluid intake. 4. Atrial flutter. His atrial flutter has converted to sinus rhythm. He is currently asymptomatic.
[2017-07-15 16:00] VITALS: BP 149/98
[2017-07-15 20:00] VITALS: BP 126/83
[2017-07-15] MEDS: AMITRIPTYLINE 50 MG TAB PO SCH (21:18)
[2017-07-15] MEDS: hydrOXYzine 50 MG TAB PO PRN (21:27)
[2017-07-16] VITALS (7 sets, daily range): BP systolic 114–144; BP diastolic 63–95
[2017-07-16] MEDS: IPRATROPIUM 0.5MG/ALBUTEROL 2.5MG INH SOL UD 3ML (DUONEB)(J7620) NEB SCH ×4 (01:26→19:43)
[2017-07-16] MEDS: guaiFENesin SYRUP 200 MG/10 ML UDC PO PRN (04:27)
[2017-07-16] MEDS: SODIUM CHLORIDE 0.9% INJ 10 ML SYR IV SCH ×2 (04:27→16:49)
[2017-07-16 04:44] LABS: BASO # 0.1 10^3/uL (0.0-0.2); BASO % 0.4 % (0.0-1.0); EOS % 0.1 % (0.0-3.0); IMMATURE GRANULOCYTE % 2.4 % (0-0); LYMPH # 0.5 10^3/uL (1.5-4.5); LYMPH % 3.5 % (24.0-44.0); MEAN CORPUSCULAR HEMOGLOBIN 32.3 pg (27.0-33.0); MEAN CORPUSCULAR HGB CONC 32.2 g/dl (32.0-36.5); MEAN CORPUSCULAR VOLUME 100.3 fl (80.0-96.0); MONO # 0.5 10^3/uL (0.0-0.8); MONO % 3.5 % (0.0-5.0); NEUTROPHILS # 12.6 10^3/uL (1.8-7.7); NEUTROPHILS % 90.1 % (36.0-66.0); PLATELET COUNT, AUTOMATED 161 10^3/uL (150-450); RED CELL DISTRIBUTION WIDTH 14.8 % (11.5-14.5); WHITE BLOOD COUNT 13.9 10^3/uL (4.0-10.0)
--- NOTE | 2017-07-16 05:02 | IPN ---
DATE OF SERVICE: 07/15/2017 Mr. Young is seen this morning on his bedside. He is sitting at the edge of bed as usual. His chronic dyspnea is unchanged and he is using oxygen via nasal cannula. He denies any chest pain, fever or chills. There is no nausea or vomiting. PHYSICAL EXAMINATION: Temperature 97 degrees Fahrenheit, heart rate 68 per minute and respiratory rate 18 per minute. Blood pressure 146/82 mmHg and oxygen saturation 96% on 3 liters oxygen. Intake and output records from yesterday showed total intake 2160 and output 4275 mL. His weight is down to 150.7 kg. His neck is supple and without jugular venous distention (JVD) sitting upright. Head is atraumatic. Ears, nose and throat are unremarkable. Heart exam reveals distant, but regular heart sounds. Lungs have bilateral rhonchi, but no wheezing today. Abdomen soft, obese and nontender. Extremities have no cyanosis or clubbing. Right lower extremity 1+ edema is present. Skin has no rash or ulcers. Neurologically, he is awake, alert and oriented times three. Today's labs show WBC count 15.9, hemoglobin 12.3 and hematocrit 37.5. Sodium 141, potassium 4.5, BUN 60 and creatinine 1.67. Glucose 284 and calcium 9.0. A C-reactive protein is 4.0. PROBLEMS: 1. Acute kidney injury superimposed on chronic kidney disease. The patient has baseline stage III chronic kidney disease secondary to prior nephrectomy. Acute kidney injury superimposed on chronic disease is most likely related to prerenal azotemia. He did have negative fluid balance again yesterday while no diuretic has been used. We will continue to monitor his kidney function on daily basis. 2. Polyuria. The patient continues to have relatively high blood sugars consistently above 200. I am concerned about possibility of osmotic diuretic effect from hyperglycemia. He has significant negative fluid balance for the last several days. 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 We have already increased his fluid intake to 2500 mL per day restriction. 3. Gout. He does have history of gout and remains on allopurinol 300 mg daily. 4. Renal insufficiency. The patient continues with steroid replacement therapy. I suggest to cut down the dose of his steroids and probably switch him to oral hydrocortisone.
[2017-07-16 05:07] LABS: CALCIUM LEVEL 9.2 MG/DL (8.8-10.2); CREATININE FOR GFR 1.59 MG/DL (0.70-1.30); GLOMERULAR FILTRATION RATE 46.9 (>49); MAGNESIUM LEVEL 1.9 MG/DL (1.8-2.4); POTASSIUM SERUM 4.6 MEQ/L (3.5-5.1)
[2017-07-16] MEDS: ADVAIR HFA 115/21MCG INHALER INH SCH ×2 (08:14→19:43)
[2017-07-16] MEDS: TIOTROPIUM INHALER/CAPSULE (SPIRIVA) INH SCH (08:14)
[2017-07-16] MEDS: HumaLOG INSULIN (NovoLOG) PER UNIT SC SCH ×4 (08:27→20:33)
[2017-07-16] MEDS: LEVEMIR (INSULIN DETEMIR) 1 UNITS/0.01ML SC SCH ×2 (08:28→20:33)
[2017-07-16] MEDS: NYSTATIN 500,000 U/5 ML SUSP UDC SS SCH ×3 (08:28→20:31)
[2017-07-16] MEDS: FERROUS SULFATE 325MG TAB PO SCH ×2 (08:28→20:31)
[2017-07-16] MEDS: OMEPRAZOLE 20 MG CAP PO SCH (08:28)
[2017-07-16] MEDS: ASPIRIN 81 MG ENTERIC TAB PO SCH (08:28)
[2017-07-16] MEDS: rOPINIRole 1MG TAB PO SCH ×2 (08:28→20:30)
[2017-07-16] MEDS: LACTOBACILLUS ACIDOPHILUS CAP (BACID) PO SCH ×3 (08:28→20:30)
[2017-07-16] MEDS: PRAVASTATIN 20 MG TAB PO SCH (08:28)
[2017-07-16] MEDS: GABAPENTIN 300 MG CAP PO SCH ×3 (08:29→20:29)
[2017-07-16] MEDS: hydroCHLOROthiazide 25 MG TAB PO SCH (08:29)
[2017-07-16] MEDS: CARVedilol 12.5 MG TAB PO SCH ×2 (08:29→20:31)
[2017-07-16] MEDS: ALLOPURINOL 300 MG TAB PO SCH (08:29)
[2017-07-16] MEDS: ZONISAMIDE 50 MG CAP (ZONEGRAN) PO SCH ×2 (08:29→20:31)
[2017-07-16] MEDS: MULTIVITAMINS/MINERALS THERAP 1 TAB PO SCH (08:30)
[2017-07-16] MEDS: predniSONE 20 MG TAB PO SCH ×2 (08:30→20:30)
[2017-07-16] MEDS: MAGNESIUM OXIDE 400 MG TAB (MAG-OX) PO SCH ×2 (08:30→20:31)
[2017-07-16] MEDS: POTASSIUM CHLORIDE 10 MEQ SR TABLET PO SCH (08:30)
[2017-07-16] MEDS: CYANOCOBALAMIN 500 MCG TAB PO SCH (08:30)
[2017-07-16] MEDS: LACTIC ACID 12% LOTION 225 GM BTL TOP SCH (08:31)
[2017-07-16] MEDS: TRIAMCINOLONE ACET 0.1% OINTMENT 15 GM EXT SCH ×2 (08:31→20:34)
[2017-07-16] MEDS: LIDOCAINE 5% OINT 30 GM TOP SCH (08:32)
--- NOTE | 2017-07-16 12:47 | IPNPDOC ---
Text Note Date of Service The patient was seen on 07/16/17. NOTE Subjective: Patient is a 62 year old male with a PMHx of COPD (on 3L O2), ANTWAN on CPAP, HTN, DM2, CKD3, Obesity, Gout, Neuropathy, Stage 1A Left upper lobe lung CA s/p lobectomy, and Stage 1A Lung CA of RLL s/p radiation. Was admitted from 06/20 - 06/22/17 for left sided chest pain and R sided pneumonia with MRSA. He was sent home with Linezolid. He presented to the hospital with chest pain and intractable left upper and lower extremity pain. Patient was seen and examined at the bedside. Patient is feeling better today. Still admits to some left sided chest pain, stated it was different from his normal chest pain. Patient denies any fever/chill, abdominal pain, diarrhea, constipation, blood in urine or stool. Denies any other current new complaints. Objective: Vitals (See below) General: Morbidly obese elderly male, lying in bed, no acute distress, comfortable, AAOx3 HEENT: NC, AT CVS: RRR, + Systolic murmur, difficult to auscultation due to increased AP diameter Lungs: Fair air entry b/l, improved rhonchi bilaterally Abdomen: Soft, ND, NT Extremities: 1 + pitting edema at right leg, psoriasis on feet much improved Assessment and plan: Dyspnea - possibly 2/2 Right lower lobe pneumonia with MRSA and Klebsiella, possibly 2/2 component of acute COPD exacerbation - Clinically has improvement in his breathing - Physical with improvement in aeration and rhonchi [A] Right lower lobe pneumonia with MRSA and Klebsiella - Elevation in WBC; possibly 2/2 corticosteroids - CRP has been trending down - Sputum culture 07/01: Klebsiella Oxytoca - Sputum culture 07/12: Klebsiella Oxytoca - sensitive to Levaquin, MRSA - sensitive to Vancomycin - CXR 07/03: Pleuroparenchymal reaction / fibrosis, increased markings at right lung base are unchanged, no new infiltrate - c/w Levofloxacin (Day #5) s/p Ceftaroline (10 days), s/p Vancomycin and Ceftriaxone (re: PNA), s/p Doxycycline (re: Diarrhea / PNA) - Dr. Vaz on consult; appreciate her input; will follow recommendation on new sputum culture results [B] Acute COPD exacerbation - c/w DuoNeb and Spiriva - c/w Chest PT and Guaifenesin - Will change to Prednisone PO today; s/p Solumedrol Erythematous feet due to psoriasis - c/w Kenalog 0.1% Ointment on feet - Dr. Vaz on consult; appreciate her input Tachycardia - likely 2/2 Sinus rhythm with frequent PACs, less likely 2/2 Atrial flutter/ a. 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 hyperglycemia vs. adrenal insufficiency - Dr. Yang and Dr. Patel (Nephrology) consulted, Appreciate their input - Fluid restriction at 2 L Macrocytic anemia - likely 2/2 CHYNA, possibly Renal disease, less likely Occult blood loss - c/w Iron supplementation Swelling of right lower extremity with diastolic heat failure - 07/05/17 Doppler duplex US showed no DVT in RLE - Hold diuretics Leukocytosis - likely 2/2 reactive process 2/2 corticosteroids and component of underlying pneumonia - Will trend CRP instead to follow infectious process s/p Intractable left upper and lower extremity pain - likely 2/2 neuropathic pain of central origin - Physical unrevealing - Cardiac enzymes negative x 3; s/p Tele - Cervical CT 06/26: no fracture, spondylolisthesis, straightening of cervical lordosis, multilevel spondylosis - Advised by his neurosurgeon in [place] that surgical option was high risk; he was advised against it - Neurology and Pain management has been consulted - c/w Adjusted Gabapentin, Amitriptyline, Zonisamide - C/w Tramadol which has been increased to 100 mg PO q 8 H Prn on 07/05/17 s/p Lactic acidosis - possibly 2/2 work of breathing vs. 2/2 infection - c/w Antibiotics and breathing treatments s/p Chest pain - Not cardiac in origin - EKG reviewed 07/02; remains unchanged; no ischemic changes noted - Troponin has remained negative s/p 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 (likely contaminant) - Currently noted that he has resolution of diarrhea - GI panel 06/26: Vibrio Cholera Sp - s/p Doxycycline (3 Days) - No more diarrhea ANTWAN on CPAP - allow home CPAP use Gout - c/w Allopurinol HTN - c/w Carvedilol, and nephrology started patient on HCTZ 25 mg on 07/15/17 LINDY on CKD3 - likely 2/2 Pre-renal etiology 2/2 Furosemide - Elevation in Cr from baseline; has been improving - Dr. Yang and Dr. Patel (Nephrology) consulted, Appreciate their input RLS - c/w Ropinirole DLP - c/w Pravastatin DM2 - c/w ISS - Increased Levemir to 40 u bid Depression - c/w Amitriptyline (changed from Zoloft) Hx of Lung CA - Stage 1A ARIADNA s/p lobectomy - Stage 1A RLL s/p radiation - c/w outpatient follow up GERD - c/w Omeprazole History of adrenal insufficiency - Stress dose steroid before procedure or when he is critically ill DVT prophylaxis - c/w Heparin Fluid, electrolytes, nutrition: No fluid, electrolytes are at goal, carb consistent diet, 2 L Fluid restriction Disposition: - c/w Antibiotics and taper steroids GME ATTESTATION My preceptor for this patient encounter was physically present in the building during the encounter and was fully available. As needed, all aspects of the patient interview, examination, medical decision making process, and medical care plan development were reviewed and approved by the preceptor. Preceptor is aware and concurs with the plan as stated in the body of this note and will attest to such by his/her cosignature. ATTENDING NOTE I, Sonam Main, have both independently examined this patient as well as reviewed the documentation. I have discussed in detail with the resident the findings and plan of treatment as documented in the residents documentation. I will continue to follow the patient and offer further guidance to the patients care as necessary during this hospital stay. VS,Brenda, I+O VS, Brenda, I+O Laboratory Tests 07/16/17 04:33 Red Blood Count 3.93 L, Mean Corpuscular Volume 100.3 H, Mean Corpuscular Hemoglobin 32.3, Mean Corpuscular Hemoglobin Concent 32.2, Red Cell Distribution Width 14.8 H, Neutrophils (%) (Auto) 90.1 H, Lymphocytes (%) (Auto ) 3.5 L, Monocytes (%) (Auto) 3.5, Eosinophils (%) (Auto) 0.1, Basophils (%) ( Auto) 0.4, Neutrophils # (Auto) 12.6 H, Lymphocytes # (Auto) 0.5 L, Monocytes # (Auto) 0.5, Eosinophils # (Auto) 0.0, Basophils # (Auto) 0.1, Calcium Level 9.2 Vital Signs Date Time Temp Pulse Resp B/P (MAP) Pulse Ox O2 Delivery O2 Flow Rate FiO2 07/16/17 12:00 97.5 83 18 144/77 (99) 92 Nasal Cannula 3.0 I&O- Last 24 Hours up to 6 AM 07/17/17 06:00 Intake Total 360 ml Output Total 1800 ml Balance -1440 ml AGNIESZKA VICTOR DO Jul 16, 2017 12:47 SONAM MAIN MD Jul 16, 2017 13:01
[2017-07-16] MEDS: hydrOXYzine 50 MG TAB PO PRN (15:36)
[2017-07-16] MEDS: ACETAMINOPHEN TAB 650MG DOSE (2X325MG) PO PRN (15:36)
--- NOTE | 2017-07-16 18:26 | ECGEPIP ---
Stationary ECG Study [facility] Test Date: 2017-07-16 Pat Name: TONIO CHOPRA Department: Room: [place] [address] Gender: M Tape Cutter: BRYAN : 1955 Requested By: AGNIESZKA VICTOR Order Number: [id number] Reading MD: Aleyda Light Measurements Intervals [place] Rate: 97 P: 56 NE: 150 QRS: -16 QRSD: 93 T: 64 QT: 339 QTc: 431 Interpretive Statements SINUS RHYTHM WITH FREQUENT SUPRAVENTRICULAR PREMATURE COMPLEXES NONSPECIFIC T-WAVE ABNORMALITY ABNORMAL RHYTHM ECG MINIMAL CHANGE SINCE 07/12/17 Electronically Signed On 07-16-2017 18:25:47 EST by Aleyda Light
[2017-07-16] MEDS: AMITRIPTYLINE 50 MG TAB PO SCH (20:30)
[2017-07-16] MEDS: LevoFLOXacin IV 750 MG in APPROPRIATE DILUENT 1 EA IV SCH (20:32)
[2017-07-16 22:34] LABS: OSMOLALITY URINE 650 MOSM/KG (500-800)
[2017-07-17] VITALS (8 sets, daily range): BP systolic 100–164; BP diastolic 59–87
[2017-07-17] MEDS: hydrOXYzine 50 MG TAB PO PRN ×2 (00:19→11:10)
[2017-07-17] MEDS: ACETAMINOPHEN TAB 650MG DOSE (2X325MG) PO PRN ×4 (00:20→22:12)
--- NOTE | 2017-07-17 00:40 | IPN ---
DATE OF SERVICE: 07/16/2017 Mr. Young is seen this morning on his bedside. He is sitting at the edge of bed as usual. He denies any nausea or vomiting. His dyspnea is stable at baseline and he continues to use oxygen at 3 liters via nasal cannula. The patient reports that he is feeling stronger and able to walk. PHYSICAL EXAMINATION: Temperature 97 degrees Fahrenheit, heart rate 86 per minute and respiratory rate 20 per minute. Blood pressure 135/83 mmHg and oxygen saturation 92% on 3 liters oxygen. Head is atraumatic. Neck is supple and jugular venous distention (JVD) is difficult to be assessed. Nose and throat are unremarkable. Heart sounds are irregular in rhythm. There is no pericardial friction rub. Lungs with scattered rhonchi, but no wheezing. Abdomen: Obese, nontender and without a palpable organomegaly. Extremities have no cyanosis or clubbing. There is 1+ edema on the right leg. Neurologically, he is awake, alert and oriented times three. Today's labs show WBC count 13.9, hemoglobin 12.7 and hematocrit 39.4. Platelets are 161. Sodium 138 and potassium 4.6. BUN 55 and creatinine 1.59. Glucose 257 and calcium 9.2. PROBLEMS: 1. Acute kidney injury superimposed on chronic kidney disease. Slight improvement is noted in his kidney function despite a negative fluid balance again yesterday. At this point, we will continue to monitor his kidney function on a daily basis until he is ready for discharge. He has known history of stage III of chronic kidney disease due to prior nephrectomy. 2. Polyuria. Most likely related to osmotic effect of hyperglycemia. 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 He does have consistently negative fluid balance. However, weight change contradicts any significant negative fluid balance. At this point, we will continue to monitor without any other changes. His electrolytes are within normal range, particularly sodium has consistently remained normal or slightly below normal. 3. Hypertension. Blood pressure has been well controlled on current antihypertensive medications. No changes are being made today. 4. Congestive heart failure. Volume status seems reasonably well compensated with slight edema only on right lower extremity. The patient is currently on low-dose hydrochlorothiazide and we will monitor for next few days.
[2017-07-17] MEDS: IPRATROPIUM 0.5MG/ALBUTEROL 2.5MG INH SOL UD 3ML (DUONEB)(J7620) NEB SCH ×4 (01:32→19:59)
[2017-07-17] MEDS: SODIUM CHLORIDE 0.9% INJ 10 ML SYR IV SCH ×2 (04:11→17:16)
[2017-07-17 04:24] LABS: BASO # 0.1 10^3/uL (0.0-0.2); BASO % 0.3 % (0.0-1.0); IMMATURE GRANULOCYTE % 2.9 % (0-0); LYMPH # 0.5 10^3/uL (1.5-4.5); LYMPH % 3.4 % (24.0-44.0); MEAN CORPUSCULAR HEMOGLOBIN 32.6 pg (27.0-33.0); MEAN CORPUSCULAR HGB CONC 32.8 g/dl (32.0-36.5); MEAN CORPUSCULAR VOLUME 99.3 fl (80.0-96.0); MONO # 0.6 10^3/uL (0.0-0.8); MONO % 3.8 % (0.0-5.0); NEUTROPHILS # 13.9 10^3/uL (1.8-7.7); NEUTROPHILS % 89.6 % (36.0-66.0); PLATELET COUNT, AUTOMATED 162 10^3/uL (150-450); RED CELL DISTRIBUTION WIDTH 14.6 % (11.5-14.5); WHITE BLOOD COUNT 15.5 10^3/uL (4.0-10.0)
[2017-07-17 05:00] LABS: CALCIUM LEVEL 8.7 MG/DL (8.8-10.2); CREATININE FOR GFR 1.59 MG/DL (0.70-1.30); GLOMERULAR FILTRATION RATE 46.9 (>49); POTASSIUM SERUM 4.7 MEQ/L (3.5-5.1)
[2017-07-17] MEDS: ADVAIR HFA 115/21MCG INHALER INH SCH ×2 (07:51→20:00)
[2017-07-17] MEDS: TIOTROPIUM INHALER/CAPSULE (SPIRIVA) INH SCH (07:51)
[2017-07-17] MEDS: LEVEMIR (INSULIN DETEMIR) 1 UNITS/0.01ML SC SCH ×2 (08:24→20:27)
[2017-07-17] MEDS: HumaLOG INSULIN (NovoLOG) PER UNIT SC SCH ×4 (08:24→20:27)
[2017-07-17] MEDS: rOPINIRole 1MG TAB PO SCH ×2 (08:25→20:29)
[2017-07-17] MEDS: predniSONE 20 MG TAB PO SCH ×2 (08:25→20:29)
[2017-07-17] MEDS: GABAPENTIN 300 MG CAP PO SCH ×3 (08:25→20:30)
[2017-07-17] MEDS: MULTIVITAMINS/MINERALS THERAP 1 TAB PO SCH (08:26)
[2017-07-17] MEDS: OMEPRAZOLE 20 MG CAP PO SCH (08:26)
[2017-07-17] MEDS: POTASSIUM CHLORIDE 10 MEQ SR TABLET PO SCH (08:26)
[2017-07-17] MEDS: PRAVASTATIN 20 MG TAB PO SCH (08:26)
[2017-07-17] MEDS: MAGNESIUM OXIDE 400 MG TAB (MAG-OX) PO SCH ×2 (08:26→20:30)
[2017-07-17] MEDS: LACTOBACILLUS ACIDOPHILUS CAP (BACID) PO SCH ×3 (08:26→20:28)
[2017-07-17] MEDS: ALLOPURINOL 300 MG TAB PO SCH (08:26)
[2017-07-17] MEDS: CYANOCOBALAMIN 500 MCG TAB PO SCH (08:26)
[2017-07-17] MEDS: ASPIRIN 81 MG ENTERIC TAB PO SCH (08:27)
[2017-07-17] MEDS: hydroCHLOROthiazide 25 MG TAB PO SCH (08:27)
[2017-07-17] MEDS: CARVedilol 12.5 MG TAB PO SCH ×2 (08:27→20:30)
[2017-07-17] MEDS: FERROUS SULFATE 325MG TAB PO SCH ×2 (08:27→20:30)
[2017-07-17] MEDS: ZONISAMIDE 50 MG CAP (ZONEGRAN) PO SCH ×2 (08:27→20:29)
[2017-07-17] MEDS: LIDOCAINE 5% OINT 30 GM TOP SCH (08:28)
[2017-07-17] MEDS: TRIAMCINOLONE ACET 0.1% OINTMENT 15 GM EXT SCH ×2 (08:28→20:31)
[2017-07-17] MEDS: LACTIC ACID 12% LOTION 225 GM BTL TOP SCH (09:00)
--- NOTE | 2017-07-17 11:51 | IPNPDOC ---
Text Note Date of Service The patient was seen on 07/17/17. NOTE Subjective: Patient is a 62 year old male with a PMHx of COPD (on 3L O2), ANTWAN on CPAP, HTN, DM2, CKD3, Obesity, Gout, Neuropathy, Stage 1A Left upper lobe lung CA s/p lobectomy, and Stage 1A Lung CA of RLL s/p radiation. Was admitted from 06/20 - 06/22/17 for left sided chest pain and R sided pneumonia with MRSA. He was sent home with Linezolid. He presented to the hospital with chest pain and intractable left upper and lower extremity pain. Patient was seen and examined at the bedside. Patient notes that his breathing is unchanged. He denies any events overnight. Denies any significant pain currently. Objective: Vitals (See below) General: Morbidly obese elderly male, lying in bed, no acute distress, comfortable, AAOx3 HEENT: NC, AT CVS: RRR, + Systolic murmur, difficult to auscultation due to increased AP diameter Lungs: Fair air entry b/l, improved rhonchi bilaterally Abdomen: Soft, ND, NT Extremities: 1 + pitting edema at right leg, psoriasis on feet much improved Assessment and plan: Dyspnea - possibly 2/2 Right lower lobe pneumonia with MRSA and Klebsiella, possibly 2/2 component of acute COPD exacerbation - Clinically has improvement in his breathing - Physical with improved aeration and no wheezing / rhonchi [A] Right lower lobe pneumonia with MRSA and Klebsiella - Elevation in WBC; possibly 2/2 corticosteroids - CRP has been trending down - Sputum culture 07/01: Klebsiella Oxytoca - Sputum culture 07/12: Klebsiella Oxytoca - sensitive to Levaquin, MRSA - sensitive to Vancomycin - CXR 07/03: Pleuroparenchymal reaction / fibrosis, increased markings at right lung base are unchanged, no new infiltrate - c/w Levofloxacin (Day #6) s/p Ceftaroline (10 days), s/p Vancomycin and Ceftriaxone (re: PNA), s/p Doxycycline (re: Diarrhea / PNA) - Dr. Vaz on consult; appreciate her input [B] Acute COPD exacerbation - c/w DuoNeb and Spiriva - c/w Chest PT and Guaifenesin - c/w Prednisone PO 40 BID; will taper tomorrow; s/p Solumedrol Erythematous feet due to psoriasis - c/w Kenalog 0.1% Ointment on feet - Dr. Vaz on consult; appreciate her input Tachycardia - likely 2/2 Sinus rhythm with frequent PACs, less likely 2/2 Atrial flutter/ a. 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 hyperglycemia vs. adrenal insufficiency - Fluid restriction at 2 L - Dr. Yang and Dr. Patel (Nephrology) consulted, Appreciate their input Macrocytic anemia - likely 2/2 CHYNA, possibly Renal disease, less likely Occult blood loss - c/w Iron supplementation Swelling of right lower extremity with diastolic heat failure - 07/05/17 Doppler duplex US showed no DVT in RLE - Hold diuretics Leukocytosis - likely 2/2 reactive process 2/2 corticosteroids and component of underlying pneumonia - CRP trending down s/p Intractable left upper and lower extremity pain - likely 2/2 neuropathic pain of central origin - Cardiac enzymes negative x 3; s/p Tele - Cervical CT 06/26: no fracture, spondylolisthesis, straightening of cervical lordosis, multilevel spondylosis - Advised by his neurosurgeon in [place] that surgical option was high risk; he was advised against it - c/w Adjusted Gabapentin, Amitriptyline, Zonisamide - c/w Tramadol which has been increased to 100 mg PO q8h PRN - Neurology and Pain management has been consulted s/p Lactic acidosis - possibly 2/2 work of breathing vs. 2/2 infection - c/w Antibiotics and breathing treatments s/p Chest pain - Not cardiac in origin - EKG reviewed 07/02; remains unchanged; no ischemic changes noted - Troponin has remained negative s/p 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 (likely contaminant) - Currently noted that he has resolution of diarrhea - GI panel 06/26: Vibrio Cholera Sp - s/p Doxycycline (3 Days) - No more diarrhea ANTWAN on CPAP - allow home CPAP use Gout - c/w Allopurinol HTN - c/w Carvedilol, and nephrology started patient on HCTZ 25 mg on 07/15/17 LINDY on CKD3 - likely 2/2 Pre-renal etiology 2/2 Furosemide - Elevation in Cr from baseline; has been improving - Dr. Yang and Dr. Patel (Nephrology) consulted, Appreciate their input RLS - c/w Ropinirole DLP - c/w Pravastatin DM2 - c/w ISS and Levemir 40 BID Depression - c/w Amitriptyline (changed from Zoloft) Hx of Lung CA - Stage 1A ARIADNA s/p lobectomy - Stage 1A RLL s/p radiation - c/w outpatient follow up GERD - c/w Omeprazole History of adrenal insufficiency - Stress dose steroid before procedure or when he is critically ill DVT prophylaxis - c/w Heparin Disposition: - c/w Antibiotics and Prednisone; will taper tomorrow VS,Fishbone, I+O VS, Fishbone, I+O Laboratory Tests 07/17/17 04:12 Red Blood Count 4.02 L, Mean Corpuscular Volume 99.3 H, Mean Corpuscular Hemoglobin 32.6, Mean Corpuscular Hemoglobin Concent 32.8, Red Cell Distribution Width 14.6 H, Neutrophils (%) (Auto) 89.6 H, Lymphocytes (%) (Auto ) 3.4 L, Monocytes (%) (Auto) 3.8, Eosinophils (%) (Auto) 0.0, Basophils (%) ( Auto) 0.3, Neutrophils # (Auto) 13.9 H, Lymphocytes # (Auto) 0.5 L, Monocytes # (Auto) 0.6, Eosinophils # (Auto) 0.0, Basophils # (Auto) 0.1, Calcium Level 8.7 L Vital Signs Date Time Temp Pulse Resp B/P (MAP) Pulse Ox O2 Delivery O2 Flow Rate FiO2 07/17/17 11:46 97.6 82 18 116/81 (93) 93 Nasal Cannula 3.0 I&O- Last 24 Hours up to 6 AM 07/18/17 06:00 Intake Total 420 ml Output Total 1300 ml Balance -880 ml MILTON BOYD MD Jul 17, 2017 11:51
[2017-07-17] MEDS: AMITRIPTYLINE 50 MG TAB PO SCH (20:30)
[2017-07-17 21:57] LABS: MEAN CORPUSCULAR HGB CONC 32.3 g/dl (32.0-36.5); MEAN CORPUSCULAR VOLUME 99.3 fl (80.0-96.0); PLATELET COUNT, AUTOMATED 161 10^3/uL (150-450); RED CELL DISTRIBUTION WIDTH 14.6 % (11.5-14.5)
[2017-07-17] MEDS ORDERED: METOPROLOL 5 MG/5 ML VIAL IV STA ×2 (22:19→22:36)
[2017-07-17 22:24] LABS: ANION GAP 5 MEQ/L (8-16); BLOOD UREA NITROGEN 59 MG/DL (7-18); CALCIUM LEVEL 9.1 MG/DL (8.8-10.2); CARBON DIOXIDE LEVEL 34 MEQ/L (21-32); CHLORIDE LEVEL 100 MEQ/L (98-107); CREATININE FOR GFR 1.71 MG/DL (0.70-1.30); GLOMERULAR FILTRATION RATE 43.1 (>49); GLUCOSE, FASTING 233 MG/DL (80-110); POTASSIUM SERUM 4.2 MEQ/L (3.5-5.1); SODIUM LEVEL 139 MEQ/L (136-145)
[2017-07-17] MEDS ORDERED: METOPROLOL TART 25 MG TABLET PO ONE (22:45)
[2017-07-18] VITALS (9 sets, daily range): BP systolic 100–148; BP diastolic 59–80
[2017-07-18] MEDS ORDERED: IPRATROPIUM 0.02% SOLN 0.5MG/2.5 ML NEB INH PRN (01:15)
[2017-07-18] MEDS: IPRATROPIUM 0.02% SOLN 0.5MG/2.5 ML NEB INH SCH ×4 (01:24→19:45)
[2017-07-18] MEDS: SODIUM CHLORIDE 0.9% INJ 10 ML SYR IV SCH ×2 (04:17→17:32)
[2017-07-18 04:29] LABS: BASO % 0.3 % (0.0-1.0); IMMATURE GRANULOCYTE % 2.6 % (0-0); LYMPH # 0.6 10^3/uL (1.5-4.5); MEAN CORPUSCULAR HGB CONC 32.4 g/dl (32.0-36.5); MEAN CORPUSCULAR VOLUME 98.8 fl (80.0-96.0); MONO # 0.5 10^3/uL (0.0-0.8); MONO % 3.1 % (0.0-5.0); NEUTROPHILS # 13.2 10^3/uL (1.8-7.7); PLATELET COUNT, AUTOMATED 164 10^3/uL (150-450); RED CELL DISTRIBUTION WIDTH 14.6 % (11.5-14.5); WHITE BLOOD COUNT 14.7 10^3/uL (4.0-10.0)
[2017-07-18 05:02] LABS: ANION GAP 9 MEQ/L (8-16); BLOOD UREA NITROGEN 59 MG/DL (7-18); CALCIUM LEVEL 8.9 MG/DL (8.8-10.2); CARBON DIOXIDE LEVEL 31 MEQ/L (21-32); CHLORIDE LEVEL 98 MEQ/L (98-107); CREATININE FOR GFR 1.69 MG/DL (0.70-1.30); GLOMERULAR FILTRATION RATE 43.7 (>49); GLUCOSE, FASTING 274 MG/DL (80-110); MAGNESIUM LEVEL 2.2 MG/DL (1.8-2.4); POTASSIUM SERUM 4.9 MEQ/L (3.5-5.1); SODIUM LEVEL 138 MEQ/L (136-145)
[2017-07-18] MEDS ORDERED: METOPROLOL TART 25 MG TABLET PO SCH (06:00)
[2017-07-18] MEDS: guaiFENesin SYRUP 200 MG/10 ML UDC PO PRN (06:37)
[2017-07-18] MEDS: ADVAIR HFA 115/21MCG INHALER INH SCH ×2 (07:13→19:46)
[2017-07-18] MEDS: TIOTROPIUM INHALER/CAPSULE (SPIRIVA) INH SCH (07:13)
[2017-07-18] MEDS: HumaLOG INSULIN (NovoLOG) PER UNIT SC SCH ×4 (08:14→21:38)
[2017-07-18] MEDS: LEVEMIR (INSULIN DETEMIR) 1 UNITS/0.01ML SC SCH ×2 (08:14→21:36)
[2017-07-18] MEDS: MULTIVITAMINS/MINERALS THERAP 1 TAB PO SCH (08:15)
[2017-07-18] MEDS: hydrOXYzine 50 MG TAB PO PRN (08:15)
[2017-07-18] MEDS: ACETAMINOPHEN TAB 650MG DOSE (2X325MG) PO PRN ×2 (08:15→21:41)
[2017-07-18] MEDS: predniSONE 20 MG TAB PO SCH (08:15)
[2017-07-18] MEDS: APIXABAN 5 MG TAB (ELIQUIS) PO SCH ×2 (08:16→21:34)
[2017-07-18] MEDS: MAGNESIUM OXIDE 400 MG TAB (MAG-OX) PO SCH ×2 (08:16→21:34)
[2017-07-18] MEDS: rOPINIRole 1MG TAB PO SCH ×2 (08:16→21:35)
[2017-07-18] MEDS: CYANOCOBALAMIN 500 MCG TAB PO SCH (08:16)
[2017-07-18] MEDS: GABAPENTIN 300 MG CAP PO SCH ×3 (08:16→21:34)
[2017-07-18] MEDS: ALLOPURINOL 300 MG TAB PO SCH (08:16)
[2017-07-18] MEDS: OMEPRAZOLE 20 MG CAP PO SCH (08:16)
[2017-07-18] MEDS: ZONISAMIDE 50 MG CAP (ZONEGRAN) PO SCH ×2 (08:16→21:35)
[2017-07-18] MEDS: ASPIRIN 81 MG ENTERIC TAB PO SCH (08:17)
[2017-07-18] MEDS: CARVedilol 12.5 MG TAB PO SCH ×2 (08:17→21:32)
[2017-07-18] MEDS: FERROUS SULFATE 325MG TAB PO SCH ×2 (08:18→21:34)
[2017-07-18] MEDS: LACTOBACILLUS ACIDOPHILUS CAP (BACID) PO SCH ×3 (08:18→21:32)
[2017-07-18] MEDS: PRAVASTATIN 20 MG TAB PO SCH (08:18)
[2017-07-18] MEDS: TRIAMCINOLONE ACET 0.1% OINTMENT 15 GM EXT SCH ×2 (08:19→21:38)
[2017-07-18] MEDS: LIDOCAINE 5% OINT 30 GM TOP SCH (08:19)
--- NOTE | 2017-07-18 10:37 | IPNPDOC ---
Text Note Date of Service The patient was seen on 07/18/17. NOTE Subjective: Patient is a 62 year old male with a PMHx of COPD (on 3L O2), ANTWAN on CPAP, HTN, DM2, CKD3, Obesity, Gout, Neuropathy, Stage 1A Left upper lobe lung CA s/p lobectomy, and Stage 1A Lung CA of RLL s/p radiation. Was admitted from 06/20 - 06/22/17 for left sided chest pain and R sided pneumonia with MRSA. He was sent home with Linezolid. He presented to the hospital with chest pain and intractable left upper and lower extremity pain. Patient was seen and examined at the bedside. After patient coughed last night he developed atrial fibrillation with RVR this time was captured on EKG. Patient himself however didn't really feel palpitation or racing heart beat or any discomfort. Patient denies any fever/chills, current chest pain, worsening sob, abdominal pain, nausea, vomiting, diarrhea, constipation, problems with urinations, blood in urine or stool. Denies any other current new complaints. Objective: Vitals (See below) General: Morbidly obese elderly male, lying in bed, no acute distress, comfortable, AAOx3 HEENT: NC, AT CVS: RRR, + Systolic murmur, difficult to auscultation due to increased AP diameter Lungs: Fair air entry b/l, improved rhonchi bilaterally Abdomen: Soft, ND, NT Extremities: 1 + pitting edema at right leg, psoriasis on feet much improved Assessment and plan: Afib with RVR overnight - EKG reviewed - D/C Cardizem - Increased carvedilol from 12.5 to 25 mg PO bid - Started Eliquis 5 mg PO BID - back in sinus rhythm on examination Dyspnea - possibly 2/2 Right lower lobe pneumonia with MRSA and Klebsiella, possibly 2/2 component of acute COPD exacerbation - Clinically has improvement in his breathing - Physical with improved aeration and no wheezing / rhonchi [A] Right lower lobe pneumonia with MRSA and Klebsiella - Elevation in WBC; possibly 2/2 corticosteroids - CRP has been trending down - Sputum culture 07/01: Klebsiella Oxytoca - Sputum culture 07/12: Klebsiella Oxytoca - sensitive to Levaquin, MRSA - sensitive to Vancomycin - CXR 07/03: Pleuroparenchymal reaction / fibrosis, increased markings at right lung base are unchanged, no new infiltrate - c/w Levofloxacin (Day #7) s/p Ceftaroline (10 days), s/p Vancomycin and Ceftriaxone (re: PNA), s/p Doxycycline (re: Diarrhea / PNA) - Dr. Vaz on consult; appreciate her input [B] Acute COPD exacerbation - c/w DuoNeb and Spiriva - c/w Chest PT and Guaifenesin - c/w Prednisone PO 30 BID; s/p Solumedrol Erythematous feet due to psoriasis - c/w Kenalog 0.1% Ointment on feet - Dr. 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 hyperglycemia vs. adrenal insufficiency - Fluid restriction at 2 L - Dr. Yang and Dr. Patel (Nephrology) consulted, Appreciate their input Macrocytic anemia - likely 2/2 CHYNA, possibly Renal disease, less likely Occult blood loss - c/w Iron supplementation Swelling of right lower extremity with diastolic heat failure - 07/05/17 Doppler duplex US showed no DVT in RLE - Hold diuretics Leukocytosis - likely 2/2 reactive process 2/2 corticosteroids and component of underlying pneumonia - CRP trending down s/p Intractable left upper and lower extremity pain - likely 2/2 neuropathic pain of central origin - Cardiac enzymes negative x 3; s/p Tele - Cervical CT 06/26: no fracture, spondylolisthesis, straightening of cervical lordosis, multilevel spondylosis - Advised by his neurosurgeon in [place] that surgical option was high risk; he was advised against it - c/w Adjusted Gabapentin, Amitriptyline, Zonisamide - c/w Tramadol which has been increased to 100 mg PO q8h PRN - Neurology and Pain management has been consulted s/p Lactic acidosis - possibly 2/2 work of breathing vs. 2/2 infection - c/w Antibiotics and breathing treatments s/p Chest pain - Not cardiac in origin - EKG reviewed 07/02; remains unchanged; no ischemic changes noted - Troponin has remained negative s/p 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 (likely contaminant) - Currently noted that he has resolution of diarrhea - GI panel 06/26: Vibrio Cholera Sp - s/p Doxycycline (3 Days) - No more diarrhea ANTWAN on CPAP - allow home CPAP use Gout - c/w Allopurinol HTN - c/w Carvedilol, and nephrology started patient on HCTZ 25 mg on 07/15/17 LINDY on CKD3 - likely 2/2 Pre-renal etiology 2/2 Furosemide - Elevation in Cr from baseline; has been improving - Dr. Yang and Dr. Patel (Nephrology) consulted, Appreciate their input RLS - c/w Ropinirole DLP - c/w Pravastatin DM2 - c/w ISS and Levemir 40 BID Depression - c/w Amitriptyline (changed from Zoloft) Hx of Lung CA - Stage 1A ARIADNA s/p lobectomy - Stage 1A RLL s/p radiation - c/w outpatient follow up GERD - c/w Omeprazole History of adrenal insufficiency - Stress dose steroid before procedure or when he is critically ill DVT prophylaxis - c/w Heparin Disposition: - c/w Antibiotics and Prednisone; will taper tomorrow GME ATTESTATION My preceptor for this patient encounter was physically present in the building during the encounter and was fully available. As needed, all aspects of the patient interview, examination, medical decision making process, and medical care plan development were reviewed and approved by the preceptor. Preceptor is aware and concurs with the plan as stated in the body of this note and will attest to such by his/her cosignature. ATTENDING NOTE I, Sonam Main, have both independently examined this patient as well as reviewed the documentation. I have discussed in detail with the resident the findings and plan of treatment as documented in the residents documentation. I will continue to follow the patient and offer further guidance to the patients care as necessary during this hospital stay. VS,Yasmanybone, I+O VS, Fishbone, I+O Laboratory Tests 07/17/17 21:47 Red Blood Count 4.06 L, Mean Corpuscular Volume 99.3 H, Mean Corpuscular Hemoglobin 32.0, Mean Corpuscular Hemoglobin Concent 32.3, Red Cell Distribution Width 14.6 H, Calcium Level 9.1, Total Creatine Kinase 38 L 07/18/17 04:09 Red Blood Count 4.15 L, Mean Corpuscular Volume 98.8 H, Mean Corpuscular Hemoglobin 32.0, Mean Corpuscular Hemoglobin Concent 32.4, Red Cell Distribution Width 14.6 H, Calcium Level 8.9, Total Creatine Kinase 44, Neutrophils (%) (Auto) 90.0 H, Lymphocytes (%) (Auto) 4.0 L, Monocytes (%) (Auto ) 3.1, Eosinophils (%) (Auto) 0.0, Basophils (%) (Auto) 0.3, Neutrophils # (Auto ) 13.2 H, Lymphocytes # (Auto) 0.6 L, Monocytes # (Auto) 0.5, Eosinophils # ( Auto) 0.0, Basophils # (Auto) 0.0 Vital Signs Date Time Temp Pulse Resp B/P (MAP) Pulse Ox O2 Delivery O2 Flow Rate FiO2 07/18/17 10:09 82 108/70 (83) 07/18/17 08:20 BIPAP/CPAP 3.0 07/18/17 07:50 96.7 18 97 I&O- Last 24 Hours up to 6 AM 07/19/17 06:00 Intake Total 540 ml Output Total 400 ml Balance 140 ml AGNIESZKA VICTOR DO Jul 18, 2017 10:36 SONAM MAIN MD Jul 18, 2017 11:52
[2017-07-18] MEDS: LACTIC ACID 12% LOTION 225 GM BTL TOP SCH (12:35)
--- NOTE | 2017-07-18 16:12 | IPN ---
DATE: 07/17/2017 SUBJECTIVE: The patient is seen this morning at the bedside. He is sitting with his legs dangling at the edge of the bed. He reports he feels well. Denies any events overnight. Denies any change in his breathing. Despite addition of hydrochlorothiazide, urine output yesterday exceeded six liters. The patient states that he is compliant with his oral fluid restriction. The patient does complain of right lower extremity edema. VITAL SIGNS: Temperature 96.8, pulse 75, respiratory rate 18, blood pressure 134/85, saturating 94% on three liters nasal cannula. INTAKE AND OUTPUT: Urine output yesterday was six liters with oral intake of 1560 with net negative fluid balance of 4.3 liters. Weight on the bed scale today is decreased from prior 149.1 kg. PHYSICAL EXAMINATION: The patient is seen sitting at the edge of the bed with legs dangling, in no acute distress, comfortable. HEAD AND NECK: Head is atraumatic. The neck is supple. Difficult to assess the jugular veins due to thick neck. He is on nasal cannula. HEART: Irregular, 2+ radial pulse. Right lower extremity with pitting edema. LUNGS: Occasional rhonchus, bilateral air entry. No wheeze. ABDOMEN: Soft, obese, nontender. EXTREMITIES: 1+ pitting edema present in the right leg. No edema on the left. NEUROLOGIC: No focal deficits. PSYCHIATRIC: Appropriate mood and affect. LABORATORY DATA: White count 14, hemoglobin 13, platelets 161. Sodium 136, potassium 4.7, bicarbonate 31, BUN 54, creatinine 1.5, magnesium 2.0 , glucose 473. INPATIENT MEDICATIONS: The patient remains on renally dosed Levaquin. He was started yesterday on hydrochlorothiazide. His insulin was adjusted per the primary team. I discontinued his potassium supplement and her remains on oral prednisone. Remainder of medications are not significantly changed from prior. ASSESSMENT AND PLAN: 1. Acute kidney injury superimposed on chronic kidney disease (CKD), stage III. The patient's baseline creatinine is in the low to mid 1s. Renal function has been fairly stable for the past several days at 1.5 to 1.6. 2. Polyuria. The patient made six liters of urine yesterday and had a net negative fluid balance. However, despite that, his sodium actually went down from 138 to 136. Part of his polyuria is likely secondary to osmotic diuresis from hyperglycemia as he did have an elevated urine osmolality and 3+ glucose in the urine. However, the fact that his sodium down-trended despite significant urine output is also suggestive of probably polydipsia. The patient might not be compliant with fluid restriction. He needs tighter glycemic control to ameliorate his osmotic diuresis. 3. Chronic obstructive pulmonary disease (COPD) exacerbation. The patient continues on oral steroids that may also be contributing towards his fluid retention. He is also on inhalers. 4. Right lower lobe pneumonia with methicillin-resistant Staphylococcus aureus (MRSA) and Klebsiella. The patient continues with renally dosed Levaquin and remains oxygen dependent. 5. Hypertension. Blood pressure has been well-controlled on carvedilol. The patient was also placed on hydrochlorothiazide 25 mg daily for concern of partial nephrogenic diabetes insipidus (DI). However, given urine osmolality of 650, diabetes insipidus seems less likely. MTDD
--- NOTE | 2017-07-18 20:11 | IPN ---
DATE: 07/18/2017 SUBJECTIVE: The patient is seen this morning at the bedside. He reports yesterday while he was drinking he choked on some ice and subsequently went into atrial fibrillation with rapid ventricular response (RVR). He himself was not symptomatic and did not have any palpitations or discomfort. He is now back in sinus rhythm. He otherwise feels well and has no complaints except for right lower extremity ongoing edema. VITAL SIGNS: Temperature 96.7, pulse 72, respiratory rate 18, blood pressure 108/70, saturating 96% on 3 liters nasal cannula. INTAKE and OUTPUT: Urine output yesterday was 5050. Weight in the bed scale today is actually increased from prior at 154.5 kg. He continues to be in a daily net negative fluid balance, cumulative is negative 66 liters since admission, however his weight is unchanged during the course of his stay here suggestive of oral intake that is not being recorded. PHYSICAL EXAMINATION: Awake, alert, oriented times three, eating lunch, sitting at the edge of the bed in no acute distress, morbidly obese. Extraocular muscles are intact. Mucous membranes are moist. Neck is supple, difficult to assess the neck veins. CARDIAC: S1, S2, currently sinus. 2+ radial pulse bilaterally. Right lower extremity with pitting edema. LUNGS: Scattered rhonchi bilaterally. Symmetric air entry seen on nasal cannula. ABDOMEN: Soft, obese, nontender. EXTREMITIES: 1+ pitting edema in the right leg. NEUROLOGIC: No focal deficits. PSYCHIATRIC: Appropriate mood and affect. LABORATORY DATA: White count 14.7, hemoglobin 13, platelets 164. Sodium 138, potassium 4.9, bicarbonate 31, BUN 59, creatinine 1.6. Serum osmolality 318, urine osmolality 660. INPATIENT MEDICATIONS: The patient continues on renally dosed Levaquin. His Coreg was increased to 25 mg by mouth twice a day. He received IV Cardizem overnight. I am decreasing his hydrochlorothiazide dose. He also received multiple Lopressor pushes overnight. He continues on prednisone taper. Remainder of medications are unchanged from prior. ASSESSMENT AND PLAN: 1. Chronic kidney disease (CKD) stage III with mild acute kidney injury (LINDY). Patient's baseline creatinine is in the low 1s. His renal function has been fairly stable the past few days without significant change. Medications are dosed appropriately for his renal function, including Levaquin, and his electrolytes are stable, including sodium. 2. Polyuria. The patient has an elevated urine osmolality likely secondary to osmotic diuresis from hyperglycemia. He always has a dish of candy present at his bedside and his sugars have been in the 200s to 300s. He has mild elevation in his serum osmolality secondary to his hyperglycemia and elevated BUN. There is no difference in his calculated and measured osmolality. I suggest to further control his blood sugars. Review of cumulative intake and output over the course of the admission says that he is negative 66 liters, however with really no documented change in his weight. Given that his sodium levels have been stable, this is highly suggestive of oral fluid intake that is not being observed or recorded. 3. Atrial fibrillation with rapid ventricular response (RVR). The patient's Coreg dose was increased and he is now on Eliquis. I have decreased his hydrochlorothiazide given that his Coreg dose has been increased. He is back in sinus rhythm. 4. Chronic obstructive pulmonary disease (COPD) exacerbation. The patient continues on an oral prednisone wean. He does have some mild edema in the right lower extremity with negative venous duplex. He continues on low dose hydrochlorothiazide. He likely has some water and salt retention from steroids as well. 5. Right lower lobe pneumonia. The patient continues on renally dosed Levaquin and is stable on supplemental oxygen.
--- NOTE | 2017-07-18 20:30 | ECGEPIP ---
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
--- NOTE | 2017-07-18 20:37 | ECGEPIP ---
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
[2017-07-18] MEDS: LevoFLOXacin IV 750 MG in APPROPRIATE DILUENT 1 EA IV SCH (21:31)
[2017-07-18] MEDS: predniSONE 10 MG TAB PO SCH (21:33)
[2017-07-18] MEDS: AMITRIPTYLINE 50 MG TAB PO SCH (21:34)
[2017-07-19] VITALS (7 sets, daily range): BP systolic 110–160; BP diastolic 70–90
[2017-07-19] MEDS: IPRATROPIUM 0.02% SOLN 0.5MG/2.5 ML NEB INH SCH ×5 (01:19→20:00)
[2017-07-19] MEDS: SODIUM CHLORIDE 0.9% INJ 10 ML SYR IV SCH ×2 (05:32→17:16)
[2017-07-19 05:34] LABS: BASO % 0.2 % (0.0-1.0); EOS % 0.1 % (0.0-3.0); IMMATURE GRANULOCYTE % 1.9 % (0-0); LYMPH # 0.3 10^3/uL (1.5-4.5); LYMPH % 2.1 % (24.0-44.0); MEAN CORPUSCULAR HEMOGLOBIN 32.4 pg (27.0-33.0); MEAN CORPUSCULAR HGB CONC 33.1 g/dl (32.0-36.5); MONO # 0.5 10^3/uL (0.0-0.8); MONO % 3.4 % (0.0-5.0); NEUTROPHILS # 14.4 10^3/uL (1.8-7.7); NEUTROPHILS % 92.3 % (36.0-66.0); PLATELET COUNT, AUTOMATED 138 10^3/uL (150-450); RED CELL DISTRIBUTION WIDTH 14.4 % (11.5-14.5); WHITE BLOOD COUNT 15.6 10^3/uL (4.0-10.0)
[2017-07-19 06:14] LABS: CALCIUM LEVEL 8.3 MG/DL (8.8-10.2); CREATININE FOR GFR 1.42 MG/DL (0.70-1.30); FREE T4 0.84 NG/DL (0.76-1.46); GLOMERULAR FILTRATION RATE 53.4 (>49); MAGNESIUM LEVEL 1.9 MG/DL (1.8-2.4); POTASSIUM SERUM 4.6 MEQ/L (3.5-5.1)
[2017-07-19] MEDS: HumaLOG INSULIN (NovoLOG) PER UNIT SC SCH ×4 (07:30→22:07)
[2017-07-19] MEDS: TIOTROPIUM INHALER/CAPSULE (SPIRIVA) INH SCH (07:40)
[2017-07-19] MEDS: ADVAIR HFA 115/21MCG INHALER INH SCH ×2 (07:41→20:25)
[2017-07-19] MEDS: LEVEMIR (INSULIN DETEMIR) 1 UNITS/0.01ML SC SCH ×2 (09:44→22:07)
[2017-07-19] MEDS: LACTOBACILLUS ACIDOPHILUS CAP (BACID) PO SCH ×3 (09:45→22:03)
[2017-07-19] MEDS: CARVedilol 12.5 MG TAB PO SCH ×2 (09:47→22:04)
[2017-07-19] MEDS: predniSONE 10 MG TAB PO SCH ×2 (09:47→22:04)
[2017-07-19] MEDS: CYANOCOBALAMIN 500 MCG TAB PO SCH (09:48)
[2017-07-19] MEDS: OMEPRAZOLE 20 MG CAP PO SCH (09:48)
[2017-07-19] MEDS: APIXABAN 5 MG TAB (ELIQUIS) PO SCH ×2 (09:49→22:05)
[2017-07-19] MEDS: MULTIVITAMINS/MINERALS THERAP 1 TAB PO SCH (09:49)
[2017-07-19] MEDS: ZONISAMIDE 50 MG CAP (ZONEGRAN) PO SCH ×2 (09:50→22:06)
[2017-07-19] MEDS: ASPIRIN 81 MG ENTERIC TAB PO SCH (09:50)
[2017-07-19] MEDS: MAGNESIUM OXIDE 400 MG TAB (MAG-OX) PO SCH ×2 (09:51→22:05)
[2017-07-19] MEDS: GABAPENTIN 300 MG CAP PO SCH ×3 (09:52→22:06)
[2017-07-19] MEDS: hydroCHLOROthiazide 12.5 MG CAPSULE PO SCH (09:52)
[2017-07-19] MEDS: FERROUS SULFATE 325MG TAB PO SCH ×2 (09:52→22:05)
[2017-07-19] MEDS: PRAVASTATIN 20 MG TAB PO SCH (09:53)
[2017-07-19] MEDS: ALLOPURINOL 300 MG TAB PO SCH (09:53)
[2017-07-19] MEDS: TRIAMCINOLONE ACET 0.1% OINTMENT 15 GM EXT SCH ×2 (09:55→22:08)
[2017-07-19] MEDS: LACTIC ACID 12% LOTION 225 GM BTL TOP SCH (09:56)
[2017-07-19] MEDS: LIDOCAINE 5% OINT 30 GM TOP SCH (09:57)
--- NOTE | 2017-07-19 10:53 | IPNPDOC ---
Text Note Date of Service The patient was seen on 07/19/17. NOTE Subjective: Patient is a 62 year old male with a PMHx of COPD (on 3L O2), ANTWAN on CPAP, HTN, DM2, CKD3, Obesity, Gout, Neuropathy, Stage 1A Left upper lobe lung CA s/p lobectomy, and Stage 1A Lung CA of RLL s/p radiation. Was admitted from 06/20 - 06/22/17 for left sided chest pain and R sided pneumonia with MRSA. He was sent home with Linezolid. He presented to the hospital with chest pain and intractable left upper and lower extremity pain. Patient was seen and examined at the bedside. Patient has not had any events overnight. He notes his breathing feels better. He still makes reference to his right leg swelling. He denies any other complaints. Objective: Vitals (See below) General: Morbidly obese elderly male, lying in bed, no acute distress, comfortable, AAOx3 HEENT: NC, AT CVS: RRR, + Systolic murmur, difficult to auscultation due to increased AP diameter Lungs: Fair air entry b/l, improved rhonchi bilaterally Abdomen: Soft, ND, NT Extremities: 1 + pitting edema at right leg, erythema on feet much improved Assessment and plan: Dyspnea - possibly 2/2 Right lower lobe pneumonia with MRSA and Klebsiella, possibly 2/2 component of acute COPD exacerbation - Clinically his breathing has remained stable - Physical with no adventitious lung sounds [A] Right lower lobe pneumonia with MRSA and Klebsiella - Elevation in WBC - remains stable; possibly 2/2 corticosteroids - CRP has trended down significantly - Sputum culture 07/01: Klebsiella Oxytoca; Sputum culture 07/12: Klebsiella Oxytoca - sensitive to Levaquin, MRSA - sensitive to Vancomycin - CXR 07/03: Pleuroparenchymal reaction / fibrosis, increased markings at right lung base are unchanged, no new infiltrate - Will stop all antibiotics at this point; s/p Levofloxacin (Total of 8 days ) s/p Ceftaroline (10 days), s/p Vancomycin and Ceftriaxone s/p Doxycycline - Dr. Vaz on consult; appreciate her input [B] Acute COPD exacerbation - c/w DuoNeb and Spiriva - c/w Chest PT and Guaifenesin - c/w Prednisone PO 30 BID - and slow taper; s/p Solumedrol s/p A. fib with RVR - Currently asymptomatic - Telemetry shows that he is sinus rhythm currently - EKG reviewed and is consistent with atrial fibrillation - c/w rate control with adjusted dose of carvedilol (25 BID) - c/w anticoagulation with Eliquis 5 mg PO BID Erythematous feet - possibly 2/2 psoriasis - c/w Kenalog 0.1% Ointment on feet - Dr. 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 hyperglycemia vs. adrenal insufficiency - Fluid restriction at 2 L - Dr. Yang and Dr. Patel (Nephrology) consulted, Appreciate their input Macrocytic anemia - likely 2/2 CHYNA, possibly renal disease, less likely occult blood loss - c/w Iron supplementation Swelling of right lower extremity with diastolic heat failure - 07/05/17 Doppler duplex US showed no DVT in RLE - Hold diuretics Leukocytosis - likely 2/2 reactive process 2/2 corticosteroids and component of underlying pneumonia - CRP trending down s/p Intractable left upper and lower extremity pain - likely 2/2 neuropathic pain of central origin - Cardiac enzymes negative x 3; s/p Tele - Cervical CT 06/26: no fracture, spondylolisthesis, straightening of cervical lordosis, multilevel spondylosis - Advised by his neurosurgeon in [place] that surgical option was high risk; he was advised against it - c/w Adjusted Gabapentin, Amitriptyline, Zonisamide - c/w Tramadol which has been increased to 100 mg PO q8h PRN - Neurology and Pain management has been consulted s/p Lactic acidosis - possibly 2/2 work of breathing vs. 2/2 infection - c/w Antibiotics and breathing treatments s/p Chest pain - Not cardiac in origin - EKG reviewed 07/02; remains unchanged; no ischemic changes noted - Troponin has remained negative s/p 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 (likely contaminant) - Currently noted that he has resolution of diarrhea - GI panel 06/26: Vibrio Cholera Sp - s/p Doxycycline (3 Days) - No more diarrhea ANTWAN on CPAP - allow home CPAP use Gout - c/w Allopurinol HTN - c/w Carvedilol, and nephrology started patient on HCTZ 25 mg on 07/15/17 LINDY on CKD3 - likely 2/2 Pre-renal etiology 2/2 Furosemide - Elevation in Cr from baseline; has been improving - Dr. Yang and Dr. Patel (Nephrology) consulted, Appreciate their input RLS - c/w Ropinirole DLP - c/w Pravastatin DM2 - c/w ISS and Levemir 40 BID Depression - c/w Amitriptyline (changed from Zoloft) Hx of Lung CA - Stage 1A ARIADNA s/p lobectomy - Stage 1A RLL s/p radiation - c/w outpatient follow up GERD - c/w Omeprazole History of adrenal insufficiency - Stress dose steroid before procedure or when he is critically ill DVT prophylaxis - c/w Heparin Disposition: - c/w Prednisone taper - s/p Antibiotics VS,Fishbone, I+O VS, Fishbone, I+O Laboratory Tests 07/19/17 05:26 Red Blood Count 3.95 L, Mean Corpuscular Volume 98.0 H, Mean Corpuscular Hemoglobin 32.4, Mean Corpuscular Hemoglobin Concent 33.1, Red Cell Distribution Width 14.4, Neutrophils (%) (Auto) 92.3 H, Lymphocytes (%) (Auto) 2.1 L, Monocytes (%) (Auto) 3.4, Eosinophils (%) (Auto) 0.1, Basophils (%) (Auto ) 0.2, Neutrophils # (Auto) 14.4 H, Lymphocytes # (Auto) 0.3 L, Monocytes # ( Auto) 0.5, Eosinophils # (Auto) 0.0, Basophils # (Auto) 0.0, Calcium Level 8.3 L Vital Signs Date Time Temp Pulse Resp B/P (MAP) Pulse Ox O2 Delivery O2 Flow Rate FiO2 07/19/17 09:47 83 112/72 07/19/17 07:15 96.0 20 94 Nasal Cannula 3.0 I&O- Last 24 Hours up to 6 AM 07/20/17 06:00 Intake Total 240 ml Output Total 500 ml Balance -260 ml MILTON BOYD MD Jul 19, 2017 10:53
[2017-07-19] MEDS: rOPINIRole 1MG TAB PO SCH ×2 (11:11→22:06)
[2017-07-19] MEDS ORDERED: ELIQ5TAB PO (12:09)
--- NOTE | 2017-07-19 17:40 | IPN ---
DATE: 07/19/2017 SUBJECTIVE: The patient is seen this morning at the bedside. He feel well with no specific complaints. He has ongoing edema on the right lower extremity. He states his breathing is easy. He has been ambulating and tolerating intake well. VITAL SIGNS: Temperature 96.7, pulse 78, respiratory rate 18, blood pressure 110/88, saturating 95% on three liters nasal cannula. INTAKE and OUTPUT: Urine output yesterday was 5700 mL, two recorded bowel movements, net negative three liters in the past 24 hours. Weight in the bed scale today 148.2 kg. PHYSICAL EXAMINATION: The patient is seen out of bed to the chair, comfortable, in no acute distress, morbidly obese. Extraocular muscles are intact. Oral mucosa is moist. Neck veins: Unable to assess. CARDIAC: S1, S2, regular rate, 2+ radial pulse, 1+ pitting edema in the right lower extremity. LUNGS: Scattered rhonchi bilaterally. Symmetric air entry. Comfortable on nasal cannula. ABDOMEN: Soft, obese, nontender. EXTREMITIES: 1+ pitting edema in the right lower extremity. No edema on the left. Neurologic: no focal deficit LABORATORY DATA: White count 15.6, hemoglobin 12.8, platelets 138. Sodium 135, potassium 4.6, bicarbonate 32, BUN 53, creatinine 1.4, glucose 291. INPATIENT MEDICATIONS: The patient continues on: - Eliquis 5 mg by mouth twice a day - carvedilol 25 mg by mouth twice a day - hydrochlorothiazide 12.5 mg by mouth daily Remainder of medications are unchanged from prior. PROBLEMS: 1. Chronic kidney disease (CKD), stage III with mild acute kidney injury (LINDY). The patient's renal function improved and has trended towards the patient's baseline. His electrolytes are stable. He has a mild metabolic alkalosis, likely secondary to his chronic obstructive pulmonary disease (COPD). His sodium when corrected for a blood glucose of 291 is normal. 2. Polyuria. The patient has been chronically polyuric over the course of his admission. He likely has a component of osmotic diuresis as he has glucose in the urine and an elevated urine osmolality and his sugars have been in the 200s to 300s. Given that he has made five liters of urine per day for the past two days and yet his serum sodium is in the mid 130s, this is suggestive of polydipsia and oral fluid intake that is not being observed or recorded. I suggest to control his blood sugars which have been understandably high given that he is on high-dose prednisone. 3. Atrial fibrillation and hypertension. The patient's blood pressure and heart rate have both been well-controlled. He continues on low-dose hydrochlorothiazide, Coreg 25 mg by mouth twice a day, and Eliquis. I am not making any change in his medications. 4. Translocational hyponatremia. The patient's corrected sodium is 139 when corrected for his serum glucose of 291. No intervention other than sugar control. DISPOSITION: The patient's laboratories have been stable from a renal point of view for the past several days. He is polyuric, likely secondary to polydipsia plus osmotic diuresis. His electrolytes are stable. Nephrology will follow him peripherally and see him intermittently as needed. LILIA
[2017-07-19] MEDS: AMITRIPTYLINE 50 MG TAB PO SCH (22:05)
[2017-07-20] MEDS: ACETAMINOPHEN TAB 650MG DOSE (2X325MG) PO PRN (01:59)
[2017-07-20] MEDS: IPRATROPIUM 0.02% SOLN 0.5MG/2.5 ML NEB INH SCH ×4 (02:04→20:00)
[2017-07-20 04:00] VITALS: BP 125/82
[2017-07-20] MEDS: SODIUM CHLORIDE 0.9% INJ 10 ML SYR IV SCH ×2 (06:35→18:00)
[2017-07-20 06:46] LABS: MEAN CORPUSCULAR HEMOGLOBIN 31.9 pg (27.0-33.0); MEAN CORPUSCULAR HGB CONC 32.7 g/dl (32.0-36.5); MEAN CORPUSCULAR VOLUME 97.6 fl (80.0-96.0); PLATELET COUNT, AUTOMATED 132 10^3/uL (150-450); RED CELL DISTRIBUTION WIDTH 14.4 % (11.5-14.5)
[2017-07-20 07:15] VITALS: BP 120/80
[2017-07-20] MEDS: TIOTROPIUM INHALER/CAPSULE (SPIRIVA) INH SCH (07:42)
[2017-07-20] MEDS: ADVAIR HFA 115/21MCG INHALER INH SCH ×2 (07:42→20:22)
[2017-07-20 07:43] LABS: CREATININE FOR GFR 1.32 MG/DL (0.70-1.30); GLOMERULAR FILTRATION RATE 58.1 (>49); POTASSIUM SERUM 4.8 MEQ/L (3.5-5.1)
[2017-07-20] MEDS: HumaLOG INSULIN (NovoLOG) PER UNIT SC SCH ×4 (08:04→21:00)
[2017-07-20] MEDS: LEVEMIR (INSULIN DETEMIR) 1 UNITS/0.01ML SC SCH ×2 (08:04→21:00)
[2017-07-20] MEDS: ZONISAMIDE 50 MG CAP (ZONEGRAN) PO SCH ×2 (08:05→21:50)
[2017-07-20] MEDS: CARVedilol 12.5 MG TAB PO SCH ×2 (08:05→20:39)
[2017-07-20] MEDS: LACTOBACILLUS ACIDOPHILUS CAP (BACID) PO SCH ×3 (08:05→20:39)
[2017-07-20] MEDS: CYANOCOBALAMIN 500 MCG TAB PO SCH (08:05)
[2017-07-20] MEDS: FERROUS SULFATE 325MG TAB PO SCH ×2 (08:05→20:39)
[2017-07-20] MEDS: MULTIVITAMINS/MINERALS THERAP 1 TAB PO SCH (08:05)
[2017-07-20] MEDS: ASPIRIN 81 MG ENTERIC TAB PO SCH (08:06)
[2017-07-20] MEDS: hydroCHLOROthiazide 12.5 MG CAPSULE PO SCH (08:06)
[2017-07-20] MEDS: ALLOPURINOL 300 MG TAB PO SCH (08:06)
[2017-07-20] MEDS: APIXABAN 5 MG TAB (ELIQUIS) PO SCH ×2 (08:06→20:38)
[2017-07-20] MEDS: OMEPRAZOLE 20 MG CAP PO SCH (08:06)
[2017-07-20] MEDS: GABAPENTIN 300 MG CAP PO SCH ×3 (08:06→20:38)
[2017-07-20] MEDS: PRAVASTATIN 20 MG TAB PO SCH (08:06)
[2017-07-20] MEDS: rOPINIRole 1MG TAB PO SCH ×2 (08:06→20:38)
[2017-07-20] MEDS: predniSONE 10 MG TAB PO SCH ×2 (08:07→20:38)
[2017-07-20] MEDS: MAGNESIUM OXIDE 400 MG TAB (MAG-OX) PO SCH ×2 (08:07→20:39)
[2017-07-20] MEDS: LACTIC ACID 12% LOTION 225 GM BTL TOP SCH (08:08)
[2017-07-20] MEDS: LIDOCAINE 5% OINT 30 GM TOP SCH (08:08)
[2017-07-20] MEDS: TRIAMCINOLONE ACET 0.1% OINTMENT 15 GM EXT SCH ×2 (08:09→20:40)
[2017-07-20] MEDS ORDERED: ZONI50CA PO (09:53)
[2017-07-20] MEDS ORDERED: CARV12.5 PO (09:53)
[2017-07-20] MEDS ORDERED: RISATAB3 PO (09:53)
[2017-07-20] MEDS ORDERED: LEVA750T7 PO (09:55)
[2017-07-20] MEDS ORDERED: GABA600T PO (11:39)
--- NOTE | 2017-07-20 12:29 | IPN ---
DATE OF SERVICE: 07/20/2017 Patient denies any worsening shortness of breath, cough, fever, chills. Ambulating well and almost back to his baseline. Currently on 3 liters nasal cannula. Vital signs: Temperature 96, pulse 80, respiratory rate 20, blood pressure 120/80, 95% on 3 liters nasal cannula. Intake and output 1760, output 4300, negative 2540. Current weight is 157 kg. Generally, awake, alert, oriented. ASSESSMENT AND PLAN: This is a 62-year-old man, history of chronic obstructive pulmonary disease (COPD), 3 liter home oxygen dependent, obstructive sleep apnea (ANTWAN) on continuous positive airway pressure (CPAP), hypertension, type 2 diabetes, chronic kidney disease (CKD), obesity, gout, neuropathy, left lower lobe lung cancer (CA) status post lobectomy and radiation, admitted 06/20/2017 due to left-sided chest pain, right-sided pneumonia, sent home on Zyvox, presented with intractable upper and lower extremity pain. IMPRESSION: 1. Right lower lobe pneumonia with methicillin resistant Staphylococcus aureus and Klebsiella. C-reactive protein (CRP) and white count is improved. Slight elevation most likely secondary to steroids. Sputum culture grew out Klebsiella and MRSA status post ceftaroline 10 days subsequent 8 days vancomycin and ceftriaxone. Dr. Vaz on consult. 2. Acute chronic obstructive pulmonary disease exacerbation on prednisone slowly tapering, currently on 30 twice a day. 3. Atrial fibrillation with rapid ventricular response (RVR) on Eliquis and carvedilol currently at 25 twice a day. 4. Lower extremity edema and psoriasis on Kenalog ointment. 5. Macrocytic anemia secondary to iron deficiency. 6. Type 2 diabetes. on levemir insulin uncontrolled A!c, will need diabetic teaching and insulin teaching prior to discharge. consistent carbs diet will need home care referral at hospital discharge. LILIA
[2017-07-20 14:29] VITALS: BP 120/70
[2017-07-20 15:10] VITALS: BP 118/72
--- NOTE | 2017-07-20 18:07 | IPNPDOC ---
Text Note Date of Service The patient was seen on 07/20/17. NOTE Infectious Disease Progress Note Subjective: Mr. Young was still in the PCU when I saw and evaluated him, however he was in the process of being transferred to [facility]. He is in good spirits today. He states that he is feeling much better than he has been previously. He does continue to have a cough with sputum production, although he states that his sputum is a little bit thinner and lockstitch collar setter in color. He continues to be on his baseline 3 L oxygen nasal cannula, and is not complaining of shortness of breath or chest pain today. Objective: General: Awake, alert, oriented 3. HEENT: Head normocephalic, atraumatic, sclera are nonicteric. Hearing is grossly intact to conversation. Respiratory: He does continue to have some very mild and distant sounding history Rachel and expiratory rhonchi, but otherwise has good air movement throughout Cardiovascular: Irregularly irregular Abdomen: Soft, nontender, nondistended, no hepatosplenomegaly appreciated. Bowel sounds present. Extremities: 2+ pitting edema to the mid shins bilaterally Assessment/Plan: 1. History of MRSA pneumonia with no recent cultures positive for MRSA. 2. Klebsiella pneumonia in addition to COPD exacerbation. The patient appears to be improving clinically, his CRP is almost normalized, his white count is improving spike continue use of steroids, I recommend discontinuation of antibiotics at this time and monitor patient clinically. 3. Psoriatic dermatitis. Plan triamcinolone ointment to both feet. This appears to be doing well, continue with the same. My preceptor for this patient encounter was physically present in the building during the encounter and was fully available. As needed, all aspects of the patient interview, examination, medical decision making process, and medical care plan development were reviewed and approved by the preceptor. Preceptor is aware and concurs with the plan as stated in the body of this note and will attest to such by his/her cosignature. VS,Yasmanybone, I+O VS, Fishbone, I+O Laboratory Tests 07/20/17 06:34 Red Blood Count 4.14 L, Mean Corpuscular Volume 97.6 H, Mean Corpuscular Hemoglobin 31.9, Mean Corpuscular Hemoglobin Concent 32.7, Red Cell Distribution Width 14.4, Calcium Level 9.0 Vital Signs Date Time Temp Pulse Resp B/P (MAP) Pulse Ox O2 Delivery O2 Flow Rate FiO2 07/20/17 15:10 97.4 78 20 118/72 (87) 95 Nasal Cannula 3.0 ANDREY ECKERT DO Jul 20, 2017 18:07
[2017-07-20] MEDS: AMITRIPTYLINE 50 MG TAB PO SCH (20:39)
[2017-07-20 22:00] VITALS: BP 120/82
[2017-07-21] MEDS: IPRATROPIUM 0.02% SOLN 0.5MG/2.5 ML NEB INH SCH ×2 (00:23→07:30)
[2017-07-21] MEDS: SODIUM CHLORIDE 0.9% INJ 10 ML SYR IV SCH (05:26)
[2017-07-21 06:00] VITALS: BP 137/79
[2017-07-21 06:33] LABS: MEAN CORPUSCULAR HEMOGLOBIN 32.1 pg (27.0-33.0); MEAN CORPUSCULAR HGB CONC 33.1 g/dl (32.0-36.5); MEAN CORPUSCULAR VOLUME 97.1 fl (80.0-96.0); PLATELET COUNT, AUTOMATED 128 10^3/uL (150-450); RED CELL DISTRIBUTION WIDTH 14.3 % (11.5-14.5); WHITE BLOOD COUNT 11.9 10^3/uL (4.0-10.0)
[2017-07-21 06:53] LABS: ALBUMIN 2.9 GM/DL (3.2-5.2); CALCIUM LEVEL 8.8 MG/DL (8.8-10.2); CREATININE FOR GFR 1.44 MG/DL (0.70-1.30); GLOMERULAR FILTRATION RATE 52.6 (>49); PHOSPHORUS LEVEL 3.7 MG/DL (2.5-4.9); POTASSIUM SERUM 4.6 MEQ/L (3.5-5.1)
[2017-07-21] MEDS: TIOTROPIUM INHALER/CAPSULE (SPIRIVA) INH SCH (07:29)
[2017-07-21] MEDS: ADVAIR HFA 115/21MCG INHALER INH SCH (07:29)
[2017-07-21] MEDS: HumaLOG INSULIN (NovoLOG) PER UNIT SC SCH (08:35)
[2017-07-21] MEDS: MULTIVITAMINS/MINERALS THERAP 1 TAB PO SCH (08:36)
[2017-07-21] MEDS: OMEPRAZOLE 20 MG CAP PO SCH (08:36)
[2017-07-21] MEDS: LEVEMIR (INSULIN DETEMIR) 1 UNITS/0.01ML SC SCH (08:36)
[2017-07-21] MEDS: PRAVASTATIN 20 MG TAB PO SCH (08:37)
[2017-07-21] MEDS: predniSONE 10 MG TAB PO SCH (08:37)
[2017-07-21] MEDS: GABAPENTIN 300 MG CAP PO SCH (08:37)
[2017-07-21] MEDS: hydroCHLOROthiazide 12.5 MG CAPSULE PO SCH (08:37)
[2017-07-21] MEDS: ALLOPURINOL 300 MG TAB PO SCH (08:38)
[2017-07-21] MEDS: rOPINIRole 1MG TAB PO SCH (08:38)
[2017-07-21] MEDS: LACTOBACILLUS ACIDOPHILUS CAP (BACID) PO SCH (08:38)
[2017-07-21] MEDS: CYANOCOBALAMIN 500 MCG TAB PO SCH (08:38)
[2017-07-21] MEDS: MAGNESIUM OXIDE 400 MG TAB (MAG-OX) PO SCH (08:38)
[2017-07-21] MEDS: APIXABAN 5 MG TAB (ELIQUIS) PO SCH (08:39)
[2017-07-21] MEDS: ASPIRIN 81 MG ENTERIC TAB PO SCH (08:39)
[2017-07-21] MEDS: FERROUS SULFATE 325MG TAB PO SCH (08:40)
[2017-07-21 08:51] VITALS: BP 137/79
[2017-07-21] MEDS: ZONISAMIDE 50 MG CAP (ZONEGRAN) PO SCH (08:51)
[2017-07-21] MEDS: CARVedilol 12.5 MG TAB PO SCH (08:51)
[2017-07-21] MEDS: LIDOCAINE 5% OINT 30 GM TOP SCH (09:00)
[2017-07-21] MEDS: LACTIC ACID 12% LOTION 225 GM BTL TOP SCH (09:00)
[2017-07-21] MEDS: TRIAMCINOLONE ACET 0.1% OINTMENT 15 GM EXT SCH (09:00)
[2017-07-21] MEDS ORDERED: LEVE1INJ5 SC (10:53)
--- NOTE | 2017-07-21 11:55 | DSES ---
DATE OF ADMISSION: 06/26/2017 DATE OF DISCHARGE: 07/21/2017 CONSULTATION: Louise Saldaña, pain management. INFECTIOUS DISEASE: Dr. Vaz CERTIFIED PEST CONTROL TECHNICIAN: Dr. Patel PRIMARY DISCHARGE DIAGNOSES: 1. Acute kidney injury on chronic kidney disease stage III. 2. Atrial fibrillation with rapid ventricular response. 3. Chronic obstructive pulmonary disease (COPD) exacerbation. 4. Right lower lobe pneumonia with methicillin-resistant Staphylococcus aureus 5. (MRSA) and Klebsiella. 6. Psoriasis. 7. Microcytic anemia with iron-deficiency anemia. 8. Uncontrolled Type 2 DM DISCHARGE MEDICATIONS: - Levemir insulin 40 units sq bid - Eliquis 5 mg twice a day - Coreg 25 twice a day - gabapentin 600 three times a day - probiotic one three times a day - zonisamide 50 twice a day - albuterol as needed every 4 - allopurinol 300 daily - ammonium lactate topically daily - aspirin 81 daily - calcium 625 daily - vitamin B12 500 mcg daily - ferrous sulfate 325 daily - Breo Ellipta one puff inhaled daily - hydroxyzine 50 nightly - magnesium oxide 400 daily - multivitamin one tablet daily - Prilosec 20 daily - pravastatin 20 daily - prednisone 20 three times a day - ropinirole 1 mg daily, 2 mg nightly - sertraline 25 nightly - Spiriva two inhaled daily FOLLOWUP ISSUES: Follow up with Dr. Vaz, Dr. Patel, and primary care physician within a week of discharge. 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 Patient had a history of MRSA in the sputum that was resistant to tetracycline, clindamycin, erythromycin, previously treated 05/25/2017 to 05/29/2017 with vancomycin and Zosyn. Readmitted on 06/20/2017 with two sets of cultures being negative. Complained of chest pain. CT chest on 06/20/2017, showed right lower lobe worsening pneumonia. Readmitted again on 06/26/2017 with diarrhea and persistent neuropathic pain. Patient had mild diarrhea at that time. Patient had neuropathic pain on the left side with left-sided weakness, left lower and upper extremity for 3 days. Not sure if it was related to Zyvox, which was discontinued. Patient was started back on intravenous (IV) vancomycin with improvement in his neuropathy. Patient has had three previous admissions for this. Infectious disease specialist had been consulted. Patient had no fever. White count improved. Patient remained afebrile throughout the entire admission. Patient's shortness of breath was further evaluated with repeat chest x-rays, showed persistent fibrosis, increase in markings, which may be chronic, with a pleuroparenchymal density, heart not being enlarged with no new infiltrate being seen. Due to lower extremity edema, venous Dopplers lower extremities were performed on 07/12/2017, which showed no deep venous thrombosis (DVT). Nephrology was consulted due to acute on chronic renal failure with hyponatremia. Patient was put on fluid restriction. He developed atrial fibrillation with rapid ventricular rate, treated with diltiazem with rate control. He was started on low dose renal dosing of Eliquis. Microbiology grew out MRSA, Klebsiella, and yeast. Patient was continued on Levaquin until 07/20/2017, and is discharged in stable condition. LABS ON DISCHARGE: White count 11.9, hemoglobin 13, hematocrit 40, platelet count 128, sodium 136, potassium 4.6, chloride 97, bicarbonate 30, BUN 57, creatinine 1.44, glucose 225. IMAGING STUDIES: CT of the head 07/12/2017: Minimal atrophy and vascular calcification. No acute intracranial abnormality. Chest x-ray: Fibrosis, interstitial edema difficult to exclude. Right basilar consolidation, pneumonitis; it may be less densely consolidated, but its extent is similar. A peripherally inserted central catheter (PICC) line was placed on 07/06/2017 due to poor IV access, discontinued prior to discharge. Cardiac markers were negative. Troponin less than 0.02. MICROBIOLOGY: Sputum culture 07/12/2017 Klebsiella oxytoca, MRSA, and yeast. TIME SPENT ON DISCHARGE: 30 minutes. edited: 07/21/2017 [id number]
[2017-07-23 14:16] LABS: ALDOSTERONE 2.4 ng/dL (0.0-30.0)
== END 2017-07-21 12:24 | disposition home or self-care (01) | DRG 73 ==
LOC: EDBD 20:47 → M ED 20:47 → M ED INP 06-26 01:52 → M MSPAV 06-26 02:45 → M ICU 07-12 01:03 → M PCU 07-14 22:30 → M MSPAV 07-20 15:06
PROVIDERS: ADMIT Internal Medicine; ATTEND General Practice
PROC: 02HV33Z Insertion of Infusion Device into Superior Vena Cava, Percutaneous Approach (ICD-10-PCS; principal; 2017-07-06)
DX: M79.2 Neuralgia and neuritis, unspecified (principal); J15.212 Pneumonia due to Methicillin resistant Staphylococcus aureus; A00.9 Cholera, unspecified; J44.1 Chronic obstructive pulmonary disease with (acute) exacerbation; N17.9 Acute kidney failure, unspecified; N25.1 Nephrogenic diabetes insipidus; G45.0 Vertebro-basilar artery syndrome; E87.2 Acidosis; G47.33 Obstructive sleep apnea (adult) (pediatric); G25.81 Restless legs syndrome; M10.9 Gout, unspecified; M48.02 Spinal stenosis, cervical region; E78.5 Hyperlipidemia, unspecified; M79.1 Myalgia; E66.9 Obesity, unspecified; I12.9 Hypertensive chronic kidney disease with stage 1 through stage 4 chronic kidney disease, or unspecified chronic kidney disease; F32.9 Major depressive disorder, single episode, unspecified; N18.3 Chronic kidney disease, stage 3 (moderate); E11.40 Type 2 diabetes mellitus with diabetic neuropathy, unspecified; Z85.118 Personal history of other malignant neoplasm of bronchus and lung; Z99.81 Dependence on supplemental oxygen; Z99.89 Dependence on other enabling machines and devices; Z90.2 Acquired absence of lung [part of]; Z92.3 Personal history of irradiation; Z79.82 Long term (current) use of aspirin; Z79.52 Long term (current) use of systemic steroids; Z88.8 Allergy status to other drugs, medicaments and biological substances; Z90.49 Acquired absence of other specified parts of digestive tract; Z90.5 Acquired absence of kidney; Z87.891 Personal history of nicotine dependence; Z85.528 Personal history of other malignant neoplasm of kidney